=== PATIENT | female | born 1945 | race Caucasian/White ===

== ENCOUNTER 2021-01-20 14:52 | Inpatient (IN) ==
[2021-01-20] MEDS ORDERED: STAT IV Infusion **Titration per Protocol STA ×2 (15:16→20:02)
[2021-01-20] MEDS ORDERED: Heparin IV Adult Wt-Based Low-Dose *NO* Bolus Protocol ONE (15:16)
[2021-01-20] MEDS ORDERED: dilTIAZem HCl 5 MG/ML 5 ML VIAL IV STA (15:16)
--- NOTE | 2021-01-20 15:22 | Emergency Department Note ---
History of Present Illness General Chief complaint: Cardiac Assessment Stated complaint: A. FIB, SOB Time Seen by Provider: 01/20/21 14:56 Source: patient Mode of arrival: EMS Limitations: no limitations History of Present Illness Provider complaint: Dyspnea, dizziness, new onset A. fib Onset (ago): unknown This is a 75-year-old female brought in by EMS from the pulmonology office after being found to have atrial fibrillation on EKG which is apparently new. Patient states she has a history of asthma, and this was a routinely scheduled visit with pulmonology. Patient recently moved up here in October after the of her to be closer to family and is reestablishing with local physicians. Patient does have a history of coronary artery disease and has 4 stents. She takes a baby aspirin daily, no other anticoagulation or antiplatelet therapy. Patient states she has a history of fluttering which has been going on for several years. Patient states was previously evaluated by her embedded nurse in [place], however no other interventions were performed. It would typically only last 20 to 30 minutes and then resolve. Patient states she notices a discomfort and fluttering after eating but attributes this to her history of esophagitis and prior Niesen fundoplication. Patient denies any recent change in her chronic asthma/dyspnea. No recent lower extremity edema. No fevers/chills or other URI symptoms. Patient was recently seen in the emergency department, moni gnosed with diverticulitis, and was started on Cipro/Flagyl for this. Pt seen during a time of high acuity and national emergency pandemic while wearing PPE. Home Medications Medication Instructions Recorded Confirmed Type acetaminophen 325 mg capsule 650 mg PO BID PRN 12/22/20 01/20/21 History albuterol sulfate 90 mcg/actuation 2 puff INHALATION Q6H PRN 12/22/20 01/20/21 History aerosol inhaler aspirin 81 mg tablet,delayed 81 mg PO QAM 12/22/20 01/20/21 History release carvedilol 3.125 mg tablet 3.125 mg PO BID 12/22/20 01/20/21 History cetirizine 10 mg capsule 10 mg PO DAILY PRN 12/22/20 01/20/21 History cholecalciferol (vitamin D3) 50 50 mcg PO QAM 12/22/20 01/20/21 History mcg (2,000 unit) capsule cyanocobalamin (vitamin B-12) 1,000 mcg PO QAM 12/22/20 01/20/21 History 1,000 mcg tablet diltiazem HCl 180 mg 180 mg PO QAM 12/22/20 01/20/21 History capsule,extended release 24 hr esomeprazole magnesium 40 mg 40 mg PO QAM 12/22/20 01/20/21 History capsule,delayed release ferrous sulfate 325 mg (65 mg 325 mg PO QAM 12/22/20 01/20/21 History iron) tablet fluoxetine 10 mg capsule 10 mg PO QAM 12/22/20 01/20/21 History fluticasone propionate 50 1 spray INTRANASAL QAM 12/22/20 01/20/21 History mcg/actuation nasal spray,suspension glucosamine HCl 1,500 mg tablet 1,500 mg PO QAM 12/22/20 01/20/21 History levothyroxine 88 mcg tablet 88 mcg PO QAM 12/22/20 01/20/21 History multivitamin 1 tab PO 3XWK 12/22/20 01/20/21 History omega-3 fatty acids-fish oil 360 1 cap PO 3XWK 12/22/20 01/20/21 History mg-1,200 mg capsule rosuvastatin 40 mg tablet 40 mg PO PM 12/22/20 01/20/21 History sennosides 8.6 mg capsule 8.6 mg PO DAILY PRN 12/22/20 01/20/21 History Domeperidone 10 mg PO TID 01/18/21 01/20/21 History ciprofloxacin HCl 500 mg PO BID #14 tab 01/18/21 01/20/21 Rx evolocumab [Repatha SureClick] 140 mg SUBCUT .Q2WEEK 01/18/21 01/20/21 History metronidazole [Flagyl] 500 mg PO Q8H 7 Days #21 tab 01/18/21 01/20/21 Rx fluticasone fur. 100 mcg-umeclid 1 inh INHALATION QAM #60 ea 01/20/21 01/20/21 Rx 62.5 mcg-vilant 25 mcg inhalat.powder montelukast 10 mg tablet 10 mg PO PM #30 tab 01/20/21 01/20/21 Rx Allergies Allergy/AdvReac Type Severity Reaction Status Date / Time Penicillins AdvReac Intermediate JOINTS Verified 01/20/21 16:03 BECAME STIFF sulfa Allergy Severe HIVES, Uncoded 01/20/21 16:03 MOUTH ULCERS, MOUTH SWELLED Past Med/Surg History Medical History Abnormal CT scan, chest Acute hemorrhoid Arthritis Asthma Bladder cancer Coronary artery disease Dizziness Dyspnea Heart trouble Hiatal hernia Hypertension Obesity (BMI 30.0-34.9) Surgical History H/O hernia repair H/O tubal ligation H/O vaginal hysterectomy History of cholecystectomy History of fundoplication History of heart artery stent History of left knee replacement History of repair of rotator cuff History of right hip replacement History of surgical removal of squamous cell carcinoma of skin of religious region Family History Mother Atrial fibrillation Coronary heart disease Father Crohn's disease Other Heart disease Hypertension Social History (Updated 01/20/21 @ 18:38 by Michelle Butterfield PA-C) Smoking Status: Never smoker Second Hand Exposure: Yes; Do You Dip or Chew Tobacco: No; Hx Alcohol Use: Yes Hx Substance Use: No Preferred Language: Hebrew 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 Ability: Effective Cabinet Professional Required: Yes Beliefs That Will Affect Care: None marital status: / Current Living Situation: Family Current Living Situation Comment: Lives with daughter Feels Safe at Home: Yes Safety Concerns: Feels Safe At This Time Assistive Devices: Glasses Review of Systems See HPI for pertinent positives & negatives. and A total of 10 systems reviewed and were otherwise negative Physical Exam Vital Signs Vital Signs - 24 hr 01/20/21 15:00 01/20/21 15:05 01/20/21 15:09 Temperature 36.9 C Temperature Source Oral Pulse Rate 150 H 125 H Pulse Rate from SpO2 Sensor 108 H Respiratory Rate 20 20 Blood Pressure 157/99 H 157/99 H Blood Pressure Mean 118 118 Pulse Oximetry 94 95 95 Oxygen Delivery Method Room Air Room Air Sepsis Recent Fever Within 48 Hours No Sepsis New/Unexplained Change in Mental Status N/A Sepsis Action Taken by Nursing No Action Required 01/20/21 15:14 01/20/21 15:20 01/20/21 15:30 Temperature Temperature Source Pulse Rate 149 H 147 H 126 H Pulse Rate from SpO2 Sensor 112 H 118 H 115 H Respiratory Rate 20 23 20 Blood Pressure 135/91 Blood Pressure Mean 105 Pulse Oximetry 94 94 94 Oxygen Delivery Method Sepsis Recent Fever Within 48 Hours Sepsis New/Unexplained Change in Mental Status Sepsis Action Taken by Nursing 01/20/21 15:40 01/20/21 15:50 01/20/21 16:00 Temperature Temperature Source Pulse Rate 144 H 151 H 105 H Pulse Rate from SpO2 Sensor 129 H 111 H 129 H Respiratory Rate 17 27 H Blood Pressure Blood Pressure Mean Pulse Oximetry 93 92 93 Oxygen Delivery Method Sepsis Recent Fever Within 48 Hours Sepsis New/Unexplained Change in Mental Status Sepsis Action Taken by Nursing 01/20/21 16:01 01/20/21 16:10 01/20/21 16:20 Temperature Temperature Source Pulse Rate 127 H 132 H 144 H Pulse Rate from SpO2 Sensor 91 H 112 H 126 H Respiratory Rate 17 17 24 Blood Pressure 140/102 H Blood Pressure Mean 114 Pulse Oximetry 94 93 94 Oxygen Delivery Method Sepsis Recent Fever Within 48 Hours Sepsis New/Unexplained Change in Mental Status Sepsis Action Taken by Nursing 01/20/21 16:30 01/20/21 16:32 01/20/21 16:40 Temperature Temperature Source Pulse Rate 136 H 136 H 119 H Pulse Rate from SpO2 Sensor 105 H 119 H 120 H Respiratory Rate 20 21 22 Blood Pressure 101/87 Blood Pressure Mean 91 Pulse Oximetry 91 93 95 Oxygen Delivery Method Sepsis Recent Fever Within 48 Hours Sepsis New/Unexplained Change in Mental Status Sepsis Action Taken by Nursing 01/20/21 16:42 01/20/21 16:50 01/20/21 17:00 Temperature Temperature Source Pulse Rate 113 H 148 H 121 H Pulse Rate from SpO2 Sensor 120 H 113 H 84 Respiratory Rate 24 28 H 21 Blood Pressure 132/73 Blood Pressure Mean 92 Pulse Oximetry 94 95 93 Oxygen Delivery Method Sepsis Recent Fever Within 48 Hours Sepsis New/Unexplained Change in Mental Status Sepsis Action Taken by Nursing 01/20/21 17:01 01/20/21 17:10 01/20/21 17:20 Temperature Temperature Source Pulse Rate 121 H 119 H 131 H Pulse Rate from SpO2 Sensor 98 H 80 90 Respiratory Rate 20 22 20 Blood Pressure 104/80 Blood Pressure Mean 88 Pulse Oximetry 92 94 94 Oxygen Delivery Method Sepsis Recent Fever Within 48 Hours Sepsis New/Unexplained Change in Mental Status Sepsis Action Taken by Nursing 01/20/21 17:30 01/20/21 17:40 01/20/21 17:50 Temperature Temperature Source Pulse Rate 115 H 120 H 115 H Pulse Rate from SpO2 Sensor 93 H 97 H 96 H Respiratory Rate 21 37 H 19 Blood Pressure 135/83 Blood Pressure Mean 100 Pulse Oximetry 94 94 95 Oxygen Delivery Method Sepsis Recent Fever Within 48 Hours Sepsis New/Unexplained Change in Mental Status Sepsis Action Taken by Nursing 01/20/21 17:59 Temperature Temperature Source Pulse Rate Pulse Rate from SpO2 Sensor Respiratory Rate Blood Pressure 124/68 Blood Pressure Mean 86 Pulse Oximetry Oxygen Delivery Method Sepsis Recent Fever Within 48 Hours Sepsis New/Unexplained Change in Mental Status Sepsis Action Taken by Nursing GENERAL: alert, well appearing, well nourished, no distress, non-toxic EYE EXAM: normal conjunctiva, PERRL and EOM's grossly intact OROPHARYNX: no exudate, no erythema, lips, buccal mucosa, and tongue normal and mucous membranes are moist NECK: supple, no nuchal rigidity, no adenopathy, non-tender LUNGS: Clear to auscultation. Normal chest wall mechanics, no w/r/r HEART: no murmurs, S1 normal and S2 normal ABDOMEN: abdomen soft, non-tender, normo-active bowel sounds, no masses, no rebound or guarding. BACK: Back is symmetrical on inspection and there is no deformity, no midline tenderness, no CVA tenderness. SKIN: no rashes and no bruising UPPER EXTREMITIES: upper extremities are grossly normal. FROM, nml pulses b/l. LOWER EXTREMITIES: No pitting edema. FROM, nml pulses b/l. NEURO EXAM: Normal sensorium, cranial nerves II-XII grossly intact, normal speech, no gross weakness of arms, no gross weakness of legs. Gross sensation intact. Course Course 1700: Updated patient and daughter at bedside. Heart rate is improved on Cardizem drip at 10. 1748: Discussed with Naima Melgar [facility] hospitalist service. Administered Medications Carvedilol (Carvedilol 3.125 Mg Tab) 3.125 mg PO BID [facility] Stop: 02/19/21 20:59 Last Admin: 01/20/21 21:44 Dose: 3.125 mg Documented by: [id number] Cefdinir (Cefdinir 300 Mg Cap) 300 mg PO BID [facility] Stop: 01/30/21 20:59 Last Admin: 01/20/21 21:42 Dose: 300 mg Documented by: [id number] Diltiazem HCl 125 mg/ Dextrose 125 mls @ 10 mls/hr IV .[id number] JANE; Protocol Stop: 02/19/21 15:29 Last Titration: 01/20/21 17:47 Dose: 15 mg/hr, 15 mls/hr Documented by: [id number] Cosigned by: [id number] Titration: 01/20/21 15:58 Dose: 10 mg/hr, 10 mls/hr Documented by: [id number] Cosigned by: [id number] Admin: 01/20/21 15:37 Dose: 5 mg/hr, 5 mls/hr Documented by: [id number] Cosigned by: [id number] Heparin Sodium/Dextrose (Heparin Sodium/Dextrose) 25,000 units in 500 mls @ 19 mls/hr IV .Q24H JANE; Protocol Stop: 02/19/21 15:29 Last Admin: 01/20/21 16:35 Dose: 950 units/hr, 19 mls/hr Documented by: [id number] Cosigned by: [id number] Metronidazole (Metronidazole 500 Mg Tab) 500 mg PO Q8 JANE Stop: 01/24/21 23:59 Last Admin: 01/20/21 21:43 Dose: 500 mg Documented by: [id number] Miscellaneous (Domperidone - Order Awaiting Action) 1 ea N/A QS [facility] Stop: 02/20/21 00:00 Last Admin: 01/20/21 22:42 Dose: Not Given Documented by: [id number] Montelukast Sodium (Montelukast Sodium 10 Mg Tablet) 10 mg PO PM JANE Stop: 02/19/21 20:59 Last Admin: 01/20/21 21:43 Dose: 10 mg Documented by: [id number] Rosuvastatin Calcium (Rosuvastatin Calcium 20 Mg Tab) 40 mg PO PM JANE Stop: 02/19/21 20:59 Last Admin: 01/20/21 21:43 Dose: 40 mg Documented by: [id number] Discontinued Medications Diltiazem HCl (Diltiazem Hcl 5 Mg/Ml 5 Ml Vial) 10 mg IV NOW STA Stop: 01/20/21 15:17 Last Admin: 01/20/21 15:25 Dose: 10 mg Documented by: [id number] Cosigned by: [id number] Heparin Sodium/Dextrose (Heparin Iv Adult Wt-Based Low-Dose *No* Bolus Protocol) 1 ea N/A ONE ONE; Protocol Stop: 01/20/21 15:17 Last Admin: 01/20/21 22:41 Dose: Not Given Documented by: [id number] Miscellaneous (Stat Iv Infusion Titration Per Protocol) 1 ea N/A NOW STA Stop: 01/20/21 15:17 Last Admin: 01/20/21 22:41 Dose: Not Given Documented by: [id number] Potassium Chloride (Potassium Chloride Crtab 20 Meq Tabcr) 20 meq PO NOW STA Stop: 01/20/21 18:42 Last Admin: 01/20/21 18:55 Dose: 20 meq Documented by: [id number] Critical Care Time Critical Care Time: Yes Total Critical Care Time: 42 Critical care of 42 min performed to assess and manage high likelihood of life- threatening dysrhythmia, involving labs and imaging performed with assessment to evaluate dysrhythmia diagnosis with frequent reassessment. This time includes bedside time, treatment discussions with patient/family/consultants, documentation time and excludes procedure time. Medical Decision Making Differential Diagnosis Differential diagnosis includes etiologies such as premature contractions, electrolyte abnormality, cardiac dysrhythmia, thyroid dysfunction, pulmonary embolism, infection, gastrointestinal, as well as others were entertained. Medical Records Attestation: I reviewed the patient's medical records. Home Medications Current Medication List: was personally reviewed by me Laboratory Data Attestation: I reviewed the patient's lab results. Result diagrams: 01/20/21 14:45 01/20/21 14:45 Lab Results 01/20/21 01/20/21 01/20/21 Range/Units 14:45 14:45 14:45 WBC 6.96 (4.8-10.8) K/uL RBC 4.23 (4.2-5.4) M/uL Hgb 13.0 (12.0-16.0) g/dL Hct 39.9 (37-47) % MCV 94.3 (80-100) fL MCH 30.7 (25-34) pg MCHC 32.6 (32-36) g/dL RDW Std Deviation 46.8 H (36.4-46.3) fL RDW Coeff of Alexy 13.6 (11.5-14.5) % Plt Count 230 (130-400) K/uL MPV 10.4 (7.4-10.4) fL Immature Gran % (Auto) 0.1 % Neut % (Auto) 62.2 % Lymph % (Auto) 23.1 % [place] % (Auto) 8.5 % Eos % (Auto) 5.2 % Baso % (Auto) 0.9 % Neut # (Auto) 4.33 (1.4-6.5) K/uL Lymph # (Auto) 1.61 (1.2-3.4) K/uL [place] # (Auto) 0.59 (0.11-0.59) K/uL Eos # (Auto) 0.36 (0-0.5) K/uL Baso # (Auto) 0.06 (0-0.2) K/uL Immature Gran # (Auto) 0.01 (0.00-0.02) K/uL PT 10.5 (9.0-12.0) Seconds INR 1.0 (0.9-1.1) Sodium 139 (136-145) mmol/L Potassium 3.8 (3.5-5.1) mmol/L Chloride 110 H (98-107) mmol/L Carbon Dioxide 21 (21-32) mmol/L Anion Gap 8.0 (3-11) BUN 17 (7-18) mg/dl Creatinine 0.94 (0.6-1.2) mg/dl Est Cr Clr Drug Dosing 64.3 ml/min Est GFR ( Amer) 68.3 ml/min Est GFR (Non-Af Amer) 58.9 ml/min BUN/Creatinine Ratio 17.8 (10-20) Glucose 95 (70-99) mg/dl Calcium 8.5 (8.5-10.1) mg/dl Magnesium 2.0 (1.8-2.4) mg/dl Total Bilirubin 0.4 (0.2-1) mg/dl AST 14 L (15-37) U/L ALT 18 (12-78) U/L Alkaline Phosphatase 134 H (45-117) U/L Troponin I 0.016 (0-0.045) ng/ml NT-Pro-B Natriuret Pep 1029 (0-1800) pg/ml Total Protein 7.4 (6.4-8.2) gm/dl Albumin 3.5 (3.4-5.0) gm/dl Globulin 3.9 (2.5-4.0) gm/dl Albumin/Globulin Ratio 0.9 (0.9-2) Lipase 95 (73-393) U/L TSH 1.130 (0.300-4.500) uIu/ml COVID-19 Eval Order SARS-CoV-2 (PCR) (Negative) 01/20/21 01/20/21 Range/Units 17:35 17:35 WBC (4.8-10.8) K/uL RBC (4.2-5.4) M/uL Hgb (12.0-16.0) g/dL Hct (37-47) % MCV (80-100) fL MCH (25-34) pg MCHC (32-36) g/dL RDW Std Deviation (36.4-46.3) fL RDW Coeff of Alexy (11.5-14.5) % Plt Count (130-400) K/uL MPV (7.4-10.4) fL Immature Gran % (Auto) % Neut % (Auto) % Lymph % (Auto) % [place] % (Auto) % Eos % (Auto) % Baso % (Auto) % Neut # (Auto) (1.4-6.5) K/uL Lymph # (Auto) (1.2-3.4) K/uL [place] # (Auto) (0.11-0.59) K/uL Eos # (Auto) (0-0.5) K/uL Baso # (Auto) (0-0.2) K/uL Immature Gran # (Auto) (0.00-0.02) K/uL PT (9.0-12.0) Seconds INR (0.9-1.1) Sodium (136-145) mmol/L Potassium (3.5-5.1) mmol/L Chloride (98-107) mmol/L Carbon Dioxide (21-32) mmol/L Anion Gap (3-11) BUN (7-18) mg/dl Creatinine (0.6-1.2) mg/dl Est Cr Clr Drug Dosing ml/min Est GFR ( Amer) ml/min Est GFR (Non-Af Amer) ml/min BUN/Creatinine Ratio (10-20) Glucose (70-99) mg/dl Calcium (8.5-10.1) mg/dl Magnesium (1.8-2.4) mg/dl Total Bilirubin (0.2-1) mg/dl AST (15-37) U/L ALT (12-78) U/L Alkaline Phosphatase (45-117) U/L Troponin I (0-0.045) ng/ml NT-Pro-B Natriuret Pep (0-1800) pg/ml Total Protein (6.4-8.2) gm/dl Albumin (3.4-5.0) gm/dl Globulin (2.5-4.0) gm/dl Albumin/Globulin Ratio (0.9-2) Lipase (73-393) U/L TSH (0.300-4.500) uIu/ml COVID-19 Eval Order Covid19 at [facility] SARS-CoV-2 (PCR) NEGATIVE (Negative) Imaging Data Radiologist's Impression: Chest X-Ray 01/20/21 15:16 XR chest 1V portable CLINICAL HISTORY: Shortness of breath. COMPARISON STUDY: No previous studies for comparison. FINDINGS: Lung volumes are normal. Lungs are clear. There is no pneumothorax or pleural effusion. Cardiac size is normal. Mediastinal contours are normal. There is no evidence for pulmonary edema. A hiatal hernia is noted. IMPRESSION: No acute cardiopulmonary findings. ACT 112: Negative or not required by law. Electronically signed by: Jake Renteria M.D. 01/20/2021 3:44 PM ECG Data Attestation: I personally reviewed and interpreted this ECG as follows: Rate (beats per minute): 138 Rhythm: + atrial fibrillation ECG Intervals/blocks: + Normal QRS and + Normal QT ECG [place]: + Left axis deviation ECG ST segments: + Nonspecific ST abnormalities MDM Narrative This is a 75-year-old female who presents after being referred from her search engine marketing strategist office for new onset A. fib. Patient found to have A. fib with RVR here, however was otherwise hemodynamically stable. Patient started on diltiazem drip. No contraindication for heparin was noted on my conversation so patient started on heparin drip given unclear onset of symptoms this patient admitted to intermittent fluttering for 2 years, and longstanding history of intermittent dyspnea which she felt was related to her asthma. Patient also admitted to recent dizziness which she felt was more likely to be dehydration. No recent illness or infection. I do not suspect occult infectious etiology such as pericarditis/myocarditis. Patient does have history of CAD status post stenting. Patient was improved with Cardizem drip. I do not suspect PE or ACS. Do not suspect pericardial effusion/tamponade, dissection, or increased thoracic aneurysm. Case discussed with hospitalist team for additional evaluation and management. An order was placed for continuous cardiac monitoring. The monitor shows a rate of _137_ with _Atrial fibrillation_ rhythm. Impression & Plan Atrial fibrillation with rapid ventricular response, Dyspnea, Coronary artery disease, Dizziness Discharge Plan Visit Data Chief Complaint: Cardiac Assessment Stated Complaint: A. FIB, SOB ED Provider: Omaira Barton Discharge Problem: Atrial fibrillation with rapid ventricular response, Dyspnea, Coronary artery disease, Dizziness Patient Disposition: Admitted As Inpatient Discharge Instructions Interventions: ED Discharge Assessment Last Done: 01/20/21 19:48 Discharge Problem: Dyspnea Qualifiers: Dyspnea type: shortness of breath Qualified Code(s): R06.02 - Shortness of breath Coronary artery disease Qualifiers: Coronary Disease-Associated Artery/Lesion type: [place] artery [place] vs. transplanted heart: [place] heart Associated angina: unspecified whether angina present Qualified Code(s): I25.10 - Atherosclerotic heart disease of [place] coronary artery without angina pectoris
[2021-01-20] MEDS ORDERED: HEPARIN SODIUM/DEXTROSE 25,000 UNITS/500 ML BAG IV SCH ×2 (15:30→20:02)
[2021-01-20 15:31] LABS: Basophils # (auto) 0.06 K/uL (0-0.2); Basophils % (auto) 0.9 %; Eosinophils # (auto) 0.36 K/uL (0-0.5); Eosinophils % (auto) 5.2 %; Hematocrit (blood only) 39.9 % (37-47); Immature Granulocytes # (auto) 0.01 K/uL (0.00-0.02); Immature Granulocytes % (auto) 0.1 %; Lymphocytes # (auto) 1.61 K/uL (1.2-3.4); Lymphocytes % (auto) 23.1 %; Mean Corpuscular Hemoglobin 30.7 pg (25-34); Mean Corpuscular Hgb Conc 32.6 g/dL (32-36); Mean Corpuscular Volume 94.3 fL (80-100); Mean Platelet Volume 10.4 fL (7.4-10.4); Monocytes # (auto) 0.59 K/uL (0.11-0.59); Monocytes % (auto) 8.5 %; Neutrophils # (auto) 4.33 K/uL (1.4-6.5); Neutrophils % (auto) 62.2 %; Platelet Count 230 K/uL (130-400); RDW Coefficient of Variation 13.6 % (11.5-14.5); RDW Standard Deviation 46.8 fL (36.4-46.3); Red Blood Count 4.23 M/uL (4.2-5.4); White Blood Count 6.96 K/uL (4.8-10.8)
[2021-01-20] MEDS: dilTIAZem HCL 125 MG in DEXTROSE 5% 100 ML IV SCH (15:37)
--- NOTE | 2021-01-20 15:45 | XRay Report ---
XR chest 1V portable CLINICAL HISTORY: Shortness of breath. COMPARISON STUDY: No previous studies for comparison. FINDINGS: Lung volumes are normal. Lungs are clear. There is no pneumothorax or pleural effusion. Car diac size is normal. Mediastinal contours are normal. There is no evidence for pulmonary edema. A hia paulie hernia is noted. IMPRESSION: No acute cardiopulmonary findings. ACT 112: Negative or not required by law. Electronically signed by: Jake Renteria M.D. 01/20/2021 3:44 PM
[2021-01-20 15:46] LABS: Prothrombin Time 10.5 Seconds (9.0-12.0)
[2021-01-20 15:56] LABS: Albumin Level 3.5 gm/dl (3.4-5.0); BUN Creatinine Ratio 17.8 (10-20); Calcium 8.5 mg/dl (8.5-10.1); Creatinine Clr Calc Pharmacy 64.3 ml/min; Est GFR (African American) 68.3 ml/min; Est GFR (Non-African American) 58.9 ml/min; Potassium 3.8 mmol/L (3.5-5.1)
[2021-01-20 16:07] LABS: Albumin Globulin Ratio 0.9 (0.9-2); Bilirubin,Total 0.4 mg/dl (0.2-1); Globulin 3.9 gm/dl (2.5-4.0); Thyroid Stimulating Hormone 1.13 uIu/ml (0.300-4.500); Total Protein 7.4 gm/dl (6.4-8.2); Troponin I 0.016 ng/ml (0-0.045)
--- NOTE | 2021-01-20 18:39 | History & Physical Report ---
Date of Service January 20, 2021 Assessment & Plan (1) Atrial fibrillation with RVR: This is a 75 year old F who has a significant PMH of CAD with of stent x 4 in 2019, Urothelial bladder ca undergoing current bcg tx, HTN, GERD with history of nasal fundoplication, hypothyroidism, depression who presents to ED at the referral of pulmonary clinic secondary to being found in atrial fibrillation with RVR. New onset afib, unknown duration she was in ED on 01/18, no ecg done, documented regular rhythm acute onset of dizziness today [id number] admit to PCU continue diltiazem gtt and heparin gtt on coreg and diltiazem as outpt for cad/htn replace K, keep K > 4 mag > 2 obtain echocardiogram cycle trops, ecg in a.[place]. (2) Diverticulitis: hx 01/18 after presenting to ED with abd pain mild sigmoid diverticulitis was on cipro/flagyl (day #2) will switch to omnicef and flagyl avoid quinolones in setting of afib and possible interaction with cardiac meds no leukocytosis, abd pain resolved (3) Coronary artery disease: hx of stent x 4 in 2019, followed cardiology in [place] will need to obtain records of prior medical facility [place] on asa, statin, repatha, coreg cardiology consulted (4) Bladder cancer: High-grade T1 urothelial cell carcinoma Established with [facility] Last BCG treatment was on 01/17 (5) Hypertension: continue coreg, diltiazem bp stable (6) Asthma: no acute exac continue trelegy, prn albuterol, singulair (7) DVT prophylaxis: IV heparin Dispo: PCU PCP: To establish with Dr. Millan on 01/26/21 FULL CODE Pt was seen and examined in collaboration with Dr. Keith, please see addendum History of Present Illness Chief Complaint: Referred by pulm due to afib Primary Care Provider: Shelia Millan, DO This is a 75 year old F who has a significant PMH of CAD with of stent x 4 in 2019, Urothelial bladder ca undergoing current bcg tx, HTN, GERD with history of nasal fundoplication, hypothyroidism, depression who presents to ED at the referral of pulmonary clinic secondary to being found in atrial fibrillation with RVR. Patient previously resided in [place] and unfortunately her in October during hospitalization from cardiac arrest. She moved up to [place] to live with her daughter and is currently in the process of establishing care with specialists and PCP. She is scheduled to see [facility] PCP on 01/26/2021. So far she is established with [facility] urology in order to continue on BCG treatments as well as [facility] pulmonology for asthma. She woke up this morning and felt very dizzy, described it like a passing out. She has never experienced this before. Shortly after breakfast she felt her heart flutter. She has felt this on and off for the past year. She has underlying history of CAD for which she saw cardiology in [place] but no prior history atrial fibrillation. She elicits her mother had a history of atrial fibrillation and CAD. Patient also has hx of asthma and chronic SOB, but feels it is unchanged. She was establishing with pulmonology today when she described her dizziness and fluttering. An EKG was obtained which found her to be in rapid A. fib and she was referred to ED. She was seen in ED on 01/18 secondary to abdominal pain. At that point in time it was documented that she was in regular rhythm. Patient states that she did not have an EKG done that day. It was felt her abdominal pain was likely secondary to a mild diverticulitis and she was started on Cipro and Flagyl. CT scan at that time also was concerning for moderate hiatal hernia with circumferential wall thickening of distal esophagus concerning for esophagitis. Patient is scheduled to see [facility] next week. So far she has completed 1.5 days of antibiotic regimen and her abdominal pain has since subsided. She otherwise denies fever, chills, sweats, chest pain, shortness of breath, cough, URI symptoms, nausea, vomiting, abdominal pain, increased urinary urgency, frequency, hematuria, melena or hematochezia. Last bcg treatment on Sunday with urology. She denies hx of blood thinner in past. She was on plavix for one year after stents. No hx of bleeding problems. She does history of hypothyroidism and TSH is normal today. Patient remained hemodynamically stable in ER but was in rapid ventricular rate on arrival with rates in the 130s. She received a diltiazem bolus and started on drip. She was also placed on heparin drip. Daughter is at bedside. Allergies Allergy/AdvReac Type Severity Reaction Status Date / Time Penicillins AdvReac Intermediate JOINTS Verified 01/20/21 16:03 BECAME STIFF sulfa Allergy Severe HIVES, Uncoded 01/20/21 16:03 MOUTH ULCERS, MOUTH SWELLED Home Medications Medication Instructions Recorded Confirmed Type acetaminophen 325 mg capsule 650 mg PO BID PRN 12/22/20 01/20/21 History albuterol sulfate 90 mcg/actuation 2 puff INHALATION Q6H PRN 12/22/20 01/20/21 H istory aerosol inhaler aspirin 81 mg tablet,delayed 81 mg PO QAM 12/22/20 01/20/21 History release carvedilol 3.125 mg tablet 3.125 mg PO BID 12/22/20 01/20/21 History cetirizine 10 mg capsule 10 mg PO DAILY PRN 12/22/20 01/20/21 History cholecalciferol (vitamin D3) 50 50 mcg PO QAM 12/22/20 01/20/21 History mcg (2,000 unit) capsule cyanocobalamin (vitamin B-12) 1,000 mcg PO QAM 12/22/20 01/20/21 History 1,000 mcg tablet diltiazem HCl 180 mg 180 mg PO QA 12/22/20 01/20/21 History capsule,extended release 24 hr esomeprazole magnesium 40 mg 40 mg PO QAM 12/22/20 01/20/21 History capsule,delayed release ferrous sulfate 325 mg (65 mg 325 mg PO QAM 12/22/20 01/20/21 History iron) tablet fluoxetine 10 mg capsule 10 mg PO QA 12/22/20 01/20/21 History fluticasone propionate 50 1 spray INTRANASAL QA 12/22/20 01/20/21 History mcg/actuation nasal spray,suspension glucosamine HCl 1,500 mg tablet 1,500 mg PO QAM 12/22/20 01/20/21 History levothyroxine 88 mcg tablet 88 mcg PO QAM 12/22/20 01/20/21 History multivitamin 1 tab PO 3XWK 12/22/20 01/20/21 History omega-3 fatty acids-fish oil 360 1 cap PO 3XWK 12/22/20 01/20/21 History mg-1,200 mg capsule rosuvastatin 40 mg tablet 40 mg PO PM 12/22/20 01/20/21 History sennosides 8.6 mg capsule 8.6 mg PO DAILY PRN 12/22/20 01/20/21 History Domeperidone 10 mg PO TID 01/18/21 01/20/21 History ciprofloxacin HCl 500 mg PO BID #14 tab 01/18/21 01/20/21 Rx evolocumab [Repatha SureClick] 140 mg SUBCUT .Q2WEEK 01/18/21 01/20/21 History metronidazole [Flagyl] 500 mg PO Q8H 7 Days #21 tab 01/18/21 01/20/21 Rx fluticasone fur. 100 mcg-umeclid 1 inh INHALATION QAM #60 ea 01/20/21 01/20/21 Rx 62.5 mcg-vilant 25 mcg inhalat.powder montelukast 10 mg tablet 10 mg PO PM #30 tab 01/20/21 01/20/21 Rx Past Med/Surg History Medical History Abnormal CT scan, chest Acute hemorrhoid Arthritis Asthma Bladder cancer Coronary artery disease Dizziness Dyspnea Heart trouble Hiatal hernia Hypertension Obesity (BMI 30.0-34.9) Surgical History H/O hernia repair H/O tubal ligation H/O vaginal hysterectomy History of cholecystectomy History of fundoplication History of heart artery stent History of left knee replacement History of repair of rotator cuff History of right hip replacement History of surgical removal of squamous cell carcinoma of skin of [place]aoist region Family History Mother Atrial fibrillation Coronary heart disease Father Crohn's disease Other Heart disease Hypertension Social History (Updated 01/20/21 @ 18:38 by Michelle Butterfield PA-C) Smoking Status: Never smoker Second Hand Exposure: Yes; Do You Dip or Chew Tobacco: No; Hx Alcohol Use: Yes Hx Substance Use: No Preferred Language: Danish 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 Ability: Effective Woods Boss Required: Yes Beliefs That Will Affect Care: None marital status: / Current Living Situation: Family Current Living Situation Comment: Lives with daughter Feels Safe at Home: Yes Safety Concerns: Feels Safe At This Time Assistive Devices: Glasses Review of Systems Review of Systems: All systems reviewed & are unremarkable except as noted in HPI & below Physical Exam Physical Exam: Constitutional: WD/WN, vitals as above, NAD, sitting up in bed, pleasant, conversing easily Head: Normocephalic, Atraumatic Eyes: PERRL, conjunctivae normal, anicteric sclerae ENMT: external ear and nose normal, oropharynx normal Neck: trachea midline, no thyromegaly normal visual inspection Respiratory: normal respiratory effort, lungs clear to auscultation, no wheeze, rales, rhonchi. Normal insp/exp effort, no accessory muscle use Cardiovascular: IRR/IRR, no murmur, no edema Vessels: no JVD or carotid bruit Chest: normal inspection of chest Abdomen: normal bowel sounds, soft, nontender, no hepatosplenomegaly Musculoskeletal: no cyanosis or clubbing, extremities motor strength 5/5 Skin: no rashes, warm and dry normal turgor Neurologic: PERRL, EOMI, accommodation nl, no face palsy, no dysarthria CN's II-XI intact bilaterally and moves all extremities Psychiatric: A+Ox3, euthymic affect : deferred Results & Data Results & Data ([facility]) Vital Signs (Past 12 Hours) Vital Signs Temp Pulse Resp BP Pulse Ox 01/20/21 18:10 127 H 20 124/68 96 01/20/21 18:04 129 H 24 93 01/20/21 17:59 124/68 01/20/21 17:50 115 H 19 95 01/20/21 17:40 120 H 37 H 94 01/20/21 17:30 115 H 21 135/83 94 01/20/21 17:20 131 H 20 94 01/20/21 17:10 119 H 22 94 01/20/21 17:01 121 H 20 104/80 92 01/20/21 17:00 121 H 21 93 01/20/21 16:50 148 H 28 H 95 01/20/21 16:42 113 H 24 132/73 94 01/20/21 16:40 119 H 22 95 01/20/21 16:32 136 H 21 101/87 93 01/20/21 16:30 136 H 20 91 01/20/21 16:20 144 H 24 94 01/20/21 16:10 132 H 17 93 01/20/21 16:01 127 H 17 140/102 H 94 01/20/21 16:00 105 H 93 01/20/21 15:50 151 H 27 H 92 01/20/21 15:40 144 H 17 93 01/20/21 15:30 126 H 20 135/91 94 01/20/21 15:20 147 H 23 94 01/20/21 15:14 149 H 20 94 01/20/21 15:09 95 01/20/21 15:05 125 H 20 157/99 H 95 01/20/21 15:00 36.9 C 150 H 20 157/99 H 94 Diagnostic Findings Chest X-Ray 01/20/21 15:16 XR chest 1V portable CLINICAL HISTORY: Shortness of breath. COMPARISON STUDY: No previous studies for comparison. FINDINGS: Lung volumes are normal. Lungs are clear. There is no pneumothorax or pleural effusion. Cardiac size is normal. Mediastinal contours are normal. There is no evidence for pulmonary edema. A hiatal hernia is noted. IMPRESSION: No acute cardiopulmonary findings. ACT 112: Negative or not required by law. Electronically signed by: Jake Renteria M.D. 01/20/2021 3:44 PM Medications Administered Diltiazem HCl 125 mg/ Dextrose 125 mls @ 10 mls/hr IV .[id number] [facility]; Protocol Stop: 02/19/21 15:29 Last Titration: 01/20/21 17:47 Dose: 15 mg/hr, 15 mls/hr Documented by: [id number] Cosigned by: [id number] Titration: 01/20/21 15:58 Dose: 10 mg/hr, 10 mls/hr Documented by: [id number] Cosigned by: [id number] Admin: 01/20/21 15:37 Dose: 5 mg/hr, 5 mls/hr Documented by: [id number] Cosigned by: [id number] Heparin Sodium/Dextrose (Heparin Sodium/Dextrose) 25,000 units in 500 mls @ 19 mls/hr IV .Q24H [facility]; Protocol Stop: 02/19/21 15:29 Last Admin: 01/20/21 16:35 Dose: 950 units/hr, 19 mls/hr Documented by: [id number] Cosigned by: [id number] Discontinued Medications Diltiazem HCl (Diltiazem Hcl 5 Mg/Ml 5 Ml Vial) 10 mg IV NOW STA Stop: 01/20/21 15:17 Last Admin: 01/20/21 15:25 Dose: 10 mg Documented by: [id number] Cosigned by: [id number] ECG Rate (beats per minute): 138 Rhythm: atrial fibrillation COVID-19 Results Results COVID-19 Adm Lab Results: RBC 4.23 M/uL (4.2-5.4) 01/20/21 WBC 6.96 K/uL (4.8-10.8) 01/20/21 Hgb 13.0 g/dL (12.0-16.0) 01/20/21 Hct 39.9 % (37-47) 01/20/21 Plt Count 230 K/uL (130-400) 01/20/21 Neutrophils (%) (Auto) 62.2 % 01/20/21 Lymphocytes (%) (Auto) 23.1 % 01/20/21 Monocytes # (Auto) 0.59 K/uL (0.11-0.59) 01/20/21 Eosinophils # (Auto) 0.36 K/uL (0-0.5) 01/20/21 Immature Granulocyte % (Auto) 0.1 % 01/20/21 Neutrophils # (Auto) 4.33 K/uL (1.4-6.5) 01/20/21 Lymphocytes # (Auto) 1.61 K/uL (1.2-3.4) 01/20/21 Monocytes # (Auto) 0.59 K/uL (0.11-0.59) 01/20/21 Eosinophils # (Auto) 0.36 K/uL (0-0.5) 01/20/21 Basophils # (Auto) 0.06 K/uL (0-0.2) 01/20/21 Immature Granulocyte # (Auto) 0.01 K/uL (0.00-0.02) 01/20/21 Na 139 mmol/L (136-145) 01/20/21 K 3.8 mmol/L (3.5-5.1) 01/20/21 Cl 110 mmol/L (98-107) H 01/20/21 CO2 21 mmol/L (21-32) 01/20/21 Anion Gap 8.0 (3-11) 01/20/21 BUN 17 mg/dl (7-18) 01/20/21 Creatinine 0.94 mg/dl (0.6-1.2) 01/20/21 BUN/Creatinine Ratio 17.8 (10-20) 01/20/21 Glucose Level 95 mg/dl (70-99) 01/20/21 Ca 8.5 mg/dl (8.5-10.1) 01/20/21 Total Bilirubin 0.4 mg/dl (0.2-1) 01/20/21 AST/SGOT 14 U/L (15-37) L 01/20/21 ALT/SGPT 18 U/L (12-78) 01/20/21 Alkaline Phosphatase 134 U/L (45-117) H 01/20/21 Total Protein 7.4 gm/dl (6.4-8.2) 01/20/21 Albumin 3.5 gm/dl (3.4-5.0) 01/20/21 Globulin 3.9 gm/dl (2.5-4.0) 01/20/21 Albumin/Globulin Ratio 0.9 (0.9-2) 01/20/21 Troponin I 0.016 ng/ml (0-0.045) 01/20/21 IC-Ill-H-Type Natriuretic Pep 1029 pg/ml (0-1800) 01/20/21 INR 1.0 (0.9-1.1) 01/20/21 COVID-19 PCR NEGATIVE (Negative) 01/20/21 Chest X-Ray 01/20/21 Code Status & VTE Plan Code Status Full Code VTE Prophylaxis Plan VTE Prophylaxis will be ordered: No Supervising Physician Co-Signing Physician Notes Patient is a 75-year-old female with history of coronary artery disease, hypertension, GERD, hypothyroidism, urothelial bladder cancer and other medical problems presents to ED on recommendations from her substation technician today for evaluation of atrial fibrillation with RVR. She reports having intermittent palpitations since about 1 year duration. Patient noticed to have dizziness this morning and felt that her heart was fluttering. EKG at pulmonary clinic done today showed A. fib RVR and so patient was diverted to ED for further evaluation. Patient had an ED visit 2 days ago with abdominal pain and was fo und to have diverticulitis and was discharged on Cipro, Flagyl. Patient currently denies any nausea, vomiting, abdominal pain. Please review HPI for complete details of presentation. On exam patient is obese, no apparent distress, normocephalic atraumatic, lungs are clear to auscultation, normal breath sounds, irregularly irregular, tachycardia, no murmur, trace bilateral lower extremity edema, abdomen soft, nontender, normal bowel sounds, alert, awake, oriented, grossly no focal neurological deficits. Patient is admitted for management of A. fib RVR. Continue diltiazem drip, heparin drip started in ED. Monitor and replace electrolytes as needed. Will obtain echocardiogram, trend cardiac enzymes repeat EKG in the morning keep her n.p.o. after midnight and consult cardiology. TSH is within normal limits. We will continue p.o. antibiotics for mild diverticulitis to finish the course. I personally reviewed the record. Patient is interviewed and examined at bedside. Patient's care is coordinated with Michelle Butterfield PA-C. Please refer to the documentation above for details of patient's presentation and for discussion of other issues.
[2021-01-20] MEDS ORDERED: POTASSIUM CHLORIDE CRTAB 20 MEQ TABCR PO STA (18:41)
[2021-01-20] MEDS ORDERED: MAGNESIUM HYDROXIDE SUSP 30 ML UDC PO PRN (20:02)
[2021-01-20] MEDS ORDERED: POLYETHYLENE (MIRALAX) 17 GM PACK PO PRN (20:02)
[2021-01-20] MEDS ORDERED: dilTIAZem HCL 125 MG in DEXTROSE 5% 100 ML IV SCH (20:02)
[2021-01-20] MEDS ORDERED: Heparin IV Adult Wt-Based Low-Dose WITH Bolus Protocol STA (20:02)
[2021-01-20] MEDS ORDERED: ALUMINUM/MAGNESIUM SUSP 30 ML UDC PO PRN (20:02)
[2021-01-20] MEDS ORDERED: ONDANSETRON INJ 2 MG/ML 2 ML VIAL IV PRN (20:02)
[2021-01-20] MEDS ORDERED: ALBUTEROL HFA 8 GM INHALER INH PRN (20:02)
[2021-01-20] MEDS ORDERED: ACETAMINOPHEN 325 MG TAB PO PRN (20:02)
[2021-01-20] MEDS ORDERED: HEPARIN SOD (PORCINE) 1000 UNIT/ML IV ONE (20:02)
[2021-01-20] MEDS ORDERED: SENNA 8.6 MG TAB PO PRN (20:16)
[2021-01-20] MEDS ORDERED: ROSUVASTATIN CALCIUM 20 MG TAB PO SCH (21:00)
[2021-01-20] MEDS ORDERED: MONTELUKAST SODIUM 10 MG TABLET PO SCH (21:00)
[2021-01-20] MEDS: CEFDINIR 300 MG CAP PO SCH (21:42)
[2021-01-20] MEDS: metroNIDAZOLE 500 MG TAB PO SCH (21:43)
[2021-01-20] MEDS: carvediloL 3.125 MG TAB PO SCH (21:44)
[2021-01-21 00:09] LABS: Partial Thromboplastin Ratio 1.5; Partial Thromboplastin Time 39.2 Seconds (21.0-31.0)
[2021-01-21 03:10] LABS: Hematocrit (blood only) 40.2 % (37-47); Hemoglobin 13.2 g/dL (12.0-16.0); Mean Corpuscular Hemoglobin 30.5 pg (25-34); Mean Corpuscular Hgb Conc 32.8 g/dL (32-36); Mean Corpuscular Volume 92.8 fL (80-100); Mean Platelet Volume 10.1 fL (7.4-10.4); Platelet Count 231 K/uL (130-400); RDW Coefficient of Variation 13.4 % (11.5-14.5); RDW Standard Deviation 45.7 fL (36.4-46.3); Red Blood Count 4.33 M/uL (4.2-5.4); White Blood Count 7.21 K/uL (4.8-10.8)
[2021-01-21 03:39] LABS: BUN Creatinine Ratio 14.4 (10-20); Calcium 8.9 mg/dl (8.5-10.1); Creatinine Clr Calc Pharmacy 57.3 ml/min; Est GFR (African American) 61.2 ml/min; Est GFR (Non-African American) 52.8 ml/min; Magnesium 2.2 mg/dl (1.8-2.4); Potassium 3.9 mmol/L (3.5-5.1)
[2021-01-21] MEDS: metroNIDAZOLE 500 MG TAB PO SCH (05:54)
[2021-01-21] MEDS ORDERED: LEVOTHYROXINE SODIUM 88 MCG TABLET PO SCH (06:30)
[2021-01-21 07:26] LABS: Partial Thromboplastin Ratio 1.7; Partial Thromboplastin Time 44.4 Seconds (21.0-31.0)
[2021-01-21] MEDS: carvediloL 3.125 MG TAB PO SCH (08:35)
[2021-01-21] MEDS: CEFDINIR 300 MG CAP PO SCH (08:36)
[2021-01-21] MEDS ORDERED: MULTIVITAMIN TAB PO SCH (09:00)
[2021-01-21] MEDS ORDERED: FERROUS SULFATE 325 MG TAB PO SCH (09:00)
[2021-01-21] MEDS ORDERED: PANTOprazole 40 MG TAB PO SCH (09:00)
[2021-01-21] MEDS ORDERED: ASPIRIN 81 MG ECTAB PO SCH (09:00)
[2021-01-21] MEDS ORDERED: FLUTICASONE FUROATE 100MCG 14 PUFFS/INHALER INH SCH (09:00)
[2021-01-21] MEDS ORDERED: CYANOCOBALAMIN 500 MCG TABLET (VITAMIN B-12) PO SCH (09:00)
[2021-01-21] MEDS ORDERED: FLUTICASONE PROPIONATE NA SPR 16 GM BTL NAE SCH (09:00)
[2021-01-21] MEDS ORDERED: OMEGA-3 (PURIFIED FISH OIL) 1 GM CAP PO SCH (09:00)
[2021-01-21] MEDS ORDERED: NON-FORMULARY MEDICATION (Glucosamine Hcl 1,500 mg tablet) PO SCH (09:00)
[2021-01-21] MEDS ORDERED: dilTIAZem HCL 180 MG CAPCR PO SCH ×2 (09:00→09:45)
[2021-01-21] MEDS ORDERED: CHOLECALCIFEROL 1,000 UNITS 25 MCG TAB PO SCH (09:00)
[2021-01-21] MEDS ORDERED: FLUoxetine HCL 10 MG CAP PO SCH (09:00)
[2021-01-21] MEDS ORDERED: UMECLIDINIUM/VILANTEROL 62.5/25MCG 7 PUFFS/INHALER INH SCH (09:00)
[2021-01-21 09:37] LABS: Chol HDL Ratio 2; Cholesterol 99 mg/dl (0-200); HDL Cholesterol 59 mg/dl; LDL Cholesterol Calculated 27 mg/dl; Triglycerides 65 mg/dl (0-150); VLDL Cholesterol 13 mg/dl
[2021-01-21] MEDS ORDERED: HEPARIN DRIP- STOP ORDER SCH (09:45)
[2021-01-21] MEDS ORDERED: METOPROLOL TARTRATE 25 MG TAB PO SCH (09:45)
[2021-01-21] MEDS: dilTIAZem HCL 125 MG in DEXTROSE 5% 100 ML IV SCH (09:53)
--- NOTE | 2021-01-21 09:57 | Cardiology Consultation ---
Date of Consultation January 21, 2021 Assessment & Plan (1) Atrial fibrillation with rapid ventricular response: (2) Coronary artery disease: (3) Dyslipidemia: Newly recognized paroxysmal atrial fibrillation: -EKG performed 01/20/2021 at 1504 revealed atrial fibrillation at 138 bpm, age- indeterminate anterior infarct cannot be excluded based on poor R wave progression. -Repeat EKG, 01/21/2021 at 1:35 AM normal sinus rhythm at 65 bpm, ongoing poor R wave progression, no acute ST depression, corrected QT interval normal. -Sinus rhythm once again noted on EKG this morning. -The patient is already on long-acting diltiazem 180 mg daily, as well as carvedilol 3.125 mg daily. We discussed rhythm and rate control. We discussed options including medical antiarrhythmic therapy. For now, we will discontinue carvedilol, add metoprolol tartrate 25 mg twice daily. And continue prior to hospital treatment with diltiazem 180 daily. IV diltiazem has been discontinued. -With regards to stroke prophylaxis, her [id number] score is calculated to be 5 for risk factors of female, age over 75 (2 points) hypertension, and confirmed vascular disease given her history of coronary heart disease. She is therefore estimated to be at a high risk for cardioembolic stroke and systemic anticoagulation is recommended. She describes having completed a course of dual antiplatelet therapy post PCI and is on aspirin monotherapy at present. We will transition her to aspirin plus Eliquis 5 mg by mouth 2 times per day. Chronic coronary heart disease: Troponin negative x3. Her recent dyspnea likely explained on the basis of atrial fibrillation without definite anginal symptoms. Patient with history of for coronary stents, with PCI to the right coronary artery and LAD per her recollection in [place] in 2019. She has copies of her records which she will hand carry to her upcoming appointments to establish care. As noted, she had completed a course of clopidogrel and remains on aspirin therapy which is to be continued. We will transition from carvedilol to metoprolol as I feel this is a better rate control agent. Her echocardiogram performed this morning reveals normal left ventricular systolic function with no regional wall motion abnormalities. Left ventricular ejection fraction equals 60 to 65%. Grade 2 diastolic dysfunction noted. Would appear that the age-indeterminate anterior infarct pattern is a false positive based on her echo findings. Dyslipidemia: LDL cholesterol 27 mg/dL. Continue prior to hospital treatment with rosuvastatin 40 mg daily and Repatha. Per kennedy'ts request , I called and reviewed plan with her daughter, Juliana who is a PA in [facility], phone: [phone]. DISPOSITION: -STABLE FOR DISCHARGE FROM CARDIOLOGY PERSPECTIVE. FOLLOW UP AT [facility] WITHIN 1-2 WEEKS. WILL CONSIDER 2 WEEK ZIO MONITOR AT THAT TIME TO ASSESS AF BURDEN. 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 She moved to [place] about 20 years ago. Her 3 months ago and she has recently moved back to [place] to be closer to her children. She is working on establishing with local physicians. She had a previously scheduled appointment with yesterday and described worsening shortness of breath and dizziness. Ultimately she was diagnosed with new onset atrial fibrillation with rapid ventricular response. Although the patient states that she had not previously been diagnosed with atrial fibrillation, she could feel her heart fluttering yesterday and she now recognizes that she has had such symptoms before. She presented via the emergency room with EKG confirming the presence of atrial fibrillation with rapid ventricular response, she was placed on IV diltiazem and at 1:17 AM she spontaneously converted to sinus rhythm without conversion pause. She feels well this morning. She is eager to eat her morning meal. She has a history of coronary heart disease and states that she had 2 coronary stents at the time of cardiac catheterization in [place] in 2019. She describes having had a total of 4 stents, including PCI to the right coronary artery and left anterior descending coronary artery. Judging by her medications, she likely has significant dyslipidemia as she is on both rosuvastatin 40 mg daily and is on the PCSK9 inhibitor agent Repatha. Her medication regimen includes diltiazem 180 mg daily as well as carvedilol 3.125 mg twice daily. Her history is otherwise notable for asthma and she had recently been placed on a course of antibiotics for diverticulitis. She describes no recent anginal symptoms. Per her recollection, her most significant concern yesterday was dizziness. Allergies Allergy/AdvReac Type Severity Reaction Status Date / Time Penicillins AdvReac Intermediate JOINTS Verified 01/20/21 16:03 BECAME STIFF sulfa Allergy Severe HIVES, Uncoded 01/20/21 16:03 MOUTH ULCERS, MOUTH SWELLED Home Medications Medication Instructions Recorded Confirmed Type acetaminophen 325 mg capsule 650 mg PO BID PRN 12/22/20 01/20/21 History albuterol sulfate 90 mcg/actuation 2 puff INHALATION Q6H PRN 12/22/20 01/20/21 History aerosol inhaler aspirin 81 mg tablet,delayed 81 mg PO QAM 12/22/20 01/20/21 History release carvedilol 3.125 mg tablet 3.125 mg PO BID 12/22/20 01/20/21 History cetirizine 10 mg capsule 10 mg PO DAILY PRN 12/22/20 01/20/21 History cholecalciferol (vitamin D3) 50 50 mcg PO QAM 12/22/20 01/20/21 History mcg (2,000 unit) capsule cyanocobalamin (vitamin B-12) 1,000 mcg PO QA 12/22/20 01/20/21 History 1,000 mcg tablet diltiazem HCl 180 mg 180 mg PO QAM 12/22/20 01/20/21 History capsule,extended release 24 hr esomeprazole magnesium 40 mg 40 mg PO QAM 12/22/20 01/20/21 History capsule,delayed release ferrous sulfate 325 mg (65 mg 325 mg PO QA 12/22/20 01/20/21 History iron) tablet fluoxetine 10 mg capsule 10 mg PO QAM 12/22/20 01/20/21 History fluticasone propionate 50 1 spray INTRANASAL QA 12/22/20 01/20/21 History mcg/actuation nasal spray,suspension glucosamine HCl 1,500 mg tablet 1,500 mg PO QA 12/22/20 01/20/21 History levothyroxine 88 mcg tablet 88 mcg PO QAM 12/22/20 01/20/21 History multivitamin 1 tab PO 3XWK 12/22/20 01/20/21 History omega-3 fatty acids-fish oil 360 1 cap PO 3XWK 12/22/20 01/20/21 History mg-1,200 mg capsule rosuvastatin 40 mg tablet 40 mg PO PM 12/22/20 01/20/21 History sennosides 8.6 mg capsule 8.6 mg PO DAILY PRN 12/22/20 01/20/21 History Domeperidone 10 mg PO TID 01/18/21 01/20/21 History ciprofloxacin HCl 500 mg PO BID #14 tab 01/18/21 01/20/21 Rx evolocumab [Repatha SureClick] 140 mg SUBCUT .Q2WEEK 01/18/21 01/20/21 History metronidazole [Flagyl] 500 mg PO Q8H 7 Days #21 tab 01/18/21 01/20/21 Rx fluticasone fur. 100 mcg-umeclid 1 inh INHALATION QAM #60 ea 01/20/21 01/20/21 Rx 62.5 mcg-vilant 25 mcg inhalat.powder montelukast 10 mg tablet 10 mg PO PM #30 tab 01/20/21 01/20/21 Rx Patient History Medical History Abnormal CT scan, chest Acute hemorrhoid Arthritis Asthma Bladder cancer Coronary artery disease Dizziness Dyspnea Heart trouble Hiatal hernia Hypertension Obesity (BMI 30.0-34.9) Surgical History H/O hernia repair H/O tubal ligation H/O vaginal hysterectomy History of cholecystectomy History of fundoplication History of heart artery stent History of left knee replacement History of repair of rotator cuff History of right hip replacement History of surgical removal of squamous cell carcinoma of skin of [place]ao[place] region Family History (Updated 01/21/21 @ 08:22 by Nita Gardner) Mother Atrial fibrillation Coronary heart disease Father Crohn's disease Other Allergies Asthma Heart disease Hypertension Tuberculosis Social History (Updated 01/20/21 @ 18:38 by Michelle Btuterfield PA-C) Smoking Status: Never smoker Second Hand Exposure: Yes; Do You Dip or Chew Tobacco: No; Hx Alcohol Use: Yes Hx Substance Use: No Preferred Language: Ukrainian 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 Ability: Effective City Controller Required: Yes Beliefs That Will Affect Care: None marital status: / Current Living Situation: Family Current Living Situation Comment: Lives with daughter Feels Safe at Home: Yes Safety Concerns: Feels Safe At This Time Assistive Devices: Glasses Review of Systems Review of Systems: All systems reviewed & are unremarkable except as noted in HPI & below Physical Exam Physical Exam: Temp Pulse Resp BP Pulse Ox 36.8 C 66 19 112/68 92 01/21/21 07:49 01/21/21 07:49 01/21/21 07:49 01/21/21 07:49 01/21/21 07:49 Constitutional: WD/WN, vitals as above Respiratory: normal respiratory effort, lungs clear to auscultation Cardiovascular: RRR, no murmur, no edema Gastrointestinal (Abdomen): normal bowel sounds, soft, nontender, no hepatosplenomegaly Neurologic: PERRL, EOMI, accommodation nl, no face palsy, no dysarthria Results & Data ([facility]) Vital Signs (Past 12 Hours) Vital Signs Temp Pulse Pulse Resp BP Pulse Ox 01/21/21 07:49 36.8 C 66 19 112/68 92 01/21/21 07:13 68 01/21/21 03:43 37.1 C 65 18 105/56 L 92 01/21/21 01:29 68 107/53 L 01/20/21 23:56 37 C 116 H 16 101/72 92 Laboratory Results Cardiac Enzymes 01/20/21 01/20/21 01/21/21 Range/Units 14:45 20:20 02:33 AST 14 L (15-37) U/L Troponin I 0.016 0.018 0.016 (0-0.045) ng/ml Coagulation 01/20/21 01/20/21 01/21/21 Range/Units 14:45 23:46 06:58 PT 10.5 (9.0-12.0) Seconds APTT 39.2 H 44.4 H (21.0-31.0) Seconds Lipids 01/21/21 Range/Units 02:33 Triglycerides 65 (0-150) mg/dl Cholesterol 99 (0-200) mg/dl HDL Cholesterol 59 mg/dl Cholesterol/HDL Ratio 2 CBC 01/20/21 01/21/21 Range/Units 14:45 02:33 WBC 6.96 7.21 (4.8-10.8) K/uL RBC 4.23 4.33 (4.2-5.4) M/uL Hgb 13.0 13.2 (12.0-16.0) g/dL Hct 39.9 40.2 (37-47) % Plt Count 230 231 (130-400) K/uL Neut # (Auto) 4.33 (1.4-6.5) K/uL Lymph # (Auto) 1.61 (1.2-3.4) K/uL [place] # (Auto) 0.59 (0.11-0.59) K/uL Eos # (Auto) 0.36 (0-0.5) K/uL Baso # (Auto) 0.06 (0-0.2) K/uL Comprehensive Metabolic Panel 01/20/21 01/21/21 Range/Units 14:45 02:33 Sodium 139 143 (136-145) mmol/L Potassium 3.8 3.9 (3.5-5.1) mmol/L Chloride 110 H 115 H (98-107) mmol/L Carbon Dioxide 21 22 (21-32) mmol/L BUN 17 15 (7-18) mg/dl Creatinine 0.94 1.03 (0.6-1.2) mg/dl Glucose 95 114 H (70-99) mg/dl Calcium 8.5 8.9 (8.5-10.1) mg/dl AST 14 L (15-37) U/L ALT 18 (12-78) U/L Alkaline Phosphatase 134 H (45-117) U/L Total Protein 7.4 (6.4-8.2) gm/dl Albumin 3.5 (3.4-5.0) gm/dl Intake and Output 01/20/21 01/21/21 01/21/21 22:59 06:59 14:59 Intake Total 19.917 / 407.350 387.433 / 407.350 30.383 / 30.383 Output Total 600 / 2250 1650 / 2250 Balance -580.083 / -1842.650 -1262.567 / -1842.650 30.383 / 30.383 Intake: IV 19.917 / 407.350 387.433 / 407.350 30.383 / 30.383 Heparin Sodium/Dextrose 25,000 282.35 / 282.35 30.383 / 30.383 units In 500 ml @ 950 UNITS/HR 19 mls/hr IV .Q24H [facility] Rx#: [id number] dilTIAZem HCL 125 mg In 19.917 / 125.000 105.083 / 125.000 Dextrose 5% 100 ml @ 10 MG/HR 10 mls/hr IV .[id number] [facility] Rx#: [id number] Oral 0 / 0 Output: Urine 600 / 2250 1650 / 2250 Other: Weight 99.6 kg 99.6 kg Weight Measurement Method Standing Scale (1) Coronary artery disease Associated angina: unspecified whether angina present Coronary Disease- Associated Artery/Lesion type: [place] artery [place] vs. transplanted heart: veronica [place]undra heart Qualified Code(s): I25.10 - Atherosclerotic heart disease of [place] coronary artery without angina pectoris
[2021-01-21] MEDS ORDERED: APIXABAN 5 MG TABLET PO SCH (10:30)
--- NOTE | 2021-01-21 11:55 | Hospitalist Progress Note ---
Date of Service January 21, 2021 Assessment & Plan (1) Atrial fibrillation with RVR: This is a 75 year old F who has a significant PMH of CAD with of stent x 4 in 2019, Urothelial bladder ca undergoing current bcg tx, HTN, GERD with history of nasal fundoplication, hypothyroidism, depression who presents to ED at the referral of pulmonary clinic secondary to being found in atrial fibrillation with RVR. New onset afib, unknown duration she was in ED on 01/18, no ecg done, documented regular rhythm Started with intravenous Cardizem and continued beta-blockade She reverted to sinus rhythm this morning Symptoms resolved Appreciate cardiology input and recommendation [id number] score is 5 She will be on aspirin and Eliquis Echo of the heart showed-mild concentric LVH, no wall motion abnormalities, systolic function is normal with EF of 60 to 65%, RV is normal in size and function, aortic valve sclerosis mild without significant stenosis and grade 2 diastolic dysfunction. Remains stable since this morning and will be discharged home this afternoon (2) Diverticulitis: hx 01/18 after presenting to ED with abd pain mild sigmoid diverticulitis was on cipro/flagyl (day #2) will switch to omnicef and flagyl avoid quinolones in setting of afib and possible interaction with cardiac meds no leukocytosis, abd pain resolved We will continue oral Cipro and Flagyl for 10 days in total (3) Coronary artery disease: hx of stent x 4 in 2019, followed cardiology in [place] will need to obtain records of prior medical facility [place]a, statin, repatha, coreg cardiology consulted-as above (4) Bladder cancer: High-grade T1 urothelial cell carcinoma Established with [facility] Last BCG treatment was on 01/17 (5) Hypertension: continue coreg, diltiazem bp stable (6) Asthma: no acute exac continue trelegy, prn albuterol, singulair (7) DVT prophylaxis: IV heparin Dispo: PCU PCP: To establish with Dr. Millan on 01/26/21 FULL CODE She will be discharged home this afternoon Admission and Anticipated Discharge Date Admission Date: January 20, 2021 Subjective 01/21/2021 The patient was seen and examined in telemetry unit She was admitted yesterday from the doctor's office with Sarika dominguez RVR Reverted to sinus rhythm this morning Denies any symptoms and will be discharged home this afternoon Review of Systems Review of Systems: All systems reviewed and are unremarkable except as noted below Cardiovascular: no chest pain and no palpitations Physical Exam Physical Exam: Lying in bed comfortably Constitutional: well developed and well nourished; not ill appearing Eyes: PERRL, conjunctivae normal, anicteric sclerae ENMT: external ear and nose normal, oropharynx normal Neck: trachea midline, no thyromegaly Respiratory: no respiratory distress Auscultation: lungs clear to auscultation bilaterally Cardiovascular: Rate/Rhythm: regular rate and regular rhythm Heart Sounds: no murmur Extremities: + edema (Trace edema bilaterally) Gastrointestinal (Abdomen): Inspection/Auscultation: abdomen not distended Percussion/Palpation: abdomen soft; abdomen nontender Musculoskeletal: No acute arthritis in any joint Neurologic: Alert, awake and oriented x3. No focal sensory and motor deficit appreciated Psychiatric: A+Ox3, euthymic affect Lymphatic: no cervical or axillary lymphadenopathy Results & Data Results & Data ([facility]) Vital Signs (Past 12 Hours) Vital Signs Temp Pulse Pulse Resp BP Pulse Ox 01/21/21 07:49 36.8 C 66 19 112/68 92 01/21/21 07:13 68 01/21/21 03:43 37.1 C 65 18 105/56 L 92 01/21/21 01:29 68 107/53 L 01/20/21 23:56 37 C 116 H 16 101/72 92 Laboratory Results Short CBC 01/20/21 01/21/21 Range/Units 14:45 02:33 WBC 6.96 7.21 (4.8-10.8) K/uL Hgb 13.0 13.2 (12.0-16.0) g/dL Hct 39.9 40.2 (37-47) % Plt Count 230 231 (130-400) K/uL BMP 01/20/21 01/21/21 14:45 02:33 Sodium 139 143 Potassium 3.8 3.9 Chloride 110 H 115 H Carbon Dioxide 21 22 BUN 17 15 Creatinine 0.94 1.03 Glucose 95 114 H Calcium 8.5 8.9 Cardiac Enzymes 01/20/21 01/20/21 01/21/21 Range/Units 14:45 20:20 02:33 Troponin I 0.016 0.018 0.016 (0-0.045) ng/ml Liver Function 01/20/21 Range/Units 14:45 Total Bilirubin 0.4 (0.2-1) mg/dl AST 14 L (15-37) U/L ALT 18 (12-78) U/L Alkaline Phosphatase 134 H (45-117) U/L Albumin 3.5 (3.4-5.0) gm/dl Medications Administered Current Inpatient Medications Acetaminophen (Acetaminophen 325 Mg Tab) 650 mg PO Q4H PRN PRN Reason: Pain or Fever Stop: 02/19/21 20:01 Last Admin: 01/21/21 05:55 Dose: 650 mg Documented by: Al Hydrox/Mg Hydrox/Simethicone (Aluminum/Magnesium Susp 30 Ml Udc) 15 ml PO Q4H PRN PRN Reason: Dyspepsia Stop: 02/19/21 20:01 Albuterol (Albuterol Hfa 8 Gm Inhaler) 2 puffs INH Q6H PRN PRN Reason: Shortness Of Breath Stop: 02/19/21 20:01 Apixaban (Apixaban 5 Mg Tablet) 5 mg PO BID [facility] Stop: 02/20/21 10:29 Last Admin: 01/21/21 10:31 Dose: 5 mg Documented by: Aspirin (Aspirin 81 Mg Ectab) [facility] Stop: 02/20/21 08:59 Last Admin: 01/21/21 08:35 Dose: 81 mg Documented by: Cefdinir (Cefdinir 300 Mg Cap) 300 mg PO BID [facility] Stop: 01/30/21 20:59 Last Admin: 01/21/21 08:36 Dose: 300 mg Documented by: Cyanocobalamin (Cyanocobalamin 500 Mcg Tablet (Vitamin B-12)) 1,000 mcg PO QAM [facility] Stop: 02/20/21 08:59 Last Admin: 01/21/21 08:37 Dose: 1,000 mcg Documented by: Diltiazem HCl (Diltiazem Hcl 180 Mg Capcr) 180 mg PO QAM [facility] Stop: 02/20/21 09:44 Last Admin: 01/21/21 10:32 Dose: 180 mg Documented by: Ferrous Sulfate (Ferrous Sulfate 325 Mg Tab) 325 mg PO QAM [facility] Stop: 02/20/21 08:59 Last Admin: 01/21/21 08:37 Dose: 325 mg Documented by: Fish Oil ([place]-3 (Purified Fish Oil) 1 Gm Cap) 1 gm PO MoWeFr@0900 [facility] Stop: 02/20/21 08:59 Last Admin: 01/21/21 08:37 Dose: 1 gm Documented by: Fluoxetine HCl (Fluoxetine Hcl 10 Mg Cap) 10 mg PO QAM [facility] Stop: 02/20/21 08:59 Last Admin: 01/21/21 08:38 Dose: 10 mg Documented by: Fluticasone Furoate (Fluticasone Furoate 100mcg 14 Puffs/Inhaler) 1 puffs [facility]H [facility] Stop: 02/20/21 08:59 Last Admin: 01/21/21 09:12 Dose: 1 puffs Documented by: Fluticasone Propionate (Fluticasone Propionate Na Spr 16 Gm Btl) 1 sprays [facility] Stop: 02/20/21 08:59 Last Admin: 01/21/21 09:11 Dose: 1 sprays Documented by: Levothyroxine Sodium (Levothyroxine Sodium 88 Mcg Tablet) 88 mcg PO DAILYBB [facility] Stop: 02/20/21 06:29 Last Admin: 01/21/21 05:53 Dose: 88 mcg Documented by: Magnesium Hydroxide (Magnesium Hydroxide Susp 30 Ml Udc) 30 ml PO Q12H PRN PRN Reason: Constipation Stop: 02/19/21 20:01 Metoprolol Tartrate (Metoprolol Tartrate 25 Mg Tab) 25 mg PO BID [facility] Stop: 02/20/21 09:44 Last Admin: 01/21/21 10:32 Dose: 25 mg Documented by: Metronidazole (Metronidazole 500 Mg Tab) 500 mg PO Q8 [facility] Stop: 01/24/21 23:59 Last Admin: 01/21/21 05:54 Dose: 500 mg Documented by: Miscellaneous (Domperidone - Order Awaiting Action) 1 ea N/A QS [facility] Stop: 02/20/21 00:00 Last Admin: 01/21/21 08:34 Dose: Not Given Documented by: Montelukast Sodium (Montelukast Sodium 10 Mg Tablet) 10 mg PO PM [facility] Stop: 02/19/21 20:59 Last Admin: 01/20/21 21:43 Dose: 10 mg Documented by: Multivitamins (Multivitamin Tab) 1 tab PO MoWeFr@0900 [facility] Stop: 02/20/21 08:59 Last Admin: 01/21/21 08:38 Dose: 1 tab Documented by: Ondansetron HCl (Ondansetron Inj 2 Mg/Ml 2 Ml Vial) 4 mg IV Q6H PRN PRN Reason: Nausea Stop: 02/19/21 20:01 Pantoprazole Sodium (Pantoprazole 40 Mg Tab) 40 mg PO QAM [facility] Stop: 02/20/21 08:59 Last Admin: 01/21/21 08:38 Dose: 40 mg Documented by: Polyethylene Glycol (Polyethylene (Miralax) 17 Gm Pack) 17 gm PO DAILY PRN PRN Reason: Constipation Stop: 02/19/21 20:01 Rosuvastatin Calcium (Rosuvastatin Calcium 20 Mg Tab) 40 mg PO PM [facility] Stop: 02/19/21 20:59 Last Admin: 01/20/21 21:43 Dose: 40 mg Documented by: Sennosides (Senna 8.6 Mg Tab) 8.6 mg PO DAILY PRN PRN Reason: Constipation Stop: 02/19/21 20:15 Umeclidinium/Vilanterol (Umeclidinium/Vilanterol 62.5/25mcg 7 Puffs/Inhaler) 1 puffs [facility]H [facility] Stop: 02/20/21 08:59 Last Admin: 01/21/21 09:12 Dose: 1 puffs Documented by: Vitamin D (Cholecalciferol 1,000 Units 25 Mcg Tab) 2,000 units PO QAM [facility] Stop: 02/20/21 08:59 Last Admin: 01/21/21 08:37 Dose: 2,000 units Documented by: (1) Coronary artery disease Associated angina: unspecified whether angina present Coronary Disease-Asso ciated Artery/Lesion type: [place] artery [place] vs. transplanted heart: [place] heart Qualified Code(s): I25.10 - Atherosclerotic heart disease of [place] coronary artery without angina pectoris
--- NOTE | 2021-01-21 12:15 | 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 Note ---
Date of Service: January 21, 2021 By CMS guidelines, a determination that the admission or continued stay is not medically necessary has been made by a member of the UR committee and a physic bryson for this hospital stay, therefore a Code 44 will be completed and the Inpatient admission will be changed to outpatient.
--- NOTE | 2021-01-21 23:18 | Electrocardiogram Report ---
Test Reason : Blood Pressure : / mmHG Vent. Rate : 138 BPM Atrial Rate : 144 BPM P-R Int : 000 ms QRS Dur : 096 ms QT Int : 292 ms P-R-T Axes : 000 -54 094 degrees QTc Int : 442 ms Atrial fibrillation with rapid ventricular response Left axis deviation Low voltage QRS Cannot rule out Anterior infarct , age undetermined Abnormal ECG When compared with ECG of 16-MAY-1995 07:50, Atrial fibrillation has replaced Sinus rhythm Vent. rate has increased BY 46 BPM QRS axis Shifted left Minimal criteria for Anterior infarct are now Present Confirmed by Dexter Herbert ([id number]) on 01/21/2021 11:17:47 PM Referred By: Cr Vidal Confirmed By:Dexter Herbert
--- NOTE | 2021-01-21 23:32 | Electrocardiogram Report ---
Test Reason : Blood Pressure : / mmHG Vent. Rate : 065 BPM Atrial Rate : 065 BPM P-R Int : 184 ms QRS Dur : 088 ms QT Int : 424 ms P-R-T Axes : 053 -44 008 degrees QTc Int : 440 ms Normal sinus rhythm Left axis deviation Possible Anterior infarct (cited on or before 20-JAN-2021) Abnormal ECG When compared with ECG of 20-JAN-2021 15:04, Sinus rhythm has replaced Atrial fibrillation Vent. rate has decreased BY 73 BPM Confirmed by Dexter Herbert ([id number]) on 01/21/2021 11:31:36 PM Referred By: Cr Vidal Confirmed By:Dexter Herbert
--- NOTE | 2021-01-22 05:55 | Electrocardiogram Report ---
Test Reason : Blood Pressure : / mmHG Vent. Rate : 071 BPM Atrial Rate : 071 BPM P-R Int : 176 ms QRS Dur : 098 ms QT Int : 414 ms P-R-T Axes : 055 -47 148 degrees QTc Int : 449 ms Normal sinus rhythm Left axis deviation Nonspecific T wave abnormality Abnormal ECG When compared with ECG of 21-JAN-2021 01:35, Nonspecific T wave abnormality, worse in Lateral leads Confirmed by Dexter Herbert ([id number]) on 01/22/2021 5:55:28 AM Referred By: Cr Vidal Confirmed By:Dexter Herbert
--- NOTE | 2021-01-22 15:10 | Discharge Summary ---
Date of Service January 22, 2021 Admission HPI Per Admitting Provider This is a 75 year old F who has a significant PMH of CAD with of stent x 4 in 2019, Urothelial bladder ca undergoing current bcg tx, HTN, GERD with history of nasal fundoplication, hypothyroidism, depression who presents to ED at the referral of pulmonary clinic secondary to being found in atrial fibrillation with RVR. Patient previously resided in [place] and unfortunately her in October during hospitalization from cardiac arrest. She moved up to [place] to live with her daughter and is currently in the process of establishing care with specialists and PCP. She is scheduled to see [facility] PCP on 01/26/2021. So far she is established with [facility] in order to continue on BCG treatments as well as [facility] pulmonology for asthma. She woke up this morning and felt very dizzy, described it like a passing out. She has never experienced this before. Shortly after breakfast she felt her heart flutter. She has felt this on and off for the past year. She has underlying history of CAD for which she saw cardiology in [place] but no prior history atrial fibrillation. She elicits her mother had a history of atrial fibrillation and CAD. Patient also has hx of asthma and chronic SOB, but feels it is unchanged. She was establishing with pulmonology today when she described her dizziness and fluttering. An EKG was obtained which found her to be in rapid A. fib and she was referred to ED. She was seen in ED on 01/18 secondary to abdominal pain. At that point in time it was documented that she was in regular rhythm. Patient states that she did not have an EKG done that day. It was felt her abdominal pain was likely secondary to a mild diverticulitis and she was started on Cipro and Flagyl. CT scan at that time also was concerning for moderate hiatal hernia with circumferential wall thickening of distal esophagus concerning for esophagitis. Patient is scheduled to see gastroenterology next week. So far she has completed 1.5 days of antibiotic regimen and her abdominal pain has since subsided. She otherwise denies fever, chills, sweats, chest pain, shortness of breath, cough, URI symptoms, nausea, vomiting, abdominal pain, increased urinary urgency, frequency, hematuria, melena or hematochezia. Last bcg treatment on Sunday with urology. She denies hx of blood thinner in past. She was on plavix for one year after stents. No hx of bleeding problems. She does history of hypothyroidism and TSH is normal today. Patient remained hemodynamically stable in ER but was in rapid ventricular rate on arrival with rates in the 130s. She received a diltiazem bolus and started on drip. She was also placed on heparin drip. Daughter is at bedside. Admission Exam Per Admitting Provider Physical Exam: Constitutional: WD/WN, vitals as above, NAD, sitting up in bed, pleasant, conversing easily Head: Normocephalic, Atraumatic Eyes: PERRL, conjunctivae normal, anicteric sclerae ENMT: external ear and nose normal, oropharynx normal Neck: trachea midline, no thyromegaly normal visual inspection Respiratory: normal respiratory effort, lungs clear to auscultation, no wheeze, rales, rhonchi. Normal insp/exp effort, no accessory muscle use Cardiovascular: IRR/IRR, no murmur, no edema Vessels: no JVD or carotid bruit Chest: normal inspection of chest Abdomen: normal bowel sounds, soft, nontender, no hepatosplenomegaly Musculoskeletal: no cyanosis or clubbing, extremities motor strength 5/5 Skin: no rashes, warm and dry normal turgor Neurologic: PERRL, EOMI, accommodation nl, no face palsy, no dysarthria CN's II-XI intact bilaterally and moves all extremities Psychiatric: A+Ox3, euthymic affect : deferred Principal Diagnosis Atrial fibrillation with RVR-reverted to sinus rhythm, diverticulitis, CAD, history of bladder cancer, hypertension Discharge Exam Constitutional well developed and well nourished; not ill appearing Eyes PERRL, conjunctivae normal, anicteric sclerae ENMT external ear and nose normal, oropharynx normal Neck trachea midline, no thyromegaly Respiratory no respiratory distress Auscultation: lungs clear to auscultation bilaterally Cardiovascular Rate/Rhythm: regular rate and regular rhythm Heart Sounds: no murmur Extremities: + edema (Trace edema bilaterally) Gastrointestinal (Abdomen) Inspection/Auscultation: abdomen not distended Percussion/Palpation: abdomen soft; abdomen nontender Psychiatric A+Ox3, euthymic affect Lymphatic no cervical or axillary lymphadenopathy Discharge Data Allergies Allergy/AdvReac Type Severity Reaction Status Date / Time Penicillins AdvReac Intermediate JOINTS Verified 01/20/21 16:03 BECAME STIFF sulfa Allergy Severe HIVES, Uncoded 01/20/21 16:03 MOUTH ULCERS, MOUTH SWELLED Consultations 01/20/21 18:29 ED Decision to Admit Stat 01/20/21 20:02 Consult Cardiology Routine Hospital Course (1) Atrial fibrillation with RVR: This is a 75 year old F who has a significant PMH of CAD with of stent x 4 in 2019, Urothelial bladder ca undergoing current bcg tx, HTN, GERD with history of nasal fundoplication, hypothyroidism, depression who presents to ED at the referral of pulmonary clinic secondary to being found in atrial fibrillation with RVR. New onset afib, unknown duration she was in ED on 01/18, no ecg done, documented regular rhythm Started with intravenous Cardizem and continued beta-blockade She reverted to sinus rhythm this morning Symptoms resolved Appreciate cardiology input and recommendation [id number] score is 5 She will be on aspirin and Eliquis Echo of the heart showed-mild concentric LVH, no wall motion abnormalities, systolic function is normal with EF of 60 to 65%, RV is normal in size and function, aortic valve sclerosis mild without significant stenosis and grade 2 diastolic dysfunction. Remains stable since this morning and will be discharged home this afternoon (2) Diverticulitis: hx 01/18 after presenting to ED with abd pain mild sigmoid diverticulitis was on cipro/flagyl (day #2) will switch to omnicef and flagyl avoid quinolones in setting of afib and possible interaction with cardiac meds no leukocytosis, abd pain resolved We will continue oral Cipro and Flagyl for 10 days in total (3) Coronary artery disease: hx of stent x 4 in 2019, followed cardiology in [place] will need to obtain records of prior medical facility [place] on asa, statin, repatha, coreg cardiology consulted-as above (4) Bladder cancer: High-grade T1 urothelial cell carcinoma Established with [facility] Last BCG treatment was on 01/17 (5) Hypertension: continue coreg, diltiazem bp stable (6) Asthma: no acute exac continue trelegy, prn albuterol, singulair (7) DVT prophylaxis: IV heparin Dispo: PCU PCP: To establish with Dr. Millan on 01/26/21 FULL CODE She will be discharged home this afternoon Total Time Total Time Spent Total Time Spent (In Minutes): 35 minutes Total Time Includes: Examination of the Patient, Discharge Planning, Medication Reconciliation and 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 With Other Providers Discharge Plan Discharge Items Patient Disposition: Home - Self-Care Reason For Visit: AFIB RVR Discharge Diagnosis: Atrial fibrillation with RVR-reverted to sinus rhythm, diverticulitis, CAD, history of bladder cancer, hypertension Condition on Discharge: Good Activity: Resume your previous activity Non-emergency contact: Primary Care Provider Call non-emergency contact if: you have any medication questions and your symptoms worsen Follow-up/Referrals: Shelia Millan, [Primary Care Provider] - (Please keep appointment with your primary care doctor) Diet: Heart Healthy and Low Sodium (2gm) Addtl Attending Provider Instructions: Please take precaution to avoid falls Take your medications regularly [facility] will make an appointment within 1 to 2 weeks Keep taking Eliquis as advised Pending Studies at Discharge: No Stand-Alone Forms: My [employer], Smoking Cessation Medications and DC Order Prescriptions: New cefdinir 300 mg Capsule 300 mg PO BID 7 Days Qty: 14 RF: 0 metoprolol tartrate 25 mg Tablet 25 mg PO BID 30 Days Qty: 60 RF: 0 Eliquis 5 mg Tablet 5 mg PO BID 30 Days Qty: 60 RF: 0 Lactinex 1 million cell tablet,chewable 1 tab PO BID Qty: 30 RF: 0 Continued montelukast [Singulair] 10 mg tablet 10 mg PO PM Qty: 30 RF: 3 Trelegy Ellipta 100-62.5-25 mcg blister with device 1 inh INHALATION QAM Qty: 60 RF: 3 aspirin 81 mg tablet,delayed release (DR/EC) 81 mg PO QAM RF: 0 diltiazem HCl [Cartia XT] 180 mg capsule,extended release 24hr 180 mg PO QAM RF: 0 Allergy Relief (cetirizine) 10 mg capsule 10 mg PO DAILY PRN (Reason: Allergy Symptoms) RF: 0 rosuvastatin [Crestor] 40 mg tablet 40 mg PO PM RF: 0 fluticasone propionate [Flonase Allergy Relief] 50 mcg/actuation spray,suspension 1 spray intranasal QAM RF: 0 levothyroxine 88 mcg tablet 88 mcg PO QAM RF: 0 esomeprazole magnesium [Nexium] 40 mg capsule,delayed release(DR/EC) 40 mg PO QAM RF: 0 fluoxetine [Prozac] 10 mg capsule 10 mg PO QAM RF: 0 acetaminophen [Tylenol] 325 mg capsule 650 mg PO BID PRN (Reason: pain) RF: 0 cholecalciferol (vitamin D3) 50 mcg (2,000 unit) capsule 50 mcg PO QAM RF: 0 albuterol sulfate [Proventil HFA] 90 mcg/actuation HFA aerosol inhaler 2 puff inhalation Q6H PRN (Reason: Shortness Of Breath) RF: 0 glucosamine HCl 1,500 mg tablet 1,500 mg PO QAM RF: 0 cyanocobalamin (vitamin B-12) [Vitamin B-12] 1,000 mcg tablet 1,000 mcg PO QAM RF: 0 ferrous sulfate [Iron (ferrous sulfate)] 325 mg (65 mg iron) tablet 325 mg PO QAM RF: 0 senna 8.6 mg capsule 8.6 mg PO DAILY PRN (Reason: Constipation) RF: 0 multivitamin Tablet 1 tab PO 3XWK RF: 0 omega-3 fatty acids-fish oil [Fish Oil] 360-1,200 mg capsule 1 cap PO 3XWK RF: 0 Repatha SureClick 140 mg/mL pen injector 140 mg SUBCUT .Q2WEEK RF: 0 Domeperidone 10 mg PO TID RF: 0 metronidazole [Flagyl] 500 mg tablet 500 mg PO Q8H 7 Days Qty: 21 RF: 0 Discontinued carvedilol [Coreg] 3.125 mg tablet 3.125 mg PO BID RF: 0 ciprofloxacin HCl 500 mg tablet 500 mg PO BID Qty: 14 RF: 0 Discharge Orders: Discharge Order (Routine); Ordered 01/21/21 Ordered By: Brandin Pike Admission Data Admit Date/Time: 01/20/21 18:00 Attending Provider: Brandin Pike Admit Provider: Al Keith Primary Care Provider: Shelia Millan Other Providers: Al Keith ; Ambrocio Ren Other Interventions: Discharge Summary Assessment (RN) Last Done: 01/21/21 12:37
== END 2021-01-21 13:10 | disposition home or self-care (01) | DRG 309 ==
LOC: ED 14:52 → 2S 18:00 → SUATTDRO 18:00 → INTOOBSV 18:00 → OBSVTOIN 18:00

== ENCOUNTER 2021-02-24 15:27 | Inpatient (IN) ==
[2021-02-24 16:24] LABS: Basophils # (auto) 0.04 K/uL (0-0.2); Basophils % (auto) 0.6 %; Eosinophils % (auto) 4.7 %; Hematocrit (blood only) 38.9 % (37-47); Hemoglobin 12.6 g/dL (12.0-16.0); Lymphocytes % (auto) 25.2 %; Mean Corpuscular Hgb Conc 32.4 g/dL (32-36); Mean Corpuscular Volume 95.8 fL (80-100); Mean Platelet Volume 10.4 fL (7.4-10.4); Monocytes # (auto) 0.41 K/uL (0.11-0.59); Monocytes % (auto) 6.4 %; Neutrophils # (auto) 4.01 K/uL (1.4-6.5); Neutrophils % (auto) 63.1 %; Platelet Count 220 K/uL (130-400); RDW Coefficient of Variation 13.7 % (11.5-14.5); RDW Standard Deviation 48.4 fL (36.4-46.3); Red Blood Count 4.06 M/uL (4.2-5.4); White Blood Count 6.36 K/uL (4.8-10.8)
[2021-02-24 16:36] LABS: INR 1.1 (0.9-1.1); Partial Thromboplastin Time 27.6 Seconds (21.0-31.0); Prothrombin Time 10.9 Seconds (9.0-12.0)
--- NOTE | 2021-02-24 16:39 | History & Physical Report ---
Date of Service February 24, 2021 Assessment & Plan (1) Tachy-roseann syndrome: (2) Sinus pause: This is a 75-year-old female who has significant past medical history of CAD with two stents to the LAD in 2019 in [place], HTN, HLD, history of paroxysmal supraventricular tachycardia, PAF on Eliquis who presents to ED secondary to abnormal Zio patch reflecting sinus pause. Abnormal zio patch PAF 5% burden with 2 pauses, 9.5 sec and 4.3sec during afib on 01/31/21. She did have associated lightheadedness but no syncope. 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 Ren, likely pacemaker placement tomorrow by Dr. Hernández hold eliquis will await Dr. Ren recommendations for diltiazem and metoprolol, pt did not take a.m. diltiazem but did take her metoprolol NPO after midnight EKG - currently NSR obtain cbc, cmp, mag, phos, coags, cxr (3) Coronary artery disease: hx of stents x 2 to LAD in 2019 continue asa, statin, repatha, metoprolol no current CP or SOB (4) Hypertension: BP stable on diltiazem and metoprolol hold both until further instructions from cardiology (5) DVT prophylaxis: SCD/TEDS for now eliquis on hold for likely pacemaker placement tomorrow Dispo:PCU PCP: Dr. Joaquín Millan Full Code Pt was seen and examined in collaboration with Dr. Keith, please see addendum History of Present Illness Chief Complaint: Referred secondary to abnormal Zio patch. Primary Care Provider: Shelia Millan, This is a 75-year-old female who has significant past medical history of CAD with two stents to the LAD in 2019 in [place], HTN, HLD, history of paroxysmal supraventricular tachycardia, PAF on Eliquis who presents to ED secondary to abnormal Zio patch reflecting sinus pause. Of significance patient was admitted earlier last month in January after being sent to ED from pulmonology clinic secondary to A. fib with RVR. Patient recently moved up from [place] and is currently living with her daughter. She is recently approximately 5 months ago. During her last admission she converted spontaneously to normal sinus rhythm, her Coreg was switched to metoprolol succinate 25 mg daily and she was placed on Eliquis 5 mg twice daily secondary to chadsVasc score of 5. Discharge patient followed up with cardiology and had a Zio patch placed. Cardiology clinic received results last night reflecting a prolonged sinus pause of 9 seconds. Patient was immediately notified and referred to ED. She admits since discharge continues to have intermittent dizziness as well as intermittent bouts of A. fib with RVR. Her most recent episode was 1 week ago where she remained in sinus rhythm for approximately 12 hours. Daughter did call in the clinic and she was instructed to take additional metoprolol. She also recently bought watch to help her determine when she is in A. fib. She denies any recent illness, fever, chills, sweats, lightheadedness, syncope, chest pain, shortness breath at rest, nausea, vomiting, abdominal pain, change in bowel or urinary habits. She does admit to chronic shortness of breath with exertion and cough but attributes this to asthma. She is also wondering if shortness of breath is not secondary to A. fib. She does live with her daughter and is active with her two dogs. Ever since A. fib diagnosis she notes decrease in ability to do certain activities. Currently in ED she remains in sinus rhythm is otherwise hemodynamically stable. She is being admitted for likely pacemaker placement tomorrow. Allergies Allergy/AdvReac Type Severity Reaction Status Date / Time melon Allergy Severe Difficulty Unverified 02/24/21 17:15 Swallowing Sulfa (Sulfonamide Allergy Severe Swelling Verified 02/24/21 17:15 Antibiotics) of Lip/Tongue/Throat Penicillins AdvReac Intermediate JOINTS Verified 01/27/21 09:23 BECAME STIFF Home Medications Medication Instructions Recorded Confirmed Type acetaminophen 325 mg capsule 650 mg PO BID PRN 12/22/20 02/24/21 History albuterol sulfate 90 mcg/actuation 2 puff INHALATION Q6H PRN 12/22/20 02/24/21 History aerosol inhaler aspirin 81 mg tablet,delayed 81 mg PO QAM 12/22/20 02/24/21 History release cetirizine 10 mg capsule 10 mg PO DAILY PRN 12/22/20 02/24/21 History cholecalciferol (vitamin D3) 50 50 mcg PO QAM 12/22/20 02/24/21 History mcg (2,000 unit) capsule cyanocobalamin (vitamin B-12) 1,000 mcg PO QAM 12/22/20 02/24/21 History 1,000 mcg tablet diltiazem HCl 180 mg 180 mg PO QAM 12/22/20 02/24/21 History capsule,extended release 24 hr esomeprazole magnesium 40 mg 40 mg PO QAM 12/22/20 02/24/21 History capsule,delayed release ferrous sulfate 325 mg (65 mg 325 mg PO MOWEFR 12/22/20 02/24/21 History iron) tablet fluoxetine 10 mg capsule 10 mg PO QAM 12/22/20 02/24/21 History fluticasone propionate 50 1 spray INTRANASAL QAM 12/22/20 02/24/21 History mcg/actuation nasal spray,suspension glucosamine HCl 1,500 mg tablet 1,500 mg PO QAM 12/22/20 02/24/21 History levothyroxine 88 mcg tablet 88 mcg PO QAM 12/22/20 02/24/21 History multivitamin 1 tab PO 3XWK 12/22/20 02/24/21 History omega-3 fatty acids-fish oil 360 1 cap PO 3XWK 12/22/20 02/24/21 History mg-1,200 mg capsule rosuvastatin 40 mg tablet 40 mg PO PM 12/22/20 02/24/21 History sennosides 8.6 mg capsule 8.6 mg PO DAILY PRN 12/22/20 02/24/21 History Domeperidone 10 mg PO QID 01/18/21 02/24/21 History Repatha SureClick 140 mg SUBCUT .Q2WEEK 01/18/21 02/24/21 History fluticasone fur. 100 mcg-umeclid 1 inh INHALATION QAM #60 ea 01/20/21 02/24/21 Rx 62.5 mcg-vilant 25 mcg inhalat.powder montelukast 10 mg tablet 10 mg PO PM #30 tab 01/20/21 02/24/21 Rx Lactobacillus acidoph-L.bulgar 1 tab PO BID #30 tab 01/21/21 02/24/21 Rx [Lactinex] apixaban 5 mg PO BID 02/24/21 02/24/21 History metoprolol succinate 25 mg PO DAILY 02/24/21 02/24/21 History Past Med/Surg History Medical History Abnormal CT scan, chest Acute hemorrhoid Arthritis Asthma Bladder cancer Coronary artery disease Dizziness Dyspnea Heart trouble Hiatal hernia Hypertension Obesity (BMI 30.0-34.9) Surgical History H/O hernia repair H/O tubal ligation H/O vaginal hysterectomy History of cholecystectomy History of fundoplication History of heart artery stent History of left knee replacement History of repair of rotator cuff History of right hip replacement History of surgical removal of squamous cell carcinoma of skin of [place] region Family History Mother Atrial fibrillation Coronary heart disease Father Crohn's disease Other Allergies Asthma Heart disease Hypertension Tuberculosis Social History Smoking Status: Never smoker Second Hand Exposure: Yes; Hx Alcohol Use: Yes Hx Substance Use: No Preferred Language: Icelandic 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 Ability: Effective Coach Cleaner Required: Yes Beliefs That Will Affect Care: None marital status: / Current Living Situation: Family Current Living Situation Comment: Lives with daughter Feels Safe at Home: Yes Assistive Devices: Glasses Review of Systems Review of Systems: All systems reviewed & are unremarkable except as noted in HPI & below Physical Exam Physical Exam: Constitutional: WD/WN, vitals as above, NAD, sitting up in bed, pleasant, conversing easily Head: Normocephalic, Atraumatic Eyes: PERRL, conjunctivae normal, anicteric sclerae ENMT: external ear and nose normal, oropharynx normal Neck: trachea midline, no thyromegaly normal visual inspection Respiratory: normal respiratory effort, lungs clear to auscultation, no wheeze, rales, rhonchi. Normal insp/exp effort, no accessory muscle use Cardiovascular: RRR, no murmur, no edema Vessels: no JVD or carotid bruit Chest: normal inspection of chest Abdomen: normal bowel sounds, soft, nontender, no hepatosplenomegaly Musculoskeletal: no cyanosis or clubbing, extremities motor strength 5/5 Skin: no rashes, warm and dry normal turgor Neurologic: PERRL, EOMI, accommodation nl, no face palsy, no dysarthria CN's II-XI intact bilaterally and moves all extremities Psychiatric: A+Ox3, euthymic affect Lymphatic: no cervical or axillary lymphadenopathy : deferred Results & Data Results & Data ([facility]) Vital Signs (Past 12 Hours) Vital Signs Temp Pulse Resp BP Pulse Ox 02/24/21 15:31 36.6 C 68 18 147/68 H 94 ECG Rate (beats per minute): 67 Rhythm: normal sinus COVID-19 Results Results COVID-19 Adm Lab Results: RBC 4.06 M/uL (4.2-5.4) L 02/24/21 WBC 6.36 K/uL (4.8-10.8) 02/24/21 Hgb 12.6 g/dL (12.0-16.0) 02/24/21 Hct 38.9 % (37-47) 02/24/21 Plt Count 220 K/uL (130-400) 02/24/21 Neutrophils (%) (Auto) 63.1 % 02/24/21 Lymphocytes (%) (Auto) 25.2 % 02/24/21 Monocytes # (Auto) 0.41 K/uL (0.11-0.59) 02/24/21 Eosinophils # (Auto) 0.30 K/uL (0-0.5) 02/24/21 Immature Granulocyte % (Auto) 0.0 % 02/24/21 Neutrophils # (Auto) 4.01 K/uL (1.4-6.5) 02/24/21 Lymphocytes # (Auto) 1.60 K/uL (1.2-3.4) 02/24/21 Monocytes # (Auto) 0.41 K/uL (0.11-0.59) 02/24/21 Eosinophils # (Auto) 0.30 K/uL (0-0.5) 02/24/21 Basophils # (Auto) 0.04 K/uL (0-0.2) 02/24/21 Immature Granulocyte # (Auto) 0.00 K/uL (0.00-0.02) 02/24/21 Na 142 mmol/L (136-145) 02/24/21 K 3.8 mmol/L (3.5-5.1) 02/24/21 Cl 110 mmol/L (98-107) H 02/24/21 CO2 21 mmol/L (21-32) 02/24/21 Anion Gap 10.0 (3-11) 02/24/21 BUN 20 mg/dl (7-18) H 02/24/21 Creatinine 0.94 mg/dl (0.6-1.2) 02/24/21 BUN/Creatinine Ratio 21.4 (10-20) H 02/24/21 Glucose Level 142 mg/dl (70-99) H 02/24/21 Ca 9.1 mg/dl (8.5-10.1) 02/24/21 Total Bilirubin 0.3 mg/dl (0.2-1) 02/24/21 AST/SGOT 19 U/L (15-37) 02/24/21 ALT/SGPT 23 U/L (12-78) 02/24/21 Alkaline Phosphatase 122 U/L (45-117) H 02/24/21 Total Protein 7.6 gm/dl (6.4-8.2) 02/24/21 Albumin 3.5 gm/dl (3.4-5.0) 02/24/21 Globulin 4.1 gm/dl (2.5-4.0) H 02/24/21 Albumin/Globulin Ratio 0.9 (0.9-2) 02/24/21 PTT 27.6 Seconds (21.0-31.0) 02/24/21 INR 1.1 (0.9-1.1) 02/24/21 COVID-19 PCR Pending 02/24/21 Chest X-Ray 02/24/21 Code Status & VTE Plan Code Status Full Code VTE Prophylaxis Plan VTE Prophylaxis will be ordered: Yes Reason for no VTE drug order: Treatment not indicated Supervising Physician Co-Signing Physician Notes Patient is a 75-year-old female with history of coronary artery disease, hypertension, hyperlipidemia, paroxysmal atrial fibrillation on chronic anticoagulation with Eliquis and other medical problems 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 She admits to having intermittent palpitations associated with dizziness. Please review HPI for complete details of presentation. She denies any chest pain, dizziness, dyspnea, nausea, vomiting, diarrhea, abdominal pain, fever, chills currently. Patient is planned for pacemaker placement tomorrow. On exam patient is obese, no apparent distress, normocephalic atraumatic, lungs are clear to auscultation, S1-S2, no murmur, no pedal edema, abdomen soft, nontender, normal bowel sounds, alert, awake, oriented, grossly no focal deficits. Patient is admitted for management of tachybradycardia syndrome. Will hold AV norma blockers given sinus pauses. Will monitor on telemetry bed. Will hold Eliquis per procedure tomorrow. Cardiology is consulted. Monitor and replace electrolytes as needed. Keep her n.p.o. after midnight. Repeat thyroid function tests tomorrow. I personally reviewed the record. Patient is interviewed and examined at bedside. Patient's care is coordinated with Michelle Butterfield PA-C. Please refer to the documentation above for details of patient's presentation and for discussion of other issues. (1) Coronary artery disease Associated angina: unspecified whether angina present Coronary Disease- Associated Artery/Lesion type: [place] artery [place] vs. transplanted heart: [place] heart Qualified Code(s): I25.10 - Atherosclerotic heart disease of [place] coronary artery without angina pectoris
[2021-02-24 16:47] LABS: Albumin Level 3.5 gm/dl (3.4-5.0); Aspartate Aminotransferase 19 U/L (15-37); BUN Creatinine Ratio 21.4 (10-20); Blood Urea Nitrogen 20 mg/dl (7-18); Calcium 9.1 mg/dl (8.5-10.1); Carbon Dioxide 21 mmol/L (21-32); Chloride 110 mmol/L (98-107); Est GFR (African American) 68.3 ml/min; Est GFR (Non-African American) 58.9 ml/min; Glucose 142 mg/dl (70-99); Potassium 3.8 mmol/L (3.5-5.1); Sodium 142 mmol/L (136-145)
[2021-02-24 16:58] LABS: Alanine Aminotransferase 23 U/L (12-78); Albumin Globulin Ratio 0.9 (0.9-2); Alkaline Phosphatase 122 U/L (45-117); Bilirubin,Total 0.3 mg/dl (0.2-1); Globulin 4.1 gm/dl (2.5-4.0); Total Protein 7.6 gm/dl (6.4-8.2)
[2021-02-24] MEDS ORDERED: POTASSIUM CHLORIDE CRTAB 20 MEQ TABCR PO STA (17:08)
--- NOTE | 2021-02-24 17:36 | XRay Report ---
XR chest 1V portable CLINICAL HISTORY: Chest COMPARISON STUDY: 01/20/2021 FINDINGS: The cardiac and mediastinal contours are normal. There is no evidence of focal pulmonary co nsolidation. There is no evidence of failure. No pleural effusions are visualized.[ IMPRESSION: No active disease in the chest. ACT 112: Negative or not required by law. Electronically signed by: Harris Cruz M.D. 02/24/2021 5:34 PM
[2021-02-24] MEDS ORDERED: ALBUTEROL HFA 8 GM INHALER INH PRN (18:26)
[2021-02-24] MEDS ORDERED: MAGNESIUM HYDROXIDE SUSP 30 ML UDC PO PRN (18:26)
[2021-02-24] MEDS ORDERED: ONDANSETRON INJ 2 MG/ML 2 ML VIAL IV PRN (18:26)
[2021-02-24] MEDS ORDERED: ALUMINUM/MAGNESIUM SUSP 30 ML UDC PO PRN (18:26)
[2021-02-24] MEDS ORDERED: POLYETHYLENE (MIRALAX) 17 GM PACK PO PRN (18:26)
--- NOTE | 2021-02-24 18:38 | Cardiology Consultation ---
Date of Consultation February 24, 2021 Assessment & Plan (1) Tachy-roseann syndrome: Patient with paroxysmal atrial fibrillation, paroxysmal supraventricular tachycardia, clinical presentation and sql engineer findings consistent with tachycardia-bradycardia syndrome, 2 documented pauses of 9.5 seconds and 4.3 seconds with associated symptoms, however no dorys syncope. Currently patient is in sinus rhythm in the 50-60s. EKG performed today 02/24/2021 at 1552 and reviewed independently reveals normal sinus rhythm at 67 bpm, borderline first-degree AV block, no significant repolarization changes, corrected QT interval stable 441 ms. Patient's most recent dose of Eliquis 5 mg was this morning, 02/24/2021. This is going to be held pending implantation of pacemaker. Prior to hospital treatment with diltiazem is on hold. We will continue metoprolol 25 mg daily with hold parameters for heart rate less than 60 or systolic blood pressure less than 100 mm Hg. Her remaining cardiac medications will be continued including aspirin. Tentative plan is for permanent pacemaker in the afternoon, tomorrow, 02/25/2021 after Eliquis has been hold for suitable degree of time. History of Present Illness History of Present Illness Jamila Fallon is a 74 year old female seen in cardiology consultation per the request of Domonique Valdes PA-C for the further cardiac management of symptomatic atrial fibrillation with tachycardia-bradycardia syndrome. She was seen in cardiology consultation by the undersigned in Jan, 2021 at which time she was admitted with new onset atrial fibrillation. She was placed on a diltiazem infusion at that time and spontaneously converted to sinus rhythm. Metoprolol succinate 25 mg daily was added to her prior to hospital treatment with diltiazem orally and Eliquis was added for stroke prophylaxis. She was seen in follow-up by the undersigned as an outpatient on 02/09/2021 and a 2-week Zio sql engineer was placed. Monitor revealed predominant rhythm of sinus rhythm with average heart of 67 bpm. 15 relatively brief episodes of supraventricular tachycardia were observed. Paroxysmal atrial fibrillation was observed, 5% atrial fibrillation burden, with ventricular rate ranging from 71 bpm to 190 bpm. The average ventricular rate while in atrial fibrillation was 124 bpm.Two pauses were noted of 9.5 seconds duration as well is 4.3 seconds duration on 01/31/2021 at 12:33 PM and at 12:39 PM respectively. 33 patient triggered markers were submitted, some of which correlated with normal sinus rhythm, but the patient triggered events also correlated with episodes of atrial fibrillation as well as the noted pauses. The results were discussed with patient by telephone, and permanent pacemaker implantation was recommended. She therefore presented to the emergency department for expedited hospitalization and pacemaker implantation. 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 She moved to [place] approximately 20 years ago. Her approximately 5 months ago and therefore she moved back to [place] to be closer to her children. Patient's daughter, Juliana who is a PA in [employer], phone: [phone]. Allergies Allergy/AdvReac Type Severity Reaction Status Date / Time melon Allergy Severe Difficulty Unverified 02/24/21 17:15 Swallowing Sulfa (Sulfonamide Allergy Severe Swelling Verified 02/24/21 17:15 Antibiotics) of Lip/Tongue/Throat Penicillins AdvReac Intermediate JOINTS Verified 01/27/21 09:23 BECAME STIFF Home Medications Medication Instructions Recorded Confirmed Type acetaminophen 325 mg capsule 650 mg PO BID PRN 12/22/20 02/24/21 History albuterol sulfate 90 mcg/actuation 2 puff INHALATION Q6H PRN 12/22/20 02/24/21 History aerosol inhaler aspirin 81 mg tablet,delayed 81 mg PO QAM 12/22/20 02/24/21 History release cetirizine 10 mg capsule 10 mg PO DAILY PRN 12/22/20 02/24/21 History cholecalciferol (vitamin D3) 50 50 mcg PO QAM 12/22/20 02/24/21 History mcg (2,000 unit) capsule cyanocobalamin (vitamin B-12) 1,000 mcg PO QAM 12/22/20 02/24/21 History 1,000 mcg tablet diltiazem HCl 180 mg 180 mg PO QAM 12/22/20 02/24/21 History capsule,extended release 24 hr esomeprazole magnesium 40 mg 40 mg PO QAM 12/22/20 02/24/21 History capsule,delayed release ferrous sulfate 325 mg (65 mg 325 mg PO MOWEFR 12/22/20 02/24/21 History iron) tablet fluoxetine 10 mg capsule 10 mg PO QAM 12/22/20 02/24/21 History fluticasone propionate 50 1 spray INTRANASAL QAM 12/22/20 02/24/21 History mcg/actuation nasal spray,suspension glucosamine HCl 1,500 mg tablet 1,500 mg PO QAM 12/22/20 02/24/21 History levothyroxine 88 mcg tablet 88 mcg PO QAM 12/22/20 02/24/21 History multivitamin 1 tab PO 3XWK 12/22/20 02/24/21 History omega-3 fatty acids-fish oil 360 1 cap PO 3XWK 12/22/20 02/24/21 History mg-1,200 mg capsule rosuvastatin 40 mg tablet 40 mg PO PM 12/22/20 02/24/21 History sennosides 8.6 mg capsule 8.6 mg PO DAILY PRN 12/22/20 02/24/21 History Domeperidone 10 mg PO QID 01/18/21 02/24/21 History Repatha SureClick 140 mg SUBCUT .Q2WEEK 01/18/21 02/24/21 History fluticasone fur. 100 mcg-umeclid 1 inh INHALATION QAM #60 ea 01/20/21 02/24/21 Rx 62.5 mcg-vilant 25 mcg inhalat.powder montelukast 10 mg tablet 10 mg PO PM #30 tab 01/20/21 02/24/21 Rx Lactobacillus acidoph-L.bulgar 1 tab PO BID #30 tab 01/21/21 02/24/21 Rx [Lactinex] apixaban 5 mg PO BID 02/24/21 02/24/21 History metoprolol succinate 25 mg PO DAILY 02/24/21 02/24/21 History Patient History Medical History Abnormal CT scan, chest Acute hemorrhoid Arthritis Asthma Bladder cancer Coronary artery disease Dizziness Dyspnea Heart trouble Hiatal hernia Hypertension Obesity (BMI 30.0-34.9) Surgical History H/O hernia repair H/O tubal ligation H/O vaginal hysterectomy History of cholecystectomy History of fundoplication History of heart artery stent History of left knee replacement History of repair of rotator cuff History of right hip replacement History of surgical removal of squamous cell carcinoma of skin of yarsanism region Family History Mother Atrial fibrillation Coronary heart disease Father Crohn's disease Other Allergies Asthma Heart disease Hypertension Tuberculosis Social History Smoking Status: Never smoker Second Hand Exposure: Yes; Hx Alcohol Use: Yes Hx Substance Use: No Preferred Language: Danish 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 Ability: Effective [facility] Nurse Practitioner Required: Yes Beliefs That Will Affect Care: None marital status: / Current Living Situation: Family Current Living Situation Comment: Lives with daughter Feels Safe at Home: Yes Assistive Devices: Glasses Physical Exam Physical Exam: Temp Pulse Resp BP Pulse Ox 36.6 C 56 L 20 163/83 H 97 02/24/21 15:31 02/24/21 18:05 02/24/21 18:05 02/24/21 18:05 02/24/21 18:05 Constitutional: WD/WN, vitals as above Respiratory: normal respiratory effort, lungs clear to auscultation Cardiovascular: RRR, no murmur, no edema Gastrointestinal (Abdomen): normal bowel sounds, soft, nontender, no hepatosplenomegaly Neurologic: PERRL, EOMI, accommodation nl, no face palsy, no dysarthria Results & Data ([facility]) Vital Signs (Past 12 Hours) Vital Signs Temp Pulse Resp BP Pulse Ox 02/24/21 18:05 56 L 20 163/83 H 97 02/24/21 17:09 60 16 147/68 H 97 02/24/21 15:58 67 20 152/70 H 96 02/24/21 15:31 36.6 C 68 18 147/68 H 94 Laboratory Results Cardiac Enzymes 02/24/21 Range/Units 15:57 AST 19 (15-37) U/L Coagulation 02/24/21 Range/Units 15:57 PT 10.9 (9.0-12.0) Seconds APTT 27.6 (21.0-31.0) Seconds CBC 02/24/21 Range/Units 15:57 WBC 6.36 (4.8-10.8) K/uL RBC 4.06 L (4.2-5.4) M/uL Hgb 12.6 (12.0-16.0) g/dL Hct 38.9 (37-47) % Plt Count 220 (130-400) K/uL Neut # (Auto) 4.01 (1.4-6.5) K/uL Lymph # (Auto) 1.60 (1.2-3.4) K/uL [place] # (Auto) 0.41 (0.11-0.59) K/uL Eos # (Auto) 0.30 (0-0.5) K/uL Baso # (Auto) 0.04 (0-0.2) K/uL Comprehensive Metabolic Panel 02/24/21 Range/Units 15:57 Sodium 142 (136-145) mmol/L Potassium 3.8 (3.5-5.1) mmol/L Chloride 110 H (98-107) mmol/L Carbon Dioxide 21 (21-32) mmol/L BUN 20 H (7-18) mg/dl Creatinine 0.94 (0.6-1.2) mg/dl Glucose 142 H (70-99) mg/dl Calcium 9.1 (8.5-10.1) mg/dl AST 19 (15-37) U/L ALT 23 (12-78) U/L Alkaline Phosphatase 122 H (45-117) U/L Total Protein 7.6 (6.4-8.2) gm/dl Albumin 3.5 (3.4-5.0) gm/dl Intake and Output 02/24/21 02/24/21 02/24/21 06:59 14:59 22:59 Other: Weight 99.7 kg Weight Measurement Method Chair Scale Patient Weight 02/25/21 06:59 Weight 99.7 kg Diagnostic Findings EKG performed 01/21/2021 revealed normal sinus rhythm at 71 bpm with mild nonspecific T wave abnormality. Echocardiogram performed 01/21/2021 revealed mild concentric left ventricular hypertrophy, normal biventricular systolic function LVEF 60-65%, aortic valve sclerosis without stenosis. Grade 2 diastolic dysfunction noted.
[2021-02-24] MEDS ORDERED: SENNA 8.6 MG TAB PO PRN (19:19)
[2021-02-24] MEDS: ADVANCED PROBIOTIC 1250 MG CAPSULE PO SCH (20:11)
[2021-02-24] MEDS: MONTELUKAST SODIUM 10 MG TABLET PO SCH (20:11)
[2021-02-24] MEDS: ROSUVASTATIN CALCIUM 20 MG TAB PO SCH (20:12)
[2021-02-25] MEDS: LEVOTHYROXINE SODIUM 88 MCG TABLET PO SCH (06:04)
[2021-02-25 06:58] LABS: Hematocrit (blood only) 39.5 % (37-47); Hemoglobin 12.8 g/dL (12.0-16.0); Mean Corpuscular Hemoglobin 30.9 pg (25-34); Mean Corpuscular Hgb Conc 32.4 g/dL (32-36); Mean Corpuscular Volume 95.4 fL (80-100); Mean Platelet Volume 9.8 fL (7.4-10.4); Platelet Count 211 K/uL (130-400); RDW Coefficient of Variation 13.8 % (11.5-14.5); RDW Standard Deviation 47.7 fL (36.4-46.3); Red Blood Count 4.14 M/uL (4.2-5.4); White Blood Count 5.62 K/uL (4.8-10.8)
[2021-02-25 07:16] LABS: Creatinine Clr Calc Pharmacy 73.3 ml/min; Est GFR (Non-African American) 71.6 ml/min; Magnesium 2.3 mg/dl (1.8-2.4); Potassium 3.9 mmol/L (3.5-5.1)
[2021-02-25 07:25] LABS: T4 Free Thyroxine 1.07 ng/dl (0.8-1.6); Thyroid Stimulating Hormone 1.21 uIu/ml (0.300-4.500)
[2021-02-25] MEDS: FLUoxetine HCL 10 MG CAP PO SCH (08:32)
[2021-02-25] MEDS: PANTOprazole 40 MG TAB PO SCH (08:33)
[2021-02-25] MEDS: CYANOCOBALAMIN 500 MCG TABLET (VITAMIN B-12) PO SCH (08:33)
[2021-02-25] MEDS: CHOLECALCIFEROL 1,000 UNITS 25 MCG TAB PO SCH (08:33)
[2021-02-25] MEDS: ADVANCED PROBIOTIC 1250 MG CAPSULE PO SCH ×2 (08:34→20:06)
[2021-02-25] MEDS: FLUTICASONE PROPIONATE NA SPR 16 GM BTL NAE SCH (08:34)
[2021-02-25] MEDS: UMECLIDINIUM/VILANTEROL 62.5/25MCG 7 PUFFS/INHALER INH SCH (08:35)
[2021-02-25] MEDS: FLUTICASONE FUROATE 100MCG 14 PUFFS/INHALER INH SCH (08:35)
[2021-02-25] MEDS: ASPIRIN 81 MG ECTAB PO SCH (08:35)
[2021-02-25] MEDS: ACETAMINOPHEN 325 MG TAB PO PRN (08:37)
[2021-02-25] MEDS ORDERED: FERROUS SULFATE 325 MG TAB PO SCH (09:00)
[2021-02-25] MEDS ORDERED: METOPROLOL SUCC 25MG EXT REL TAB PO SCH ×2 (09:00)
--- NOTE | 2021-02-25 11:50 | Cardiology Progress Note ---
Date of Service February 25, 2021 Assessment & Plan (1) Tachy-roseann syndrome: (2) Paroxysmal atrial fibrillation: (3) Coronary arteriosclerosis in [place] artery: (4) Dyslipidemia: (1) Tachy-roseann syndrome / (2) Paroxysmal atrial fibrillation / long conversion pauses on outpatient monitor 9 seconds, 4 seconds, history of paroxysmal SVT / normal LVEF, currently in sinus rhythm narrow QRS complex: -Eliquis on hold -for dual chamber pacemaker today -Resume REGISTERED NURSE OBSTETRICS dose of diltiazem post procedure and titrate beta jocelyn (3) Coronary arteriosclerosis in [place] artery: -Stable CAD, TONIO LAD in 2019 -Continue ASA, metoprolol (4) Dyslipidemia: -Continue rosuvastatin 40 mg an Repatha Admission and Anticipated Discharge Date Admission Date: February 24, 2021 Subjective Patient describes sensation of heart "racing" perhaps related to a few ectopic beat, no sustained arrhythmias. No AF or pauses overnight or today on telemetry thus far. Physical Exam Physical Exam: Temp Pulse Resp BP Pulse Ox 36.9 C 58 L 19 144/79 H 94 02/25/21 11:09 02/25/21 11:09 02/25/21 11:09 02/25/21 11:09 02/25/21 11:09 Constitutional: WD/WN, vitals as above Respiratory: normal respiratory effort, lungs clear to auscultation Cardiovascular: RRR, no murmur, no edema Gastrointestinal (Abdomen): normal bowel sounds, soft, nontender, no hepatosplenomegaly Neurologic: PERRL, EOMI, accommodation nl, no face palsy, no dysarthria Results & Data ([facility]) Vital Signs (Past 12 Hours) Vital Signs Temp Pulse Pulse Resp BP Pulse Ox 02/25/21 11:09 36.9 C 58 L 19 144/79 H 94 02/25/21 08:00 65 02/25/21 07:24 36.7 C 61 18 149/79 H 95 02/25/21 03:46 36.8 C 63 94 H 131/72 96 Laboratory Results Cardiac Enzymes 02/24/21 Range/Units 15:57 AST 19 (15-37) U/L Coagulation 02/24/21 Range/Units 15:57 PT 10.9 (9.0-12.0) Seconds APTT 27.6 (21.0-31.0) Seconds CBC 02/24/21 02/25/21 Range/Units 15:57 06:45 WBC 6.36 5.62 (4.8-10.8) K/uL RBC 4.06 L 4.14 L (4.2-5.4) M/uL Hgb 12.6 12.8 (12.0-16.0) g/dL Hct 38.9 39.5 (37-47) % Plt Count 220 211 (130-400) K/uL Neut # (Auto) 4.01 (1.4-6.5) K/uL Lymph # (Auto) 1.60 (1.2-3.4) K/uL [place] # (Auto) 0.41 (0.11-0.59) K/uL Eos # (Auto) 0.30 (0-0.5) K/uL Baso # (Auto) 0.04 (0-0.2) K/uL Comprehensive Metabolic Panel 02/24/21 02/25/21 Range/Units 15:57 06:45 Sodium 142 140 (136-145) mmol/L Potassium 3.8 3.9 (3.5-5.1) mmol/L Chloride 110 H 109 H (98-107) mmol/L Carbon Dioxide 21 26 (21-32) mmol/L BUN 20 H 17 (7-18) mg/dl Creatinine 0.94 0.80 (0.6-1.2) mg/dl Glucose 142 H 95 (70-99) mg/dl Calcium 9.1 9.0 (8.5-10.1) mg/dl AST 19 (15-37) U/L ALT 23 (12-78) U/L Alkaline Phosphatase 122 H (45-117) U/L Total Protein 7.6 (6.4-8.2) gm/dl Albumin 3.5 (3.4-5.0) gm/dl Intake and Output 02/24/21 02/25/21 02/25/21 22:59 06:59 14:59 Intake Total 550 / 550 Output Total 800 / 2500 1700 / 2500 Balance -250 / -1950 -1699 / Intake: Oral 550 / 550 Output: Urine 800 / 2500 1700 / 2500 Other: Other Intake Source NPO Weight 99.2 kg 98.2 kg Weight Measurement Method Standing Scale Standing Scale Medications Administered Current Inpatient Medications Acetaminophen (Acetaminophen 325 Mg Tab) 650 mg PO Q4H PRN PRN Reason: Pain or Fever Stop: 03/26/21 18:25 Last Admin: 02/25/21 08:37 Dose: 650 mg Documented by: Al Hydrox/Mg Hydrox/Simethicone (Aluminum/Magnesium Susp 30 Ml Udc) 15 ml PO Q4H PRN PRN Reason: Dyspepsia Stop: 03/26/21 18:25 Albuterol (Albuterol Hfa 8 Gm Inhaler) 2 puffs INH Q6H PRN PRN Reason: Shortness Of Breath Stop: 03/26/21 18:25 Aspirin (Aspirin 81 Mg Ectab) 81 mg PO [facility] Stop: 03/27/21 08:59 Last Admin: 02/25/21 08:35 Dose: Not Given Documented by: Cyanocobalamin (Cyanocobalamin 500 Mcg Tablet (Vitamin B-12)) 1,000 mcg PO [facility] Stop: 03/27/21 08:59 Last Admin: 02/25/21 08:33 Dose: 1,000 mcg Documented by: Ferrous Sulfate (Ferrous Sulfate 325 Mg Tab) 325 mg PO MoWeFr@0900 [facility] Stop: 03/27/21 08:59 Last Admin: 02/25/21 08:32 Dose: 325 mg Documented by: Fluoxetine HCl (Fluoxetine Hcl 10 Mg Cap) 10 mg PO [facility] Stop: 03/27/21 08:59 Last Admin: 02/25/21 08:32 Dose: 10 mg Documented by: Fluticasone Furoate (Fluticasone Furoate 100mcg 14 Puffs/Inhaler) 1 puffs INH [facility] Stop: 03/27/21 08:59 Last Admin: 02/25/21 08:35 Dose: 1 puffs Documented by: Fluticasone Propionate (Fluticasone Propionate Na Spr 16 Gm Btl) 1 sprays ZACH [facility] Stop: 03/27/21 08:59 Last Admin: 02/25/21 08:34 Dose: Not Given Documented by: Lactobacillus Acidoph/Casei/Rhamnos (Advanced Probiotic 1250 Mg Capsule) 1 cap PO BID [facility] Stop: 03/26/21 20:59 Last Admin: 02/25/21 08:34 Dose: 1 cap Documented by: Levothyroxine Sodium (Levothyroxine Sodium 88 Mcg Tablet) 88 mcg PO DAILYBB [facility] Stop: 03/27/21 06:29 Last Admin: 02/25/21 06:04 Dose: 88 mcg Documented by: Magnesium Hydroxide (Magnesium Hydroxide Susp 30 Ml Udc) 30 ml PO Q12H PRN PRN Reason: Constipation Stop: 03/26/21 18:25 Metoprolol Succinate (Metoprolol Succ 25mg Ext Rel Tab) [facility] Stop: 03/27/21 08:59 Last Admin: 02/25/21 08:33 Dose: 25 mg Documented by: Montelukast Sodium (Montelukast Sodium 10 Mg Tablet) 10 mg PO PM [facility] Stop: 03/26/21 20:59 Last Admin: 02/24/21 20:11 Dose: 10 mg Documented by: Ondansetron HCl (Ondansetron Inj 2 Mg/Ml 2 Ml Vial) 4 mg IV Q6H PRN PRN Reason: Nausea Stop: 03/26/21 18:25 Pantoprazole Sodium (Pantoprazole 40 Mg Tab) 40 mg PO [facility] Stop: 03/27/21 08:59 Last Admin: 02/25/21 08:33 Dose: 40 mg Documented by: Polyethylene Glycol (Polyethylene (Miralax) 17 Gm Pack) 17 gm PO DAILY PRN PRN Reason: Constipation Stop: 03/26/21 18:25 Rosuvastatin Calcium (Rosuvastatin Calcium 20 Mg Tab) 40 mg PO PM [facility] Stop: 03/26/21 20:59 Last Admin: 02/24/21 20:12 Dose: 40 mg Documented by: Sennosides (Senna 8.6 Mg Tab) 8.6 mg PO DAILY PRN PRN Reason: Constipation Stop: 03/26/21 19:18 Umeclidinium/Vilanterol (Umeclidinium/Vilanterol 62.5/25mcg 7 Puffs/Inhaler) 1 puffs INH [facility] Stop: 03/27/21 08:59 Last Admin: 02/25/21 08:35 Dose: 1 puffs Documented by: Vitamin D (Cholecalciferol 1,000 Units 25 Mcg Tab) 2,000 units PO [facility] Stop: 03/27/21 08:59 Last Admin: 02/25/21 08:33 Dose: 2,000 units Documented by:
--- NOTE | 2021-02-25 12:40 | Hospitalist Progress Note ---
Date of Service February 25, 2021 Assessment & Plan (1) Tachy-roseann syndrome: (2) Sinus pause: Patient is a 75 yr female with H/O CAD with two stents to the LAD in 2019 in [place], HTN, HLD, history of paroxysmal supraventricular tachycardia, PAF on Eliquis who presents to ED secondary to abnormal Zio patch reflecting sinus pause. Tachybradycardia syndrome Paroxysmal atrial fibrillation Presented with long pauses on monitor Cardizem, metoprolol on hold Plan for dual-chamber pacemaker placement today Plan to resume Eliquis as able Appreciate cardiology input Monitor electrolytes and replace as needed (3) Coronary artery disease: H/O CAD S/P stents x 2 to LAD in 2019 continue Aspirin, statin, statin, metoprolol (4) Hypertension: Resume diltiazem, metoprolol as able Monitor BP (5) DVT prophylaxis: SCDs for now Resume Eliquis as able Code Status Full Code Admission and Anticipated Discharge Date Admission Date: February 24, 2021 Subjective Patient is seen and examined at bedside States having transient palpitations overnight Denies chest pain, dyspnea, dizziness, nausea, vomiting, abdominal pain this morning Planned for pacemaker placement today Offers no other complaints Review of Systems Review of Systems: All systems reviewed & are unremarkable except as noted in HPI & below Physical Exam Physical Exam: Physical Exam: Vitals signs as noted above General Appearance:Obese, no apparent distress Head: normocephalic, Atraumatic Eyes: normal inspection, EOMI Neck: supple, Trachea midline Respiratory/Chest: Normal breath sounds, CTA Cardiovascular: S1, S2, No murmur Abdomen/GI:Soft, Non tender, Bowel sounds present Extremities/Musculoskeletal:normal inspection, no edema Neurologic/Psych:AAOX3, grossly no focal neurological deficits Skin: normal color, warm Results & Data Results & Data ([facility]) Vital Signs (Past 12 Hours) Vital Signs Temp Pulse Pulse Resp BP Pulse Ox 02/25/21 11:09 36.9 C 58 L 19 144/79 H 94 02/25/21 08:00 65 02/25/21 07:24 36.7 C 61 18 149/79 H 95 02/25/21 03:46 36.8 C 63 94 H 131/72 96 Laboratory Results Short CBC 02/24/21 02/25/21 Range/Units 15:57 06:45 WBC 6.36 5.62 (4.8-10.8) K/uL Hgb 12.6 12.8 (12.0-16.0) g/dL Hct 38.9 39.5 (37-47) % Plt Count 220 211 (130-400) K/uL BMP 02/24/21 02/25/21 15:57 06:45 Sodium 142 140 Potassium 3.8 3.9 Chloride 110 H 109 H Carbon Dioxide 21 26 BUN 20 H 17 Creatinine 0.94 0.80 Glucose 142 H 95 Calcium 9.1 9.0 Liver Function 02/24/21 Range/Units 15:57 Total Bilirubin 0.3 (0.2-1) mg/dl AST 19 (15-37) U/L ALT 23 (12-78) U/L Alkaline Phosphatase 122 H (45-117) U/L Albumin 3.5 (3.4-5.0) gm/dl (1) Coronary artery disease Associated angina: unspecified whether angina present Coronary Disease- Associated Artery/Lesion type: [place] artery [place] vs. transplanted heart: [place] heart Qualified Code(s): I25.10 - Atherosclerotic heart disease of [place] coronary artery without angina pectoris
[2021-02-25] MEDS ORDERED: CLINDAMYCIN PHOS 300 MG/2 ML VIAL ONE (12:45)
--- NOTE | 2021-02-25 13:02 | Pre Anesthesia Assessment ---
Date of Service February 25, 2021 Pre Sedation Assessment Vital Signs Temp Pulse Pulse Resp BP BP Pulse Ox 02/25/21 12:45 69 173/83 H 02/25/21 11:09 36.9 C 58 L 19 144/79 H 94 02/25/21 08:00 65 02/25/21 07:24 36.7 C 61 18 149/79 H 95 02/25/21 03:46 36.8 C 63 94 H 131/72 96 02/24/21 23:22 36.7 C 58 L 18 146/79 H 92 02/24/21 19:31 36.9 C 63 18 145/77 H 63 L 02/24/21 18:27 36.5 C 60 17 186/92 H 97 02/24/21 18:26 02/24/21 18:05 56 L 20 163/83 H 97 02/24/21 17:09 60 16 147/68 H 97 02/24/21 15:58 67 20 152/70 H 96 02/24/21 15:31 36.6 C 68 18 147/68 H 94 Pulse Ox 02/25/21 12:45 02/25/21 11:09 02/25/21 08:00 02/25/21 07:24 02/25/21 03:46 02/24/21 23:22 02/24/21 19:31 02/24/21 18:27 02/24/21 18:26 96 02/24/21 18:05 02/24/21 17:09 02/24/21 15:58 02/24/21 15:31 Cardiovascular + regular rhythm Respiratory + respiratory effort normal Pre-Sedation Airway Assessment Smoking Status: Never smoker Hx Sleep Apnea: No Hx Difficult Intubation: No Short, Thick Neck: No Thyromental Distance: > or= 3.5 Finger Breadths Oral Cavity: + WNL Mallampati Class: III ASA: ASA3 NPO Status Date of Last Intake of Fluids: 02/25/21 Time of Last Intake of Fluids: 07:30 Date of Last Intake of Solid Food: 02/24/21 Procedure Planning Contraindications for Sedation: none Current Medications Reviewed: Yes Notes The planned sedation has been discussed with the patient. Informed Consent was obtained. I have identified the patient, determined the appropriateness of sedation and have assessed the patient immediately prior to the procedure. All medicine(s) and interventions are by my order.
[2021-02-25] MEDS ORDERED: MIDAZOLAM HCL 5 MG/ML 1 ML VIAL ONE (13:10)
[2021-02-25] MEDS ORDERED: fentaNYL citrate 100 MCG/2 ML VIAL ONE (13:10)
[2021-02-25] MEDS ORDERED: WATER, STERILE FOR INJ 10 ML VIAL ONE (13:11)
[2021-02-25] MEDS ORDERED: LIDOCAINE 1% LOCAL 20 ML VIAL ONE (13:11)
[2021-02-25] MEDS ORDERED: VANCOMYCIN HCL 1000MG/20ML VIAL ONE (13:11)
[2021-02-25] MEDS ORDERED: BUPIVACAINE 0.25% 30 ML VIAL ONE (13:12)
--- NOTE | 2021-02-25 14:09 | Post Anesthesia Assessment ---
Date of Service February 25, 2021 Post Sedation Assessment Vital Signs Temp Pulse Pulse Resp BP BP Pulse Ox 02/25/21 12:45 69 173/83 H 02/25/21 11:09 36.9 C 58 L 19 144/79 H 94 02/25/21 08:00 65 02/25/21 07:24 36.7 C 61 18 149/79 H 95 02/25/21 03:46 36.8 C 63 94 H 131/72 96 02/24/21 23:22 36.7 C 58 L 18 146/79 H 92 02/24/21 19:31 36.9 C 63 18 145/77 H 63 L 02/24/21 18:27 36.5 C 60 17 186/92 H 97 02/24/21 18:26 02/24/21 18:05 56 L 20 163/83 H 97 02/24/21 17:09 60 16 147/68 H 97 02/24/21 15:58 67 20 152/70 H 96 02/24/21 15:31 36.6 C 68 18 147/68 H 94 Pulse Ox 02/25/21 12:45 02/25/21 11:09 02/25/21 08:00 02/25/21 07:24 02/25/21 03:46 02/24/21 23:22 02/24/21 19:31 02/24/21 18:27 02/24/21 18:26 96 02/24/21 18:05 02/24/21 17:09 02/24/21 15:58 02/24/21 15:31 Recovery Score Activity: Moves 4 extremities Respiration: Deep Breath/Cough Circulation: +/-20% PreAnes Value Consciousness: Fully Awake Oxygen Saturation: > 92% On Room Air Discharge Sedation Level of Care: Fast Track Phase II Post Sedation Plan On clinical assessment, the patient appears to have tolerated the sedation without complications. Patient is recovering as anticipated. Patient will continue to be monitored by nursing and may be discharged when sedation discharge criteria are met per below protocol. Upon Completions of procedure up to 15 minutes continue every 5 minute vital signs and the P.A.R. score; then discharge to a Phase I or Fast Track to Phase II per the following guidelines: * Discharge Patient to appropriate Phase II area if PAR is 8 or greater or return to pre- procedure baseline. The post - procedure orders will be as directed. * If PAR score is less than 8 or not return to pre-procedure baseline then patient will follow Phase I monitoring till PAR is reached for Phase II. The Phase I may be done in procedure room or may call to secure a Phase I area. * If naloxone or flumazenil are used for reversal, hold in Phase I for continued monitoring from when last reversal dose was given for a minimum of 60 minutes or longer pending the nurse and/or physician discretion of patient condition before discharge to Phase II. Please call the Sedation Physician to re-evaluate and complete post-note for discharge to Phase II area. Do NOT discharge from procedure sedation or Phase 1 until post- sedation evaluation note is complete by procedure /sedation MD Sedation Discharge Instructions to be given to the patient at discharge to home.
--- NOTE | 2021-02-25 14:14 | Electrophysiology Report ---
Date of Service February 25, 2021 Electrophysiology Procedure Electrophysiology Procedure Report Procedure performed: Implantation of dual-chamber permanent pacemaker Staff non destructive evaluation technician: Victor Manuel Hernández MD Indication: The patient is a 75-year-old woman with a history of paroxysmal atri al fibrillation. She was noted on outpatient monitoring to have significant conversion pauses associated with dizziness. She was therefore felt to be a good candidate for a permanent pacemaker due to symptomatic nonreversible AV node dysfunction. A dual-chamber device was selected as she is currently in sinus rhythm and wished to maintain AV synchrony. Procedure in detail: The patient was informed of the risks benefits and alternatives to the intended procedure and she wished to proceed. She was taken to the electrophysiology suite in a fasting state. A preoperative antibiotic had been administered. The patient was monitored electrocardiographically throughout today's procedure and conscious sedation was administered per protocol. The left upper pectoral area is prepped and draped in usual sterile fashion. This area was anesthetized using subcutaneous administration of a xylocaine solution. An incision was made at this site and carried down to the prepectoralis fascia using sharp dissection. Electrocautery was also employed for dissection as well as for hemostasis. A device pocket was fashioned tissues above the pectoralis muscle. Subsequent to this maneuver the left axillary vein was accessed using modified Seldinger technique. Sheaths were placed over guidewires at this site and used to facilitate passage of the pacing leads to the respective chambers under fluo roscopic guidance. This included right atrial and right ventricular leads. Adequate sensing and threshold parameters were obtained prior to Active fixation of the leads to the endocardial surface. The proximal portion leads were then sutured the prepectoral fascia using nonabsorbable suture. The device pocket was irrigated with antibiotic solution. The leads were then attached to the device. The device and leads were then placed in the pocket and pocket was closed in 3 layers of absorbable suture. Steri-Strips and sterile dressing were applied. The device was tested noninvasively prior to conclusion the procedure. The patient tolerated procedure well there no immediate complications. Equipment used: New pulse generator: Case Folder MedIP Ghoster. Model number: [id number] serial numbjian hough [id number] Right atrial lead: Case Folder MedIP Ghoster. Model number: 5076 serial number [id number] [id number] Right ventricular lead: Case Folder MedIP Ghoster. Model number: 5076 serial number [id number] [id number] Measured data: Right atrial lead: P waves measured 5.9 mV. Pacing threshold 1.8 V at 0.5 ms with a pacing impedance of 778 ohms Right ventricular lead: R waves measured 5.5 mV. Pacing threshold was 0.7 V at 0.5 ms with a paced impedance of 980 ohms Impression: Successful implantation of dual-chamber permanent pacemaker MN[facility] Electrophysiology codes Pacing Procedure 1: Pacin Insert/Replace Pacer A & V PG Moderate Sedation Codes Moderate Sedation Codes Procedure 1: Sedation/Anesthesia: 41536 Mod Sedation by the same physician;Init15 Min Child Age 5 & Up Procedure 2: Sedation/Anesthesia: 33158 Mod Sedation by the same physician; Ea [id number] Minutes
--- NOTE | 2021-02-25 15:39 | 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 Note ---
Date of Service: February 25, 2021 Follow up visit: [facility] Cardiology, 03/08/21at 1:45 pm for wound check and interrogation.
--- NOTE | 2021-02-25 16:52 | Electrocardiogram Report ---
Test Reason : Blood Pressure : / mmHG Vent. Rate : 067 BPM Atrial Rate : 067 BPM P-R Int : 190 ms QRS Dur : 096 ms QT Int : 418 ms P-R-T Axes : 060 -38 059 degrees QTc Int : 441 ms Normal sinus rhythm Left axis deviation Abnormal ECG When compared with ECG of 21-JAN-2021 05:49, Nonspecific T wave abnormality, improved in Inferior leads Nonspecific T wave abnormality, improved in Anterolateral leads Confirmed by Victor Manuel Hernández ([id number]) on 02/25/2021 4:52:15 PM Referred By: Ambrocio Ren Confirmed By:Jaime Hernández
--- NOTE | 2021-02-25 16:59 | Electrocardiogram Report ---
Test Reason : Blood Pressure : / mmHG Vent. Rate : 060 BPM Atrial Rate : 060 BPM P-R Int : 188 ms QRS Dur : 096 ms QT Int : 440 ms P-R-T Axes : 057 -38 009 degrees QTc Int : 440 ms Normal sinus rhythm Left axis deviation Abnormal ECG When compared with ECG of 24-FEB-2021 15:52, (unconfirmed) No significant change was found Confirmed by Victor Manuel Hernández ([id number]) on 02/25/2021 4:59:46 PM Referred By: Ambrocio Ren Confirmed By:Jaime Hernández
[2021-02-25] MEDS: oxyCODONE HCL IR 5 MG TAB (IMMEDIATE RELEASE) PO PRN (20:04)
[2021-02-25] MEDS: MONTELUKAST SODIUM 10 MG TABLET PO SCH (20:08)
[2021-02-25] MEDS: ROSUVASTATIN CALCIUM 20 MG TAB PO SCH (20:08)
[2021-02-25] MEDS: ceFAZolin 2000MG 2,000 MG/15 ML SYR IV SCH (20:11)
[2021-02-26] MEDS: oxyCODONE HCL IR 5 MG TAB (IMMEDIATE RELEASE) PO PRN (03:09)
[2021-02-26] MEDS: ceFAZolin 2000MG 2,000 MG/15 ML SYR IV SCH ×2 (06:11→13:34)
[2021-02-26] MEDS: LEVOTHYROXINE SODIUM 88 MCG TABLET PO SCH (06:11)
[2021-02-26 06:40] LABS: Hemoglobin 13.1 g/dL (12.0-16.0); Mean Corpuscular Hemoglobin 31.1 pg (25-34); Mean Corpuscular Hgb Conc 32.8 g/dL (32-36); Platelet Count 204 K/uL (130-400); RDW Coefficient of Variation 13.8 % (11.5-14.5); RDW Standard Deviation 47.5 fL (36.4-46.3); Red Blood Count 4.21 M/uL (4.2-5.4); White Blood Count 5.72 K/uL (4.8-10.8)
[2021-02-26 07:15] LABS: BUN Creatinine Ratio 16.2 (10-20); Calcium 8.6 mg/dl (8.5-10.1); Creatinine Clr Calc Pharmacy 62.4 ml/min; Est GFR (African American) 68.3 ml/min; Est GFR (Non-African American) 58.9 ml/min; Magnesium 2.5 mg/dl (1.8-2.4); Potassium 3.9 mmol/L (3.5-5.1)
[2021-02-26] MEDS: ADVANCED PROBIOTIC 1250 MG CAPSULE PO SCH (08:29)
[2021-02-26] MEDS: CHOLECALCIFEROL 1,000 UNITS 25 MCG TAB PO SCH (08:29)
[2021-02-26] MEDS: CYANOCOBALAMIN 500 MCG TABLET (VITAMIN B-12) PO SCH (08:30)
[2021-02-26] MEDS: FLUoxetine HCL 10 MG CAP PO SCH (08:30)
[2021-02-26] MEDS: PANTOprazole 40 MG TAB PO SCH (08:30)
[2021-02-26] MEDS: ASPIRIN 81 MG ECTAB PO SCH (08:30)
[2021-02-26] MEDS: UMECLIDINIUM/VILANTEROL 62.5/25MCG 7 PUFFS/INHALER INH SCH (08:31)
[2021-02-26] MEDS: FLUTICASONE FUROATE 100MCG 14 PUFFS/INHALER INH SCH (08:31)
[2021-02-26] MEDS: FLUTICASONE PROPIONATE NA SPR 16 GM BTL NAE SCH (08:32)
[2021-02-26] MEDS: ACETAMINOPHEN 325 MG TAB PO PRN (08:33)
[2021-02-26] MEDS ORDERED: dilTIAZem HCL 180 MG CAPCR PO SCH (09:00)
[2021-02-26] MEDS ORDERED: METOPROLOL SUCC 50MG EXT REL TAB PO SCH (09:00)
--- NOTE | 2021-02-26 09:10 | Cardiology Progress Note ---
Date of Service February 26, 2021 Assessment & Plan (1) Tachy-roseann syndrome: The patient appears to have undergone a successful device implant without evident complication. She should refrain from getting the wound wet until follow-up in the clinic next week. She should refrain from lifting left arm above the shoulder behind the neck for 6 weeks. She should hold her Eliquis until 02/28/2021. She can resume her Eliquis that morning. Admission and Anticipated Discharge Date Admission Date: February 25, 2021 Subjective This morning the patient reports some mild discomfort at the device implant site left upper pectoral area. Physical Exam Physical Exam: Evaluation of device implant site reveals some mild ecchymosis. No significant swelling, drainage, erythema or evidence of hematoma Results & Data ([facility]) Vital Signs (Past 12 Hours) Vital Signs Temp Pulse Resp BP Pulse Ox 02/26/21 07:07 36.4 C L 63 18 119/74 95 02/26/21 03:15 36.4 C L 60 20 148/83 H 93 02/25/21 23:15 36.8 C 66 17 147/83 H 92 Diagnostic Findings Chest x-ray demonstrated adequate lead position and no evidence of pneumothorax. Device interrogation reveals good function of both the atrial and ventricular leads.
--- NOTE | 2021-02-26 09:26 | Cardiology Progress Note ---
Date of Service February 26, 2021 Assessment & Plan (1) Tachy-roseann syndrome: (2) Paroxysmal atrial fibrillation: (3) Pacemaker: Successful dual-chamber pacemaker implantation 02/25/2021. Hold Eliquis until 02/28/2021 as per electrophysiology recommendations. Cardizem restarted, 180 mg daily. Toprol-XL titrated to 50 mg daily. Outpatient pacemaker interrogation and wound check in 1 week. Postoperative activity restrictions discussed. Admission and Anticipated Discharge Date Admission Date: February 25, 2021 Subjective Patient seen and examined at the bedside. Feeling well this morning. Denies chest pain or shortness of breath. Reports mild soreness near her pacemaker surgical site. No erythema or drainage. No fevers or chills. Denies palpitations, lightheadedness, or dizziness. Daughter on speaker phone during the visit. Review of Systems Review of Systems: All systems reviewed & are unremarkable except as noted in Subjective Physical Exam Constitutional: well developed and well nourished; no acute distress and not ill appearing Respiratory: normal respiratory effort; no respiratory distress, no labored breathing and no retractions Auscultation: no crackles, no rales, no rhonchi and no wheezes Cardiovascular: Rate/Rhythm: regular rate and regular rhythm Heart Sounds: normal S1 and normal S2; no murmur Vessels: no JVD Extremities: no edema Gastrointestinal (Abdomen): Inspection/Auscultation: normal bowel sounds; abdomen not distended Percussion/Palpation: abdomen soft; abdomen nontender, no guarding and abdomen not rigid Neurologic: CN's II-XI intact bilaterally and moves all extremities; no focal motor deficits Motor/Sensory: no tremor Psychiatric: A+Ox3, euthymic affect Results & Data ([facility]) Vital Signs (Past 12 Hours) Vital Signs Temp Pulse Resp BP Pulse Ox 02/26/21 07:07 36.4 C L 63 18 119/74 95 02/26/21 03:15 36.4 C L 60 20 148/83 H 93 02/25/21 23:15 36.8 C 66 17 147/83 H 92
--- NOTE | 2021-02-26 11:05 | Electrocardiogram Report ---
Test Reason : Blood Pressure : / mmHG Vent. Rate : 060 BPM Atrial Rate : 060 BPM P-R Int : 214 ms QRS Dur : 100 ms QT Int : 434 ms P-R-T Axes : 080 -37 003 degrees QTc Int : 434 ms Poor data quality, interpretation may be adversely affected Atrial-paced rhythm with prolonged AV conduction Left axis deviation Poor R wave progression, consider anterior GA vs. lead placement vs. LVH Abnormal ECG When compared with ECG of 25-FEB-2021 06:28, Electronic atrial pacemaker has replaced Sinus rhythm Confirmed by Victor Manuel Hernández ([id number]) on 02/26/2021 11:05:21 AM Referred By: Ambrocio Ren Confirmed By:Jaime Hernández
--- NOTE | 2021-02-26 11:53 | XRay Report ---
XR chest 2V PA/lateral CLINICAL HISTORY: Pacemaker insertion. COMPARISON STUDY: Chest radiograph February 24, 2021. FINDINGS: There is no pneumothorax following placement of a dual lead left subclavian pacemaker. Lead tips project over the right atrial appendage and the right ventricle. Right basilar opacity reflects atelectasis. There is no evidence for pulmonary edema. Cardiac size is normal. Incidental note is ma de of contrast from prior upper GI series within bowel loops of the upper abdomen. IMPRESSION: No pneumothorax following placement of a dual-lead left subclavian pacemaker. ACT 112: Negative or not required by law. Electronically signed by: Jake Renteria M.D. 02/26/2021 11:51 AM
--- NOTE | 2021-02-26 12:50 | Hospitalist Progress Note ---
Date of Service February 26, 2021 Assessment & Plan (1) Tachy-roseann syndrome: (2) Sinus pause: Patient is a 75 yr female with H/O CAD with two stents to the LAD in 2019 in [place], HTN, HLD, history of paroxysmal supraventricular tachycardia, PAF on Eliquis who presents to ED secondary to abnormal Zio patch reflecting sinus pause. Tachybradycardia syndrome Paroxysmal atrial fibrillation Presented with long pauses on monitor Resume Cardizem, metoprolol Metoprolol increased to 50mg daily S/P dual-chamber pacemaker placement Resume Eliquis on 02/28/21 Appreciate cardiology input Monitor electrolytes and replace as needed Needs follow up with Cardiology upon discharge (3) Coronary artery disease: H/O CAD S/P stents x 2 to LAD in 2019 continue Aspirin, statin, statin, metoprolol (4) Hypertension: Continue diltiazem, metoprolol Monitor BP (5) DVT prophylaxis: SCDs for now Resume Eliquis as able Code Status Full Code Admission and Anticipated Discharge Date Admission Date: February 25, 2021 Subjective Patient is seen and examined at bedside Reports mild soreness at pacemaker site Palpitations resolved Discussed with Cardiology today Denies chest pain, dyspnea, nausea, vomiting, abdominal pain Review of Systems Review of Systems: All systems reviewed & are unremarkable except as noted in HPI & below Physical Exam Physical Exam: Physical Exam: Vitals signs as noted above General Appearance:Obese, no apparent distress Head: normocephalic, Atraumatic Eyes: normal inspection, EOMI Neck: supple, Trachea midline Respiratory/Chest: Normal breath sounds, CTA Cardiovascular: S1, S2, No murmur Abdomen/GI:Soft, Non tender, Bowel sounds present Extremities/Musculoskeletal:normal inspection, no edema Neurologic/Psych:AAOX3, grossly no focal neurological deficits Skin: normal color, warm Results & Data Results & Data ([facility]) Vital Signs (Past 12 Hours) Vital Signs Temp Pulse Pulse Resp BP Pulse Ox 02/26/21 10:42 36.3 C L 63 19 136/78 93 02/26/21 10:07 67 02/26/21 07:07 36.4 C L 63 18 119/74 95 02/26/21 03:15 36.4 C L 60 20 148/83 H 93 Laboratory Results Short CBC 02/26/21 Range/Units 06:19 WBC 5.72 (4.8-10.8) K/uL Hgb 13.1 (12.0-16.0) g/dL Hct 40.0 (37-47) % Plt Count 204 (130-400) K/uL [facility] 02/26/21 06:19 Sodium 137 Potassium 3.9 Chloride 103 Carbon Dioxide 27 BUN 15 Creatinine 0.94 Glucose 93 Calcium 8.6 (1) Coronary artery disease Associated angina: unspecified whether angina present Coronary Disease- Associated Artery/Lesion type: ambler artery [place] vs. transplanted heart: ambler heart Qualified Code(s): I25.10 - Atherosclerotic heart disease of ambler coronary artery without angina pectoris
--- NOTE | 2021-02-26 13:05 | Discharge Summary ---
Date of Service February 26, 2021 Admission HPI Per Admitting Provider This is a 75-year-old female who has significant past medical history of CAD with two stents to the LAD in 2019 in [place], HTN, HLD, history of paroxysmal supraventricular tachycardia, PAF on Eliquis who presents to ED secondary to abnormal Zio patch reflecting sinus pause. Of significance patient was admitted earlier last month in January after being sent to ED from pulmonology clinic secondary to A. fib with RVR. Patient recently moved up from [place] and is currently living with her daughter. She is recently approximately 5 months ago. During her last admission she converted spontaneously to normal si nus rhythm, her Coreg was switched to metoprolol succinate 25 mg daily and she was placed on Eliquis 5 mg twice daily secondary to chadsVasc score of 5. Discharge patient followed up with cardiology and had a Zio patch placed. Cardiology clinic received results last night reflecting a prolonged sinus pause of 9 seconds. Patient was immediately notified and referred to ED. She admits since discharge continues to have intermittent dizziness as well as intermittent bouts of A. fib with RVR. Her most recent episode was 1 week ago where she remained in sinus rhythm for approximately 12 hours. Daughter did call in the clinic and she was instructed to take additional metoprolol. She also recently bought watch to help her determine when she is in A. fib. She denies any recent illness, fever, chills, sweats, lightheadedness, syncope, chest pain, shortness breath at rest, nausea, vomiting, abdominal pain, change in bowel or urinary habits. She does admit to chronic shortness of breath with exertion and cough but attributes this to asthma. She is also wondering if shortness of breath is not secondary to A. fib. She does live with her daughter and is active with her two dogs. Ever since A. fib diagnosis she notes decrease in ability to do certain activities. Currently in ED she remains in sinus rhythm is otherwise hemodynamically stable. She is being admitted for likely pacemaker placement tomorrow. Admission Exam Per Admitting Provider Physical Exam Physical Exam: Constitutional: WD/WN, vitals as above, NAD, sitting up in bed, pleasant, conversing easily Head: Normocephalic, Atraumatic Eyes: PERRL, conjunctivae normal, anicteric sclerae ENMT: external ear and nose normal, oropharynx normal Neck: trachea midline, no thyromegaly normal visual inspection Respiratory: normal respiratory effort, lungs clear to auscultation, no wheeze, rales, rhonchi. Normal insp/exp effort, no accessory muscle use Cardiovascular: RRR, no murmur, no edema Vessels: no JVD or carotid bruit Chest: normal inspection of chest Abdomen: normal bowel sounds, soft, nontender, no hepatosplenomegaly Musculoskeletal: no cyanosis or clubbing, extremities motor strength 5/5 Skin: no rashes, warm and dry normal turgor Neurologic: PERRL, EOMI, accommodation nl, no face palsy, no dysarthria CN's II-XI intact bilaterally and moves all extremities Psychiatric: A+Ox3, euthymic affect Lymphatic: no cervical or axillary lymphadenopathy : deferred Principal Diagnosis Tachybradycardia syndrome Discharge Data Allergies Allergy/AdvReac Type Severity Reaction Status Date / Time melon Allergy Severe Difficulty Unverified 02/24/21 17:15 Swallowing Sulfa (Sulfonamide Allergy Severe Swelling Verified 02/24/21 17:15 Antibiotics) of Lip/Tongue/Throat Penicillins AdvReac Intermediate JOINTS Verified 01/27/21 09:23 BECAME STIFF Consultations 02/24/21 15:43 Consult Cardiology Routine Procedures Performed Operation Date: 02/25/21 12:00 Actual Procedures p Pacer with A/V Leads (Dual) - Heriberto Hernández MD Ordered Studies 02/25/21 07:48 CL Cath Imgs for PACS use only Routine CXR: No pneumothorax following placement of a dual-lead left subclavian pacemaker. Hospital Course (1) Tachy-roseann syndrome: (2) Sinus pause: Patient is a 75 yr female with H/O CAD with two stents to the LAD in 2019 in [place], HTN, HLD, history of paroxysmal supraventricular tachycardia, PAF on Eliquis who presents to ED secondary to abnormal Zio patch reflecting sinus pause. Tachybradycardia syndrome Paroxysmal atrial fibrillation Presented with long pauses on monitor Resume Cardizem, metoprolol Metoprolol increased to 50mg daily S/P dual-chamber pacemaker placement Resume Eliquis on 02/28/21 Appreciate cardiology input Monitor electrolytes and replace as needed Needs follow up with Cardiology upon discharge (3) Coronary artery disease: H/O CAD S/P stents x 2 to LAD in 2019 continue Aspirin, statin, statin, metoprolol (4) Hypertension: Continue diltiazem, metoprolol Monitor BP (5) DVT prophylaxis: SCDs for now Resume Eliquis as able Code Status Full Code Total Time Total Time Spent Total Time Spent (In Minutes): 38 minutes Total Time Includes: Examination of the Patient, Discharge Planning, Medication Reconciliation, 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 With Other Providers and Other Discharge Plan Discharge Items Patient Disposition: Home - Self-Care Reason For Visit: SINUS PAUSE Discharge Diagnosis: Tachybradycardia syndrome Activity: Per Instructions section Exercise/Sports: Wait until after follow-up appointment Non-emergency contact: Primary Care Provider and Lumber Tailer Call non-emergency contact if: you have any medication questions, your symptoms worsen, your pain is not controlled, your pain is concerning for you and you have a fever Follow-up/Referrals: Shelia Millan DO [Primary Care Provider] - (Date & Time 03/02/2021 1:40 PM Provider Chevy Millan DO [facility] ) Diet: Heart Healthy Addtl Attending Provider Instructions: Follow-up with your primary care physician on 03/02/2021 at 1:40 PM Follow up visit: [facility] Cardiology, 03/08/21at 1:45 pm for wound check and interrogation. Do not take Apixaban (Eliquis) until 02/28/21 as recommended by your sheet turner. Your Metoprolol dose is increased to 50mg daily Seek immediate medical attention if your symptoms reoccur or worsen Please take all medications as instructed on discharge list below. Please call if you have any questions or problems. You can reach a [facility] hospitalist on duty at [facility] 24 hours a day by calling [phone] Pending Studies at Discharge: No Stand-Alone Forms: [facility], Smoking Cessation Medications and DC Order Prescriptions: New metoprolol succinate 50 mg Tablet Extended Release 24 Hr 50 mg PO QAM Qty: 30 RF: 1 Continued montelukast [Singulair] 10 mg tablet 10 mg PO PM Qty: 30 RF: 3 Trelegy Ellipta 100-62.5-25 mcg blister with device 1 inh INHALATION QAM Qty: 60 RF: 3 aspirin 81 mg tablet,delayed release (DR/EC) 81 mg PO QAM RF: 0 diltiazem HCl [Cartia XT] 180 mg capsule,extended release 24hr 180 mg PO QAM RF: 0 Allergy Relief (cetirizine) 10 mg capsule 10 mg PO DAILY PRN (Reason: Allergy Symptoms) RF: 0 rosuvastatin [Crestor] 40 mg tablet 40 mg PO PM RF: 0 fluticasone propionate [Flonase Allergy Relief] 50 mcg/actuation spray,suspension 1 spray intranasal QAM RF: 0 levothyroxine 88 mcg tablet 88 mcg PO QAM RF: 0 esomeprazole magnesium [Nexium] 40 mg capsule,delayed release(DR/EC) 40 mg PO QAM RF: 0 fluoxetine [Prozac] 10 mg capsule 10 mg PO QAM RF: 0 acetaminophen [Tylenol] 325 mg capsule 650 mg PO BID PRN (Reason: pain) RF: 0 cholecalciferol (vitamin D3) 50 mcg (2,000 unit) capsule 50 mcg PO QAM RF: 0 albuterol sulfate [Proventil HFA] 90 mcg/actuation HFA aerosol inhaler 2 puff inhalation Q6H PRN (Reason: Shortness Of Breath) RF: 0 glucosamine HCl 1,500 mg tablet 1,500 mg PO QAM RF: 0 cyanocobalamin (vitamin B-12) [Vitamin B-12] 1,000 mcg tablet 1,000 mcg PO QAM RF: 0 ferrous sulfate [Iron (ferrous sulfate)] 325 mg (65 mg iron) tablet 325 mg PO MOWEFR RF: 0 senna 8.6 mg capsule 8.6 mg PO DAILY PRN (Reason: Constipation) RF: 0 multivitamin Tablet 1 tab PO 3XWK RF: 0 omega-3 fatty acids-fish oil [Fish Oil] 360-1,200 mg capsule 1 cap PO 3XWK RF: 0 Repatha SureClick 140 mg/mL pen injector 140 mg SUBCUT .Q2WEEK RF: 0 Domeperidone 10 mg PO QID RF: 0 Lactinex 1 million cell tablet,chewable 1 tab PO BID Qty: 30 RF: 0 apixaban 5 mg Tablet 5 mg PO BID RF: 0 Discontinued metoprolol succinate 25 mg Tablet Extended Release 24 Hr 25 mg PO DAILY RF: 0 Discharge Orders: Discharge Order (Routine); Ordered 02/26/21 Ordered By: Al Phipps/Other Patient Handouts: Discharge Instructions for ... Admission Data Admit Date/Time: 02/25/21 13:14 Attending Provider: Al Keith Admit Provider: Al Keith Primary Care Provider: Shelia Millan Other Providers: Ambrocio Ren Other Interventions: Discharge Summary Assessment (RN) Last Done: 02/26/21 13:23
--- NOTE | 2021-03-09 09:37 | Coding Query ---
CODING QUERY To promote full compliance with coding requirements relating to patient care, provider participation is requested in all cases of him coder uncertainty. Please assist us with the question(s) below: Coding Question(s): There is documentation as on H&P and Progress Notes and Cardiology Consultation of history of Paroxysmal Supraventricular Tachycardia. It is not clear if this is managed with medication during the admission or not. Please specify below, in your clinical opinion. ( ) Paroxysmal Supraventricular Tachycardia was managed with medication, such as Diltiazem, during this admission ( ) Paroxysmal Supraventricular Tachycardia was managed with Other medication during this admission. Please Specify medication: (x ) Paroxysmal Supraventricular Tachycardia was Not managed during this admission ( ) Other: Please Specify Physician's Response(s): Thank you Alessandra Chun Principal Diagnosis: "that condition established after study, to be chiefly responsible for occasioning the admission of the patient to the hospital for care." Co-Existing Principal Diagnosis: "when two or more diagnoses equally meet the criteria for principal diagnosis as determined by the circumstances of admission, diagnostic work up, and/or therapy provided, and the Alphabetic Index, Tabular List, or another coding guideline does not provide sequencing direction, any one of the diagnoses may be sequenced first." "When the physician has documented what appears to be a current diagnosis in the body of the record, but has not included the diagnosis in the final diagnostic statement, the physician should be asked whether the diagnosis should be added." (Source Coding Clinic 2 QTR90. p3-4) EVELYNE
== END 2021-02-26 14:00 | disposition home or self-care (01) | DRG 244 ==
LOC: 2S 15:27 → ED 15:27 → 2S 18:05

== ENCOUNTER 2021-07-12 05:24 | Inpatient (IN) ==
--- NOTE | 2021-07-12 06:04 | Emergency Department Note ---
Impression & Plan Hypoxia, Atrial fibrillation with rapid ventricular response, Pneumonia Admit to the [facility] service ED Provider Note NAME: SUKHWINDER DIEGO AGE: 76 SEX: F ARRIVES VIA: Walk-In INFORMANT: Patient patient's daughter ED PROVIDER(S): Erica West DO CHIEF COMPLAINT: Shortness of breath PLAN: Disposition: Admit to the [facility] service Condition: Guarded MEDICAL DECISION MAKING: This is a 76-year-old female patient with a history of paroxysmal A. fib who presents to the emergency department with hypoxia, dizziness and increasing shortness of breath. Patient has paroxysmal A. fib and is scheduled to see an EP tomorrow. However, the patient developed a cold after being exposed to her grandchildren who had RSV. She has been having intermittent episodes of A. fib with RVR and increased shortness of breath. Pulse oximeter at home had readings in the mid 80s. Covid testing from yesterday was negative. CT negative for PE but shows evidence of multifocal opacities of the lungs. The patient was treated with IV Zithromax and Rocephin. The patient will be admitted to the [facility] service. Originally, there was concern the patient may have CHF as a result of being in A. fib with RVR and she remained hypotensive. There was also concern for the possibility of PE as she was hypoxic. CTA was negative for PE and positive for pneumonia. She was then fluid rehydrated and started on antibiotics. Triage Nursing notes reviewed and agree with them. Additional history obtained from the daughter who is at the bedside Prior medical records reviewed Vital Signs: reviewed and remarkable for hypoxia, hypotension and tachycardia Differential diagnosis: CHF, A. fib with RVR, pneumonia, bronchitis, asthma exacerbation ER treatment provided: IV Rocephin IV Zithromax Diagnostics interpreted by me: ECG: A. fib with rapid ventricular response at a rate of 157. There is significant ischemic changes which appear to be rate dependent Cardiac Monitoring: A. fib at a rate of 140. Laboratory studies: See below Imaging studies: As per my interpretation Portable chest x-ray: Cardiomegaly with trace pleural effusions CTA chest: As per radiology report Consultations: Dr. [facility] cardiology HPI: 76/F arrives for evaluation of shortness of breath. The patient has presented with increasing shortness of breath and hypoxia on pulse ox at home. The patient traveled to [place] to watch her grandchildren who had RSV. He arellano s been having increasing episodes of A. fib with RVR at home. She is scheduled to see EP at [facility] tomorrow. She was seen at the walk-in clinic yesterday with a cough and dizziness. O2 saturations were stable at that time and Covid testing was negative. ROS: See above HPI for pertinent positives & negatives. A total of 10 systems reviewed and were otherwise negative. PAST MEDICAL HISTORY:See Below PAST SURGICAL HISTORY:See Below FAMILY HISTORY:See Below SOCIAL HISTORY:See Below HOME MEDICATIONS:See list ALLERGIES:See list VITALS:See Below PHYSICAL EXAMINATION: HEENT: Head - normocephalic and atraumatic. Pupils are equal, round, and reactive to light. Extraocular eye muscles are intact, and sclera are anicteric. Nose - moist nasal mucosa without discharge. Mouth - moist buccal mucosa. Oropharynx is nonerythematous and there is no tonsillar exudate or edema noted. Neck: Supple; no cervical lymphadenopathy or JVD Heart: Regular rate and rhythm. There is a normal S1 and S2 with no murmurs, clicks, or gallops appreciated. Lungs: Diminished breath sounds at both bases but no wheezing. Abdomen: Soft, completely nontender, nondistended, with good bowel sounds. There are no palpable pulsatile masses or hepatosplenomegaly. There is no guarding, rigidity, or rebound noted. Extremities: No evidence of cyanosis, clubbing, or edema. There are easily palpable peripheral pulses. Skin: warm and dry with good turgor and no rashes. ED COURSE: Times/Reassessments: 0530: The patient was evaluated in room C5. An order was placed for continuous cardiac monitoring. The patient was in atrial fibrillation with rapid ventricular response at a rate of 140. A twelve-lead EKG was obtained. A portable chest x-ray was performed as describ ed above. Laboratory studies were drawn. The patient was placed on oxygen as her O2 saturations were in the 80s without supplemental O2. The patient remained hypotensive and tachycardic. I discussed the case with cardiology. I was concerned for the possibility of PE. She went for a CTA of the chest which showed no obvious PE but there was a bilateral multifocal pneumonia. At that point, blood cultures were obtained, her septic protocol was completed and the patient was bolused with IV normal saline solution and she was started on IV antibiotics. Erica West DO Past Med/Surg History Medical History Arthritis Asthma Bladder cancer BCG treatments Chronic constipation Coronary artery disease 2019 - LAD stent x 2, RCA stent x 2 Diffusion capacity of lung (dl), decreased Dyslipidemia Gastroparesis Hiatal hernia Hypertension Obesity (BMI 30.0-34.9) Pacemaker Paroxysmal atrial fibrillation Snoring Tachy-roseann syndrome Surgical History H/O hernia repair H/O tubal ligation H/O vaginal hysterectomy History of cholecystectomy History of fundoplication History of heart artery stent History of left knee replacement History of repair of rotator cuff History of right hip replacement History of surgical removal of squamous cell carcinoma of skin of religious region Family History Mother Atrial fibrillation Coronary heart disease Father Crohn's disease Other Allergies Asthma Heart disease Hypertension Tuberculosis Social History Smoking Status: Never smoker Second Hand Exposure: Yes (1st - [id number]); Hx Alcohol Use: No Hx Substance Use: No Preferred Language: British 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 Ability: Effective Rubber Down Required: No Beliefs That Will Affect Care: None marital status: / Current Living Situation: Family Current Living Situation Comment: home with daughter, daughter has house and works in [place] as well How many Children do You have: 5 Feels Safe at Home: Yes Assistive Devices: Cane Allergies Allergies Allergy/AdvReac Type Severity Reaction Status Date / Time melon Allergy Severe Difficulty Unverified 07/12/21 07:58 Swallowing Sulfa (Sulfonamide Allergy Severe Swelling Verified 07/12/21 07:58 Antibiotics) of Lip/Tongue/Throat Penicillins AdvReac Intermediate JOINTS Verified 07/12/21 07:58 BECAME STIFF Home Meds Home Medications Medication Instructions Recorded Confirmed acetaminophen 325 mg capsule 650 mg PO BID PRN 12/22/20 07/12/21 (Tylenol) albuterol sulfate 90 mcg/actuation 2 puff INHALATION Q6H PRN 12/22/20 07/12/21 aerosol inhaler (Proventil HFA) aspirin 81 mg tablet,delayed 81 mg PO QAM 12/22/20 07/12/21 release cetirizine 10 mg capsule (Allergy 10 mg PO DAILY PRN 12/22/20 07/12/21 Relief (cetirizine)) cholecalciferol (vitamin D3) 50 50 mcg PO QAM 12/22/20 07/12/21 mcg (2,000 unit) capsule cyanocobalamin (vitamin B-12) 1,000 mcg PO QAM 12/22/20 07/12/21 1,000 mcg tablet (Vitamin B-12) esomeprazole magnesium 40 mg 40 mg PO QAM 12/22/20 07/12/21 capsule,delayed release (Nexium) ferrous sulfate 325 mg (65 mg 325 mg PO MOWEFR 12/22/20 07/12/21 iron) tablet (Iron (ferrous sulfate)) fluticasone propionate 50 1 spray INTRANASAL QAM 12/22/20 07/12/21 mcg/actuation nasal spray,suspension (Flonase Allergy Relief) levothyroxine 88 mcg tablet 88 mcg PO QAM 12/22/20 07/12/21 multivitamin 1 tab PO 3XWK 12/22/20 07/12/21 omega-3 fatty acids-fish oil 360 1 cap PO 3XWK 12/22/20 07/12/21 mg-1,200 mg capsule (Fish Oil) rosuvastatin 40 mg tablet (Crestor) 40 mg PO PM 12/22/20 07/12/21 evolocumab 140 mg/mL subcutaneous 140 mg SUBCUT .Q2WEEK 01/18/21 07/12/21 pen injector (Repmosesa Chivo) apixaban 5 mg tablet 5 mg PO BID 02/24/21 07/12/21 bupropion HCl 150 mg 24 hr tablet, 150 mg PO DAILY 07/12/21 07/12/21 extended release diltiazem HCl 240 mg 240 mg PO DAILY 07/12/21 07/12/21 capsule,extended release 24 hr linaclotide 145 mcg capsule 145 mcg PO DAILY 07/12/21 07/12/21 (Linzess) metoprolol succinate 25 mg 25 mg PO BID 07/12/21 07/12/21 tablet,extended release 24 hr prucalopride 2 mg tablet 1 mg PO DAILY 07/12/21 07/12/21 (Motegrity) Previous Rx's Medication Instructions Recorded fluticasone fur. 100 mcg-umeclid 1 inh INHALATION QAM #60 ea 01/20/21 62.5 mcg-vilant 25 mcg inhalat.powder (Trelegy Ellipta) montelukast 10 mg tablet 10 mg PO PM #30 tab 03/31/21 (Singulair) Results & Data (ED) Vital Signs Vital Signs - 24 hr 07/12/21 05:27 Temperature 36.6 C Temperature Source Temporal Artery Scan Pulse Rate 140 H Respiratory Rate 22 Blood Pressure 96/65 L Blood Pressure Mean 75 Pulse Oximetry 90 Oxygen Delivery Method Room Air Sepsis Recent Fever Within 48 Hours No Sepsis New/Unexplained Change in Mental Status N/A Sepsis Action Taken by Nursing No Action Required Laboratory Data Result diagrams: 07/13/21 05:45 07/13/21 05:45 Lab Results 07/12/21 07/12/21 07/12/21 Range/Units 05:50 05:50 05:50 WBC 13.92 H (4.8-10.8) K/uL RBC 4.50 (4.2-5.4) M/uL Hgb 13.7 (12.0-16.0) g/dL Hct 41.5 (37-47) % MCV 92.2 (80-100) fL MCH 30.4 (25-34) pg MCHC 33.0 (32-36) g/dL RDW Std Deviation 47.0 H (36.4-46.3) fL RDW Coeff of Alexy 13.9 (11.5-14.5) % Plt Count 215 (130-400) K/uL MPV 10.5 H (7.4-10.4) fL Immature Gran % (Auto) 0.3 % Neut % (Auto) 88.2 % Lymph % (Auto) 8.0 % Gilchrist % (Auto) 3.0 % Eos % (Auto) 0.4 % Baso % (Auto) 0.1 % Neut # (Auto) 12.26 H (1.4-6.5) K/uL Lymph # (Auto) 1.12 L (1.2-3.4) K/uL Gilchrist # (Auto) 0.42 (0.11-0.59) K/uL Eos # (Auto) 0.06 (0-0.5) K/uL Baso # (Auto) 0.02 (0-0.2) K/uL Immature Gran # (Auto) 0.04 H (0.00-0.02) K/uL PT 11.9 (9.0-12.0) Seconds INR 1.2 H (0.9-1.1) APTT 37.4 H (21.0-31.0) Seconds PTT Ratio 1.4 D-Dimer 1600 H* (0-500) ug/L FEU Sodium 135 L (136-145) mmol/L Potassium 3.7 (3.5-5.1) mmol/L Chloride 105 (98-107) mmol/L Carbon Dioxide 21 (21-32) mmol/L Anion Gap 8.0 (3-11) BUN 21 H (7-18) mg/dl Creatinine 1.38 H (0.6-1.2) mg/dl Est Cr Clr Drug Dosing 41.7 ml/min Est GFR ( Amer) 42.6 ml/min Est GFR (Non-Af Amer) 36.8 ml/min BUN/Creatinine Ratio 14.9 (10-20) Glucose 117 H (70-99) mg/dl Calcium 9.8 (8.5-10.1) mg/dl Magnesium 1.9 (1.8-2.4) mg/dl Total Bilirubin 0.7 (0.2-1) mg/dl AST 15 (15-37) U/L ALT 18 (12-78) U/L Alkaline Phosphatase 124 H (45-117) U/L Troponin I 0.017 (0-0.045) ng/ml NT-Pro-B Natriuret Pep 3608 H (0-1800) pg/ml Total Protein 7.8 (6.4-8.2) gm/dl Albumin 3.1 L (3.4-5.0) gm/dl Globulin 4.7 H (2.5-4.0) gm/dl Albumin/Globulin Ratio 0.7 L (0.9-2) Procalcitonin (0-0.5) ng/ml COVID-19 Eval Order SARS-CoV-2 (PCR) (Negative) 07/12/21 07/12/21 07/12/21 Range/Units 06:05 06:05 06:05 WBC (4.8-10.8) K/uL RBC (4.2-5.4) M/uL Hgb (12.0-16.0) g/dL Hct (37-47) % MCV (80-100) fL MCH (25-34) pg MCHC (32-36) g/dL RDW Std Deviation (36.4-46.3) fL RDW Coeff of Alexy (11.5-14.5) % Plt Count (130-400) K/uL MPV (7.4-10.4) fL Immature Gran % (Auto) % Neut % (Auto) % Lymph % (Auto) % Gilchrist % (Auto) % Eos % (Auto) % Baso % (Auto) % Neut # (Auto) (1.4-6.5) K/uL Lymph # (Auto) (1.2-3.4) K/uL Gilchrist # (Auto) (0.11-0.59) K/uL Eos # (Auto) (0-0.5) K/uL Baso # (Auto) (0-0.2) K/uL Immature Gran # (Auto) (0.00-0.02) K/uL PT (9.0-12.0) Seconds INR (0.9-1.1) APTT (21.0-31.0) Seconds PTT Ratio D-Dimer (0-500) ug/L FEU Sodium (136-145) mmol/L Potassium (3.5-5.1) mmol/L Chloride (98-107) mmol/L Carbon Dioxide (21-32) mmol/L Anion Gap (3-11) BUN (7-18) mg/dl Creatinine (0.6-1.2) mg/dl Est Cr Clr Drug Dosing ml/min Est GFR ( Amer) ml/min Est GFR (Non-Af Amer) ml/min BUN/Creatinine Ratio (10-20) Glucose (70-99) mg/dl Calcium (8.5-10.1) mg/dl Magnesium (1.8-2.4) mg/dl Total Bilirubin (0.2-1) mg/dl AST (15-37) U/L ALT (12-78) U/L Alkaline Phosphatase (45-117) U/L Troponin I (0-0.045) ng/ml NT-Pro-B Natriuret Pep (0-1800) pg/ml Total Protein (6.4-8.2) gm/dl Albumin (3.4-5.0) gm/dl Globulin (2.5-4.0) gm/dl Albumin/Globulin Ratio (0.9-2) Procalcitonin 2.51 H (0-0.5) ng/ml COVID-19 Eval Order Covid19 at [facility] SARS-CoV-2 (PCR) NEGATIVE (Negative) Administered Medications Acetaminophen (Acetaminophen 325 Mg Tab) 650 mg PO Q4H PRN PRN Reason: Pain or Fever Stop: 08/11/21 11:10 Last Admin: 07/13/21 13:09 Dose: 650 mg Documented by: [id number] Admin: 07/12/21 19:36 Dose: 650 mg Documented by: [id number] Admin: 07/12/21 19:35 Dose: 650 mg Documented by: [id number] Albuterol (Albut/Ipratrop 3mg/0.5mg Neb 3 Ml Vial) 3 ml NEB QIDR [facility] Stop: 08/11/21 10:59 Last Admin: 07/13/21 11:30 Dose: 3 ml Documented by: [id number] Admin: 07/13/21 06:20 Dose: 3 ml Documented by: [id number] Admin: 07/12/21 19:21 Dose: 3 ml Documented by: [id number] Admin: 07/12/21 14:11 Dose: 3 ml Documented by: [id number] Admin: 07/12/21 09:21 Dose: 3 ml Documented by: [id number] Apixaban (Apixaban 5 Mg Tablet) 5 mg PO BID [facility] Stop: 08/11/21 20:59 Last Admin: 07/13/21 08:22 Dose: 5 mg Documented by: [id number] Admin: 07/12/21 20:32 Dose: 5 mg Documented by: [id number] Aspirin (Aspirin 81 Mg Ectab) 81 mg PO QAM [facility] Stop: 08/12/21 08:59 Last Admin: 07/13/21 09:13 Dose: 81 mg Documented by: [id number] Benzonatate (Benzonatate 100 Mg Capsule) 100 mg PO TID [facility] Stop: 08/11/21 20:59 Last Admin: 07/13/21 08:23 Dose: 100 mg Documented by: [id number] Admin: 07/12/21 20:32 Dose: 100 mg Documented by: [id number] Bupropion HCl (Bupropion Xl 150 Mg Tabcr) 150 mg PO DAILY JANE Stop: 08/12/21 08:59 Last Admin: 07/13/21 08:22 Dose: 150 mg Documented by: [id number] Diltiazem HCl (Diltiazem Hcl 240 Mg Capcr) 240 mg PO DAILY [facility] Stop: 08/12/21 08:59 Last Admin: 07/13/21 08:23 Dose: 240 mg Documented by: [id number] Fluticasone Furoate (Fluticasone Furoate 100mcg 14 Puffs/Inhaler) 1 puffs INH QAM [facility]; Protocol Stop: 08/12/21 08:59 Last Admin: 07/13/21 08:24 Dose: 1 puffs Documented by: [id number] Guaifenesin/Codeine Phosphate (Guaifenesin/Codeine 100mg/10mg 5ml Udc) 5 ml PO Q6H PRN PRN Reason: Cough Stop: 08/11/21 19:49 Last Admin: 07/13/21 09:11 Dose: 5 ml Documented by: [id number] Admin: 07/13/21 03:49 Dose: 5 ml Documented by: [id number] Admin: 07/12/21 22:17 Dose: 5 ml Documented by: [id number] Ceftriaxone Sodium 2,000 mg/ (Dextrose) 70 mls @ 140 mls/hr IV QAM [facility] Stop: 07/20/21 08:59 Last Infusion: 07/13/21 08:49 Dose: 0 mls/hr Documented by: [id number] Admin: 07/13/21 08:17 Dose: 140 mls/hr Documented by: [id number] Doxycycline Hyclate 100 mg/ (Dextrose) 110 mls @ 50 mls/hr IV Q12H [facility] Stop: 07/20/21 08:59 Last Infusion: 07/13/21 10:42 Dose: 0 mls/hr Documented by: [id number] Admin: 07/13/21 08:25 Dose: 50 mls/hr Documented by: [id number] Levothyroxine Sodium (Levothyroxine Sodium 88 Mcg Tablet) 88 mcg PO DAILYBB [facility] Stop: 08/12/21 06:29 Last Admin: 07/13/21 05:50 Dose: 88 mcg Documented by: [id number] Linaclotide (Linaclotide 145 Mcg Capsule) 145 mcg PO DAILY [facility] Stop: 08/12/21 08:59 Last Admin: 07/13/21 08:22 Dose: 145 mcg Documented by: [id number] Metoprolol Succinate (Metoprolol Succ 25mg Ext Rel Tab) 25 mg PO BID [facility] Stop: 08/11/21 20:59 Last Admin: 07/13/21 08:23 Dose: 25 mg Documented by: [id number] Admin: 07/12/21 20:32 Dose: 25 mg Documented by: [id number] Miscellaneous (Order Awaiting Action-Motegrity) 1 ea N/A QS [facility] Stop: 08/11/21 15:59 Last Admin: 07/13/21 00:13 Dose: Not Given Documented by: [id number] Admin: 07/12/21 17:10 Dose: Not Given Documented by: [id number] Montelukast Sodium (Montelukast Sodium 10 Mg Tablet) 10 mg PO PM [facility] Stop: 08/11/21 20:59 Last Admin: 07/12/21 21:48 Dose: 10 mg Documented by: [id number] Pantoprazole S[facility] ([facility]antoprazole 40 Mg Tab) [facility] [place] [place] Stop: 08/12/21 08:59 Last Admin: 07/13/21 08:22 Dose: 40 mg Documented by: [id number] Prednisone (Prednisone 20 Mg Tab) 20 mg PO DAILY [facility] Stop: 08/12/21 10:14 Last Admin: 07/13/21 10:42 Dose: 20 mg Documented by: [id number] Admin: 07/13/21 10:39 Dose: 20 mg Documented by: [id number] Rosuvastatin Calcium (Rosuvastatin Calcium 20 Mg Tab) 40 mg PO PM [facility] Stop: 08/11/21 20:59 Last Admin: 07/12/21 20:32 Dose: 40 mg Documented by: [id number] Umeclidinium/Vilanterol (Umeclidinium/Vilanterol 62.5/25mcg 7 Puffs/Inhaler) 1 puffs [facility]H [facility] [place] Stop: 08/12/21 08:59 Last Admin: 07/13/21 08:23 Dose: 1 puffs Documented by: [id number] Discontinued Medications Albuterol (Albut/Ipratrop 3mg/0.5mg Neb 3 Ml Vial) Confirm Administered Dose 3 ml .ROUTE .STK-MED ONE Stop: 07/12/21 09:18 Last Admin: 07/12/21 09:34 Dose: Not Given Documented by: [id number] Sodium Chloride (Nss) 500 mls @ 999 mls/hr IV .Q31M ONE Stop: 07/12/21 08:33 Last Infusion: 07/12/21 09:34 Dose: 0 mls/hr Documented by: [id number] Admin: 07/12/21 08:54 Dose: 999 mls/hr Documented by: [id number] Sodium Chloride (Nss 1000ml) 500 mls @ 999 mls/hr IV .Q31M ONE Stop: 07/12/21 08:33 Last Infusion: 07/12/21 09:34 Dose: 0 mls/hr Documented by: [id number] Admin: 07/12/21 08:54 Dose: 999 mls/hr Documented by: [id number] Ceftriaxone Sodium (Rocephin) 2,000 mg in 70 mls @ 140 mls/hr IV NOW STA Stop: 07/12/21 08:38 Last Infusion: 07/12/21 09:34 Dose: 0 mls/hr Documented by: [id number] Admin: 07/12/21 08:53 Dose: 140 mls/hr Documented by: [id number] Azithromycin 500 mg/ Dextrose 255 mls @ 125 mls/hr IV ONE ONE Stop: 07/12/21 10:12 Last Infusion: 07/12/21 11:03 Dose: 0 mls/hr Documented by: [id number] Admin: 07/12/21 08:54 Dose: 125 mls/hr Documented by: [id number] Sodium Chloride (Nss 1000ml) 1,000 mls @ 100 mls/hr IV .Q10H JANE Stop: 08/11/21 11:10 Last Infusion: 07/13/21 08:17 Dose: 0 mls/hr Documented by: [id number] Admin: 07/12/21 21:48 Dose: 100 mls/hr Documented by: [id number] Infusion: 07/12/21 21:48 Dose: 100 mls/hr Documented by: [id number] Admin: 07/12/21 12:53 Dose: 100 mls/hr Documented by: [id number] Ioversol (Optiray 320 125ml) 112 ml IV ONCE ONE Stop: 07/12/21 07:39 Last Admin: 07/12/21 07:39 Dose: 112 ml Documented by: [id number] Methylprednisolone (Methylprednisolone 40 Mg/Ml Vial) 40 mg IV NOW STA Stop: 07/12/21 09:16 Last Admin: 07/12/21 10:03 Dose: 40 mg Documented by: [id number] Discharge Plan Visit Data Chief Complaint: Body Fluid Exposure Stated Complaint: TROUBLE BREATHING,AFIB,O2 LOW ED Provider: Erica West Discharge Problem: Hypoxia, Atrial fibrillation with rapid ventricular response, Pneumonia Patient Disposition: Admitted As Inpatient Discharge Instructions Interventions: ED Discharge Assessment Last Done: 07/12/21 15:40 Discharge Problem: Pneumonia Qualifiers: Pneumonia type: due to unspecified organism Laterality: bilateral Lung loca tion: unspecified part of lung Qualified Code(s): J18.9 - Pneumonia, unspecified organism
[2021-07-12 06:10] LABS: Basophils # (auto) 0.02 K/uL (0-0.2); Basophils % (auto) 0.1 %; Eosinophils # (auto) 0.06 K/uL (0-0.5); Eosinophils % (auto) 0.4 %; Hematocrit (blood only) 41.5 % (37-47); Hemoglobin 13.7 g/dL (12.0-16.0); Immature Granulocytes # (auto) 0.04 K/uL (0.00-0.02); Immature Granulocytes % (auto) 0.3 %; Lymphocytes # (auto) 1.12 K/uL (1.2-3.4); Mean Corpuscular Hemoglobin 30.4 pg (25-34); Mean Corpuscular Volume 92.2 fL (80-100); Mean Platelet Volume 10.5 fL (7.4-10.4); Monocytes # (auto) 0.42 K/uL (0.11-0.59); Neutrophils # (auto) 12.26 K/uL (1.4-6.5); Neutrophils % (auto) 88.2 %; Platelet Count 215 K/uL (130-400); RDW Coefficient of Variation 13.9 % (11.5-14.5); White Blood Count 13.92 K/uL (4.8-10.8)
[2021-07-12 06:24] LABS: INR 1.2 (0.9-1.1); Partial Thromboplastin Ratio 1.4; Partial Thromboplastin Time 37.4 Seconds (21.0-31.0); Prothrombin Time 11.9 Seconds (9.0-12.0)
[2021-07-12 06:33] LABS: Albumin Level 3.1 gm/dl (3.4-5.0); BUN Creatinine Ratio 14.9 (10-20); Calcium 9.8 mg/dl (8.5-10.1); Creatinine Clr Calc Pharmacy 41.7 ml/min; Est GFR (African American) 42.6 ml/min; Est GFR (Non-African American) 36.8 ml/min; Magnesium 1.9 mg/dl (1.8-2.4); Potassium 3.7 mmol/L (3.5-5.1)
--- NOTE | 2021-07-12 06:37 | XRay Report ---
XR chest 1V portable HISTORY: 76 years-old Female Dyspnea acute shortness of breath COMPARISON: Chest radiograph 02/26/2021 TECHNIQUE: Portable AP view of the chest FINDINGS: Cardiac silhouette is upper limits of normal in size. Left subclavian pacer. Atherosclerotic plaque o f the thoracic aorta. Mild bibasilar consolidation. No pneumothorax. Trace pleural effusions. No over t pulmonary edema. Degenerative changes of the shoulders and spine. IMPRESSION: 1. Cardiomegaly without pulmonary edema. 2. Trace pleural effusions with bibasilar consolidation suggestive of atelectasis versus pneumonia. ACT 112: Negative or not required by law. The above report was generated using voice recognition software. It may contain grammatical, syntax o r spelling errors. Electronically signed by: Russell Douglass M.D. 07/12/2021 6:36 AM
[2021-07-12 06:38] LABS: Albumin Globulin Ratio 0.7 (0.9-2); Globulin 4.7 gm/dl (2.5-4.0); Total Protein 7.8 gm/dl (6.4-8.2); Troponin I 0.017 ng/ml (0-0.045)
[2021-07-12 06:42] LABS: D Dimer 1600 ug/L FEU (0-500)
[2021-07-12 06:44] LABS: Bilirubin,Total 0.7 mg/dl (0.2-1)
[2021-07-12] MEDS ORDERED: OPTIRAY 320 125ml IV ONE (07:38)
--- NOTE | 2021-07-12 07:57 | CT Scan Report ---
CT angio chest PE protocol CT DOSE: 591.88 mGy.cm HISTORY: 76 years-old Female with PE. Acute shortness of breath with cough and tachycardia TECHNIQUE: Multiple CTA images of the chest were obtained after the intravenous administration of 112 ml Optiray. Coronal and sagittal MIPS were obtained from the axial data set and were submitted for review. All measurements were obtained according to NASCET criteria. A dose lowering technique was u tilized adhering to the principles of ALARA. COMPARISON: Chest radiograph of same day, chest CT 10/19/2020 from outside facility. FINDINGS: CTA: Mild cardiomegaly. Extensive coronary artery calcifications. Left subclavian pacer. Atherosclerosis o f the thoracic aorta without aneurysm or dissection. There is patency of the imaged great vessels. Sa tisfactory opacification of the pulmonary artery. No pulmonary emboli. CT CHEST: Atrophic thyroid. No adenopathy. No pneumothorax or pleural effusion. Patchy groundglass opacities ar e noted within the left upper lobe, lingula and lower lobes with intermixed consolidative opacities, as pronounced within the left greater than right basal segments of the lower lobes. Air bronchograms are also present. The central airways are generally patent. Partially imaged 6.4 cm left upper quadrant cyst, likely a renal cyst. Calcifications of the spleen. Moderate sized hiatal hernia with distal esophageal wall thickening. Layering hyperdense material is noted within the mid to distal esophagus. Unremarkable soft tissues. There is no acute fracture or sheridan spicious bone lesion. IMPRESSION: 1. Mild cardiomegaly with extensive coronary artery calcifications. No pulmonary emboli. 2. Left greater than right bibasilar predominant consolidative and groundglass opacities are compatib le with multifocal pneumonia. 3. Moderate sized hiatal hernia with mid to distal esophageal wall thickening. ACT 112: Negative or not required by law. The above report was generated using voice recognition software. It may contain grammatical, syntax o r spelling errors. Electronically signed by: Russell Douglass M.D. 07/12/2021 7:55 AM
[2021-07-12] MEDS ORDERED: SODIUM CHLORIDE 0.9% 1000ML 500 ML IV ONE (08:03)
[2021-07-12] MEDS ORDERED: SODIUM CHLORIDE 0.9% 500 ML IV ONE (08:03)
[2021-07-12] MEDS ORDERED: cefTRIAXone SODIUM 2,000 MG/70 ML BAG IV STA (08:09)
[2021-07-12] MEDS ORDERED: AZITHROMYCIN 500 MG in DEXTROSE 5% 250 ML IV ONE (08:10)
--- NOTE | 2021-07-12 09:08 | Electrocardiogram Report ---
Test Reason : Blood Pressure : / mmHG Vent. Rate : 157 BPM Atrial Rate : 170 BPM P-R Int : 000 ms QRS Dur : 094 ms QT Int : 284 ms P-R-T Axes : 000 -47 124 degrees QTc Int : 459 ms Poor data quality, interpretation may be adversely affected Supraventricular tachycardia Left axis deviation Inferior infarct , age undetermined Poor R wave progression, consider anterior MA vs. lead placement vs. LVH Abnormal ECG Confirmed by Victor Manuel Hernández ([id number]) on 07/12/2021 9:07:54 AM Referred By: REFERRED SELF Confirmed By:Jamie Hernández
[2021-07-12] MEDS ORDERED: ALBUT/IPRATROP 3MG/0.5MG NEB 3 ML VIAL ONE (09:17)
[2021-07-12] MEDS: ALBUT/IPRATROP 3MG/0.5MG NEB 3 ML VIAL NEB SCH ×3 (09:21→19:21)
--- NOTE | 2021-07-12 09:35 | History & Physical Report ---
Date of Service July 12, 2021 Assessment & Plan (1) Acute respiratory failure with hypoxia: (2) Pneumonia: (3) Asthma exacerbation: Plan: -Admit to telemetry -Patient presenting from home with reports of worsening shortness of breath and cough x 5 days. Recently traveled to [place] to visit her grandchildren who had RSV. -In the ED, patient saturating 86% on room air, currently requiring 2 L of oxygen via nasal cannula -CTA chest negative for pulmonary embolism however shows signs of multifocal pneumonia -COVID-19 testing negative, bio fire pending -Procalcitonin 2.5 -S/p IV ceftriaxone and azithromycin in the ED, continue with both -Solu-Medrol 40 mg IV x1 dose -Nebs, continue home inhalers (4) Atrial fibrillation with RVR: (5) Tachy-roseann syndrome: (6) Pacemaker: Plan: -History of paroxysmal atrial fibrillation and tachybradycardia syndrome s/p pacemaker -Presented with A. fib RVR with rates in the 140s -likely exacerbated by acute illness -Notified by nursing that patient has converted to NSR, obtain EKG -Continue home metoprolol and diltiazem -Anticoagulated on Eliquis -Cardiology consult, input appreciated (7) KIRTI (acute kidney injury): Plan: -Creatinine 1.3 (baseline 1.0) -Likely prerenal due to acute illness and poor p.o. intake -IVF, follow renal functions (8) Coronary artery disease: Plan: -History of LAD stent x2 and RCA stent x2 in 2019 -Appears stable, no reports of chest pain -Initial troponin negative, continue to trend -Continue ASA, statin, beta-jocelyn; also on Repatha for HLD management (9) Gastroparesis: (10) Chronic constipation: Plan: -Continue home meds (11) Bladder cancer: Plan: -Follows with Dr. Munoz with [facility] urology -Currently receiving BCG treatments (12) DVT prophylaxis: Plan: -On Eliquis Admission and Anticipated Discharge Date Admission Date: July 12, 2021 History of Present Illness Chief Complaint: Cough, shortness of breath Primary Care Provider: Shelia Millan DO 76-year-old female with PMH hypothyroidism, paroxysmal atrial fibrillation anticoagulated on Eliquis, tachybradycardia syndrome s/p pacemaker 02/2021, gastroparesis, CAD s/p LAD stent x2 and RCA stent x2, asthma, chronic constipation, and other problems listed below who presents to the ED for evaluation of cough and shortness of breath. Patient reports she has been feeling sick for the past 5 days. Recently traveled to [place] to visit her grandchildren who had RSV. Patient reports worsening shortness of breath and cough. Cough has been nonproductive. Patient noted that she was in atrial fibrillation yesterday morning and took an extra dose of metoprolol. She denies chest pain. She reports feeling lightheaded and dizzy however no syncopal events. Appetite has been very poor but denies abdominal pain, nausea, vomiting, diarrhea. No urinary symptoms. In the ED, patient was found to be hypoxic on room air at 87%, currently requiring 2 L of oxygen via nasal cannula. She was also in atrial fibrillation with RVR with rates in the 140s. CTA chest negative for pulmonary embolism but shows signs of multifocal pneumonia. COVID- 19 testing negative. WBC 13 K, creatinine 1.3, procalcitonin 2.5. Patient was given IV azithromycin, IV ceftriaxone, IVF. Allergies Allergy/AdvReac Type Severity Reaction Status Date / Time melon Allergy Severe Difficulty Unverified 07/12/21 07:58 Swallowing Sulfa (Sulfonamide Allergy Severe Swelling Verified 07/12/21 07:58 Antibiotics) of Lip/Tongue/Throat Penicillins AdvReac Intermediate JOINTS Verified 07/12/21 07:58 BECAME STIFF Home Medications Medication Instructions Recorded Confirmed Type acetaminophen 325 mg capsule 650 mg PO BID PRN 12/22/20 07/12/21 History (Tylenol) albuterol sulfate 90 mcg/actuation 2 puff INHALATION Q6H PRN 12/22/20 07/12/21 History aerosol inhaler (Proventil HFA) aspirin 81 mg tablet,delayed 81 mg PO QAM 12/22/20 07/12/21 History release cetirizine 10 mg capsule (Allergy 10 mg PO DAILY PRN 12/22/20 07/12/21 History Relief (cetirizine)) cholecalciferol (vitamin D3) 50 50 mcg PO QAM 12/22/20 07/12/21 History mcg (2,000 unit) capsule cyanocobalamin (vitamin B-12) 1,000 mcg PO QAM 12/22/20 07/12/21 History 1,000 mcg tablet (Vitamin B-12) esomeprazole magnesium 40 mg 40 mg PO QAM 12/22/20 07/12/21 History capsule,delayed release (Nexium) ferrous sulfate 325 mg (65 mg 325 mg PO MOWEFR 12/22/20 07/12/21 History iron) tablet (Iron (ferrous sulfate)) fluticasone propionate 50 1 spray INTRANASAL QAM 12/22/20 07/12/21 History mcg/actuation nasal spray,suspension (Flonase Allergy Relief) levothyroxine 88 mcg tablet 88 mcg PO QAM 12/22/20 07/12/21 History multivitamin 1 tab PO 3XWK 12/22/20 07/12/21 History omega-3 fatty acids-fish oil 360 1 cap PO 3XWK 12/22/20 07/12/21 History mg-1,200 mg capsule (Fish Oil) rosuvastatin 40 mg tablet (Crestor) 40 mg PO PM 12/22/20 07/12/21 History evolocumab 140 mg/mL subcutaneous 140 mg SUBCUT .Q2WEEK 01/18/21 07/12/21 History pen injector (Repatha SureClick) fluticasone fur. 100 mcg-umeclid 1 inh INHALATION QAM #60 ea 01/20/21 07/12/21 Rx 62.5 mcg-vilant 25 mcg inhalat.powder (Trelegy Ellipta) apixaban 5 mg tablet 5 mg PO BID 02/24/21 07/12/21 History montelukast 10 mg tablet 10 mg PO PM #30 tab 03/31/21 07/12/21 Rx (Singulair) bupropion HCl 150 mg 24 hr tablet, 150 mg PO DAILY 07/12/21 07/12/21 History extended release diltiazem HCl 240 mg 240 mg PO DAILY 07/12/21 07/12/21 History capsule,extended release 24 hr linaclotide 145 mcg capsule 145 mcg PO DAILY 07/12/21 07/12/21 History (Linzess) metoprolol succinate 25 mg 25 mg PO BID 07/12/21 07/12/21 History tablet,extended release 24 hr prucalopride 2 mg tablet 1 mg PO DAILY 07/12/21 07/12/21 History (Motegrity) Past Med/Surg History Medical History (Updated 07/12/21 @ 09:33 by GRACE Nichols) Arthritis Asthma Bladder cancer BCG treatments Chronic constipation Coronary artery disease 2019 - LAD stent x 2, RCA stent x 2 Diffusion capacity of lung (dl), decreased Dyslipidemia Gastroparesis Hiatal hernia Hypertension Obesity (BMI 30.0-34.9) Pacemaker Paroxysmal atrial fibrillation Snoring Tachy-roseann syndrome Surgical History H/O hernia repair H/O tubal ligation H/O vaginal hysterectomy History of cholecystectomy History of fundoplication History of heart artery stent History of left knee replacement History of repair of rotator cuff History of right hip replacement History of surgical removal of 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 Family History Mother Atrial fibrillation Coronary heart disease Father Crohn's disease Other Allergies Asthma Heart disease Hypertension Tuberculosis Social History Smoking Status: Never smoker Second Hand Exposure: Yes (1st - [id number]); Hx Alcohol Use: No Hx Substance Use: No Preferred Language: Polish 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 Ability: Effective 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 Calzada's addendum for physical axam Results & Data Results & Data ([facility]) Vital Signs (Past 12 Hours) Vital Signs Temp Pulse Pulse Resp BP Pulse Ox 07/12/21 09:21 83 23 92 07/12/21 08:50 144 H 20 103/67 92 07/12/21 08:30 150 H 24 94/48 L 93 07/12/21 08:10 143 H 22 121/69 92 07/12/21 08:00 149 H 22 105/82 92 07/12/21 07:42 19 95/68 L 92 07/12/21 07:10 133 H 22 107/80 93 07/12/21 06:50 146 H 25 H 111/73 93 07/12/21 06:40 144 H 32 H 112/63 94 07/12/21 06:30 155 H 35 H 95/65 L 94 07/12/21 06:20 148 H 24 114/74 89 L 07/12/21 06:11 158 H 23 92 07/12/21 06:10 146 H 27 H 94/58 L 92 07/12/21 06:05 87 L 07/12/21 06:00 158 H 20 86/48 L 07/12/21 05:50 143 H 30 H 109/56 L 91 07/12/21 05:44 162 H 31 H 92 07/12/21 05:27 36.6 C 140 H 22 96/65 L 90 Laboratory Results Short CBC 07/12/21 Range/Units 05:50 WBC 13.92 H (4.8-10.8) K/uL Hgb 13.7 (12.0-16.0) g/dL Hct 41.5 (37-47) % Plt Count 215 (130-400) K/uL BMP 07/12/21 05:50 Sodium 135 L Potassium 3.7 Chloride 105 Carbon Dioxide 21 BUN 21 H Creatinine 1.38 H Glucose 117 H Calcium 9.8 Cardiac Enzymes 07/12/21 Range/Units 05:50 Troponin I 0.017 (0-0.045) ng/ml Liver Function 07/12/21 Range/Units 05:50 Total Bilirubin 0.7 (0.2-1) mg/dl AST 15 (15-37) U/L ALT 18 (12-78) U/L Alkaline Phosphatase 124 H (45-117) U/L Albumin 3.1 L (3.4-5.0) gm/dl Diagnostic Findings Chest X-Ray 07/12/21 05:53 XR chest 1V portable HISTORY: 76 years-old Female Dyspnea acute shortness of breath COMPARISON: Chest radiograph 02/26/2021 TECHNIQUE: Portable AP view of the chest FINDINGS: Cardiac silhouette is upper limits of normal in size. Left subclavian pacer. Atherosclerotic plaque of the thoracic aorta. Mild bibasilar consolidation. No pneumothorax. Trace pleural effusions. No overt pulmonary edema. Degenerative changes of the shoulders and spine. IMPRESSION: 1. Cardiomegaly without pulmonary edema. 2. Trace pleural effusions with bibasilar consolidation suggestive of atelectasis versus pneumonia. ACT 112: Negative or not required by law. The above report was generated using voice recognition software. It may contain grammatical, syntax or spelling errors. Electronically signed by: Russell Douglass M.D. 07/12/2021 6:36 AM Chest CTA 07/12/21 06:46 CT angio chest PE protocol CT DOSE: 591.88 mGy.cm HISTORY: 76 years-old Female with PE. Acute shortness of breath with cough and tachycardia TECHNIQUE: Multiple CTA images of the chest were obtained after the intravenous administration of 112 ml Optiray. Coronal and sagittal MIPS were obtained from the axial data set and were submitted for review. All measurements were obtained according to NASCET criteria. A dose lowering technique was utilized adhering to the principles of ALARA. COMPARISON: Chest radiograph of same day, chest CT 10/19/2020 from outside facility. FINDINGS: CTA: Mild cardiomegaly. Extensive coronary artery calcifications. Left subclavian pacer. Atherosclerosis of the thoracic aorta without aneurysm or dissection. There is patency of the imaged great vessels. Satisfactory opacification of the pulmonary artery. No pulmonary emboli. CT CHEST: Atrophic thyroid. No adenopathy. No pneumothorax or pleural effusion. Patchy groundglass opacities are noted within the left upper lobe, lingula and lower lobes with intermixed consolidative opacities, as pronounced within the left greater than right basal segments of the lower lobes. Air bronchograms are also present. The central airways are generally patent. Partially imaged 6.4 cm left upper quadrant cyst, likely a renal cyst. Calcifications of the spleen. Moderate sized hiatal hernia with distal esophageal wall thickening. Layering hyperdense material is noted within the mid to distal esophagus. Unremarkable soft tissues. There is no acute fracture or suspicious bone lesion. IMPRESSION: 1. Mild cardiomegaly with extensive coronary artery calcifications. No pulmonary emboli. 2. Left greater than right bibasilar predominant consolidative and groundglass opacities are compatible with multifocal pneumonia. 3. Moderate sized hiatal hernia with mid to distal esophageal wall thickening. ACT 112: Negative or not required by law. The above report was generated using voice recognition software. It may contain grammatical, syntax or spelling errors. Electronically signed by: Russell Douglass M.D. 07/12/2021 7:55 AM Code Status & VTE Plan Code Status Patient is a full code as per Dr. Calzada's discussion with her. VTE Prophylaxis Plan VTE Prophylaxis will be ordered: No Supervising Physician Co-Signing Physician Notes History and physical exam performed by me as detailed by Delmis EDWARDS. History notable for 76-year-old woman with history of hypothyroidism, proximal A. fib on Eliquis, tachybradycardia syndrome status post pacemaker in February 2021, gastroparesis, CAD status post LAD stent x2 in RCA stent x2, asthma, constipation who presents with worsening cough and shortness of breath over the past 5 days. Recent exposure to grandchildren who had RSV at [place]. Physical exam General: Dry oral mucosa, no acute distress Eyes: PERRL, conjunctivae normal, not pale, anicteric sclerae, EOM intact bilaterally ENMT: External ear and nose normal Respiratory: Normal respiratory effort, no respiratory distress, +cough, Reduced breath sounds, +wheezing, no crackles Cardiovascular: Tachycardic, irregularly irregular pulse S1 S2, pedal pulses+, no pedal edema Gastrointestinal (Abdomen): Abdomen is not distended, soft, non-tender to palpation, no guarding, no palpable hepatosplenomegaly, normal bowel sounds Musculoskeletal: No cyanosis or clubbing, all extremities motor strength 5/5 Genitourinary: No CVA tenderness Skin: No rash noted on gross inspection, No ulcers noted Neurologic: Alert and oriented x 3, No focal weakness, sensation grossly intact Psychiatric: Alert and oriented x 3, euthymic affect, no depressed affect Labs notable for WBC of 13.9, D-dimer of 1600, creatinine of 1.38, BNP 3608, Procal 2.51 Resp panel + for Entero/Rhinovirus CT PE showed mild cardiomegaly with extensive coronary artery calcifications, no PE, left greater than right bibasilar predominant consolidative and groundglass opacities compatible with multifocal pneumonia Acute hypoxic respiratory Failure Rhinovirus infection Multifocal pneumonia Afib w/ RVR KIRTI Patient did meet criteria for SIRS with tachycardia, tachypnea, leukocytosis. Hence Sepsis due to Pneumonia Rhinovirus infection. Possible secondary bacterial infection Continue ceft and azithromycin Continue inhaler. Got one dose of solumedrol Got 1.5L bolus in ER. Currently on IVF Converted to Sinus rhythm Continue oxygen supplementation and wean as tolerated Monitor renal function and fluid status Continue eliquis Agree with other plans as detailed by Delmis EDWARDS (1) Coronary artery disease Associated angina: unspecified whether angina present Coronary Disease- Associated Artery/Lesion type: [place] artery [place] vs. transplanted heart: [place] heart Qualified Code(s): I25.10 - Atherosclerotic heart disease of [place] coronary artery without angina pectoris
[2021-07-12 10:20] LABS: Bordetella parapertussis PCR Not Detected (NotDetected); Bordetella pertussis PCR Not Detected (NotDetected); Chlamydia pneumoniae PCR Not Detected (NotDetected); Coronavirus 229E PCR Not Detected (NotDetected); Coronavirus CoV-2 (COVID19)PCR Not Detected (NotDetected); Coronavirus HKU1 PCR Not Detected (NotDetected); Coronavirus NL63 PCR Not Detected (NotDetected); Coronavirus OC43PCR Not Detected (NotDetected); Human Metapneumovirus PCR Not Detected (NotDetected); Influenza A PCR Not Detected (NotDetected); Influenza B PCR Not Detected (NotDetected); Mycoplasma pneumoniae PCR Not Detected (NotDetected); Parainfluenza Virus 1 PCR Not Detected (NotDetected); Parainfluenza Virus 2 PCR Not Detected (NotDetected); Parainfluenza Virus 3 PCR Not Detected (NotDetected); Parainfluenza Virus 4 PCR Not Detected (NotDetected); Respiratory Syncytial VirusPCR Not Detected (NotDetected); Rhinovirus/Enterovirus PCR DETECTED (NotDetected)
[2021-07-12 10:33] LABS: Adenovirus PCR Not Detected (NotDetected)
[2021-07-12] MEDS ORDERED: cefTRIAXone SODIUM 1,000 MG in DEXTROSE 5% 50 ML IV SCH (11:11)
[2021-07-12] MEDS: SODIUM CHLORIDE 0.9% 1000ML 1,000 ML IV SCH ×2 (12:53→21:48)
--- NOTE | 2021-07-12 19:11 | Cardiology Consultation ---
Date of Consultation July 12, 2021 Assessment & Plan (1) Pneumonia: (2) Pacemaker: (3) Paroxysmal atrial fibrillation: CT of the chest performed due to history of respiratory illness, recent travel, hypoxia, with findings of no pulmonary emboli, radiology report describes left greater than right consolidative and groundglass opacities compatible with multifocal pneumonia. Patient has been started on empiric antibiotics for community acquired pneumonia including Rocephin and azithromycin. She has a history of recurrent frequent episodes of SVT and atrial fibrillation, and as an outpatient I have received multiple device events of recurrent A. fib episodes. She is actually scheduled to see electrophysiology as an outpatient tomorrow to discuss alternative medication therapy or consideration of pulmonary vein isolation ablation. Unfortunately, any thoughts of ablation therapy left to be delayed as anticipate she will need time to recover from this pneumonia. 1 consideration would be transitioning her from metoprolol to sotalol, or considering dofetilide. I have therefore stopped azithromycin due to potential for QT prolongation with the after mentioned antiarrhythmic medications, and I transitioned her to doxycycline for atypical coverage. For now, continue prior to hospital treatment with oral diltiazem and metoprolol. Continue Eliquis for stroke prophylaxis. History of Present Illness Attending Physician: Maya Calzada MD History of Present Illness Jamila Fallon is a 76 year old female seen in cardiology consultation per the request of GRACE Nichols for the evaluation of paroxysmal atrial fibrillation. Patient well-known to the undersigned, she has a history of paroxysmal atrial fibrillation, tachycardia-bradycardia syndrome, and underwent implantation of a dual-chamber permanent pacemaker in February,. She had recently been in [place], and had been exposed to her 3-year-old grandchildren who were ill with RSV. Shortly after returning, she started having respiratory symptoms, this progressed to a dorys cough, and she presented overnight with hypoxia, pneumonia, and atrial fibrillation with rapid vent ricular response. In the emergency room last evening atrial fibrillation in the range of 130-150 bpm was present. She spontaneously converted back to sinus rhythm this morning 07/12/2021 and 9:09 AM and remains in sinus rhythm at present. She has a coarse cough. She appears ill. Past Cardiac Vascular History: 1.Coronary heart disease, status post cardiac catheterization in [place], 2019, 2 stents to the LAD 2.Hypertension 3.Dyslipidemia for which she is on the PCSK9 inhibitor Repatha 4.Hypertension 5.Paroxysmal supraventricular tachycardia 6.paroxysmal atrial fibrillation 7. Tachycardia-bradycardia syndrome, status post dual-chamber [employer] permanent pacemaker February, Allergies Allergy/AdvReac Type Severity Reaction Status Date / Time melanaly Allergy Severe Difficulty Unverified 07/12/21 07:58 Swallowing Sulfa (Sulfonamide Allergy Severe Swelling Verified 07/12/21 07:58 Antibiotics) of Lip/Tongue/Throat Penicillins AdvReac Intermediate JOINTS Verified 07/12/21 07:58 BECAME STIFF Home Medications Medication Instructions Recorded Confirmed Type acetaminophen 325 mg capsule 650 mg PO BID PRN 12/22/20 07/12/21 History (Tylenol) albuterol sulfate 90 mcg/actuation 2 puff INHALATION Q6H PRN 12/22/20 07/12/21 History aerosol inhaler (Proventil HFA) aspirin 81 mg tablet,delayed 81 mg PO QAM 12/22/20 07/12/21 History release cetirizine 10 mg capsule (Allergy 10 mg PO DAILY PRN 12/22/20 07/12/21 History Relief (cetirizine)) cholecalciferol (vitamin D3) 50 50 mcg PO QAM 12/22/20 07/12/21 History mcg (2,000 unit) capsule cyanocobalamin (vitamin B-12) 1,000 mcg PO QAM 12/22/20 07/12/21 History 1,000 mcg tablet (Vitamin B-12) esomeprazole magnesium 40 mg 40 mg PO QAM 12/22/20 07/12/21 History capsule,delayed release (Nexium) ferrous sulfate 325 mg (65 mg 325 mg PO MOWEFR 12/22/20 07/12/21 History iron) tablet (Iron (ferrous sulfate)) fluticasone propionate 50 1 spray INTRANASAL QAM 12/22/20 07/12/21 History mcg/actuation nasal spray,suspension (Flonase Allergy Relief) levothyroxine 88 mcg tablet 88 mcg PO QAM 12/22/20 07/12/21 History multivitamin 1 tab PO 3XWK 12/22/20 07/12/21 History omega-3 fatty acids-fish oil 360 1 cap PO 3XWK 12/22/20 07/12/21 History mg-1,200 mg capsule (Fish Oil) rosuvastatin 40 mg tablet (Crestor) 40 mg PO PM 12/22/20 07/12/21 History evolocumab 140 mg/mL subcutaneous 140 mg SUBCUT .Q2WEEK 01/18/21 07/12/21 History pen injector (Jenifer Waldron) fluticasone fur. 100 mcg-umeclid 1 inh INHALATION QAM #60 ea 01/20/21 07/12/21 Rx 62.5 mcg-vilant 25 mcg inhalat.powder (Trelegy Ellipta) apixaban 5 mg tablet 5 mg PO BID 02/24/21 07/12/21 History montelukast 10 mg tablet 10 mg PO PM #30 tab 03/31/21 07/12/21 Rx (Singulair) bupropion HCl 150 mg 24 hr tablet, 150 mg PO DAILY 07/12/21 07/12/21 History extended release diltiazem HCl 240 mg 240 mg PO DAILY 07/12/21 07/12/21 History capsule,extended release 24 hr linaclotide 145 mcg capsule 145 mcg PO DAILY 07/12/21 07/12/21 History (Linzess) metoprolol succinate 25 mg 25 mg PO BID 07/12/21 07/12/21 History tablet,extended release 24 hr prucalopride 2 mg tablet 1 mg PO DAILY 07/12/21 07/12/21 History (Motegrity) Patient History Medical History Arthritis Asthma Bladder cancer BCG treatments Chronic constipation Coronary artery disease 2019 - LAD stent x 2, RCA stent x 2 Diffusion capacity of lung (dl), decreased Dyslipidemia Gastroparesis Hiatal hernia Hypertension Obesity (BMI 30.0-34.9) Pacemaker Paroxysmal atrial fibrillation Snoring Tachy-roseann syndrome Surgical History H/O hernia repair H/O tubal ligation H/O vaginal hysterectomy History of cholecystectomy History of fundoplication History of heart artery stent History of left knee replacement History of repair of rotator cuff History of right hip replacement History of surgical removal of squamous cell carcinoma of skin of [place] region Family History Mother Atrial fibrillation Coronary heart disease Father Crohn's disease Other Allergies Asthma Heart disease Hypertension Tuberculosis Social History Smoking Status: Never smoker Second Hand Exposure: Yes (1st - [id number]); Hx Alcohol Use: No Hx Substance Use: No Preferred Language: Iraqi 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 Ability: Effective Fuel Cell Battery Technician Required: No Beliefs That Will Affect Care: None marital status: / Current Living Situation: Family Current Living Situation Comment: home with daughter, daughter has house and works in [place] as well Feels Safe at Home: Yes Assistive Devices: None Review of Systems Review of Systems: All systems reviewed & are unremarkable except as noted in HPI & below Physical Exam Physical Exam: Temp Pulse Resp BP Pulse Ox 36.9 C 85 26 H 120/58 L 92 07/12/21 16:10 07/12/21 18:34 07/12/21 18:34 07/12/21 16:10 07/12/21 18:34 Constitutional: + ill appearing Respiratory: + labored breathing and + cough Auscultation: + rhonchi; no crackles and no rales Cardiovascular: RRR, no murmur, no edema Heart Sounds: + murmur Vessels: no JVD Gastrointestinal (Abdomen): normal bowel sounds, soft, nontender, no hepatosplenomegaly Neurologic: PERRL, EOMI, accommodation nl, no face palsy, no dysarthria Results & Data ([facility]) Vital Signs (Past 12 Hours) Vital Signs Temp Pulse Pulse Resp BP BP Pulse Ox 07/12/21 18:34 85 26 H 92 07/12/21 18:07 86 27 H 92 07/12/21 17:50 85 27 H 89 L 07/12/21 17:05 82 20 91 07/12/21 16:58 84 26 H 91 07/12/21 16:10 36.9 C 86 21 120/58 L 90 07/12/21 16:06 36.9 C 86 21 90 07/12/21 14:21 85 105/56 L 90 07/12/21 14:11 82 21 89 L 07/12/21 09:21 83 23 92 07/12/21 08:50 144 H 20 103/67 92 07/12/21 08:30 150 H 24 94/48 L 93 07/12/21 08:10 143 H 22 121/69 92 07/12/21 08:00 149 H 22 105/82 92 07/12/21 07:42 19 95/68 L 92 07/12/21 07:10 133 H 22 107/80 93 Laboratory Results Cardiac Enzymes 07/12/21 07/12/21 07/12/21 Range/Units 05:50 11:51 17:34 AST 15 (15-37) U/L Troponin I 0.017 0.024 0.026 (0-0.045) ng/ml Coagulation 07/12/21 Range/Units 05:50 PT 11.9 (9.0-12.0) Seconds APTT 37.4 H (21.0-31.0) Seconds CBC 07/12/21 Range/Units 05:50 WBC 13.92 H (4.8-10.8) K/uL RBC 4.50 (4.2-5.4) M/uL Hgb 13.7 (12.0-16.0) g/dL Hct 41.5 (37-47) % Plt Count 215 (130-400) K/uL Neut # (Auto) 12.26 H (1.4-6.5) K/uL Lymph # (Auto) 1.12 L (1.2-3.4) K/uL [place] # (Auto) 0.42 (0.11-0.59) K/uL Eos # (Auto) 0.06 (0-0.5) K/uL Baso # (Auto) 0.02 (0-0.2) K/uL Comprehensive Metabolic Panel 07/12/21 Range/Units 05:50 Sodium 135 L (136-145) mmol/L Potassium 3.7 (3.5-5.1) mmol/L Chloride 105 (98-107) mmol/L Carbon Dioxide 21 (21-32) mmol/L BUN 21 H (7-18) mg/dl Creatinine 1.38 H (0.6-1.2) mg/dl Glucose 117 H (70-99) mg/dl Calcium 9.8 (8.5-10.1) mg/dl AST 15 (15-37) U/L ALT 18 (12-78) U/L Alkaline Phosphatase 124 H (45-117) U/L Total Protein 7.8 (6.4-8.2) gm/dl Albumin 3.1 L (3.4-5.0) gm/dl Intake and Output 07/12/21 07/12/21 07/12/21 06:59 14:59 22:59 Intake Total 1325 / 1445 120 / 1445 Balance 1325 / 1445 120 / 1445 Intake: IV 1325 / 1325 Azithromycin 500 mg In Dextrose 255 / 255 5% 250 ml @ 125 mls/hr IV ONE ONE Rx#:[id number] Sodium Chloride 0.9% 1000ML 500 500 / 500 ml @ 999 mls/hr IV .Q31M ONE Rx#:[id number] Sodium Chloride 0.9% 500 ml @ 500 / 500 999 mls/hr IV .Q31M ONE Rx#: [id number] cefTRIAXone SODIUM 2,000 mg In 70 / 70 70 ml @ 140 mls/hr IV NOW STA Rx#:[id number] Oral 120 / 120 Other: Weight 97.4 kg 97.4 kg Weight Measurement Method Chair Scale Patient Weight 07/13/21 06:59 Weight 97.4 kg Diagnostic Findings EKG performed 07/12/2021 revealed atrial fibrillation with rapid ventricular response 157 bpm. Age-indeterminate inferior infarction pattern. Repeat tracing performed 07/12/2021 at 1743 revealed sinus rhythm at 94 bpm, the age-indeterminate inferior infarct pattern has resolved, the corrected QT is calculated to be 462 by the computer, but is difficult to see the T wave morphology very well due to baseline artifact.
[2021-07-12] MEDS: ACETAMINOPHEN 325 MG TAB PO PRN ×2 (19:35→19:36)
[2021-07-12] MEDS: METOPROLOL SUCC 25MG EXT REL TAB PO SCH (20:32)
[2021-07-12] MEDS: BENZONATATE 100 MG CAPSULE PO SCH (20:32)
[2021-07-12] MEDS: APIXABAN 5 MG TABLET PO SCH (20:32)
[2021-07-12] MEDS: ROSUVASTATIN CALCIUM 20 MG TAB PO SCH (20:32)
[2021-07-12 21:15] LABS: Appearance Urine Clear (Clear); Bacteria Urine Automated Negative (Negative); Bilirubin Urine Negative (Negative); Blood Urine Negative (Negative); Color Urine Dark Yellow; Epithelial Cell Urine Auto >30 /lpf (0-5); Glucose Urine UA Negative (Negative); Ketones Urine Negative (Negative); Leukocyte Esterase Urine Negative (Negative); Nitrite Urine Negative (Negative); Protein Urine 2+ (Negative); Specific Gravity Urine 1.041 (1.000-1.030); Urobilinogen Urine Negative (Negative); pH Urine 6.5 (4.5-7.5)
[2021-07-12] MEDS: MONTELUKAST SODIUM 10 MG TABLET PO SCH (21:48)
[2021-07-12] MEDS: guaiFENesin/CODEINE 100MG/10MG 5ML UDC PO PRN (22:17)
[2021-07-13] MEDS: guaiFENesin/CODEINE 100MG/10MG 5ML UDC PO PRN ×3 (03:49→15:28)
[2021-07-13] MEDS: LEVOTHYROXINE SODIUM 88 MCG TABLET PO SCH (05:50)
[2021-07-13] MEDS: ALBUT/IPRATROP 3MG/0.5MG NEB 3 ML VIAL NEB SCH ×4 (06:20→19:12)
[2021-07-13 06:25] LABS: Hematocrit (blood only) 33.3 % (37-47); Hemoglobin 11.2 g/dL (12.0-16.0); Mean Corpuscular Hemoglobin 30.3 pg (25-34); Mean Corpuscular Hgb Conc 33.6 g/dL (32-36); Mean Platelet Volume 10.4 fL (7.4-10.4); Platelet Count 177 K/uL (130-400); RDW Standard Deviation 46.3 fL (36.4-46.3); White Blood Count 9.37 K/uL (4.8-10.8)
[2021-07-13 06:51] LABS: BUN Creatinine Ratio 17.8 (10-20); Calcium 8.9 mg/dl (8.5-10.1); Creatinine Clr Calc Pharmacy 52.6 ml/min; Est GFR (African American) 56.1 ml/min; Est GFR (Non-African American) 48.4 ml/min; Potassium 3.8 mmol/L (3.5-5.1)
[2021-07-13] MEDS: cefTRIAXone SODIUM 2,000 MG in DEXTROSE 5% 50 ML IV SCH (08:17)
[2021-07-13] MEDS: buPROPion XL 150 MG TABCR PO SCH (08:22)
[2021-07-13] MEDS: APIXABAN 5 MG TABLET PO SCH ×2 (08:22→21:12)
[2021-07-13] MEDS: LINACLOTIDE 145 MCG CAPSULE PO SCH (08:22)
[2021-07-13] MEDS: PANTOprazole 40 MG TAB PO SCH (08:22)
[2021-07-13] MEDS: UMECLIDINIUM/VILANTEROL 62.5/25MCG 7 PUFFS/INHALER INH SCH (08:23)
[2021-07-13] MEDS: dilTIAZem HCL 240 MG CAPCR PO SCH (08:23)
[2021-07-13] MEDS: METOPROLOL SUCC 25MG EXT REL TAB PO SCH ×2 (08:23→21:12)
[2021-07-13] MEDS: BENZONATATE 100 MG CAPSULE PO SCH ×3 (08:23→21:12)
[2021-07-13] MEDS: FLUTICASONE FUROATE 100MCG 14 PUFFS/INHALER INH SCH (08:24)
[2021-07-13] MEDS: DOXYCYCLINE HYCLATE 100 MG in DEXTROSE 5% 100 ML IV SCH ×2 (08:25→21:14)
[2021-07-13] MEDS ORDERED: FLUTICASONE/VILANTEROL 100/25MCG 14 PUFFS/INHALER INH SCH (09:00)
[2021-07-13] MEDS ORDERED: AZITHROMYCIN 500 MG in DEXTROSE 5% 250 ML IV SCH (09:00)
[2021-07-13] MEDS: ASPIRIN 81 MG ECTAB PO SCH (09:13)
[2021-07-13] MEDS: predniSONE 20 MG TAB PO SCH ×2 (10:39→10:42)
--- NOTE | 2021-07-13 10:54 | Electrocardiogram Report ---
Test Reason : Blood Pressure : / mmHG Vent. Rate : 094 BPM Atrial Rate : 094 BPM P-R Int : 182 ms QRS Dur : 096 ms QT Int : 370 ms P-R-T Axes : 048 -41 069 degrees QTc Int : 462 ms Poor data quality, interpretation may be adversely affected Sinus rhythm with Premature atrial complexes with Aberrant conduction Left axis deviation Abnormal ECG When compared with ECG of 12-JUL-2021 09:32, (unconfirmed) Aberrant conduction is now Present QT has lengthened Confirmed by Victor Manuel Hernández ([id number]) on 07/13/2021 10:53:41 AM Referred By: REFERRED SELF Confirmed By:Jaime Hernández
--- NOTE | 2021-07-13 11:20 | Electrocardiogram Report ---
Test Reason : Blood Pressure : / mmHG Vent. Rate : 084 BPM Atrial Rate : 084 BPM P-R Int : 174 ms QRS Dur : 088 ms QT Int : 346 ms P-R-T Axes : 107 -39 092 degrees QTc Int : 408 ms Poor data quality, interpretation may be adversely affected Normal sinus rhythm Left axis deviation Nonspecific ST and T wave abnormality Abnormal ECG When compared with ECG of 12-JUL-2021 05:45, Vent. rate has decreased BY 73 BPM Criteria for Inferior infarct are no longer Present Confirmed by Victor Manuel Hernández ([id number]) on 07/13/2021 11:19:44 AM Referred By: REFERRED SELF Confirmed By:Jaime Hernández
--- NOTE | 2021-07-13 11:20 | Electrocardiogram Report ---
Test Reason : Blood Pressure : / mmHG Vent. Rate : 071 BPM Atrial Rate : 071 BPM P-R Int : 178 ms QRS Dur : 096 ms QT Int : 388 ms P-R-T Axes : 049 -27 025 degrees QTc Int : 421 ms Normal sinus rhythm Low voltage QRS Nonspecific T wave abnormality Abnormal ECG When compared with ECG of 12-JUL-2021 17:43, (unconfirmed) Aberrant conduction is no longer Present Confirmed by Victor Manuel Hernández ([id number]) on 07/13/2021 11:20:11 AM Referred By: REFERRED SELF Confirmed By:Jaime Hernández
[2021-07-13] MEDS: ACETAMINOPHEN 325 MG TAB PO PRN (13:09)
[2021-07-13] MEDS ORDERED: BENZOCAINE 20% (ORAJEL) 11.9 GM TUBE MT PRN (15:15)
--- NOTE | 2021-07-13 18:27 | Cardiology Progress Note ---
Date of Service July 13, 2021 Assessment & Plan (1) Pneumonia: (2) Pacemaker: (3) Paroxysmal atrial fibrillation: Plan: CT of the chest performed due to history of respiratory illness, recent travel, hypoxia, with findings of no pulmonary emboli, radiology report describes left greater than right consolidative and groundglass opacities compatible with multifocal pneumonia. Continue Rocephin and doxycycline. She has a history of recurrent frequent episodes of SVT and atrial fibrillation, and as an outpatient I have received multiple device events of recurrent A. fib episodes. She is actually scheduled to see electrophysiology as an outpatient tomorrow to discuss alternative medication therapy or consideration of pulmonary vein isolation ablation. Unfortunately, any thoughts of ablation therapy left to be delayed as anticipate she will need time to recover from this pneumonia. A consideration would be transitioning her from metoprolol to sotalol, or considering dofetilide. For now, continue prior to hospital treatment with oral diltiazem and metoprolol. Continue Eliquis for stroke prophylaxis. Admission and Anticipated Discharge Date Admission Date: July 12, 2021 Subjective Patient seen in cardiology follow-up. Denies palpitations. She remains in sinus rhythm in the 80s on telemetry. Significant hypoxia noted, requiring 9 mL/min oxygen via oxygen mask to maintain pulse ox of 94%. Physical Exam Physical Exam: Temp Pulse Resp BP Pulse Ox 36.8 C 80 20 114/63 94 07/13/21 15:33 07/13/21 15:41 07/13/21 15:41 07/13/21 15:33 07/13/21 15:41 Constitutional: + ill appearing Respiratory: Coarse breath sounds bilaterally Cardiovascular: RRR, no murmur, no edema Gastrointestinal (Abdomen): normal bowel sounds, soft, nontender, no hepatosplenomegaly Neurologic: PERRL, EOMI, accommodation nl, no face palsy, no dysarthria Results & Data ([facility]) Vital Signs (Past 12 Hours) Vital Signs Temp Pulse Pulse Resp BP Pulse Ox 07/13/21 15:41 80 20 94 07/13/21 15:33 36.8 C 81 20 114/63 90 07/13/21 11:32 83 24 93 07/13/21 08:00 36.2 C L 61 88 20 133/77 89 L Diagnostic Findings EKG performed 07/13/2021 6:16 AM normal sinus rhythm 71 bpm, stable corrected QT interval 421 ms. CBC 07/13/21 Range/Units 05:45 WBC 9.37 (4.8-10.8) K/uL RBC 3.70 L (4.2-5.4) M/uL Hgb 11.2 L (12.0-16.0) g/dL Hct 33.3 L (37-47) % Plt Count 177 (130-400) K/uL Comprehensive Metabolic Panel 07/13/21 Range/Units 05:45 Sodium 137 (136-145) mmol/L Potassium 3.8 (3.5-5.1) mmol/L Chloride 109 H (98-107) mmol/L Carbon Dioxide 20 L (21-32) mmol/L BUN 20 H (7-18) mg/dl Creatinine 1.10 (0.6-1.2) mg/dl Glucose 124 H (70-99) mg/dl Calcium 8.9 (8.5-10.1) mg/dl Intake and Output 07/13/21 07/13/21 07/13/21 06:59 14:59 22:59 Intake Total 600 / 2936.667 1820 / 1820 Output Total 350 / 350 Balance 600 / 2636.667 1470 / 1470 Intake: IV 1180 / 1180 Doxycycline Hyclate 100 mg In 110 / 110 Dextrose 5% 100 ml @ 50 mls/hr IV Q12H [facility] Rx#:[id number] Sodium Chloride 0.9% 1000ML 1, 1000 / 1000 000 ml @ 100 mls/hr IV .Q10H [facility] Rx#:[id number] cefTRIAXone SODIUM 2,000 mg In 70 / 70 Dextrose 5% 50 ml @ 140 mls/hr IV QAM [facility] Rx#:[id number] Oral 600 / 720 640 / 640 Output: Urine 350 / 350 Other: Weight 98.6 kg 98.6 kg Weight Measurement Method Built in [facility] Patient Weight 07/14/21 06:59 Weight 98.6 kg
--- NOTE | 2021-07-13 20:02 | Hospitalist Progress Note ---
Date of Service July 13, 2021 Assessment & Plan (1) Acute respiratory failure with hypoxia: (2) Pneumonia: (3) Asthma exacerbation: Plan: Acute respiratory failure with hypoxia Rhino/Enterovirus infection Possible secondary bacterial infection Asthma exacerbation --CTA:Mild cardiomegaly with extensive coronary artery calcifications. No pulmonary emboli. Left greater than right bibasilar predominant consolidative and groundglass opacities are compatible with multifocal pneumonia. Moderate sized hiatal hernia with mid to distal esophageal wall thickening. -Elevated procalcitonin -Negative COVID Screen Continue empiric antibiotic Continue nebs Start on low-dose steroid Continue supplemental oxygen as needed We will consider pulmonary evaluation if no improvement (4) Atrial fibrillation with RVR: Plan: Continue diltiazem, metoprolol On Eliquis for anticoagulation Currently in sinus Appreciate cardiology input (5) Tachy-roseann syndrome: (6) Pacemaker: Plan: H/O paroxysmal atrial fibrillation and tachybradycardia syndrome s/p pacemaker Management as above (7) KIRTI (acute kidney injury): Plan: Creatinine 1.3>>1.1 Baseline 1.0 Received IV fluids Monitor Renal function (8) Coronary artery disease: Plan: H/O LAD stent x2 and RCA stent x2 in 2019 Continue ASA, statin, beta-jocelyn; also on Repatha for HLD management (9) Gastroparesis: (10) Chronic constipation: Plan: -Continue meds (11) Bladder cancer: Plan: Follows with Dr. Munoz with [facility] urology Currently receiving BCG treatments (12) DVT prophylaxis: Plan: -On Eliquis Admission and Anticipated Discharge Date Admission Date: July 12, 2021 Subjective Patient is seen and examined at bedside States having cough with dyspnea on exertion Currently saturating well on 8 L supplemental oxygen Denies any chest pain, dizziness, nausea, abdominal pain Review of Systems Review of Systems: All systems reviewed & are unremarkable except as noted in Subjective Physical Exam Physical Exam: Physical Exam: Vitals signs as noted above General Appearance:Moderately built and nourished, no apparent distress Head: normocephalic, Atraumatic Eyes: normal inspection, EOMI, PERRL Neck: supple, Trachea midline Respiratory/Chest: Coarse breath sounds, No accessory muscle use Cardiovascular: S1, S2, No murmur Abdomen/GI:Soft, Non tender, Bowel sounds present Extremities/Musculoskeletal:normal inspection, no edema Neurologic/Psych:AAOX3, grossly no focal neurological deficits Skin: normal color, warm Results & Data Results & Data ([facility]) Vital Signs (Past 12 Hours) Vital Signs Temp Pulse Pulse Resp BP Pulse Ox 07/13/21 19:15 83 20 93 07/13/21 15:41 80 20 94 07/13/21 15:33 36.8 C 81 20 114/63 90 07/13/21 11:32 83 24 93 07/13/21 08:00 36.2 C L 61 88 20 133/77 89 L Laboratory Results Short CBC 07/13/21 Range/Units 05:45 WBC 9.37 (4.8-10.8) K/uL Hgb 11.2 L (12.0-16.0) g/dL Hct 33.3 L (37-47) % Plt Count 177 (130-400) K/uL BMP 07/13/21 05:45 Sodium 137 Potassium 3.8 Chloride 109 H Carbon Dioxide 20 L BUN 20 H Creatinine 1.10 Glucose 124 H Calcium 8.9 Urine 07/12/21 Range/Units 20:35 Urine Color Dark Yellow Urine Appearance Clear (Clear) Urine pH 6.5 (4.5-7.5) Ur Specific [place] 1.041 H (1.000-1.030) Urine Protein 2+ H (Negative) Urine Glucose (UA) Negative (Negative) (1) Coronary artery disease Associated angina: unspecified whether angina present Coronary Disease- Associated Artery/Lesion type: [place] artery [place] vs. transplanted heart: [place] heart Qualified Code(s): I25.10 - Atherosclerotic heart disease of [place] coronary artery without angina pectoris
[2021-07-13] MEDS: ROSUVASTATIN CALCIUM 20 MG TAB PO SCH (21:12)
[2021-07-13] MEDS: MONTELUKAST SODIUM 10 MG TABLET PO SCH (21:12)
[2021-07-14] MEDS: ACETAMINOPHEN 325 MG TAB PO PRN ×3 (01:39→20:33)
[2021-07-14] MEDS: guaiFENesin/CODEINE 100MG/10MG 5ML UDC PO PRN ×2 (03:59→10:16)
[2021-07-14] MEDS: ALBUT/IPRATROP 3MG/0.5MG NEB 3 ML VIAL NEB SCH ×5 (05:45→22:31)
[2021-07-14] MEDS: LEVOTHYROXINE SODIUM 88 MCG TABLET PO SCH (05:57)
[2021-07-14 06:29] LABS: Hematocrit (blood only) 37.7 % (37-47); Hemoglobin 12.2 g/dL (12.0-16.0); Mean Corpuscular Hgb Conc 32.4 g/dL (32-36); Mean Corpuscular Volume 92.6 fL (80-100); Mean Platelet Volume 10.1 fL (7.4-10.4); Platelet Count 218 K/uL (130-400); RDW Coefficient of Variation 14.2 % (11.5-14.5); RDW Standard Deviation 48.3 fL (36.4-46.3); Red Blood Count 4.07 M/uL (4.2-5.4)
[2021-07-14 06:55] LABS: BUN Creatinine Ratio 17.1 (10-20); Calcium 9.6 mg/dl (8.5-10.1); Creatinine Clr Calc Pharmacy 56.3 ml/min; Est GFR (African American) 60.7 ml/min; Est GFR (Non-African American) 52.4 ml/min; Magnesium 2.1 mg/dl (1.8-2.4); Potassium 3.6 mmol/L (3.5-5.1)
[2021-07-14] MEDS: SODIUM CHLORIDE 0.9% 1000ML 1,000 ML IV SCH (07:28)
[2021-07-14] MEDS: buPROPion XL 150 MG TABCR PO SCH (08:39)
[2021-07-14] MEDS: predniSONE 20 MG TAB PO SCH (08:39)
[2021-07-14] MEDS: dilTIAZem HCL 240 MG CAPCR PO SCH (08:39)
[2021-07-14] MEDS: ASPIRIN 81 MG ECTAB PO SCH (08:39)
[2021-07-14] MEDS: PANTOprazole 40 MG TAB PO SCH (08:39)
[2021-07-14] MEDS: LINACLOTIDE 145 MCG CAPSULE PO SCH (08:40)
[2021-07-14] MEDS: APIXABAN 5 MG TABLET PO SCH ×2 (08:40→20:29)
[2021-07-14] MEDS: METOPROLOL SUCC 25MG EXT REL TAB PO SCH (08:40)
[2021-07-14] MEDS: BENZONATATE 100 MG CAPSULE PO SCH ×3 (08:40→20:28)
[2021-07-14] MEDS: FLUTICASONE FUROATE 100MCG 14 PUFFS/INHALER INH SCH (08:41)
[2021-07-14] MEDS: UMECLIDINIUM/VILANTEROL 62.5/25MCG 7 PUFFS/INHALER INH SCH (08:41)
[2021-07-14] MEDS: cefTRIAXone SODIUM 2,000 MG in DEXTROSE 5% 50 ML IV SCH (08:46)
[2021-07-14] MEDS: DOXYCYCLINE HYCLATE 100 MG in DEXTROSE 5% 100 ML IV SCH ×2 (08:48→20:34)
--- NOTE | 2021-07-14 10:51 | Electrocardiogram Report ---
Test Reason : Blood Pressure : / mmHG Vent. Rate : 077 BPM Atrial Rate : 077 BPM P-R Int : 182 ms QRS Dur : 102 ms QT Int : 394 ms P-R-T Axes : 061 -34 038 degrees QTc Int : 445 ms Normal sinus rhythm Left axis deviation Abnormal ECG When compared with ECG of 13-JUL-2021 06:16, Nonspecific T wave abnormality, improved in Anterior leads Confirmed by Victor Manuel Hernández ([id number]) on 07/14/2021 10:51:22 AM Referred By: REFERRED SELF Confirmed By:Jaime Hernández
--- NOTE | 2021-07-14 12:23 | Pulmonary Consultation ---
Date of Consultation July 14, 2021 Assessment & Plan (1) Acute respiratory failure with hypoxia: (2) Pneumonia: CT chest 2021-07-12 personally reviewed: Consolidative changes appreciated in bilateral lower lobes, Especially in the left lower lobe Hiatal hernia No significant mediastinal lymphadenopathy --Acute hypoxic respiratory failure Secondary to multilobar pneumonia COVID-19 PCR negative Rhinovirus positive Procalcitonin 2.51 --> 1.07 --Asthma with acute exacerbation Likely secondary to rhinovirus Has been using trilogy on a daily basis On montelukast and Zyrtec --Morbid obesity Sleep study 2021-05-05 does not show any signs of sleep apnea Plan: Continue with antibiotics given the elevated blood culture report please 5 days Follow sputum culture Arnuity has been added to Anoro I am going to give the patient guaifenesin-DM [id number]. Flutter valve will also be added Patient is on apixaban and and the patient has bouts of coughing where she is not able to stop with the flutter valve I would recommend to give guaifenesin- codeine instead and go down on the frequency of flutter valve Okay to give prednisone 20 mg for 5 days Case discussed with Dr. Keith Please note the above document was generated using voice recognition software. It may contain grammatical, syntax or spelling errors.Any formal questions or concerns about the content, text or information contained within the body of this dictation should be directly addressed to the provider for clarification. History of Present Illness Attending Physician: Al Keith MD History of Present Illness 76-year-old female past medical history of hypothyroidism, paroxysmal A. fib on Eliquis, tachybradycardia syndrome status post pacemaker February 2021, morbid obesity, coronary artery disease presented to hospital with complaints of cough and shortness of breath. As per the patient she was feeling unwell since last 5 days She recently traveled to [place] where her grandchildren had RSV. Pulmonary consulted for the same Patient was following up with Dr. Vidal. Last clinic note reviewed At the time of examination patient was not in acute respiratory distress She states she is feeling better compared to when she came to the hospital Denies any chest pain Her symptoms started approximately a week ago last when she came back from [place]. She denies any dysuria, no diarrhea. No headache, no blurry vision She does complain of cough but she is not able to bring it up. Complains of chest congestion Denies any hemoptysis Patient does have history of asthma and has been using Trelegy inhaler on a daily basis. Other than this episode she hardly has to use the rescue inhaler that often. Social history: Lifetime non-smoker Allergies Allergy/AdvReac Type Severity Reaction Status Date / Time melon Allergy Severe Difficulty Unverified 07/12/21 07:58 Swallowing Sulfa (Sulfonamide Allergy Severe Swelling Verified 07/12/21 07:58 Antibiotics) of Lip/Tongue/Throat Penicillins AdvReac Intermediate JOINTS Verified 07/12/21 07:58 BECAME STIFF Home Medications Medication Instructions Recorded Confirmed Type acetaminophen 325 mg capsule 650 mg PO BID PRN 12/22/20 07/12/21 History (Tylenol) albuterol sulfate 90 mcg/actuation 2 puff INHALATION Q6H PRN 12/22/20 07/12/21 History aerosol inhaler (Proventil HFA) aspirin 81 mg tablet,delayed 81 mg PO QAM 12/22/20 07/12/21 History release cetirizine 10 mg capsule (Allergy 10 mg PO DAILY PRN 12/22/20 07/12/21 History Relief (cetirizine)) cholecalciferol (vitamin D3) 50 50 mcg PO QAM 12/22/20 07/12/21 History mcg (2,000 unit) capsule cyanocobalamin (vitamin B-12) 1,000 mcg PO QAM 12/22/20 07/12/21 History 1,000 mcg tablet (Vitamin B-12) esomeprazole magnesium 40 mg 40 mg PO QAM 12/22/20 07/12/21 History capsule,delayed release (Nexium) ferrous sulfate 325 mg (65 mg 325 mg PO MOWEFR 12/22/20 07/12/21 History iron) tablet (Iron (ferrous sulfate)) fluticasone propionate 50 1 spray INTRANASAL QAM 12/22/20 07/12/21 History mcg/actuation nasal spray,suspension (Flonase Allergy Relief) levothyroxine 88 mcg tablet 88 mcg PO QAM 12/22/20 07/12/21 History multivitamin 1 tab PO 3XWK 12/22/20 07/12/21 History omega-3 fatty acids-fish oil 360 1 cap PO 3XWK 12/22/20 07/12/21 History mg-1,200 mg capsule (Fish Oil) rosuvastatin 40 mg tablet (Crestor) 40 mg PO PM 12/22/20 07/12/21 History evolocumab 140 mg/mL subcutaneous 140 mg SUBCUT .Q2WEEK 01/18/21 07/12/21 History pen injector (Jenifer Jamesick) fluticasone fur. 100 mcg-umeclid 1 inh INHALATION QAM #60 ea 01/20/21 07/12/21 Rx 62.5 mcg-vilant 25 mcg inhalat.powder (Trelegy Ellipta) apixaban 5 mg tablet 5 mg PO BID 02/24/21 07/12/21 History montelukast 10 mg tablet 10 mg PO PM #30 tab 03/31/21 07/12/21 Rx (Singulair) bupropion HCl 150 mg 24 hr tablet, 150 mg PO DAILY 07/12/21 07/12/21 History extended release diltiazem HCl 240 mg 240 mg PO DAILY 07/12/21 07/12/21 History capsule,extended release 24 hr linaclotide 145 mcg capsule 145 mcg PO DAILY 07/12/21 07/12/21 History (Linzess) metoprolol succinate 25 mg 25 mg PO BID 07/12/21 07/12/21 History tablet,extended release 24 hr prucalopride 2 mg tablet 1 mg PO DAILY 07/12/21 07/12/21 History (Motegrity) Patient History Medical History Arthritis Asthma Bladder cancer BCG treatments Chronic constipation Coronary artery disease 2019 - LAD stent x 2, RCA stent x 2 Diffusion capacity of lung (dl), decreased Dyslipidemia Gastroparesis Hiatal hernia Hypertension Obesity (BMI 30.0-34.9) Pacemaker Paroxysmal atrial fibrillation Snoring Tachy-roseann syndrome Surgical History H/O hernia repair H/O tubal ligation H/O vaginal hysterectomy History of cholecystectomy History of fundoplication History of heart artery stent History of left knee replacement History of repair of rotator cuff History of right hip replacement History of surgical removal of 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 Family History Mother Atrial fibrillation Coronary heart disease Father Crohn's disease Other Allergies Asthma Heart disease Hypertension Tuberculosis Social History Smoking Status: Never smoker Second Hand Exposure: Yes (1st - [id number]); Hx Alcohol Use: No Hx Substance Use: No Preferred Language: Lithuanian 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 Ability: Effective 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 Quality Improvement Required: No Beliefs That Will Affect Care: None marital status: / Current Living Situation: Family Current Living Situation Comment: home with daughter, daughter has house and works in [place] as well How many Children do You have: 5 Feels Safe at Home: Yes Assistive Devices: Oxygen - Continuous Review of Systems Review of Systems: All systems reviewed & are unremarkable except as noted in HPI & below Physical Exam Physical Exam: Constitutional: No acute distress HEENT: EOMI, PERRLA Respiratory system: Decreased air entry bilaterally, no wheeze, no rhonchi, positive crackles bilateral lower lobes more on the left side CVS: S1-S2 positive, no murmurs or gallops Abdomen: Soft, nontender, nondistended, positive bowel sounds x4 Extremities: +2 pulses bilaterally radialis/ dorsalis pedis, no cyanosis, no edema Neuro: Awake alert oriented x3 Psych: Normal mood and affect G/U: No [place] Skin: no rashes, warm and dry Lymphatic: no cervical or axillary lymphadenopathy Results & Data Results & Data ([facility]) Vital Signs (Past 12 Hours) Vital Signs Temp Pulse Pulse Resp BP Pulse Ox 07/14/21 11:51 36.5 C 83 20 131/76 92 07/14/21 11:32 90 07/14/21 11:28 84 L 07/14/21 11:15 92 07/14/21 10:20 67 18 93 07/14/21 07:27 79 07/14/21 06:43 36.7 C 77 18 136/78 95 07/14/21 05:45 79 20 93 07/14/21 03:43 36.8 C 79 19 125/72 93 07/14/21 05:59 07/14/21 05:59 PG Care Time/CCT Total # of Minutes Spent Total Time Spent with Patient: Total time spent is greater than 50% in coordination of care (as documented) at patient's floor/unit and/or counseling patient: Coding Level of Care Code 15995 Initial Inpt Care Lvl 3 Diagnoses Acute respiratory failure with hypoxia J96.01 Pneumonia J18.9
[2021-07-14] MEDS ORDERED: SOTALOL HCL 80 MG TAB PO ONE (15:03)
--- NOTE | 2021-07-14 15:03 | Cardiology Progress Note ---
Date of Service July 14, 2021 Assessment & Plan (1) Pneumonia: (2) Pacemaker: (3) Paroxysmal atrial fibrillation: Plan: Continue Rocephin and doxycycline. EKG 07/14/2021 reviewed independently reveals normal sinus rhythm at 77 bpm, corrected QT interval normal 445 ms. BMP, normal renal function, normal magnesium level, potassium 3.6 today. She has a history of recurrent frequent episodes of SVT and atrial fibrillation, and as an outpatient I have received multiple device events of recurrent A. fib episodes. She is actually scheduled to see electrophysiology as an outpatient tomorrow to discuss alternative medication therapy or consideration of pulmonary vein isolation ablation. Unfortunately, any thoughts of ablation therapy left to be delayed as anticipate she will need time to recover from this pneumonia. Given her frequent symptomatic episodes of SVT and atrial fibrillation noted as an outpatient on recent device checks, will proceed with transition from metoprolol to sotalol . We will update basic metabolic panel and EKG tomorrow. First dose 80 mg now, next dose 80 mg in a.m. She is on no QT prolonging medications with azithromycin having been stopped on 07/12/2021. Continue Eliquis for stroke prophylaxis. Admission and Anticipated Discharge Date Admission Date: July 12, 2021 Subjective Patient seen in cardiology follow-up. Remains in sinus rhythm. She feels like perhaps her chest congestion has slightly improved and she is bringing some phlegm up with coughing. Physical Exam Constitutional: + ill appearing Respiratory: + labored breathing and + cough Auscultation: + rhonchi; no crackles and no rales Cardiovascular: RRR, no murmur, no edema Heart Sounds: + murmur Vessels: no JVD Gastrointestinal (Abdomen): normal bowel sounds, soft, nontender, no hepatosplenomegaly Neurologic: PERRL, EOMI, accommodation nl, no face palsy, no dysarthria Results & Data ([facility]) Vital Signs (Past 12 Hours) Vital Signs Temp Pulse Pulse Resp BP Pulse Ox 07/14/21 14:56 78 18 92 07/14/21 11:51 36.5 C 83 20 131/76 92 07/14/21 11:32 90 07/14/21 11:28 84 L 07/14/21 11:15 92 07/14/21 10:20 67 18 93 07/14/21 07:27 79 07/14/21 06:43 36.7 C 77 18 136/78 95 07/14/21 05:45 79 20 93 07/14/21 03:43 36.8 C 79 19 125/72 93
[2021-07-14] MEDS ORDERED: POTASSIUM CHLORIDE CRTAB 20 MEQ TABCR PO STA (15:05)
[2021-07-14] MEDS ORDERED: FLUTICASONE FUROATE 100MCG 14 PUFFS/INHALER INH SCH (15:45)
--- NOTE | 2021-07-14 17:08 | Hospitalist Progress Note ---
Date of Service July 14, 2021 Assessment & Plan (1) Acute respiratory failure with hypoxia: (2) Pneumonia: (3) Asthma exacerbation: Plan: Acute respiratory failure with hypoxia Rhino/Enterovirus infection Possible secondary bacterial infection Asthma exacerbation --CTA:Mild cardiomegaly with extensive coronary artery calcifications. No pulmonary emboli. Left greater than right bibasilar predominant consolidative and groundglass opacities are compatible with multifocal pneumonia. Moderate sized hiatal hernia with mid to distal esophageal wall thickening. -Elevated procalcitonin -Negative COVID Screen Continue Rocephin, doxycycline for 5 days Continue nebs Continue low-dose prednisone for 5 days Appreciate pulmonary Input Continue antitussives Continue flutter valve Wean off of supplemental oxygen as able Procalcitonin trending down Has been on Trilogy (4) Atrial fibrillation with RVR: Plan: Continue diltiazem On Eliquis for anticoagulation Currently in sinus Appreciate cardiology input Toprol changed to sotalol Monitor QTC Needs follow-up with EP as outpatient (5) Tachy-roseann syndrome: (6) Pacemaker: Plan: H/O paroxysmal atrial fibrillation and tachybradycardia syndrome s/p pacemaker Management as above (7) KIRTI (acute kidney injury): Plan: Creatinine 1.3>>1.1>1.03 Baseline 1.0 Received IV fluids Monitor Renal function (8) Coronary artery disease: Plan: H/O LAD stent x2 and RCA stent x2 in 2019 Continue ASA, statin, beta-jocelyn; also on Repatha for HLD management (9) Gastroparesis: (10) Chronic constipation: Plan: -Continue meds (11) Bladder cancer: Plan: Follows with Dr. Munoz with [facility] urology Currently receiving BCG treatments (12) DVT prophylaxis: Plan: -On Eliquis Admission and Anticipated Discharge Date Admission Date: July 12, 2021 Subjective Patient is seen and examined at bedside Feeling slightly better today Persistent cough Saturating well on 6 L supplemental oxygen Discussed with pulmonology today No dyspnea at rest Denies any chest pain, dizziness, nausea, abdominal pain Review of Systems Review of Systems: All systems reviewed & are unremarkable except as noted in Subjective Physical Exam Physical Exam: Physical Exam: Vitals signs as noted above General Appearance:Moderately built and nourished, no apparent distress Head: normocephalic, Atraumatic Eyes: normal inspection, EOMI Neck: supple, Trachea midline Respiratory/Chest: Decreased breath sounds, Minimal crackles Cardiovascular: S1, S2, No murmur Abdomen/GI:Soft, Non tender, Bowel sounds present Extremities/Musculoskeletal:normal inspection, no edema Neurologic/Psych:AAOX3, grossly no focal neurological deficits Skin: normal color, warm Results & Data Results & Data ([facility]) Vital Signs (Past 12 Hours) Vital Signs Temp Pulse Pulse Resp BP Pulse Ox 07/14/21 15:10 72 07/14/21 15:05 36.3 C L 77 20 126/74 94 07/14/21 14:56 78 18 92 07/14/21 11:51 36.5 C 83 20 131/76 92 07/14/21 11:32 90 07/14/21 11:28 84 L 07/14/21 11:15 92 07/14/21 10:20 67 18 93 07/14/21 07:27 79 07/14/21 06:43 36.7 C 77 18 136/78 95 07/14/21 05:45 79 20 93 Laboratory Results Short CBC 07/14/21 Range/Units 05:59 WBC 10.50 (4.8-10.8) K/uL Hgb 12.2 (12.0-16.0) g/dL Hct 37.7 (37-47) % Plt Count 218 (130-400) K/uL BMP 07/14/21 05:59 Sodium 141 Potassium 3.6 Chloride 111 H Carbon Dioxide 22 BUN 18 Creatinine 1.03 Glucose 91 Calcium 9.6 (1) Coronary artery disease Associated angina: unspecified whether angina present Coronary Disease- Associated Artery/Lesion type: [place] artery [place] vs. transplanted heart: [place] heart Qualified Code(s): I25.10 - Atherosclerotic heart disease of [place] coronary artery without angina pectoris
[2021-07-14] MEDS: guaiFENesin/DEXTROM SYRUP 200MG/20MG 10ML UDC PO SCH ×2 (17:29→23:37)
[2021-07-14] MEDS: ROSUVASTATIN CALCIUM 20 MG TAB PO SCH (20:28)
[2021-07-14] MEDS: MONTELUKAST SODIUM 10 MG TABLET PO SCH (20:29)
[2021-07-14] MEDS: PRUCALOPRIDE SUCCINATE PO SCH ×2 (22:22→23:38)
[2021-07-15] MEDS: ALBUT/IPRATROP 3MG/0.5MG NEB 3 ML VIAL NEB SCH ×6 (02:01→23:16)
[2021-07-15] MEDS: guaiFENesin/DEXTROM SYRUP 200MG/20MG 10ML UDC PO SCH ×4 (05:58→23:18)
[2021-07-15] MEDS: LEVOTHYROXINE SODIUM 88 MCG TABLET PO SCH (05:59)
[2021-07-15] MEDS: APIXABAN 5 MG TABLET PO SCH ×2 (09:01→20:25)
[2021-07-15] MEDS: BENZONATATE 100 MG CAPSULE PO SCH ×3 (09:02→20:35)
[2021-07-15] MEDS: ASPIRIN 81 MG ECTAB PO SCH (09:02)
[2021-07-15] MEDS: buPROPion XL 150 MG TABCR PO SCH (09:03)
[2021-07-15] MEDS: dilTIAZem HCL 240 MG CAPCR PO SCH (09:04)
[2021-07-15] MEDS: FLUTICASONE FUROATE 100MCG 14 PUFFS/INHALER INH SCH (09:06)
[2021-07-15] MEDS: UMECLIDINIUM/VILANTEROL 62.5/25MCG 7 PUFFS/INHALER INH SCH (09:07)
[2021-07-15] MEDS: LINACLOTIDE 145 MCG CAPSULE PO SCH (09:07)
[2021-07-15] MEDS: predniSONE 20 MG TAB PO SCH (09:07)
[2021-07-15] MEDS: PANTOprazole 40 MG TAB PO SCH (09:07)
[2021-07-15] MEDS: SOTALOL HCL 80 MG TAB PO SCH ×2 (09:08→20:26)
[2021-07-15] MEDS: PRUCALOPRIDE SUCCINATE PO SCH ×2 (09:09→09:33)
[2021-07-15 09:19] LABS: BUN Creatinine Ratio 20.1 (10-20); Calcium 9.9 mg/dl (8.5-10.1); Creatinine Clr Calc Pharmacy 59.7 ml/min; Est GFR (African American) 65.3 ml/min; Est GFR (Non-African American) 56.3 ml/min; Potassium 3.8 mmol/L (3.5-5.1)
[2021-07-15] MEDS: DOXYCYCLINE HYCLATE 100 MG in DEXTROSE 5% 100 ML IV SCH ×2 (09:31→20:35)
[2021-07-15] MEDS: guaiFENesin/CODEINE 100MG/10MG 5ML UDC PO PRN (09:32)
[2021-07-15] MEDS: cefTRIAXone SODIUM 2,000 MG in DEXTROSE 5% 50 ML IV SCH (09:32)
--- NOTE | 2021-07-15 12:04 | Pulmonology Progress Note ---
Date of Service July 15, 2021 Assessment & Plan (1) Acute respiratory failure with hypoxia: (2) Pneumonia: Plan: CT chest 2021-07-12 personally reviewed: Consolidative changes appreciated in bilateral lower lobes, Especially in the left lower lobe Hiatal hernia No significant mediastinal lymphadenopathy --Acute hypoxic respiratory failure Secondary to multilobar pneumonia COVID-19 PCR negative Rhinovirus positive Procalcitonin 2.51 --> 1.07 --Asthma with acute exacerbation Likely secondary to rhinovirus Has been using trilogy on a daily basis On montelukast and Zyrtec --Morbid obesity Sleep study 2021-05-05 does not show any signs of sleep apnea Plan: Continue with antibiotics given the elevated procalcitonin for at least 7 days Follow sputum culture Arnuity has been added to Anoro Continue with guaifenesin DM as well as flutter valve Continue to wean oxygen off saturation around 89-90% Case discussed with Dr. Keith Please note the above document was generated using voice recognition software. It may contain grammatical, syntax or spelling errors.Any formal questions or concerns about the content, text or information contained within the body of this dictation should be directly addressed to the provider for clarification. Admission and Anticipated Discharge Date Admission Date: July 12, 2021 Subjective Patient seen and examined at bedside. No acute distress, no adverse events overnight Patient says that she is feeling better compared to yesterday She has been using flutter valve. No phlegm is coming up but she has started to feel it loosening up Denies any chest pain, no headache, no nausea, no vomiting She was saturating 92% on 5 nasal cannula at time of examination, I went down to 4 L Review of Systems Review of Systems: All systems reviewed & are unremarkable except as noted in Subjective Physical Exam Physical Exam: Constitutional: No acute distress HEENT: EOMI, PERRLA Respiratory system: Decreased air entry bilaterally, no wheeze, no rhonchi, positive crackles bilateral lower lobes more on the left side CVS: S1-S2 positive, no murmurs or gallops Abdomen: Soft, nontender, nondistended, positive bowel sounds x4 Extremities: +2 pulses bilaterally radialis/ dorsalis pedis, no cyanosis, no edema Neuro: Awake alert oriented x3 Psych: Normal mood and affect G/U: No [place] Skin: no rashes, warm and dry Lymphatic: no cervical or axillary lymphadenopathy Results & Data Results & Data ([facility]) Vital Signs (Past 12 Hours) Vital Signs Temp Pulse Resp BP Pulse Ox 07/15/21 10:33 85 16 91 07/15/21 08:16 36.5 C 70 18 149/81 H 90 07/15/21 06:06 75 20 95 07/15/21 03:35 36.7 C 73 18 135/73 95 07/15/21 02:01 70 18 93 07/14/21 05:59 07/15/21 07:56 PG Care Time/CCT Total # of Minutes Spent Total Time Spent with Patient: Total time spent is greater than 50% in coordination of care (as documented) at patient's floor/unit and/or counseling patient: Coding Level of Care Code 16879 Subseq Hosp Care Lvl 2 Diagnoses Acute respiratory failure with hypoxia J96.01 Pneumonia J18.9
--- NOTE | 2021-07-15 17:10 | Hospitalist Progress Note ---
Date of Service July 15, 2021 Assessment & Plan (1) Acute respiratory failure with hypoxia: (2) Pneumonia: (3) Asthma exacerbation: Plan: Acute respiratory failure with hypoxia Rhino/Enterovirus infection Possible secondary bacterial infection Asthma exacerbation --CTA:Mild cardiomegaly with extensive coronary artery calcifications. No pulmonary emboli. Left greater than right bibasilar predominant consolidative and groundglass opacities are compatible with multifocal pneumonia. Moderate sized hiatal hernia with mid to distal esophageal wall thickening. -Elevated procalcitonin -Negative COVID Screen Continue Rocephin, doxycycline for 7 days Continue nebs Continue low-dose prednisone for 7 days Appreciate pulmonary Input Continue antitussives Continue flutter valve Wean off of supplemental oxygen as able Procalcitonin trending down Has been on Trilogy Saturating low 90s on 4 L supplemental oxygen Continue current management (4) Atrial fibrillation with RVR: Plan: Continue diltiazem On Eliquis for anticoagulation Currently in sinus Appreciate cardiology input Toprol changed to sotalol Monitor QTC Needs follow-up with EP as outpatient (5) Tachy-roseann syndrome: (6) Pacemaker: Plan: H/O paroxysmal atrial fibrillation and tachybradycardia syndrome s/p pacemaker Management as above (7) KIRTI (acute kidney injury): Plan: Creatinine 1.3>>1.1>0.97 Baseline 1.0 Received IV fluids Monitor Renal function (8) Coronary artery disease: Plan: H/O LAD stent x2 and RCA stent x2 in 2019 Continue ASA, statin, beta-jocelyn; also on Repatha for HLD management (9) Gastroparesis: (10) Chronic constipation: Plan: -Continue meds (11) Bladder cancer: Plan: Follows with Dr. Munoz with [facility] urology Currently receiving BCG treatments (12) DVT prophylaxis: Plan: -On Eliquis Admission and Anticipated Discharge Date Admission Date: July 12, 2021 Subjective Patient is seen and examined at bedside Continue to feel better Less non productive cough Dyspnea improving Saturating well on 4 L supplemental oxygen Denies any chest pain, dizziness, nausea, abdominal pain Review of Systems Review of Systems: All systems reviewed & are unremarkable except as noted in Subjective Physical Exam Physical Exam: Physical Exam: Vitals signs as noted above General Appearance:Moderately built and nourished, no apparent distress Head: normocephalic, Atraumatic Eyes: normal inspection, EOMI Neck: supple, Trachea midline Respiratory/Chest: Decreased breath sounds, Minimal crackles Cardiovascular: S1, S2, No murmur Abdomen/GI:Soft, Non tender, Bowel sounds present Extremities/Musculoskeletal:normal inspection, no edema Neurologic/Psych:AAOX3, grossly no focal neurological deficits Skin: normal color, warm Results & Data Results & Data ([facility]) Vital Signs (Past 12 Hours) Vital Signs Temp Pulse Pulse Resp BP Pulse Ox 07/15/21 16:07 36.9 C 68 18 132/77 92 07/15/21 16:00 67 07/15/21 14:42 85 18 92 07/15/21 12:26 36.9 C 72 26 H 131/68 91 07/15/21 12:00 36.9 C 72 26 H 131/68 91 07/15/21 10:33 85 16 91 07/15/21 08:16 36.5 C 70 18 149/81 H 90 07/15/21 08:00 71 07/15/21 06:06 75 20 95 Laboratory Results [facility] 07/15/21 07:56 Sodium 139 Potassium 3.8 Chloride 108 H Carbon Dioxide 23 BUN 20 H Creatinine 0.97 Glucose 79 Calcium 9.9 (1) Coronary artery disease Associated angina: unspecified whether angina present Coronary Disease- Associated Artery/Lesion type: [place] artery [place] vs. transplanted heart: [place] heart Qualified Code(s): I25.10 - Atherosclerotic heart disease of [place] coronary artery without angina pectoris
[2021-07-15] MEDS ORDERED: POTASSIUM CHLORIDE CRTAB 20 MEQ TABCR PO STA (17:40)
--- NOTE | 2021-07-15 17:44 | Cardiology Progress Note ---
Date of Service July 15, 2021 Assessment & Plan (1) Pneumonia: (2) Pacemaker: (3) Paroxysmal atrial fibrillation: Plan: Continue Rocephin and doxycycline. EKG 07/14/2021 reviewed independently reveals normal sinus rhythm at 77 bpm, corrected QT interval normal 445 ms. EKG 07/15/2021, 5:54 AM, reviewed independently: Normal sinus rhythm 72 bpm, stable corrected QT interval 462 ms. Compared to the previous, and incomplete left bundle branch block is noted, with mild prolongation of the QRS complex to 110 ms. Potassium 3.8 today. Supplement for goal potassium greater than or equal to 4 mmol/L, goal magnesium greater than 2 mg/dL. She has a history of recurrent frequent episodes of SVT and atrial fibrillation, and as an outpatient I have received multiple device events of recurrent A. fib episodes. She has been scheduled to see a electrophysiology few days ago as an outpatient to discuss alternative atrial fibrillation treatment such as ablation. Unfortunately, any thoughts of ablation therapy left to be delayed as anticipate she will need time to recover from this pneumonia. Given her frequent symptomatic episodes of SVT and atrial fibrillation noted as an outpatient on recent device checks,sotalol initiated. She therefore needs to remain on telemetry for the first 72 hours, 6 doses. Third dose will be due tonight the evening of 07/15/2021. Repeat chemistry panel, magnesium level, EKG tomorrow. Avoid QT prolonging agents. Continue Eliquis for stroke prophylaxis. Admission and Anticipated Discharge Date Admission Date: July 12, 2021 Subjective Patient seen in cardiology follow-up of symptomatic paroxysmal atrial fibrillation. She notes feeling mild subtle improvement. She is now on respiratory isolation as her cultures have yielded rhinovirus. Her oxygen saturation which had been as high as 8 L/min has been titrated on 4 L/min. She feels more comfortable today, but notes marked dyspnea with minimal exertion. Telemetry reveals ongoing sinus rhythm in the 60s to 70s. She has received 2 doses of sotalol thus far and has tolerated it well. Physical Exam Constitutional: + ill appearing Respiratory: + labored breathing and + cough Auscultation: + rhonchi; no crackles and no rales Cardiovascular: RRR, no murmur, no edema Heart Sounds: + murmur Vessels: no JVD Gastrointestinal (Abdomen): normal bowel sounds, soft, nontender, no hepatosplenomegaly Neurologic: PERRL, EOMI, accommodation nl, no face palsy, no dysarthria Results & Data ([facility]) Vital Signs (Past 12 Hours) Vital Signs Temp Pulse Pulse Resp BP Pulse Ox 07/15/21 16:07 36.9 C 68 18 132/77 92 07/15/21 16:00 67 07/15/21 14:42 85 18 92 07/15/21 12:26 36.9 C 72 26 H 131/68 91 07/15/21 12:00 36.9 C 72 26 H 131/68 91 07/15/21 10:33 85 16 91 07/15/21 08:16 36.5 C 70 18 149/81 H 90 07/15/21 08:00 71 07/15/21 06:06 75 20 95 Laboratory Results Comprehensive Metabolic Panel 07/15/21 Range/Units 07:56 Sodium 139 (136-145) mmol/L Potassium 3.8 (3.5-5.1) mmol/L Chloride 108 H (98-107) mmol/L Carbon Dioxide 23 (21-32) mmol/L BUN 20 H (7-18) mg/dl Creatinine 0.97 (0.6-1.2) mg/dl Glucose 79 (70-99) mg/dl Calcium 9.9 (8.5-10.1) mg/dl Intake and Output 07/15/21 07/15/21 07/15/21 06:59 14:59 22:59 Intake Total 600 / 1544.167 180 / 280 100 / 280 Balance 600 / 194.167 180 / 280 100 / 280 Intake: IV 180 / 180 Doxycycline Hyclate 100 mg In 110 / 110 Dextrose 5% 100 ml @ 50 mls/hr IV Q12H JANE Rx#:[id number] cefTRIAXone SODIUM 2,000 mg In 70 / 70 Dextrose 5% 50 ml @ 140 mls/hr IV QAM JANE Rx#:[id number] Oral 600 / 1260 100 / 100 Other: # Unmeasured Voids 2 Weight 98.8 kg Weight Measurement Method Built in [facility]
[2021-07-15] MEDS: ACETAMINOPHEN 325 MG TAB PO PRN (20:24)
[2021-07-15] MEDS: ROSUVASTATIN CALCIUM 20 MG TAB PO SCH (20:26)
[2021-07-15] MEDS: MONTELUKAST SODIUM 10 MG TABLET PO SCH (20:26)
[2021-07-15] MEDS ORDERED: COUGH DROP (SUGAR FREE) LOZ 24 LOZ/1 BOX BUCCAL PRN (23:23)
[2021-07-16] MEDS: guaiFENesin/DEXTROM SYRUP 200MG/20MG 10ML UDC PO SCH ×3 (06:00→17:58)
[2021-07-16] MEDS: LEVOTHYROXINE SODIUM 88 MCG TABLET PO SCH (06:00)
--- NOTE | 2021-07-16 06:11 | Electrocardiogram Report ---
Test Reason : Blood Pressure : / mmHG Vent. Rate : 072 BPM Atrial Rate : 072 BPM P-R Int : 172 ms QRS Dur : 110 ms QT Int : 422 ms P-R-T Axes : 062 -38 019 degrees QTc Int : 462 ms Normal sinus rhythm Left axis deviation Abnormal ECG When compared with ECG of 14-JUL-2021 05:37, No significant change Confirmed by Dexter Herbert ([id number] on 07/16/2021 6:10:27 AM Referred By: REFERRED SELF Confirmed By:Dexter Herbert
[2021-07-16] MEDS: ALBUT/IPRATROP 3MG/0.5MG NEB 3 ML VIAL NEB SCH (07:08)
[2021-07-16] MEDS: LINACLOTIDE 145 MCG CAPSULE PO SCH (08:48)
[2021-07-16] MEDS: predniSONE 20 MG TAB PO SCH (08:48)
[2021-07-16] MEDS: PANTOprazole 40 MG TAB PO SCH (08:48)
[2021-07-16] MEDS: buPROPion XL 150 MG TABCR PO SCH (08:48)
[2021-07-16] MEDS: dilTIAZem HCL 240 MG CAPCR PO SCH (08:48)
[2021-07-16] MEDS: ASPIRIN 81 MG ECTAB PO SCH (08:48)
[2021-07-16] MEDS: SOTALOL HCL 80 MG TAB PO SCH ×2 (08:48→20:00)
[2021-07-16] MEDS: APIXABAN 5 MG TABLET PO SCH ×2 (08:48→20:00)
[2021-07-16] MEDS: UMECLIDINIUM/VILANTEROL 62.5/25MCG 7 PUFFS/INHALER INH SCH (08:49)
[2021-07-16] MEDS: FLUTICASONE FUROATE 100MCG 14 PUFFS/INHALER INH SCH (08:50)
[2021-07-16] MEDS: cefTRIAXone SODIUM 2,000 MG in DEXTROSE 5% 50 ML IV SCH (08:51)
[2021-07-16] MEDS: DOXYCYCLINE HYCLATE 100 MG in DEXTROSE 5% 100 ML IV SCH (08:51)
[2021-07-16] MEDS: PRUCALOPRIDE SUCCINATE PO SCH (09:00)
[2021-07-16] MEDS: BENZONATATE 100 MG CAPSULE PO SCH ×3 (09:00→20:03)
--- NOTE | 2021-07-16 11:41 | Cardiology Progress Note ---
Date of Service July 16, 2021 Assessment & Plan (1) Pneumonia: (2) Pacemaker: (3) Paroxysmal atrial fibrillation: Plan: Continue sotalol loading, 80 mg twice daily. Repeat ECG in a.m. Continue telemetry monitoring. Apixaban for stroke prophylaxis. Antibiotics as per internal medicine. Avoid QT prolonging agents. Admission and Anticipated Discharge Date Admission Date: July 12, 2021 Subjective Patient seen and examined the bedside. Significant nonproductive cough persist. Requiring 5 L supplemental oxygen. Denies chest pain or palpitations. Telemetry reveals sinus rhythm in the 70s. She received her fourth dose of sotalol this morning. Repeat ECG demonstrates sinus rhythm with a normal QTc. Review of Systems Review of Systems: All systems reviewed & are unremarkable except as noted in Subjective Physical Exam Constitutional: + ill appearing and + obese Respiratory: normal respiratory effort and + cough Auscultation: + rales (Bases bilateral); no wheezes Cardiovascular: Rate/Rhythm: regular rate and regular rhythm Heart Sounds: normal S1 and normal S2; no murmur Vessels: radial pulses present; no JVD and no carotid bruit Extremities: no edema Gastrointestinal (Abdomen): Inspection/Auscultation: abdomen normal to inspection and normal bowel sounds; abdomen not distended Percussion/Palpation: abdomen soft; abdomen nontender, no guarding and abdomen not rigid Neurologic: CN's II-XI intact bilaterally and moves all extremities; no focal motor deficits Motor/Sensory: no tremor Psychiatric: A+Ox3, euthymic affect Results & Data ([facility]) Vital Signs (Past 12 Hours) Vital Signs Temp Pulse Resp BP BP Pulse Ox 07/16/21 11:35 36.3 C L 68 19 152/82 H 90 07/16/21 07:10 84 16 95 07/16/21 04:16 36.7 C 88 16 131/77 91
--- NOTE | 2021-07-16 15:40 | Pulmonology Progress Note ---
Date of Service July 16, 2021 Assessment & Plan (1) Acute respiratory failure with hypoxia: (2) Pneumonia: (3) Atrial fibrillation with rapid ventricular response: (4) Cough: Plan: 76-year-old female with a past medical history of obesity and asthma p resenting to the hospital due to shortness of breath and hypoxia. Pneumonia seen on chest x-ray and CT chest. Bio fire came back positive for Enterovirus/rhinovirus. She likely has a superimposed bacterial pneumonia given her elevated procalcitonin level. Procalcitonin is trending downwards. She is clinically improving, but has a persistent cough. Will initiate vest therapy 4 times daily to promote airway clearance. Continue her current inhaler regimen. She may have a degree of infectious bronchiolitis exacerbating her underlying asthma. Agree with steroids at this time. Continue antibiotics for total of 7 days to 10 days. Atrial fibrillation with rapid ventricular response was likely contributing to her shortness of breath on admission. She has been started on sotalol which has improved her atrial fibrillation. A. fib is likely provoked from pneumonia and hypoxemia. Pulmonary will continue to follow. Thank you for the consult. Admission and Anticipated Discharge Date Admission Date: July 12, 2021 Subjective Patient seen and examined. Continues to have a significant cough that is occasionally productive of sputum. No hemoptysis. She continues to feel short of breath. Currently requiring supplemental oxygen. Review of Systems Review of Systems: All systems reviewed & are unremarkable except as noted in HPI & below Physical Exam Physical Exam: Constitutional: No acute distress HEENT: EOMI, PERRLA Respiratory system: Decreased air entry bilaterally, no wheeze, no rhonchi, positive crackles bilateral lower lobes more on the left side CVS: S1-S2 positive, no murmurs or gallops Abdomen: Soft, nontender, nondistended, positive bowel sounds x4 Extremities: +2 pulses bilaterally radialis/ dorsalis pedis, no cyanosis, no edema Neuro: Awake alert oriented x3 Psych: Normal mood and affect G/U: No [place] Skin: no rashes, warm and dry Lymphatic: no cervical or axillary lymphadenopathy Results & Data Results & Data ([facility]) Vital Signs (Past 12 Hours) Vital Signs Temp Pulse Pulse Resp BP BP Pulse Ox 07/16/21 11:35 97.3 F L 68 19 152/82 H 90 07/16/21 08:00 66 07/16/21 07:10 84 16 95 07/16/21 04:16 98.1 F 88 16 131/77 91 Vital signs, labs and imaging personally reviewed PG Care Time/CCT Total # of Minutes Spent Total Time Spent with Patient: Total time spent is greater than 50% in coordination of care (as documented) at patient's floor/unit and/or counseling patient: Coding Level of Care Code 32439 Subseq Hosp Care Lvl 3 Diagnoses Acute respiratory failure with hypoxia J96.01 Pneumonia J18.9 Atrial fibrillation with rapid ventricular response I48.91 Cough R05.9
--- NOTE | 2021-07-16 17:45 | Hospitalist Progress Note ---
Date of Service July 16, 2021 Assessment & Plan (1) Acute respiratory failure with hypoxia: (2) Pneumonia: (3) Asthma exacerbation: Plan: Acute respiratory failure with hypoxia Rhino/Enterovirus infection Possible secondary bacterial infection Asthma exacerbation --CTA:Mild cardiomegaly with extensive coronary artery calcifications. No pulmonary emboli. Left greater than right bibasilar predominant consolidative and groundglass opacities are compatible with multifocal pneumonia. Moderate sized hiatal hernia with mid to distal esophageal wall thickening. -Elevated procalcitonin -Negative COVID Screen Continue Rocephin, doxycycline for 7 days Continue nebs Continue low-dose prednisone for 7 days Appreciate pulmonary Input Continue antitussives Continue flutter valve Chest PT added Procalcitonin trending down Has been on Trilogy Saturating low 90s on 5 L supplemental oxygen Pulmonology following (4) Atrial fibrillation with RVR: Plan: Continue diltiazem On Eliquis for anticoagulation Currently in sinus Appreciate cardiology input Toprol changed to sotalol Monitor QTC Needs follow-up with EP as outpatient Tolerating sotalol (5) Tachy-roseann syndrome: (6) Pacemaker: Plan: H/O paroxysmal atrial fibrillation and tachybradycardia syndrome s/p pacemaker Management as above (7) KIRTI (acute kidney injury): Plan: Creatinine 1.3>>1.1>0.97 Baseline 1.0 Received IV fluids Monitor Renal function (8) Coronary artery disease: Plan: H/O LAD stent x2 and RCA stent x2 in 2019 Continue ASA, statin, beta-jocelyn; also on Repatha for HLD management (9) Gastroparesis: (10) Chronic constipation: Plan: -Continue meds (11) Bladder cancer: Plan: Follows with Dr. Munoz with [facility] urology Currently receiving BCG treatments (12) DVT prophylaxis: Plan: -On Eliquis Admission and Anticipated Discharge Date Admission Date: July 12, 2021 Subjective Patient is seen and examined at bedside Subjectively states feeling well no significant change from yesterday Minimal cough Saturating low 90s on 5 L supplemental oxygen Dyspnea about the same as yesterday Denies any chest pain, dizziness, nausea, abdominal pain Review of Systems Review of Systems: All systems reviewed & are unremarkable except as noted in Subjective Physical Exam Physical Exam: Physical Exam: Vitals signs as noted above General Appearance:Moderately built and nourished, no apparent distress Head: normocephalic, Atraumatic Eyes: normal inspection, EOMI Neck: supple, Trachea midline Respiratory/Chest: Decreased breath sounds, Minimal crackles Cardiovascular: S1, S2, No murmur Abdomen/GI:Soft, Non tender, Bowel sounds present Extremities/Musculoskeletal:normal inspection, no edema Neurologic/Psych:AAOX3, grossly no focal neurological deficits Skin: normal color, warm Results & Data Results & Data ([facility]) Vital Signs (Past 12 Hours) Vital Signs Temp Pulse Pulse Pulse Resp BP BP 07/16/21 16:44 36.7 C 69 20 137/78 07/16/21 11:35 36.3 C L 68 19 152/82 H 07/16/21 08:00 66 07/16/21 07:10 84 16 Pulse Ox 07/16/21 16:44 92 07/16/21 11:35 90 07/16/21 08:00 07/16/21 07:10 95 (1) Coronary artery disease Associated angina: unspecified whether angina present Coronary Disease- Associated Artery/Lesion type: [place] artery [place] vs. transplanted heart: [place] heart Qualified Code(s): I25.10 - Atherosclerotic heart disease of [place] coronary artery without angina pectoris
[2021-07-16] MEDS: MONTELUKAST SODIUM 10 MG TABLET PO SCH (20:00)
[2021-07-16] MEDS: ROSUVASTATIN CALCIUM 20 MG TAB PO SCH (20:00)
[2021-07-16] MEDS: DOXYCYCLINE HYCLATE 100 MG CAP PO SCH (21:37)
[2021-07-16] MEDS: guaiFENesin/CODEINE 100MG/10MG 5ML UDC PO PRN (21:42)
--- NOTE | 2021-07-16 23:18 | Electrocardiogram Report ---
Test Reason : Blood Pressure : / mmHG Vent. Rate : 068 BPM Atrial Rate : 068 BPM P-R Int : 178 ms QRS Dur : 108 ms QT Int : 434 ms P-R-T Axes : 062 -47 027 degrees QTc Int : 461 ms Normal sinus rhythm Left anterior fascicular block Abnormal ECG When compared with ECG of 15-JUL-2021 05:54, No significant change was found Confirmed by Dexter Herbert ([id number] on 07/16/2021 11:18:19 PM Referred By: REFERRED SELF Confirmed By:Dexter Herbert
[2021-07-17] MEDS: guaiFENesin/DEXTROM SYRUP 200MG/20MG 10ML UDC PO SCH ×6 (00:38→23:28)
[2021-07-17] MEDS: LEVOTHYROXINE SODIUM 88 MCG TABLET PO SCH (06:03)
[2021-07-17] MEDS: buPROPion XL 150 MG TABCR PO SCH (07:09)
[2021-07-17] MEDS: predniSONE 20 MG TAB PO SCH (07:10)
[2021-07-17] MEDS: dilTIAZem HCL 240 MG CAPCR PO SCH (07:10)
[2021-07-17] MEDS: APIXABAN 5 MG TABLET PO SCH ×2 (07:10→20:03)
[2021-07-17] MEDS: ASPIRIN 81 MG ECTAB PO SCH (07:10)
[2021-07-17] MEDS: SOTALOL HCL 80 MG TAB PO SCH ×2 (07:11→20:06)
[2021-07-17] MEDS: LINACLOTIDE 145 MCG CAPSULE PO SCH (07:11)
[2021-07-17] MEDS: PANTOprazole 40 MG TAB PO SCH (07:11)
[2021-07-17] MEDS: PRUCALOPRIDE SUCCINATE PO SCH (07:12)
[2021-07-17] MEDS: FLUTICASONE FUROATE 100MCG 14 PUFFS/INHALER INH SCH (07:12)
[2021-07-17] MEDS: BENZONATATE 100 MG CAPSULE PO SCH ×3 (07:19→20:08)
[2021-07-17] MEDS: guaiFENesin/CODEINE 100MG/10MG 5ML UDC PO PRN (07:19)
[2021-07-17] MEDS: cefTRIAXone SODIUM 2,000 MG in DEXTROSE 5% 50 ML IV SCH (07:20)
[2021-07-17] MEDS: UMECLIDINIUM/VILANTEROL 62.5/25MCG 7 PUFFS/INHALER INH SCH (07:32)
[2021-07-17 07:42] LABS: Hematocrit (blood only) 38.8 % (37-47); Hemoglobin 12.8 g/dL (12.0-16.0); Mean Corpuscular Hemoglobin 30.3 pg (25-34); Mean Corpuscular Volume 91.9 fL (80-100); Mean Platelet Volume 10.1 fL (7.4-10.4); Platelet Count 331 K/uL (130-400); RDW Coefficient of Variation 13.7 % (11.5-14.5); RDW Standard Deviation 46.1 fL (36.4-46.3); Red Blood Count 4.22 M/uL (4.2-5.4); White Blood Count 10.17 K/uL (4.8-10.8)
[2021-07-17 08:14] LABS: Calcium 9.7 mg/dl (8.5-10.1); Creatinine Clr Calc Pharmacy 59.6 ml/min; Est GFR (African American) 66.1 ml/min; Magnesium 2.1 mg/dl (1.8-2.4); Potassium 3.7 mmol/L (3.5-5.1)
[2021-07-17] MEDS: DOXYCYCLINE HYCLATE 100 MG CAP PO SCH ×2 (10:16→21:10)
--- NOTE | 2021-07-17 11:24 | Electrocardiogram Report ---
Test Reason : Blood Pressure : / mmHG Vent. Rate : 064 BPM Atrial Rate : 064 BPM P-R Int : 198 ms QRS Dur : 100 ms QT Int : 340 ms P-R-T Axes : 082 -46 255 degrees QTc Int : 350 ms Normal sinus rhythm Left axis deviation T wave abnormality, consider inferior ischemia Abnormal ECG When compared with ECG of 16-JUL-2021 05:56, T wave inversion now evident in Lateral leads QT has shortened Confirmed by Masood Hand ([id number] on 07/17/2021 11:24:36 AM Referred By: REFERRED SELF Confirmed By:Masood Hand
--- NOTE | 2021-07-17 11:25 | XRay Report ---
XR chest 1V portable CLINICAL HISTORY: follow up pneumonia COMPARISON STUDY: Chest radiograph and chest CT July 12, 2021. FINDINGS: Dual lead left subclavian pacemaker is in place. There is no pneumothorax or pleural effusi on. No evidence for pulmonary edema. Bibasilar opacities, left greater than right, have improved. IMPRESSION: Interval improvement in bibasilar consolidation. ACT 112: Negative or not required by law. Electronically signed by: Jake Renteria M.D. 07/17/2021 11:24 AM
--- NOTE | 2021-07-17 12:34 | Pulmonology Progress Note ---
Date of Service July 17, 2021 Assessment & Plan (1) Acute respiratory failure with hypoxia: (2) Pneumonia: (3) Atrial fibrillation with rapid ventricular response: (4) Cough: Plan: 76-year-old female with a past medical history of obesity and asthma p resenting to the hospital due to shortness of breath and hypoxia. Pneumonia seen on chest x-ray and CT chest. Bio fire came back positive for Enterovirus/rhinovirus. She likely has a superimposed bacterial pneumonia given her elevated procalcitonin level which is now resolved. She is clinically improving. Continue vest therapy 4 times daily. Strongly encouraged the use of incentive spirometry 7-8 times per hour while awake and getting out of bed to a chair. She likely has a component of atelectasis causing intrapulmonary shunt and hypoxemia. Continue her current inhaler regimen. She may have a degree of infectious bronchiolitis exacerbating her underlying asthma. Agree with steroids at this time. Continue antibiotics for total of 7 days to 10 days. I ordered a chest x-ray for today which I personally reviewed and it demonstrates significant improvement compared to a chest x-ray on 07/12/2021 Atrial fibrillation with rapid ventricular response was likely contributing to her shortness of breath on admission. She has been started on sotalol which has improved her atrial fibrillation. A. fib is likely provoked from pneumonia and hypoxemia. Pulmonary will continue to follow. Thank you for the consult. Admission and Anticipated Discharge Date Admission Date: July 12, 2021 Subjective Patient seen examined. Cough is less pronounced today. Continues to have hypoxia requiring oxygen of 5 to 6 L/min via nasal cannula. Sitting up in bed eating lunch. No chest pain. No fevers chills. Review of Systems Review of Systems: All systems reviewed & are unremarkable except as noted in HPI & below Physical Exam Physical Exam: Constitutional: No acute distress HEENT: EOMI, PERRLA Respiratory system: Decreased air entry bilaterally, no wheeze, no rhonchi, positive crackles bilateral lower lobes more on the left side CVS: S1-S2 positive, no murmurs or gallops Abdomen: Soft, nontender, nondistended, positive bowel sounds x4 Extremities: +2 pulses bilaterally radialis/ dorsalis pedis, no cyanosis, no edema Neuro: Awake alert oriented x3 Psych: Normal mood and affect G/U: No [place] Skin: no rashes, warm and dry Lymphatic: no cervical or axillary lymphadenopathy Results & Data Results & Data ([facility]) Vital Signs (Past 12 Hours) Vital Signs Temp Pulse Pulse Resp BP Pulse Ox 07/17/21 07:40 98.4 F 72 18 127/81 91 07/17/21 07:29 66 07/17/21 03:44 98.1 F 63 16 144/81 H 93 chest x-ray reviewed from today with interval improvement in the bibasilar consolidation. PG Care Time/CCT Total # of Minutes Spent Total Time Spent with Patient: Total time spent is greater than 50% in coordination of care (as documented) at patient's floor/unit and/or counseling patient: Coding Level of Care Code 76084 Subseq Hosp Care Lvl 3 Diagnoses Acute respiratory failure with hypoxia J96.01 Pneumonia J18.9 Atrial fibrillation with rapid ventricular response I48.91 Cough R05.9
--- NOTE | 2021-07-17 13:41 | Cardiology Progress Note ---
Date of Service July 17, 2021 Assessment & Plan (1) Pneumonia: (2) Pacemaker: (3) Paroxysmal atrial fibrillation: Plan: Continue sotalol 80 mg twice daily. (Loading complete). Repeat ECG in a.m. Continue telemetry monitoring. Apixaban for stroke prophylaxis. Avoid QT prolonging agents. Antibiotics as per internal medicine. Admission and Anticipated Discharge Date Admission Date: July 12, 2021 Subjective Patient seen and examined at the bedside. Feeling better from a cardiovascular perspective. Cough subsiding. Denies palpitations or chest discomfort. Sinus rhythm on telemetry. Repeat ECG today demonstrates normal QT interval. Offers no new complaints at this time. Review of Systems Review of Systems: All systems reviewed & are unremarkable except as noted in Subjective Physical Exam Constitutional: + ill appearing and + obese Respiratory: normal respiratory effort and + cough Auscultation: + rales (Bases bilateral); no wheezes Cardiovascular: Rate/Rhythm: regular rate and regular rhythm Heart Sounds: normal S1 and normal S2; no murmur Vessels: radial pulses present; no JVD and no carotid bruit Extremities: no edema Gastrointestinal (Abdomen): Inspection/Auscultation: abdomen normal to inspection and normal bowel sounds; abdomen not distended Percussion/Palpation: abdomen soft; abdomen nontender, no guarding and abdomen not rigid Neurologic: CN's II-XI intact bilaterally and moves all extremities; no focal motor deficits Motor/Sensory: no tremor Psychiatric: A+Ox3, euthymic affect Results & Data ([facility]) Vital Signs (Past 12 Hours) Vital Signs Temp Pulse Pulse Resp BP Pulse Ox 07/17/21 07:40 36.9 C 72 18 127/81 91 07/17/21 07:29 66 07/17/21 03:44 36.7 C 63 16 144/81 H 93
--- NOTE | 2021-07-17 17:11 | Hospitalist Progress Note ---
Date of Service July 17, 2021 Assessment & Plan (1) Acute respiratory failure with hypoxia: (2) Pneumonia: (3) Asthma exacerbation: Plan: Acute respiratory failure with hypoxia Rhino/Enterovirus infection Possible secondary bacterial infection Asthma exacerbation --CTA:Mild cardiomegaly with extensive coronary artery calcifications. No pulmonary emboli. Left greater than right bibasilar predominant consolidative and groundglass opacities are compatible with multifocal pneumonia. Moderate sized hiatal hernia with mid to distal esophageal wall thickening. -Elevated procalcitonin -Negative COVID Screen Continue Rocephin, doxycycline for 7 days Continue nebs Continue low-dose prednisone for 7 days Appreciate pulmonary Input Continue antitussives Continue flutter valve Chest PT added Procalcitonin trending down Has been on Trilogy Saturating low 90s on 5 L supplemental oxygen Pulmonology following Until improving Chest x-ray showed improvement of bibasilar consolidation today (4) Atrial fibrillation with RVR: Plan: Continue diltiazem On Eliquis for anticoagulation Currently in sinus Appreciate cardiology input Toprol changed to sotalol Monitor QTC Needs follow-up with EP as outpatient Tolerating sotalol (5) Tachy-roseann syndrome: (6) Pacemaker: Plan: H/O paroxysmal atrial fibrillation and tachybradycardia syndrome s/p pacemaker Management as above (7) KIRTI (acute kidney injury): Plan: Creatinine 1.3>>1.1>0.9 Baseline 1.0 Received IV fluids Monitor Renal function (8) Coronary artery disease: Plan: H/O LAD stent x2 and RCA stent x2 in 2019 Continue ASA, statin, beta-jocelyn; also on Repatha for HLD management (9) Gastroparesis: (10) Chronic constipation: Plan: -Continue meds (11) Bladder cancer: Plan: Follows with Dr. Munoz with [facility] urology Currently receiving BCG treatments (12) DVT prophylaxis: Plan: -On Eliquis Admission and Anticipated Discharge Date Admission Date: July 12, 2021 Subjective Patient is seen and examined at bedside Subjectively feels better today Chest x-ray showed improvement of bibasilar consolidation Still requiring 5 -6 L of supplemental oxygen to maintain saturation Denies any significant cough, dyspnea Also denies any chest pain, dizziness, nausea, abdominal pain Review of Systems Review of Systems: All systems reviewed & are unremarkable except as noted in Subjective Physical Exam Physical Exam: Physical Exam: Vitals signs as noted above General Appearance:Moderately built and nourished, no apparent distress Head: normocephalic, Atraumatic Eyes: normal inspection, EOMI Neck: supple, Trachea midline Respiratory/Chest: Decreased breath sounds, Minimal crackles Cardiovascular: S1, S2, No murmur Abdomen/GI:Soft, Non tender, Bowel sounds present Extremities/Musculoskeletal:normal inspection, no edema Neurologic/Psych:AAOX3, grossly no focal neurological deficits Skin: normal color, warm Results & Data Results & Data ([facility]) Vital Signs (Past 12 Hours) Vital Signs Temp Pulse Pulse Resp BP Pulse Ox 07/17/21 15:01 36.5 C 65 18 121/75 93 07/17/21 14:55 60 07/17/21 07:40 36.9 C 72 18 127/81 91 07/17/21 07:29 66 Laboratory Results Short CBC 07/17/21 Range/Units 06:59 WBC 10.17 (4.8-10.8) K/uL Hgb 12.8 (12.0-16.0) g/dL Hct 38.8 (37-47) % Plt Count 331 (130-400) K/uL BMP 07/17/21 06:59 Sodium 137 Potassium 3.7 Chloride 104 Carbon Dioxide 24 BUN 23 H Creatinine 0.96 Glucose 83 Calcium 9.7 (1) Coronary artery disease Associated angina: unspecified whether angina present Coronary Disease- Associated Artery/Lesion type: [place] artery [place] vs. transplanted heart: [place] heart Qualified Code(s): I25.10 - Atherosclerotic heart disease of [place] coronary artery without angina pectoris
[2021-07-17] MEDS: ALBUT/IPRATROP 3MG/0.5MG NEB 3 ML VIAL NEB PRN ×2 (19:31→23:41)
[2021-07-17] MEDS: MONTELUKAST SODIUM 10 MG TABLET PO SCH (20:04)
[2021-07-17] MEDS: ROSUVASTATIN CALCIUM 20 MG TAB PO SCH (20:05)
[2021-07-17] MEDS: ACETAMINOPHEN 325 MG TAB PO PRN (21:09)
[2021-07-18] MEDS: guaiFENesin/DEXTROM SYRUP 200MG/20MG 10ML UDC PO SCH ×3 (06:00→17:28)
[2021-07-18] MEDS: LEVOTHYROXINE SODIUM 88 MCG TABLET PO SCH (06:00)
[2021-07-18] MEDS: ALBUT/IPRATROP 3MG/0.5MG NEB 3 ML VIAL NEB PRN ×3 (07:30→15:51)
[2021-07-18] MEDS: dilTIAZem HCL 240 MG CAPCR PO SCH (08:04)
[2021-07-18] MEDS: BENZONATATE 100 MG CAPSULE PO SCH ×3 (08:04→21:35)
[2021-07-18] MEDS: ASPIRIN 81 MG ECTAB PO SCH (08:05)
[2021-07-18] MEDS: PANTOprazole 40 MG TAB PO SCH (08:05)
[2021-07-18] MEDS: APIXABAN 5 MG TABLET PO SCH ×2 (08:05→20:30)
[2021-07-18] MEDS: predniSONE 20 MG TAB PO SCH (08:05)
[2021-07-18] MEDS: buPROPion XL 150 MG TABCR PO SCH (08:05)
[2021-07-18] MEDS: LINACLOTIDE 145 MCG CAPSULE PO SCH (08:05)
[2021-07-18] MEDS: SOTALOL HCL 80 MG TAB PO SCH ×2 (08:05→20:29)
[2021-07-18] MEDS: PRUCALOPRIDE SUCCINATE PO SCH (08:06)
[2021-07-18] MEDS: cefTRIAXone SODIUM 2,000 MG in DEXTROSE 5% 50 ML IV SCH (08:07)
[2021-07-18] MEDS: UMECLIDINIUM/VILANTEROL 62.5/25MCG 7 PUFFS/INHALER INH SCH (08:07)
[2021-07-18] MEDS: FLUTICASONE FUROATE 100MCG 14 PUFFS/INHALER INH SCH (08:07)
[2021-07-18] MEDS: DOXYCYCLINE HYCLATE 100 MG CAP PO SCH ×2 (08:08→21:36)
--- NOTE | 2021-07-18 10:04 | Pulmonology Progress Note ---
Date of Service July 18, 2021 Assessment & Plan (1) Hypoxia: (2) Pneumonia: (3) Cough: (4) Asthma: (5) Paroxysmal atrial fibrillation: Plan: Attending: Dr. Quarles Impression: 76-year-old female admitted for presumed pneumonia. She has a history of asthma and follows with Dr. Vidal in the outpatient clinic. She has not required supplemental oxygen at home. She has been hypoxic this hospital stay and has improved to the point where she only needs 3 L/min via nasal cannula at this time. Over the weekend she was requiring 5 to 6 L/min. Procalcitonin was originally elevated but is now resolved. Patient bio fire panel completed which was positive for enterovirus/rhinovirus. Patient is currently using incentive spirometry and vest therapy 4 times daily. Recommendations: 1. Pneumonia: Seen on chest CT and chest x-ray on admission. Bio fire positive for enterovirus/rhinovirus. Procalcitonin is now resolved. Concern for some level of infectious bronchiolitis exacerbating her asthma. PFTs as listed above in subjective portion of this note. No overt bronchospasm on exam. Patient is currently on ceftriaxone 2 g daily as well as doxycycline 100 mg p.o. twice daily. Recommendation for 7 to 10 days of antibiotics. Would give patient a full 10 days due to slow recovery. Most recent chest x-ray shows some improvement. Continue supportive care. Continue titrate supplemental oxygen as tolerated. 2. Hypoxia: Secondary to #1. Patient is showing slow improvement. Most recent chest x-ray improved. Continue to titrate supplemental oxygen as tolerated. 3. Asthma: PFTs as listed above in subjective portion of this note. Follows with Dr. Vidal in the outpatient pulmonary clinic. Follow-up PFTs ordered per his most recent note. No exacerbation of asthma at this time. Currently on prednisone 20 mg daily. We will continue to taper as tolerated. 4. Paroxysmal atrial fibrillation: Some ectopy on exam today. Continue sotalol twice daily. Patient with dual pacemaker. Review of telemetry shows no atrial fibrillation at this time. Doubt that this contributes to current hypoxia but may have contributed to shortness of breath on exam due to A. fib with RVR. We will continue to follow from a pulmonary perspective at this time due to continued requirement of oxygen. Please feel free to call with any questions. Admission and Anticipated Discharge Date Admission Date: July 12, 2021 Supervising Physician Co-Signing Physician Notes EMR reviewed. Discussed with JAGJIT. Agree with AP as noted. Continue to follow with you Subjective Attending: Dr. Quarles Patient seen at bedside. She reports that she is doing somewhat better. She is ambulating to the bathroom and around the room. She does not feel any particular distress with exertion.Oxygen requirements over the weekend were 5 to 6 L/min. She is now 95% on 3 L/min via nasal cannula. Patient is hemodynamically stable. She is followed with Dr. Vidal in the outpatient clinic and was most recently seen in March. She denies any current bronchospasm or exacerbation of asthma. She reports slow but steady improvement. No fever, chills, sweats, rigors. No nausea or vomiting. No diarrhea. Weakness is improving. Pulmonary function testing from 01/26/2021 reviewed: FEV1/FVC 73 FEV1 1.96 L, 80% FVC 2.68 L, 89% TLC 103% RV/TLC 113% DLCO 57% Normal spirometry and lung volumes. No significant postbronchodilator response was seen with albuterol. DLCO moderately reduced. Review of Systems Review of Systems: All systems reviewed & are unremarkable except as noted in Subjective Physical Exam Physical Exam: GENERAL : No acute distress. Sitting at bedside. Observed patient walking in room with no distress. EYES: No icterus, gaze conjugate NOSE: No evidence of epistaxis. Nasal cannula in place MOUTH: No lesions or candidiasis NECK: Supple LUNGS: Minimal decrease in breath sounds. No overt bronchospasm, rales, rhonchi. HEART: Regular, rate controlled with occasional ectopy. Discussed with systems testing laboratory technician. Some PACs/PVCs today. No atrial fibrillation ABDOMEN: Soft, NT, ND, BS Present EXTREMITIES: No LE edema, pedal pulses intact NEURO: A&OX3 Results & Data Results & Data ([facility]) Vital Signs (Past 12 Hours) Vital Signs Temp Pulse Pulse Resp BP BP Pulse Ox 07/18/21 08:22 36.5 C 66 18 126/79 91 07/18/21 07:34 87 19 93 07/18/21 07:16 65 07/18/21 03:13 36.6 C 64 18 159/78 H 90 07/17/21 23:50 36.6 C 20 147/77 H 95 07/17/21 23:41 84 16 94 07/17/21 22:19 60 Laboratory Results 07/17/21 06:59 07/17/21 06:59 Diagnostic Findings No further diagnostic studies since yesterday. PG Care Time/CCT Total # of Minutes Spent Total Time Spent with Patient: Total time spent is greater than 50% in coordination of care (as documented) at patient's floor/unit and/or counseling patient: 20 minutes Coding Level of Care Code 24015 Subseq Hosp Care Lvl 2 Diagnoses Hypoxia R09.02 Pneumonia J18.9 Cough R05.9 Asthma J45.909 Paroxysmal atrial fibrillation I48.0 Time Spent (min) 20
--- NOTE | 2021-07-18 12:20 | Cardiology Progress Note ---
Date of Service July 18, 2021 Assessment & Plan (1) Pneumonia: (2) Pacemaker: (3) Paroxysmal atrial fibrillation: Plan: Continue sotalol 80 mg twice daily. (Loading complete). Repeat ECG today demonstrates QTc less than 500ms. Continue telemetry monitoring. Apixaban for stroke prophylaxis. Avoid QT prolonging agents. Antibiotics as per internal medicine. Cardiology will sign off. Please call with questions. Admission and Anticipated Discharge Date Admission Date: July 12, 2021 Subjective Patient seen and examined at the bedside. Cough is nearly resolved. Denies chest pain or shortness of breath. No palpitations. Telemetry reveals sinus rhythm. No evidence of recurrent atrial fibrillation. Repeat ECG reviewed. Review of Systems Review of Systems: All systems reviewed & are unremarkable except as noted in Subjective Physical Exam Constitutional: + obese; not ill appearing Respiratory: normal respiratory effort and + cough Auscultation: no rales, no rhonchi and no wheezes Cardiovascular: Rate/Rhythm: regular rate and regular rhythm Heart Sounds: normal S1 and normal S2; no murmur Vessels: radial pulses present; no JVD and no carotid bruit Extremities: no edema Gastrointestinal (Abdomen): Inspection/Auscultation: abdomen normal to inspection and normal bowel sounds; abdomen not distended Pe rcussion/Palpation: abdomen soft; abdomen nontender, no guarding and abdomen not rigid Neurologic: CN's II-XI intact bilaterally and moves all extremities; no focal motor deficits Motor/Sensory: no tremor Psychiatric: A+Ox3, euthymic affect Results & Data ([facility]) Vital Signs (Past 12 Hours) Vital Signs Temp Pulse Pulse Resp BP Pulse Ox 07/18/21 11:38 60 18 90 07/18/21 11:32 36.5 C 60 19 122/69 91 07/18/21 10:37 91 07/18/21 08:22 36.5 C 66 18 126/79 91 07/18/21 07:34 87 19 93 07/18/21 07:16 65 07/18/21 03:13 36.6 C 64 18 159/78 H 90
--- NOTE | 2021-07-18 12:20 | Electrocardiogram Report ---
Test Reason : Blood Pressure : / mmHG Vent. Rate : 060 BPM Atrial Rate : 060 BPM P-R Int : 162 ms QRS Dur : 100 ms QT Int : 468 ms P-R-T Axes : 064 -44 -12 degrees QTc Int : 468 ms Atrial-paced rhythm Left axis deviation Nonspecific ST and T wave abnormality Abnormal ECG When compared with ECG of 17-JUL-2021 09:50, Electronic atrial pacemaker has replaced Sinus rhythm T wave inversion no longer evident in Lateral leads QT has lengthened Confirmed by Masood Hand ([id number]) on 07/18/2021 12:19:30 PM Referred By: REFERRED SELF Confirmed By:Masood Hand
--- NOTE | 2021-07-18 17:33 | Hospitalist Progress Note ---
Date of Service July 18, 2021 Assessment & Plan (1) Acute respiratory failure with hypoxia: (2) Pneumonia: (3) Asthma exacerbation: Plan: Acute respiratory failure with hypoxia Rhino/Enterovirus infection Possible secondary bacterial infection Asthma exacerbation --CTA:Mild cardiomegaly with extensive coronary artery calcifications. No pulmonary emboli. Left greater than right bibasilar predominant consolidative and groundglass opacities are compatible with multifocal pneumonia. Moderate sized hiatal hernia with mid to distal esophageal wall thickening. -Elevated procalcitonin -Negative COVID Screen Continue Rocephin, doxycycline for 7 days Continue nebs Continue low-dose prednisone for 7 days Appreciate pulmonary Input Continue antitussives Continue flutter valve Chest PT added Procalcitonin trending down Has been on Trilogy Requiring less oxygen today Saturating well on 3 L supplemental oxygen Plan for 2 step tomorrow (4) Atrial fibrillation with RVR: Plan: Continue diltiazem On Eliquis for anticoagulation Currently in sinus Appreciate cardiology input Toprol changed to sotalol Monitor QTC Needs follow-up with EP as outpatient Continue sotalol Needs follow-up with cardiology upon discharge (5) Tachy-roseann syndrome: (6) Pacemaker: Plan: H/O paroxysmal atrial fibrillation and tachybradycardia syndrome s/p pacemaker Management as above (7) KIRTI (acute kidney injury): Plan: Creatinine 1.3>>1.1>0.9 Baseline 1.0 Received IV fluids Monitor Renal function (8) Coronary artery disease: Plan: H/O LAD stent x2 and RCA stent x2 in 2019 Continue ASA, statin, beta-jocelyn; also on Repatha for HLD management (9) Gastroparesis: (10) Chronic constipation: Plan: -Continue meds (11) Bladder cancer: Plan: Follows with Dr. Munoz with [facility] urology Currently receiving BCG treatments (12) DVT prophylaxis: Plan: -On Eliquis Admission and Anticipated Discharge Date Admission Date: July 12, 2021 Subjective Patient is seen and examined at bedside Continues to improve clinically Saturating well on 3 L supplemental oxygen Less cough, dyspnea Denies any chest pain, dizziness, nausea, abdominal pain Review of Systems Review of Systems: All systems reviewed & are unremarkable except as noted in Subjective Physical Exam Physical Exam: Physical Exam: Vitals signs as noted above General Appearance:Moderately built and nourished, no apparent distress Head: normocephalic, Atraumatic Eyes: normal inspection, EOMI Neck: supple, Trachea midline Respiratory/Chest: Decreased breath sounds, CTA Cardiovascular: S1, S2, No murmur Abdomen/GI:Soft, Non tender, Bowel sounds present Extremities/Musculoskeletal:normal inspection, no edema Neurologic/Psych:AAOX3, grossly no focal neurological deficits Skin: normal color, warm Results & Data Results & Data ([facility]) Vital Signs (Past 12 Hours) Vital Signs Temp Pulse Pulse Resp BP Pulse Ox 07/18/21 15:55 36.9 C 66 16 123/75 95 07/18/21 15:51 72 18 90 07/18/21 15:39 93 07/18/21 15:24 60 07/18/21 11:38 60 18 90 07/18/21 11:32 36.5 C 60 19 122/69 91 07/18/21 10:37 91 07/18/21 08:22 36.5 C 66 18 126/79 91 07/18/21 07:34 87 19 93 07/18/21 07:16 65 (1) Coronary artery disease Associated angina: unspecified whether angina present Coronary Disease- Associated Artery/Lesion type: circle artery [place] vs. transplanted heart: circle heart Qualified Code(s): I25.10 - Atherosclerotic heart disease of [place] coronary artery without angina pectoris
[2021-07-18] MEDS: MONTELUKAST SODIUM 10 MG TABLET PO SCH (20:29)
[2021-07-18] MEDS: ROSUVASTATIN CALCIUM 20 MG TAB PO SCH (20:29)
[2021-07-19] MEDS: guaiFENesin/DEXTROM SYRUP 200MG/20MG 10ML UDC PO SCH ×3 (00:24→11:48)
[2021-07-19] MEDS: LEVOTHYROXINE SODIUM 88 MCG TABLET PO SCH (06:05)
[2021-07-19] MEDS: ALBUT/IPRATROP 3MG/0.5MG NEB 3 ML VIAL NEB PRN (06:18)
[2021-07-19] MEDS: cefTRIAXone SODIUM 2,000 MG in DEXTROSE 5% 50 ML IV SCH (07:35)
[2021-07-19] MEDS: FLUTICASONE FUROATE 100MCG 14 PUFFS/INHALER INH SCH (07:35)
[2021-07-19] MEDS: BENZONATATE 100 MG CAPSULE PO SCH ×2 (07:35→11:48)
[2021-07-19] MEDS: LINACLOTIDE 145 MCG CAPSULE PO SCH (07:36)
[2021-07-19] MEDS: SOTALOL HCL 80 MG TAB PO SCH (07:36)
[2021-07-19] MEDS: buPROPion XL 150 MG TABCR PO SCH (07:36)
[2021-07-19] MEDS: PANTOprazole 40 MG TAB PO SCH (07:36)
[2021-07-19] MEDS: dilTIAZem HCL 240 MG CAPCR PO SCH (07:36)
[2021-07-19] MEDS: ASPIRIN 81 MG ECTAB PO SCH (07:36)
[2021-07-19] MEDS: APIXABAN 5 MG TABLET PO SCH (07:36)
[2021-07-19] MEDS: predniSONE 20 MG TAB PO SCH (07:36)
[2021-07-19] MEDS: DOXYCYCLINE HYCLATE 100 MG CAP PO SCH (07:37)
[2021-07-19] MEDS: UMECLIDINIUM/VILANTEROL 62.5/25MCG 7 PUFFS/INHALER INH SCH (07:37)
[2021-07-19] MEDS: PRUCALOPRIDE SUCCINATE PO SCH (07:37)
[2021-07-19 08:54] LABS: BUN Creatinine Ratio 24.2 (10-20); Calcium 9.6 mg/dl (8.5-10.1); Est GFR (Non-African American) 57.8 ml/min; Potassium 3.9 mmol/L (3.5-5.1)
--- NOTE | 2021-07-19 10:29 | Pulmonology Progress Note ---
Date of Service July 19, 2021 Assessment & Plan (1) Hypoxia: (2) Pneumonia: (3) Cough: (4) Asthma: (5) Paroxysmal atrial fibrillation: Plan: Impression: 76-year-old female admitted for presumed pneumonia. She has a history of asthma and follows with Dr. Vidal in the outpatient clinic. She has not required supplemental oxygen at home. She has been hypoxic this hospital stay and has improved to the point where she only needs 3 L/min via nasal cannula at this time. Over the weekend she was requiring 5 to 6 L/min. Procalcitonin was originally elevated but is now resolved. Patient bio fire panel completed which was positive for enterovirus/rhinovirus. Patient is currently using incentive spirometry and vest therapy 4 times daily. Recommendations: 1. Viral pneumonia with bronchiolitis: Bio fire positive for enterovirus/rhinovirus. Procalcitonin is now resolved. Okay to transition to oral antibiotics. does not need VEST at home. continue flutter valve 10x TID. 2. Hypoxia: Secondary to #1. Patient is showing slow improvement. Most recent chest x-ray improved. Continue to titrate supplemental oxygen as tolerated. May need oxygen at discharge 3. Asthma: PFTs as listed above in subjective portion of this note. Follows with Dr. Vidal in the outpatient pulmonary clinic. Follow-up PFTs ordered per his most recent note. Currently on prednisone 20 mg daily. Recommend an additional 5 days and then stop. 4. Paroxysmal atrial fibrillation: Per primary service. Patient appears stable to consider discharge at this point time with outpatient pulmonary follow-up. She sees in the outpatient setting. Please call if additional questions. Admission and Anticipated Discharge Date Admission Date: July 12, 2021 Subjective Seen and examined. Patient reports that she is doing somewhat better. She is able to ambulate to the restroom. She continues to use oxygen. She is coughing but not expectorating any phlegm. She has noted some persistent wheezing Review of Systems Review of Systems: All systems reviewed & are unremarkable except as noted in Subjective Physical Exam Constitutional: WD/WN, vitals as above Neck: trachea midline, no thyromegaly Respiratory: normal respiratory effort; no respiratory distress and no labored breathing Auscultation: + wheezes Some faint inspiratory wheezing bilaterally Cardiovascular: RRR, no murmur, no edema Gastrointestinal (Abdomen): normal bowel sounds, soft, nontender, no hepatosplenomegaly Musculoskeletal: Extremities: extremities normal to inspection Skin: no rashes, warm and dry Neurologic: Nonfocal exam Lymphatic: no cervical lymphadenopathy Results & Data Results & Data ([facility]) Vital Signs (Past 12 Hours) Vital Signs Temp Pulse Pulse Pulse Pulse Pulse Pulse 07/19/21 09:30 61 74 77 78 75 07/19/21 08:00 60 07/19/21 07:56 36.8 C 07/19/21 06:18 07/19/21 04:00 36.7 C 07/19/21 00:48 61 07/18/21 23:00 36.6 C Pulse Pulse Pulse Pulse Pulse Resp Resp 07/19/21 09:30 72 69 62 18 07/19/21 08:00 07/19/21 07:56 63 20 07/19/21 06:18 65 18 07/19/21 04:00 63 18 07/19/21 00:48 07/18/21 23:00 66 19 Resp Resp Resp Resp Resp Resp Resp 07/19/21 09:30 24 24 22 22 24 20 20 07/19/21 08:00 07/19/21 07:56 07/19/21 06:18 07/19/21 04:00 07/19/21 00:48 07/18/21 23:00 BP Pulse Ox Pulse Ox Pulse Ox Pulse Ox Pulse Ox Pulse Ox 07/19/21 09:30 91 84 L 85 L 87 L 90 07/19/21 08:00 07/19/21 07:56 144/69 H 91 07/19/21 06:18 92 07/19/21 04:00 133/78 92 07/19/21 00:48 07/18/21 23:00 131/72 93 Pulse Ox Pulse Ox Pulse Ox 07/19/21 09:30 82 L 92 87 L 07/19/21 08:00 07/19/21 07:56 07/19/21 06:18 07/19/21 04:00 07/19/21 00:48 07/18/21 23:00 Laboratory Results 07/17/21 06:59 07/19/21 07:55 Diagnostic Findings No new imaging PG Care Time/CCT Total # of Minutes Spent Total Time Spent with Patient: Total time spent is greater than 50% in coordination of care (as documented) at patient's floor/unit and/or counseling patient: Coding Level of Care Code 38399 Subseq Hosp Care Lvl 2 Diagnoses Hypoxia R09.02 Pneumonia J18.9 Cough R05.9 Asthma J45.909 Paroxysmal atrial fibrillation I48.0
--- NOTE | 2021-07-19 12:13 | Hospitalist Progress Note ---
Date of Service July 19, 2021 Assessment & Plan (1) Acute respiratory failure with hypoxia: (2) Pneumonia: (3) Asthma exacerbation: Plan: Acute respiratory failure with hypoxia Rhino/Enterovirus infection Possible secondary bacterial infection Asthma exacerbation --CTA:Mild cardiomegaly with extensive coronary artery calcifications. No pulmonary emboli. Left greater than right bibasilar predominant consolidative and groundglass opacities are compatible with multifocal pneumonia. Moderate sized hiatal hernia with mid to distal esophageal wall thickening. -Elevated procalcitonin -Negative COVID Screen Continue Rocephin, doxycycline >>Transition to oral upon discharge Continue nebs Continue prednisone 20mg daily Appreciate pulmonary Input Continue antitussives Continue flutter valve Chest PT added Procalcitonin trended down Has been on Trilogy 2 step: 2 L at rest and 5 L with activity Advised to follow-up with pulmonology upon discharge (4) Atrial fibrillation with RVR: Plan: Continue diltiazem On Eliquis for anticoagulation Currently in sinus Appreciate cardiology input Toprol changed to sotalol Monitor QTC Needs follow-up with EP as outpatient Continue sotalol Needs follow-up with cardiology upon discharge (5) Tachy-roseann syndrome: (6) Pacemaker: Plan: H/O paroxysmal atrial fibrillation and tachybradycardia syndrome s/p pacemaker Management as above (7) KIRTI (acute kidney injury): Plan: Creatinine 1.3>>1.1>0.9 Baseline 1.0 Received IV fluids Monitor Renal function (8) Coronary artery disease: Plan: H/O LAD stent x2 and RCA stent x2 in 2019 Continue ASA, statin, beta-jocelyn; also on Repatha for HLD management (9) Gastroparesis: (10) Chronic constipation: Plan: -Continue meds (11) Bladder cancer: Plan: Follows with Dr. Munoz with [facility] urology Currently receiving BCG treatments (12) DVT prophylaxis: Plan: -On Eliquis Admission and Anticipated Discharge Date Admission Date: July 12, 2021 Subjective Patient is seen and examined at bedside Feels well today Had 2 step earlier today No new complaints cough continues to improve Denies any chest pain, dyspnea, dizziness, nausea, abdominal pain Review of Systems Review of Systems: All systems reviewed & are unremarkable except as noted in Subjective Physical Exam Physical Exam: Physical Exam: Vitals signs as noted above General Appearance:Moderately built and nourished, no apparent distress Head: normocephalic, Atraumatic Eyes: normal inspection, EOMI Neck: supple, Trachea midline Respiratory/Chest: Decreased breath sounds, scattered wheezing Cardiovascular: S1, S2, No murmur Abdomen/GI:Soft, Non tender, Bowel sounds present Extremities/Musculoskeletal:normal inspection, no edema Neurologic/Psych:AAOX3, grossly no focal neurological deficits Skin: normal color, warm Results & Data Results & Data ([facility]) Vital Signs (Past 12 Hours) Vital Signs Temp Pulse Pulse Pulse Pulse Pulse Pulse 07/19/21 11:58 36.6 C 07/19/21 09:30 61 74 77 78 75 07/19/21 08:00 60 07/19/21 07:56 36.8 C 07/19/21 06:18 07/19/21 04:00 36.7 C 07/19/21 00:48 61 Pulse Pulse Pulse Pulse Pulse Resp Resp 07/19/21 11:58 60 18 07/19/21 09:30 72 69 62 18 07/19/21 08:00 07/19/21 07:56 63 20 07/19/21 06:18 65 18 07/19/21 04:00 63 18 07/19/21 00:48 Resp Resp Resp Resp Resp Resp Resp 07/19/21 11:58 07/19/21 09:30 24 24 22 22 24 20 20 07/19/21 08:00 07/19/21 07:56 07/19/21 06:18 07/19/21 04:00 07/19/21 00:48 BP Pulse Ox Pulse Ox Pulse Ox Pulse Ox Pulse Ox Pulse Ox 07/19/21 11:58 119/70 90 07/19/21 09:30 91 84 L 85 L 87 L 90 07/19/21 08:00 07/19/21 07:56 144/69 H 91 07/19/21 06:18 92 07/19/21 04:00 133/78 92 07/19/21 00:48 Pulse Ox Pulse Ox Pulse Ox 07/19/21 11:58 07/19/21 09:30 82 L 92 87 L 07/19/21 08:00 07/19/21 07:56 07/19/21 06:18 07/19/21 04:00 07/19/21 00:48 Laboratory Results [facility] 07/19/21 07:55 Sodium 137 Potassium 3.9 Chloride 104 Carbon Dioxide 25 BUN 23 H Creatinine 0.95 Glucose 85 Calcium 9.6 (1) Coronary artery disease Associated angina: unspecified whether angina present Coronary Disease- Associated Artery/Lesion type: [place] artery [place] vs. transplanted heart: [place] heart Qualified Code(s): I25.10 - Atherosclerotic heart disease of [place] coronary artery without angina pectoris
--- NOTE | 2021-07-19 12:30 | 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 Note ---
Date of Service: July 19, 2021 I certify that this patient is under my care and that I, or a physicians doctor assistant working with me, had a face to-face encounter that meets the [facility] [id number] encounter requirements with this patient. The encounter with the patient was in whole, or in part, for the following medical condition, which is the primary reason for home health care (list medical condition): I certify that, based on my findings, the following services are medically necessary home health services: My clinical findings support the need for the above services because: Further, I certify that my clinical findings support that this patient is homebound (i.e. absences from home require considerable and taxing effort and are for medical reasons or gnosticism services or infrequently or of short duration when for other reasons) because: Certification for Home Health Services: Based on the above findings, I certify that this patient is confined to the home and needs intermittent jail care, physical therapy and/or speech therapy or continues to need occupational therapy. The patient is under my care, and I have initiated the establishment of the plan of care. This patient will be followed by a physician who will periodically review the plan of care.
--- NOTE | 2021-07-19 12:32 | Discharge Summary ---
Date of Service July 19, 2021 Admission HPI Per Admitting Provider 76-year-old female with PMH hypothyroidism, paroxysmal atrial fibrillation anticoagulated on Eliquis, tachybradycardia syndrome s/p pacemaker 02/2021, gastroparesis, CAD s/p LAD stent x2 and RCA stent x2, asthma, chronic constipation, and other problems listed below who presents to the ED for evaluation of cough and shortness of breath. Patient reports she has been feeling sick for the past 5 days. Recently traveled to [place] to visit her grandchildren who had RSV. Patient reports worsening shortness of breath and cough. Cough has been nonproductive. Patient noted that she was in atrial fibrillation yesterday morning and took an extra dose of metoprolol. She denies chest pain. She reports feeling lightheaded and dizzy however no syncopal events. Appetite has been very poor but denies abdominal pain, nausea, vomiting, diarrhea. No urinary symptoms. In the ED, patient was found to be hypoxic on room air at 87%, currently requiring 2 L of oxygen via nasal cannula. She was also in atrial fibrillation with RVR with rates in the 140s. CTA chest negative for pulmonary embolism but shows signs of multifocal pneumonia. COVID- 19 testing negative. WBC 13 K, creatinine 1.3, procalcitonin 2.5. Patient was given IV azithromycin, IV ceftriaxone, IVF. Admission Exam Per Admitting Provider Physical exam General: Dry oral mucosa, no acute distress Eyes: PERRL, conjunctivae normal, not pale, anicteric sclerae, EOM intact bilaterally ENMT: External ear and nose normal Respiratory: Normal respiratory effort, no respiratory distress, +cough, Reduced breath sounds, +wheezing, no crackles Cardiovascular: Tachycardic, irregularly irregular pulse S1 S2, pedal pulses+, no pedal edema Gastrointestinal (Abdomen): Abdomen is not distended, soft, non-tender to p alpation, no guarding, no palpable hepatosplenomegaly, normal bowel sounds Musculoskeletal: No cyanosis or clubbing, all extremities motor strength 5/5 Genitourinary: No CVA tenderness Skin: No rash noted on gross inspection, No ulcers noted Neurologic: Alert and oriented x 3, No focal weakness, sensation grossly intact Psychiatric: Alert and oriented x 3, euthymic affect, no depressed affect Principal Diagnosis Acute respiratory failure with hypoxia Rhino/Enterovirus infection Atrial fibrillation with rapid ventricular response Acute kidney injury Discharge Data Allergies Allergy/AdvReac Type Severity Reaction Status Date / Time melon Allergy Severe Difficulty Unverified 07/12/21 07:58 Swallowing Sulfa (Sulfonamide Allergy Severe Swelling Verified 07/12/21 07:58 Antibiotics) of Lip/Tongue/Throat Penicillins AdvReac Intermediate JOINTS Verified 07/12/21 07:58 BECAME STIFF Consultations 07/12/21 08:01 ED Decision to Admit Stat 07/12/21 11:11 Consult Cardiology Routine 07/14/21 10:47 Consult Pulmonology Routine Ordered Studies 07/12/21 06:46 CT angio chest PE protocol Stat Hospital Course (1) Acute respiratory failure with hypoxia: (2) Pneumonia: (3) Asthma exacerbation: Acute respiratory failure with hypoxia Rhino/Enterovirus infection Possible secondary bacterial infection Asthma exacerbation --CTA:Mild cardiomegaly with extensive coronary artery calcifications. No pulmonary emboli. Left greater than right bibasilar predominant consolidative and groundglass opacities are compatible with multifocal pneumonia. Moderate sized hiatal hernia with mid to distal esophageal wall thickening. -Elevated procalcitonin -Negative COVID Screen Continue Rocephin, doxycycline >>Transition to oral upon discharge Continue nebs Continue prednisone 20mg daily Appreciate pulmonary Input Continue antitussives Continue flutter valve Chest PT added Procalcitonin trended down Has been on Trilogy 2 step: 2 L at rest and 5 L with activity Advised to follow-up with pulmonology upon discharge (4) Atrial fibrillation with RVR: Continue diltiazem On Eliquis for anticoagulation Currently in sinus Appreciate cardiology input Toprol changed to sotalol Monitor QTC Needs follow-up with EP as outpatient Continue sotalol Needs follow-up with cardiology upon discharge (5) Tachy-roseann syndrome: (6) Pacemaker: H/O paroxysmal atrial fibrillation and tachybradycardia syndrome s/p pacemaker Management as above (7) KIRTI (acute kidney injury): Creatinine 1.3>>1.1>0.9 Baseline 1.0 Received IV fluids Monitor Renal function (8) Coronary artery disease: H/O LAD stent x2 and RCA stent x2 in 2019 Continue ASA, statin, beta-jocelyn; also on Repatha for HLD management (9) Gastroparesis: (10) Chronic constipation: -Continue meds (11) Bladder cancer: Follows with Dr. Munoz with [facility] urology Currently receiving BCG treatments (12) DVT prophylaxis: -On Eliquis Total Time Total Time Spent Total Time Spent (In Minutes): 44 minutes Discharge Plan Discharge Items Patient Disposition: Home - Home Health Services Reason For Visit: HYPOXIA,PNEUMONIA,AFIB RVR Discharge Diagnosis: Acute respiratory failure with hypoxia Rhino/Enterovirus infection Atrial fibrillation with rapid ventricular response Acute kidney injury Activity: Per Instructions section Exercise/Sports: Wait until after follow-up appointment Non-emergency contact: Primary Care Provider, Director Of Informatics and Community Outreach Advocate Call non-emergency contact if: you have any medication questions, your symptoms worsen, your pain is concerning for you and you have a fever Follow-up/Referrals: Shelia Millan DO [Primary Care Provider] - (Date & Time 07/26/2021 10:00 AM Provider Shelia Millan DO Department Family Practice [facility] ) Diet: Heart Healthy Addtl Attending Provider Instructions: Follow-up with your primary care physician Dr. Millan on 07/26/2021 10:00 AM Follow-up with your children's service worker Dr. Mckeon in 2 weeks Follow-up with your conventions assistant Dr. Daniels in 2 weeks ---Complete the antibiotic, prednisone course as prescribed ---Use oxygen via nasal cannula 2 L at rest and 5 L with activity Seek immediate medical attention if your symptoms reoccur or worsen Please take all medications as instructed on discharge list below. Please call if you have any questions or problems. You can reach a [facility] hospitalist on duty at [facility] 24 hours a day by calling [phone] Pending Studies at Discharge: No Stand-Alone Forms: My [facility], Smoking Cessation Medications and DC Order Prescriptions: New doxycycline hyclate 100 mg Capsule 100 mg PO BID@1000,2200 Qty: 7 RF: 0 sotalol 80 mg Tablet 80 mg PO BID Qty: 60 RF: 1 prednisone 20 mg Tablet 20 mg PO DAILY Qty: 3 RF: 0 cefdinir 300 mg capsule 300 mg PO BID Qty: 7 RF: 0 Continued montelukast [Singulair] 10 mg tablet 10 mg PO PM Qty: 30 RF: 3 Trelegy Ellipta 100-62.5-25 mcg blister with device 1 inh INHALATION QAM Qty: 60 RF: 3 aspirin 81 mg tablet,delayed release (DR/EC) 81 mg PO QAM RF: 0 Allergy Relief (cetirizine) 10 mg capsule 10 mg PO DAILY PRN (Reason: Allergy Symptoms) RF: 0 rosuvastatin [Crestor] 40 mg tablet 40 mg PO PM RF: 0 fluticasone propionate [Flonase Allergy Relief] 50 mcg/actuation spray,suspension 1 spray intranasal QAM RF: 0 levothyroxine 88 mcg tablet 88 mcg PO QAM RF: 0 esomeprazole magnesium [Nexium] 40 mg capsule,delayed release(DR/EC) 40 mg PO QAM RF: 0 acetaminophen [Tylenol] 325 mg capsule 650 mg PO BID PRN (Reason: pain) RF: 0 cholecalciferol (vitamin D3) 50 mcg (2,000 unit) capsule 50 mcg PO QAM RF: 0 albuterol sulfate [Proventil HFA] 90 mcg/actuation HFA aerosol inhaler 2 puff inhalation Q6H PRN (Reason: Shortness Of Breath) RF: 0 cyanocobalamin (vitamin B-12) [Vitamin B-12] 1,000 mcg tablet 1,000 mcg PO QAM RF: 0 ferrous sulfate [Iron (ferrous sulfate)] 325 mg (65 mg iron) tablet 325 mg PO MOWEFR RF: 0 multivitamin Tablet 1 tab PO 3XWK RF: 0 omega-3 fatty acids-fish oil [Fish Oil] 360-1,200 mg capsule 1 cap PO 3XWK RF: 0 Motegrity 2 mg tablet 1 mg PO DAILY RF: 0 bupropion HCl 150 mg tablet extended release 24 hr 150 mg PO DAILY RF: 0 diltiazem HCl 240 mg capsule,extended release 24hr 240 mg PO DAILY RF: 0 Linzess 145 mcg capsule 145 mcg PO DAILY RF: 0 Repatha SureClick 140 mg/mL pen injector 140 mg SUBCUT .Q2WEEK RF: 0 apixaban 5 mg Tablet 5 mg PO BID RF: 0 Discontinued metoprolol succinate 25 mg tablet extended release 24 hr 25 mg PO BID RF: 0 Discharge Orders: Discharge Order (Routine); Ordered 07/19/21 Ordered By: Al Keith Admission Data Admit Date/Time: 07/12/21 08:20 Attending Provider: Al Keith Admit Provider: Maya Calzada I. Primary Care Provider: Shelia Millan Other Providers: Maya Calzada I. ; Ambrocio Ren ; Syd Solorzano ; [facility]
[2021-07-19] MEDS ORDERED: cefUROXime axetil 500 MG TAB PO SCH (18:00)
== END 2021-07-19 15:52 | disposition home health service (06) | DRG 193 ==
LOC: ED 05:24 → SUATTDRO 08:20 → EDINP 08:20 → 2S 15:40 → 2W 07-16 17:45

== ENCOUNTER 2025-07-19 17:02 | Inpatient (IN) ==
[2025-07-19] MEDS: ACETAMINOPHEN 1,000 MG/100 ML VIAL IV STA (17:55)
[2025-07-19] MEDS: SODIUM CHLORIDE 0.9% 1,000 ML IV SCH (17:56)
[2025-07-19] MEDS: FAMOTIDINE 20MG IV PUSH 20 MG/5 ML SYR IV STA (17:56)
[2025-07-19 18:04] LABS: Hematocrit (blood only) 32.6 % (37.0-47.0); Hemoglobin 10.1 g/dl (12.0-16.0); Immature Granulocytes # (auto) 0.03 K/uL (0.01-0.20); Immature Granulocytes % (auto) 0.3 %; Mean Corpuscular Hemoglobin 26.9 pg (25.0-34.0); Mean Corpuscular Volume 86.7 fL (80.0-100.0); Platelet Count 373 K/uL (130-400); RDW Standard Deviation 55.5 fL (36.4-46.3); Red Blood Count 3.76 M/uL (4.20-5.40); White Blood Count 9.10 K/ul (4.8-10.8)
[2025-07-19 18:19] LABS: Alanine Aminotransferase 10.0 U/L (7-52); Albumin Globulin Ratio 0.8 (0.9-2); Albumin Level 3.1 gm/dl (3.4-5.0); Alkaline Phosphatase 113.0 U/L (34-104); Anion Gap 9.0 (3-11); Bilirubin,Total 0.6 mg/dl (0.2-1.0); Blood Urea Nitrogen 17.0 mg/dl (6-23); Calcium 8.9 mg/dl (8.6-10.3); Carbon Dioxide 22.0 mmol/L (21-32); Chloride 106.0 mmol/L (98-107); Creatinine Clr Calc Pharmacy 32.4 ml/min; Globulin 4.1 gm/dl (2.5-4.0); Glucose 109.0 mg/dl (70-99(Fasting)); Lipase 7.0 U/L (11-82); Magnesium 2.1 mg/dl (1.7-2.4); Potassium 4.3 mmol/L (3.5-5.1); Sodium 137.0 mmol/L (136-145); Total Protein 7.2 gm/dl (6.0-8.3)
[2025-07-19] MEDS: OPTIRAY 320 125ml IV ONE (18:29)
[2025-07-19 18:35] LABS: INR 1.3 (0.9-1.1); Prothrombin Time 13.1 Seconds (9.0-12.0)
--- NOTE | 2025-07-19 19:06 | CT Scan Report ---
CT pulmonary angiogram with IV contrast History: Chest pain COMPARISON: 06/26/2023 TECHNIQUE: CT angiography of the chest was performed without IV contrast followed by IV contrast, including 3D post processing CTA image reconstruction. Dose reduction techniques were achieved by using automatic exposure control and/or adjustment of mA and/or kV according to patient size and/or use of iterative reconstruction technique. FINDINGS: Diagnostic quality: Adequate There is no evidence for pulmonary embolism. The heart is not enlarged. There is no pericardial effusion. Mildly prominent left mediastinal lymph nodes, are favored reactive. Coronary calcifications and/or stents. Left chest wall AICD in place. Streaky bibasilar atelectasis. The central tracheobronchial tree is clear. A new prominent area of consolidation is seen in the left upper lobe measuring 8.5 x 6.2 cm in the axial plane. There is no pleural effusion. Limited visualized upper abdomen. Small hiatal hernia. No destructive osseous changes are seen. IMPRESSION: No evidence for pulmonary embolism. Large left upper lobe consolidation, new from prior favoring pneumonia, however follow-up to resolution is recommended. Electronically signed by Victor Manuel Quinonez 07-19-2025 7:05 PM
--- NOTE | 2025-07-19 19:08 | CT Scan Report ---
EXAMINATION: CT of the abdomen and pelvis performed after the administration of IV contrast TECHNIQUE: Helical CT images from the lung bases through the symphysis pubis were obtained with contrast. Coronal and sagittal reformatted images were generated at a workstation for further assessment. Dose reduction techniques were achieved by using automatic exposure control and/or adjustment of mA and/or kV according to patient size and/or use of iterative reconstruction technique. COMPARISON: None HISTORY: Abdominal pain FINDINGS: Liver: No suspicious liver lesions. Portal veins appear patent. Gallbladder: Cholecystectomy Spleen: Normal size. Pancreas: No suspicious pancreatic lesions. The pancreatic duct is not dilated. Adrenal glands: No adrenal nodules. Kidneys: No hydronephrosis or obstructing renal stones. Prominent simple appearing superior left renal cyst. Bladder / Pelvic organs: Unremarkable. Bowel: No bowel obstruction. No abnormal bowel wall thickening. The appendix is not definitely seen. Left colonic diverticulosis without diverticulitis. Lymph nodes: No retroperitoneal, mesenteric, or pelvic lymphadenopathy. Peritoneum / Retroperitoneum: No free fluid or air within the abdomen. Vessels: No infrarenal aortic aneurysm. Heavy aortoiliac calcification. Bones and soft tissues: No suspicious lesion in the bones. Right hip arthroplasty. IMPRESSION: No acute intra-abdominal process Electronically signed by Victor Manuel Quinonez 07-19-2025 7:07 PM
[2025-07-19] MEDS: ALUMINUM/MAGNESIUM SUSP 30 ML UDC PO STA (20:45)
[2025-07-19] MEDS: CEFEPIME 2000MG 2,000 MG/20 ML SYR IV STA (20:45)
--- NOTE | 2025-07-19 20:48 | Emergency Department Note ---
Impression & Plan Chest pain, Pneumonia ED Provider Note ED Provider Note NAME: SUKHWINDER DIEGO AGE:80 SEX: Female : 1945 ARRIVES VIA: Private vehicle INFORMANT: Patient ED PROVIDER(s): Omaira Barton DO CHIEF COMPLAINT: Chest pain HPI: This is an 80-year-old female presents emergency department due to abrupt onset of left-sided chest pain that began this afternoon. Patient states she drank 8 ounces of orange juice when pain first began. She states she has not she had irritated her stomach with the orange juice so she drank chocolate that without any improvement. She states the pain does not radiate into her flank or back. She denies any prior similar events. Patient was recently admitted to the hospital 2 weeks ago and found to have bilateral lower lobe pneumonia as well as a heart attack per her report. Patient does already take anticoagulation medications due to a prior history of atrial fibrillation. She states she was not discharged home on any antibiotics that she completed a course while she was admitted. She states she had been feeling well and thought she was slowly improving until she began having pain today. She denies any sense of difficulty breathing. She notes she does have an intermittent coarse cough that is productive of white and red sputum. She denies nausea or vomiting, change in urine or change in bowel movements. She denies any leg swelling. She states the pain does not seem to change with position or exertion. Patient notes she does have a history of GERD, but does take a stomach medication daily for this. PAST MEDICAL HISTORY:See Below PAST SURGICAL HISTORY:See Below FAMILY HISTORY:See Below SOCIAL HISTORY:See Below HOME MEDICATIONS:See Below ALLERGIES:See Below VITALS:See Below PHYSICAL EXAMINATION: GENERAL: alert, well appearing, well nourished, no distress, non-toxic EYE EXAM: normal conjunctiva, PERRL and EOM's grossly intact OROPHARYNX: no exudate, no erythema, lips, buccal mucosa, and tongue normal and mucous membranes are moist NECK: supple, no nuchal rigidity, no adenopathy, non-tender LUNGS: Clear to auscultation. Normal chest wall mechanics, no w/r/r HEART: no murmurs, S1 normal and S2 normal, no reproducible pain with palpation along the left anterior chest wall ABDOMEN: abdomen soft, mild pain with palpation along the left costal margin, normo-active bowel sounds, no masses, no rebound or guarding. Dull to percussion SKIN: no rashes, petechiae, orbruising UPPER EXTREMITIES: upper extremities are grossly normal. FROM, nml pulses b/l. LOWER EXTREMITIES: No pitting edema. FROM, nml pulses b/l. NEURO EXAM: Normal sensorium, cranial nerves II-XII grossly intact, normal speech, no facial droop,nogross weakness of arms, no gross weakness of legs. Gross sensation intact. No ataxia. Vital Signs: reviewed and remarkable Differential Diagnosis: acute coronary syndrome, pericarditis, pulmonary embolus, aortic dissection, pneumonia, pneumothorax, musculoskeletal pain, shingles, GERD, GI bleed, as well as others were considered MEDICAL DECISION MAKING: This is an 80-year-old female who presents to the emergency department due to concern for abrupt onset left-sided chest pain today. Patient with recent admission with pneumonia, myocardial infarction, anemia, and hypotension following a colonoscopy. Patient afebrile and hemodynamically stable here on arrival. Labs drawn and sent, IV established, EKG performed at bedside and interpreted by me and she was monitored on telemetry. After discussion and evaluation at bedside and consideration for recent admission and findings, patient sent for CT angiography of the chest, as well as CT abdomen pelvis. CT did reveal a left upper lobe pneumonia which appears new/worse compared to the prior chest x-ray. The lower lobe findings have since resolved. No evidence for PE. Patient is anticoagulated due to history of A-fib. No leukocytosis, no elevated procalcitonin. Blood cultures and lactic acid added additionally and patient started on IV cefepime. MRSA swab added given recent admission starting from case discussed with the hospitalist team for additional evaluation and management. Patient was not requiring any oxygen while monitored in the emergency department, had no increased respiratory distress, tachypnea, or work of breathing. Anemia still noted however improved compared to prior findings. Patient's creatinine also noted to be mildly elevated again which is similar to her prior admission. Patient was also given occasions in consideration for possible GERD as she noted her symptoms began after drinking orange juice. No evidence of elevated troponin or abnormal EKG changes. I do not suspect a cardiac etiology of her pain. Consultation(s): 2020: Discussed with Dr. Gutierrez, [facility] hospitalist team, for additional evaluation and management. ER Treatment Provided: See below Diagnostics Interpreted By Me: -ECG: Normal sinus at 87, leftward axis, normal intervals, no acute ST/T wave changes -Cardiac Monitoring: An order was placed for continuous cardiac monitoring. The monitor shows a rate of 86 with normal sinus rhythm. -Laboratory studies: As stated above and show below. -Imaging studies: ct chest: LITA pna noted, pulmonary edema Triage Nursing Note Reviewed Prior/Outside Records Reviewed-H&P from recent admission for weakness ago reviewed Past Med/Surg History Problem List (Updated 07/19/25 @ 20:50 by Omaira Barton, ) Pneumonia (Acute) Chest pain (Acute) Dysphagia Anemia, iron deficiency Iron refractory iron deficiency anemia History of recent fall Aortic stenosis Hypotension due to hypovolemia Volume depletion, gastrointestinal loss Type 2 acute myocardial infarction Elevated troponin (Acute) Mild persistent asthma Hiatal hernia Recurrent pneumonia 01/2023 hospitalized in [place] Productive cough Dyspnea and respiratory abnormalities Cough productive of purulent sputum UTI (urinary tract infection) Cough variant asthma Nocturnal hypoxia History of asthma Pneumonia (Acute) Atrial fibrillation with rapid ventricular response (Acute) Hypoxia (Acute) Chronic constipation DVT prophylaxis KIRTI (acute kidney injury) Acute respiratory failure with hypoxia Diffusion capacity of lung (dl), decreased Snoring Pacemaker medtronic -SSS- checked remotely from home daily, follows w/ Dr powell last visit 05/2023 Paroxysmal atrial fibrillation reason for Eliquis Tachy-roseann syndrome Status post Sanjeev fundoplication Gastroparesis Atrial fibrillation with RVR Hiatal hernia Obesity (BMI 30.0-34.9) Coronary artery disease (Acute) 2019 - LAD stent x 2, RCA stent x 2 Dyspnea (Acute) Hypertension Asthma well controlled w/ daily inhaler use, rarely needs rescue inhaler/ neb Arthritis Bladder cancer BCG treatments Medical History Hx of tachycardia-bradycardia syndrome Nocturnal hypoxia Diffusion capacity of lung (dl), decreased Arthritis Cough variant asthma UTI (urinary tract infection) Dyspnea and respiratory abnormalities Chronic constipation Gastroparesis Snoring Hiatal hernia CAD (coronary artery disease) Pacemaker (02/25/21) Bladder cancer Asthma Atrial fibrillation with rapid ventricular response History of pneumonia (01/2023) Anxiety Chronic cough On home oxygen therapy Hx MRSA infection History of COVID-19 (09/2021) Dyslipidemia Surgical History History of permanent cardiac pacemaker placement (02/25/21) Hx of colonoscopy (08/2023) History of cystoscopy History of transurethral resection of bladder tumor (TURBT) (2021) Hx of cardiac catheterization Hx of hand surgery History of fundoplication H/O tubal ligation H/O vaginal hysterectomy History of repair of rotator cuff History of left knee replacement History of right hip replacement History of cholecystectomy History of surgical removal of squamous cell carcinoma of skin of [place] region H/O hernia repair History of heart artery stent Family History Mother Atrial fibrillation Coronary heart disease Father Crohn's disease Other Allergies Asthma Heart disease Hypertension Tuberculosis Social History Smoking Status: Never smoker Tobacco Type: Cigarettes Second Hand Exposure: No; Do You Dip or Chew Tobacco: No; Hx Alcohol Use: No Hx Substance Use: No Preferred Language: Cuban 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 Ability: Effective Community Health Planning Director Required: No Beliefs That Will Affect Care: None marital status: / Current Living Situation: Family Current Living Situation Comment: granddaughter and live with pt current occupation: Retired How many Children do You have: 5 Feels Safe at Home: Yes Assistive Devices: Cane and Oxygen - at Night Allergies Allergies Allergy/AdvReac Type Severity Reaction Status Date / Time melon Allergy Severe Difficulty Verified 01/29/25 11:35 Swallowing Sulfa (Sulfonamide Allergy Severe Swelling Verified 01/29/25 11:35 Antibiotics) of Lip/Tongue/Throat ciprofloxacin AdvReac Verified 01/29/25 11:35 Home Meds Home Medications Medication Instructions Recorded Confirmed albuterol sulfate 90 mcg/actuation 1 inh inhalation QID PRN Shortness 07/04/25 07/19/25 aerosol inhaler Of Breath Or Wheezing amiodarone 200 mg tablet 100 mg PO DAILY 07/04/25 07/19/25 apixaban 5 mg tablet (Eliquis) 5 mg PO BID 07/04/25 07/19/25 aspirin 81 mg tablet,delayed 81 mg PO DAILY 07/04/25 07/19/25 release buspirone 15 mg tablet 15 mg PO TID 07/04/25 07/19/25 esomeprazole magnesium 40 mg 40 mg PO DAILY 07/04/25 07/19/25 capsule,delayed release evolocumab 140 mg/mL subcutaneous 140 mg subcut WK 07/04/25 07/19/25 pen injector (mosesbernadette Waldron) ferrous sulfate 325 mg (65 mg 325 mg PO DAILY 07/04/25 07/19/25 iron) tablet fluticasone fur. 200 mcg-umeclid 1 inh inhalation DAILY 07/04/25 07/19/25 62.5 mcg-vilant 25 mcg inhalat.powder (Trelegy Ellipta) gabapentin 100 mg capsule 100 mg PO HS 07/04/25 07/19/25 levothyroxine 75 mcg tablet 75 mcg PO DAILY 07/04/25 07/19/25 metoprolol succinate 25 mg 12.5 mg PO DAILY 07/04/25 07/19/25 tablet,extended release 24 hr montelukast 10 mg tablet 10 mg PO DAILY 07/04/25 07/19/25 oxybutynin chloride 5 mg tablet 5 mg PO DAILY 07/04/25 07/19/25 prucalopride 2 mg tablet 2 mg PO DAILY 07/04/25 07/19/25 rosuvastatin 40 mg tablet 40 mg PO DAILY 07/04/25 07/19/25 fluticasone propionate 50 1 spray intranasal DAILY PRN 07/19/25 07/19/25 mcg/actuation nasal Allergy Symptoms spray,suspension nystatin 100,000 unit/mL oral 5 ml PO QID 07/19/25 07/19/25 suspension Results & Data (ED) Vital Signs Vital Signs - 24 hr 07/19/25 17:10 07/19/25 17:12 07/19/25 18:00 Temperature 37.3 C Temperature Source Oral Pulse Rate 85 86 Pulse Rate [Apical] 83 Pulse Rate from SpO2 Sensor Pulse Rhythm Regular Respiratory Rate 20 20 Respiratory Effort / Characteristics Non-Labored Spontaneous Respiratory Depth Normal Respiratory Pattern Regular Blood Pressure 133/99 Blood Pressure [Right Arm] 121/72 Blood Pressure Mean 110 Blood Pressure Mean [Right Arm] 88 Blood Pressure Position Sitting Pulse Oximetry 94 97 Oxygen Delivery Method Room Air Room Air Sepsis Recent Fever Within 48 Hours No Sepsis New/Unexplained Change in Mental Status No Sepsis Action Taken by Nursing No Action Required 07/19/25 18:02 07/19/25 18:02 07/19/25 18:02 Temperature Temperature Source Pulse Rate Pulse Rate [Apical] Pulse Rate from SpO2 Sensor Pulse Rhythm Respiratory Rate Respiratory Effort / Characteristics Respiratory Depth Respiratory Pattern Blood Pressure 121/72 121/72 121/72 Blood Pressure [Right Arm] Blood Pressure Mean 89 89 89 Blood Pressure Mean [Right Arm] Blood Pressure Position Pulse Oximetry Oxygen Delivery Method Sepsis Recent Fever Within 48 Hours Sepsis New/Unexplained Change in Mental Status Sepsis Action Taken by Nursing 07/19/25 18:02 07/19/25 18:02 07/19/25 18:12 Temperature Temperature Source Pulse Rate 81 Pulse Rate [Apical] Pulse Rate from SpO2 Sensor 80 Pulse Rhythm Respiratory Rate 21 Respiratory Effort / Characteristics Respiratory Depth Respiratory Pattern Blood Pressure 121/72 121/72 Blood Pressure [Right Arm] Blood Pressure Mean 89 89 Blood Pressure Mean [Right Arm] Blood Pressure Position Pulse Oximetry 94 Oxygen Delivery Method Sepsis Recent Fever Within 48 Hours Sepsis New/Unexplained Change in Mental Status Sepsis Action Taken by Nursing 07/19/25 18:21 07/19/25 18:39 07/19/25 18:42 Temperature Temperature Source Pulse Rate 84 85 81 Pulse Rate [Apical] Pulse Rate from SpO2 Sensor 81 85 81 Pulse Rhythm Respiratory Rate 28 H 19 19 Respiratory Effort / Characteristics Respiratory Depth Respiratory Pattern Blood Pressure Blood Pressure [Right Arm] Blood Pressure Mean Blood Pressure Mean [Right Arm] Blood Pressure Position Pulse Oximetry 95 94 94 Oxygen Delivery Method Sepsis Recent Fever Within 48 Hours Sepsis New/Unexplained Change in Mental Status Sepsis Action Taken by Nursing 07/19/25 18:51 07/19/25 19:00 07/19/25 19:00 Temperature Temperature Source Pulse Rate 80 Pulse Rate [Apical] Pulse Rate from SpO2 Sensor 81 Pulse Rhythm Respiratory Rate 23 Respiratory Effort / Characteristics Respiratory Depth Respiratory Pattern Blood Pressure 118/56 L 118/56 L Blood Pressure [Right Arm] Blood Pressure Mean 71 71 Blood Pressure Mean [Right Arm] Blood Pressure Position Pulse Oximetry 94 Oxygen Delivery Method Sepsis Recent Fever Within 48 Hours Sepsis New/Unexplained Change in Mental Status Sepsis Action Taken by Nursing 07/19/25 19:00 07/19/25 19:00 07/19/25 19:00 Temperature Temperature Source Pulse Rate Pulse Rate [Apical] Pulse Rate from SpO2 Sensor Pulse Rhythm Respiratory Rate Respiratory Effort / Characteristics Respiratory Depth Respiratory Pattern Blood Pressure 118/56 L 118/56 L 118/56 L Blood Pressure [Right Arm] Blood Pressure Mean 71 71 71 Blood Pressure Mean [Right Arm] Blood Pressure Position Pulse Oximetry Oxygen Delivery Method Sepsis Recent Fever Within 48 Hours Sepsis New/Unexplained Change in Mental Status Sepsis Action Taken by Nursing 07/19/25 19:00 07/19/25 19:12 07/19/25 19:21 Temperature Temperature Source Pulse Rate 80 79 79 Pulse Rate [Apical] Pulse Rate from SpO2 Sensor 79 79 79 Pulse Rhythm Respiratory Rate 24 24 27 H Respiratory Effort / Characteristics Respiratory Depth Respiratory Pattern Blood Pressure Blood Pressure [Right Arm] Blood Pressure Mean Blood Pressure Mean [Right Arm] Blood Pressure Position Pulse Oximetry 93 93 93 Oxygen Delivery Method Sepsis Recent Fever Within 48 Hours Sepsis New/Unexplained Change in Mental Status Sepsis Action Taken by Nursing 07/19/25 19:30 07/19/25 19:30 07/19/25 19:30 Temperature Temperature Source Pulse Rate 80 Pulse Rate [Apical] Pulse Rate from SpO2 Sensor 81 Pulse Rhythm Respiratory Rate 27 H Respiratory Effort / Characteristics Respiratory Depth Respiratory Pattern Blood Pressure 117/56 L 117/56 L Blood Pressure [Right Arm] Blood Pressure Mean 83 83 Blood Pressure Mean [Right Arm] Blood Pressure Position Pulse Oximetry 93 Oxygen Delivery Method Sepsis Recent Fever Within 48 Hours Sepsis New/Unexplained Change in Mental Status Sepsis Action Taken by Nursing 07/19/25 19:30 07/19/25 19:30 07/19/25 19:30 Temperature Temperature Source Pulse Rate Pulse Rate [Apical] Pulse Rate from SpO2 Sensor Pulse Rhythm Respiratory Rate Respiratory Effort / Characteristics Respiratory Depth Respiratory Pattern Blood Pressure 117/56 L 117/56 L 117/56 L Blood Pressure [Right Arm] Blood Pressure Mean 83 83 83 Blood Pressure Mean [Right Arm] Blood Pressure Position Pulse Oximetry Oxygen Delivery Method Sepsis Recent Fever Within 48 Hours Sepsis New/Unexplained Change in Mental Status Sepsis Action Taken by Nursing 07/19/25 19:42 07/19/25 19:51 07/19/25 20:00 Temperature Temperature Source Pulse Rate 79 87 Pulse Rate [Apical] 88 Pulse Rate from SpO2 Sensor 79 86 Pulse Rhythm Respiratory Rate 28 H 25 H 18 Respiratory Effort / Characteristics Respiratory Depth Respiratory Pattern Blood Pressure Blood Pressure [Right Arm] 105/57 L Blood Pressure Mean Blood Pressure Mean [Right Arm] 73 Blood Pressure Position Pulse Oximetry 94 95 94 Oxygen Delivery Method Room Air Sepsis Recent Fever Within 48 Hours Sepsis New/Unexplained Change in Mental Status Sepsis Action Taken by Nursing 07/19/25 20:00 07/19/25 20:00 07/19/25 20:00 Temperature Temperature Source Pulse Rate 79 Pulse Rate [Apical] Pulse Rate from SpO2 Sensor 80 Pulse Rhythm Respiratory Rate 25 H Respiratory Effort / Characteristics Respiratory Depth Respiratory Pattern Blood Pressure 105/57 L 105/57 L Blood Pressure [Right Arm] Blood Pressure Mean 81 81 Blood Pressure Mean [Right Arm] Blood Pressure Position Pulse Oximetry 92 Oxygen Delivery Method Sepsis Recent Fever Within 48 Hours Sepsis New/Unexplained Change in Mental Status Sepsis Action Taken by Nursing 07/19/25 20:00 07/19/25 20:00 07/19/25 20:00 Temperature Temperature Source Pulse Rate Pulse Rate [Apical] Pulse Rate from SpO2 Sensor Pulse Rhythm Respiratory Rate Respiratory Effort / Characteristics Respiratory Depth Respiratory Pattern Blood Pressure 105/57 L 105/57 L 105/57 L Blood Pressure [Right Arm] Blood Pressure Mean 81 81 81 Blood Pressure Mean [Right Arm] Blood Pressure Position Pulse Oximetry Oxygen Delivery Method Sepsis Recent Fever Within 48 Hours Sepsis New/Unexplained Change in Mental Status Sepsis Action Taken by Nursing 07/19/25 20:12 07/19/25 20:21 07/19/25 20:30 Temperature Temperature Source Pulse Rate 80 81 80 Pulse Rate [Apical] Pulse Rate from SpO2 Sensor 80 82 77 Pulse Rhythm Respiratory Rate 25 H 21 22 Respiratory Effort / Characteristics Respiratory Depth Respiratory Pattern Blood Pressure Blood Pressure [Right Arm] Blood Pressure Mean Blood Pressure Mean [Right Arm] Blood Pressure Position Pulse Oximetry 93 94 94 Oxygen Delivery Method Sepsis Recent Fever Within 48 Hours Sepsis New/Unexplained Change in Mental Status Sepsis Action Taken by Nursing 07/19/25 20:30 07/19/25 20:30 07/19/25 20:30 Temperature Temperature Source Pulse Rate Pulse Rate [Apical] Pulse Rate from SpO2 Sensor Pulse Rhythm Respiratory Rate Respiratory Effort / Characteristics Respiratory Depth Respiratory Pattern Blood Pressure 126/60 126/60 126/60 Blood Pressure [Right Arm] Blood Pressure Mean 70 70 70 Blood Pressure Mean [Right Arm] Blood Pressure Position Pulse Oximetry Oxygen Delivery Method Sepsis Recent Fever Within 48 Hours Sepsis New/Unexplained Change in Mental Status Sepsis Action Taken by Nursing 07/19/25 20:30 07/19/25 20:30 07/19/25 20:42 Temperature Temperature Source Pulse Rate 80 Pulse Rate [Apical] Pulse Rate from SpO2 Sensor 80 Pulse Rhythm Respiratory Rate 21 Respiratory Effort / Characteristics Respiratory Depth Respiratory Pattern Blood Pressure 126/60 126/60 Blood Pressure [Right Arm] Blood Pressure Mean 70 70 Blood Pressure Mean [Right Arm] Blood Pressure Position Pulse Oximetry 94 Oxygen Delivery Method Sepsis Recent Fever Within 48 Hours Sepsis New/Unexplained Change in Mental Status Sepsis Action Taken by Nursing 07/19/25 20:51 07/19/25 21:18 07/19/25 21:18 Temperature Temperature Source Pulse Rate 78 81 82 Pulse Rate [Apical] Pulse Rate from SpO2 Sensor 79 82 Pulse Rhythm Respiratory Rate 21 29 H Respiratory Effort / Characteristics Respiratory Depth Respiratory Pattern Blood Pressure Blood Pressure [Right Arm] Blood Pressure Mean Blood Pressure Mean [Right Arm] Blood Pressure Position Pulse Oximetry 92 98 Oxygen Delivery Method Sepsis Recent Fever Within 48 Hours Sepsis New/Unexplained Change in Mental Status Sepsis Action Taken by Nursing 07/19/25 21:21 07/19/25 21:30 07/19/25 21:33 Temperature Temperature Source Pulse Rate 81 85 Pulse Rate [Apical] Pulse Rate from SpO2 Sensor 81 85 Pulse Rhythm Respiratory Rate 22 30 H Respiratory Effort / Characteristics Respiratory Depth Respiratory Pattern Blood Pressure 102/60 Blood Pressure [Right Arm] Blood Pressure Mean 87 Blood Pressure Mean [Right Arm] Blood Pressure Position Pulse Oximetry 97 92 Oxygen Delivery Method Sepsis Recent Fever Within 48 Hours Sepsis New/Unexplained Change in Mental Status Sepsis Action Taken by Nursing 07/19/25 21:33 07/19/25 21:33 07/19/25 21:33 Temperature Temperature Source Pulse Rate Pulse Rate [Apical] Pulse Rate from SpO2 Sensor Pulse Rhythm Respiratory Rate Respiratory Effort / Characteristics Respiratory Depth Respiratory Pattern Blood Pressure 102/60 102/60 102/60 Blood Pressure [Right Arm] Blood Pressure Mean 87 87 87 Blood Pressure Mean [Right Arm] Blood Pressure Position Pulse Oximetry Oxygen Delivery Method Sepsis Recent Fever Within 48 Hours Sepsis New/Unexplained Change in Mental Status Sepsis Action Taken by Nursing 07/19/25 21:33 Temperature Temperature Source Pulse Rate 85 Pulse Rate [Apical] Pulse Rate from SpO2 Sensor 86 Pulse Rhythm Respiratory Rate 27 H Respiratory Effort / Characteristics Respiratory Depth Respiratory Pattern Blood Pressure Blood Pressure [Right Arm] Blood Pressure Mean Blood Pressure Mean [Right Arm] Blood Pressure Position Pulse Oximetry 93 Oxygen Delivery Method Sepsis Recent Fever Within 48 Hours Sepsis New/Unexplained Change in Mental Status Sepsis Action Taken by Nursing Laboratory Data 07/19/25 15:33 07/19/25 15:33 Lab Results 07/19/25 07/19/25 Range/Units 15:33 19:20 WBC 9.10 (4.8-10.8) K/ul RBC 3.76 L (4.20-5.40) M/uL Hgb 10.1 L (12.0-16.0) g/dl Hct 32.6 L (37.0-47.0) % MCV 86.7 (80.0-100.0) fL MCH 26.9 (25.0-34.0) pg MCHC 31.0 L (32.0-36.0) g/dL RDW Std Deviation 55.5 H (36.4-46.3) fL RDW Coeff of Alexy 18.3 H (11.5-14.5) % Plt Count 373 (130-400) K/uL MPV 10.0 (9.4-12.4) fL Immature Gran % (Auto) 0.3 % Neut % (Auto) 77.6 % Lymph % (Auto) 10.7 % Davie % (Auto) 10.3 % Eos % (Auto) 0.3 % Baso % (Auto) 0.8 % Neut # (Auto) 7.06 H (1.40-6.50) K/uL Lymph # (Auto) 0.97 L (1.20-3.40) K/uL Davie # (Auto) 0.94 H (0.11-0.59) K/uL Eos # (Auto) 0.03 (0.00-0.50) K/uL Baso # (Auto) 0.07 (0.00-0.20) K/uL Immature Gran # (Auto) 0.03 (0.01-0.20) K/uL PT 13.1 H (9.0-12.0) Seconds INR 1.3 H (0.9-1.1) Sodium 137 (136-145) mmol/L Potassium 4.3 (3.5-5.1) mmol/L Chloride 106 (98-107) mmol/L Carbon Dioxide 22 (21-32) mmol/L Anion Gap 9 (3-11) BUN 17 (6-23) mg/dl Creatinine 1.55 H (0.6-1.2) mg/dl Est Cr Clr Drug Dosing 32.4 ml/min eGFR 33.45 BUN/Creatinine Ratio 11.0 (10-20) Glucose 109 H (70-99(Fasting)) mg/dl Lactate 0.8 (0.4-2.0) mmol/L Calcium 8.9 (8.6-10.3) mg/dl Magnesium 2.1 (1.7-2.4) mg/dl Total Bilirubin 0.6 (0.2-1.0) mg/dl AST 15 (13-39) U/L ALT 10 (7-52) U/L Alkaline Phosphatase 113 H (34-104) U/L Troponin I High Sens 3.3 (0-14) pg/ml Total Protein 7.2 (6.0-8.3) gm/dl Albumin 3.1 L (3.4-5.0) gm/dl Globulin 4.1 H (2.5-4.0) gm/dl Albumin/Globulin Ratio 0.8 L (0.9-2) Lipase 7 L (11-82) U/L Procalcitonin 0.34 (0-0.5) ng/ml Nasal Screen MRSA (PCR) Negative (Negative) Administered Medications Discontinued Medications Al Hydrox/Mg Hydrox/Simethicone (Aluminum/Magnesium Susp 30 Ml Udc) 15 ml PO NOW STA Stop: 07/19/25 19:49 Last Admin: 07/19/25 20:45 Dose: 15 ml Documented By: apoorva Albuterol (Albut/Ipratrop 3mg/0.5mg Neb 3 Ml Vial) 3 ml NEB NOW STA; Protocol Stop: 07/19/25 19:52 Last Admin: 07/19/25 21:11 Dose: 3 ml Documented By: apoorva Hydromorphone HCl (Hydromorphone Inj 0.5 Mg/0.5 Ml Syr) 0.25 mg IV NOW STA Stop: 07/19/25 23:04 Last Admin: 07/19/25 23:22 Dose: 0.25 mg Documented By: [email or web address] Acetaminophen (Ofirmev) 1,000 mg in 100 mls @ 400 mls/hr IV NOW STA Stop: 07/19/25 18:00 Last Infusion: 07/19/25 19:12 Dose: Infused Documented By: apoorva Admin: 07/19/25 17:55 Dose: 400 mls/hr Documented By: apoorva Sodium Chloride (Nss) 1,000 mls @ 125 mls/hr IV .Q8H [facility] Stop: 07/22/25 17:59 Last Admin: 07/19/25 17:56 Dose: 125 mls/hr Documented By: apoorva Famotidine (Pepcid 20mg Iv Push) 20 mg in 5 mls @ 2.5 mls/min IV NOW STA Stop: 07/19/25 17:52 Last Admin: 07/19/25 17:56 Dose: 2.5 mls/min Documented By: apoorva Cefepime HCl (Maxipime 2000mg) 2,000 mg in 20 mls @ 5 mls/min IV NOW STA; Protocol Stop: 07/19/25 19:51 Last Admin: 07/19/25 20:45 Dose: 5 mls/min Documented By: apoorva Ioversol (Optiray 320 125ml) 115 ml IV ONCE ONE Stop: 07/19/25 18:30 Last Admin: 07/19/25 18:29 Dose: 115 ml Documented By: RAMA Imaging Data Radiologist's Impression: Chest CTA 07/19/25 17:45 CT pulmonary angiogram with IV contrast History: Chest pain COMPARISON: 06/26/2023 TECHNIQUE: CT angiography of the chest was performed without IV contrast followed by IV contrast, including 3D post processing CTA image reconstruction. Dose reduction techniques were achieved by using automatic exposure control and/or adjustment of mA and/or kV according to patient size and/or use of iterative reconstruction technique. FINDINGS: Diagnostic quality: Adequate There is no evidence for pulmonary embolism. The heart is not enlarged. There is no pericardial effusion. Mildly prominent left mediastinal lymph nodes, are favored reactive. Coronary calcifications and/or stents. Left chest wall AICD in place. Streaky bibasilar atelectasis. The central tracheobronchial tree is clear. A new prominent area of consolidation is seen in the left upper lobe measuring 8.5 x 6.2 cm in the axial plane. There is no pleural effusion. Limited visualized upper abdomen. Small hiatal hernia. No destructive osseous changes are seen. IMPRESSION: No evidence for pulmonary embolism. Large left upper lobe consolidation, new from prior favoring pneumonia, however follow-up to resolution is recommended. Electronically signed by Victor Manuel Quinonez 07-19-2025 7:05 PM Abdomen/Pelvis CT 07/19/25 17:52 EXAMINATION: CT of the abdomen and pelvis performed after the administration of IV contrast TECHNIQUE: Helical CT images from the lung bases through the symphysis pubis were obtained with contrast. Coronal and sagittal reformatted images were generated at a workstation for further assessment. Dose reduction techniques were achieved by using automatic exposure control and/or adjustment of mA and/or kV according to patient size and/or use of iterative reconstruction technique. COMPARISON: None HISTORY: Abdominal pain FINDINGS: Liver: No suspicious liver lesions. Portal veins appear patent. Gallbladder: Cholecystectomy Spleen: Normal size. Pancreas: No suspicious pancreatic lesions. The pancreatic duct is not dilated. Adrenal glands: No adrenal nodules. Kidneys: No hydronephrosis or obstructing renal stones. Prominent simple appearing superior left renal cyst. Bladder / Pelvic organs: Unremarkable. Bowel: No bowel obstruction. No abnormal bowel wall thickening. The appendix is not definitely seen. Left colonic diverticulosis without diverticulitis. Lymph nodes: No retroperitoneal, mesenteric, or pelvic lymphadenopathy. Peritoneum / Retroperitoneum: No free fluid or air within the abdomen. Vessels: No infrarenal aortic aneurysm. Heavy aortoiliac calcification. Bones and soft tissues: No suspicious lesion in the bones. Right hip arthroplasty. IMPRESSION: No acute intra-abdominal process Electronically signed by Victor Manuel Quinonez 07-19-2025 7:07 PM Discharge Plan Visit Data Chief Complaint: Chest Pain Stated Complaint: CHEST PAIN ED Provider: Omaira Barton Discharge Problem: Chest pain, Pneumonia Patient Disposition: Admitted As Inpatient Condition: Fair Discharge Instructions Interventions: ED Discharge Assessment Last Done: 07/19/25 23:03
[2025-07-19] MEDS: ALBUT/IPRATROP 3MG/0.5MG NEB 3 ML VIAL NEB STA (21:11)
--- NOTE | 2025-07-19 22:12 | History & Physical Report ---
Date of Service July 19, 2025 Assessment & Plan (1) Chest pain: Plan: 80-year-old female with past medical history significant for hypothyroidism, nocturnal hypoxia, dyspnea on exertion, moderate persistent asthma, tachybradycardia syndrome, paroxysmal atrial fibrillation, sinoatrial dysfunction, paroxysmal atrial tachycardia, status post pacemaker, mild aortic valve stenosis, history of CAD, chronic constipation, history of bladder cancer, CKD stage IIIb, spinal stenosis lumbar region, recurrent depression, generalized anxiety disorder presents with left-sided chest pain. Patient recently had a complicated hospital stay. She was admitted on 07/04/2025 and was discharged on 07/10/2025. At that time she was admitted after colonoscopy with weakness and found to elevated troponins and KIRTI. She was placed on IV heparin for non-ST elevation OR. S/p cardiac cath on 07/06/2025 which showed patent proximal LAD stent and patent RCA from proximal to distal vessel. Medical management was recommended. During hospitalization was also treated for possible pneumonia with azithromycin. Also received iv Lasix for volume overload and resp failure. Received iv Venofer for iron deficiency anemia.She also had an EGD for dysphagia which showed partially disrupted Sanjeev fundoplication but still intact and found to have Schatzki's ring. Schatzki's ring was dilated and she tolerated well. She is currently on soft diet. Patient states since discharge she is not feeling well. She is having cough bringing up phlegm with some blood in it. Today she noticed severe pain in the left side of the chest. The pain was more when taking deep breath. The pain did not improve so she came to the ER. Also lately she still feeling short of breath. Son in the room. Son states patient walking few steps making her short of breath. She ambulates with a cane. Having chronic headaches. Vision is okay. Has some runny nose. No sore throat. Denies any fevers. No abdominal pain. Patient is constipated. Micturating okay. No rash. Currently hemodynamics are okay. Patient says she uses oxygen in the nighttime. Chest pain Left-sided chest pain Pain more when taking a deep breath Troponin negative. CTA chest no PE. But shows large left upper lobe consolidation new from prior favoring pneumonia and follow-up imaging recommended for resolution Received cefepime in the ER Will continue with Zosyn and Doxy Having some steffany sputum Patient on Eliquis If not improving will consult pulmonary KIRTI Creatinine 1.5 Baseline creatinine [address] Abd/ pelvis okay Will follow repeat labs Dysphagia Recent EGD showed partially disrupted Sanjeev fundoplication but still intact and also found to have Schatzki's ring which was dilated. Currently on soft diet History of paroxysmal atrial fibrillation Tachybradycardia syndrome status post dual-chamber pacemaker History of paroxysmal SVT On amiodarone, metoprolol succinate and Eliquis Will monitor History of CAD Status post drug-eluting stents to x 2 to LAD and TONIO x 2 to RCA Last admission cardiac cath patent stents To continue aspirin metoprolol succinate, statin. Patient is also on Repatha Anemia Hemoglobin 10.1 around baseline received Venofer last admit Will follow labs History of grade 2 diastolic function Will monitor for volume overload received iv lasix last admit Hypothyroidism On Synthyroid Hyperlipidemia On statin and Repatha GERD On esomeprazole Asthma On Trelegy, Singulair and albuterol as needed. Nocturnal hypoxia On oxygen nightly History of bladder cancer Status post BCG treatments Follow-up with urology DVT prophylaxis On Eliquis Disposition Med/telemetry Full code History of Present Illness Chief Complaint: Chest pain Primary Care Provider: Shelia Millan DO 80-year-old female with past medical history significant for hypothyroidism, nocturnal hypoxia, dyspnea on exertion, moderate persistent asthma, tachybradycardia syndrome, paroxysmal atrial fibrillation, sinoatrial dysfunction, paroxysmal atrial tachycardia, status post pacemaker, mild aortic valve stenosis, history of CAD, chronic constipation, history of bladder cancer, CKD stage IIIb, spinal stenosis lumbar region, recurrent depression, generalized anxiety disorder presents with left-sided chest pain. Patient recently had a complicated hospital stay. She was admitted on 07/04/2025 and was discharged on 07/10/2025. At that time she was admitted after colonoscopy with weakness and found to elevated troponins and KIRTI. She was placed on IV heparin for non-ST elevation OR. S/p cardiac cath on 07/06/2025 which showed patent proximal LAD stent and patent RCA from proximal to distal vessel. Medical management was recommended. During hospitalization was also treated for possible pneumonia with azithromycin. Also received iv Lasix for volume overload and resp failure. Received iv Venofer for iron deficiency anemia.She also had an EGD for dysphagia which showed partially disrupted Sanjeev fundoplication but still intact and found to have Schatzki's ring. Schatzki's ring was dilated and she tolerated well. She is currently on soft diet. Patient states since discharge she is not feeling well. She is having cough bringing up phlegm with some blood in it. Today she noticed severe pain in the left side of the chest. The pain was more when taking deep breath. The pain did not improve so she came to the ER. Also lately she still feeling short of breath. Son in the room. Son states patient walking few steps making her short of breath. She ambulates with a cane. Having chronic headaches. Vision is okay. Has some runny nose. No sore throat. Denies any fevers. No abdominal pain. Patient is constipated. Micturating okay. No rash. Currently hemodynamics are okay. Patient says she uses oxygen in the nighttime. Past medical history. As mentioned above Past surgical history. Colonoscopy. Cardiac pacemaker placement. Cystoscopy. Removal of gallbladder. Total abdominal hysterectomy with removal of tubes. Social history. . No smoking. Alcohol rarely. No drug use. Family history. Daughter had breast cancer. Sister had breast cancer. Sister had colon cancer. Daughter has Crohn's disease. Father had Crohn's disease. Brother had heart disease. Mother had heart disease. Daughter had TB. Allergies Allergy/AdvReac Type Severity Reaction Status Date / Time melon Allergy Severe Difficulty Verified 01/29/25 11:35 Swallowing Sulfa (Sulfonamide Allergy Severe Swelling Verified 01/29/25 11:35 Antibiotics) of Lip/Tongue/Throat ciprofloxacin AdvReac Verified 01/29/25 11:35 Home Medications Medication Instructions Recorded Confirmed Type albuterol sulfate 90 mcg/actuation 1 inh inhalation QID PRN Shortness 07/04/25 07/19/25 History aerosol inhaler Of Breath Or Wheezing amiodarone 200 mg tablet 100 mg PO DAILY 07/04/25 07/19/25 History apixaban 5 mg tablet (Eliquis) 5 mg PO BID 07/04/25 07/19/25 History aspirin 81 mg tablet,delayed 81 mg PO DAILY 07/04/25 07/19/25 History release buspirone 15 mg tablet 15 mg PO TID 07/04/25 07/19/25 History esomeprazole magnesium 40 mg 40 mg PO DAILY 07/04/25 07/19/25 History capsule,delayed release evolocumab 140 mg/mL subcutaneous 140 mg subcut WK 07/04/25 07/19/25 History pen injector (Jenifer Waldron) ferrous sulfate 325 mg (65 mg 325 mg PO DAILY 07/04/25 07/19/25 History iron) tablet fluticasone fur. 200 mcg-umeclid 1 inh inhalation DAILY 07/04/25 07/19/25 History 62.5 mcg-vilant 25 mcg inhalat.powder (Trelegy Ellipta) gabapentin 100 mg capsule 100 mg PO HS 07/04/25 07/19/25 History levothyroxine 75 mcg tablet 75 mcg PO DAILY 07/04/25 07/19/25 History metoprolol succinate 25 mg 12.5 mg PO DAILY 07/04/25 07/19/25 History tablet,extended release 24 hr montelukast 10 mg tablet 10 mg PO DAILY 07/04/25 07/19/25 History oxybutynin chloride 5 mg tablet 5 mg PO DAILY 07/04/25 07/19/25 History prucalopride 2 mg tablet 2 mg PO DAILY 07/04/25 07/19/25 History rosuvastatin 40 mg tablet 40 mg PO DAILY 07/04/25 07/19/25 History fluticasone propionate 50 1 spray intranasal DAILY PRN 07/19/25 07/19/25 History mcg/actuation nasal Allergy Symptoms spray,suspension nystatin 100,000 unit/mL oral 5 ml PO QID 07/19/25 07/19/25 History suspension Past Med/Surg History Problem List (Updated 07/19/25 @ 20:50 by Omaira Barton, ) Pneumonia (Acute) Chest pain (Acute) Dysphagia Anemia, iron deficiency Iron refractory iron deficiency anemia History of recent fall Aortic stenosis Hypotension due to hypovolemia Volume depletion, gastrointestinal loss Type 2 acute myocardial infarction Elevated troponin (Acute) Mild persistent asthma Hiatal hernia Recurrent pneumonia 01/2023 hospitalized in [place] Productive cough Dyspnea and respiratory abnormalities Cough productive of purulent sputum UTI (urinary tract infection) Cough variant asthma Nocturnal hypoxia History of asthma Pneumonia (Acute) Atrial fibrillation with rapid ventricular response (Acute) Hypoxia (Acute) Chronic constipation DVT prophylaxis KIRTI (acute kidney injury) Acute respiratory failure with hypoxia Diffusion capacity of lung (dl), decreased Snoring Pacemaker [employer] -SSS- checked remotely from home daily, follows w/ Dr powell last visit 05/2023 Paroxysmal atrial fibrillation reason for Eliquis Tachy-roseann syndrome Status post Sanjeev fundoplication Gastroparesis Atrial fibrillation with RVR Hiatal hernia Obesity (BMI 30.0-34.9) Coronary artery disease (Acute) 2019 - LAD stent x 2, RCA stent x 2 Dyspnea (Acute) Hypertension Asthma well controlled w/ daily inhaler use, rarely needs rescue inhaler/ neb Arthritis Bladder cancer BCG treatments Medical History Hx of tachycardia-bradycardia syndrome Nocturnal hypoxia Diffusion capacity of lung (dl), decreased Arthritis Cough variant asthma UTI (urinary tract infection) Dyspnea and respiratory abnormalities Chronic constipation Gastroparesis Snoring Hiatal hernia CAD (coronary artery disease) Pacemaker (02/25/21) Bladder cancer Asthma Atrial fibrillation with rapid ventricular response History of pneumonia (01/2023) Anxiety Chronic cough On home oxygen therapy Hx MRSA infection History of COVID-19 (09/2021) Dyslipidemia Surgical History History of permanent cardiac pacemaker placement (02/25/21) Hx of colonoscopy (08/2023) History of cystoscopy History of transurethral resection of bladder tumor (TURBT) (2021) Hx of cardiac catheterization Hx of hand surgery History of fundoplication H/O tubal ligation H/O vaginal hysterectomy History of repair of rotator cuff History of left knee replacement History of right hip replacement History of cholecystectomy History of surgical removal of 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 H/O hernia repair History of heart artery stent Family History Mother Atrial fibrillation Coronary heart disease Father Crohn's disease Other Allergies Asthma Heart disease Hypertension Tuberculosis Social History Smoking Status: Never smoker Tobacco Type: Cigarettes Second Hand Exposure: No; Do You Dip or Chew Tobacco: No; Hx Alcohol Use: No Hx Substance Use: No Preferred Language: [place] 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 Ability: Effective 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 ENT- oropharynx clear Neck- supple, no JVD. Lungs- clear to auscultation mild bibasilar crackles, no wheezing Heart- regular rhythm; no murmur, no gallop. Abdomen- normal bowel sounds, soft, nontender, no distension Extremities- no pretibial edema, no erythema seen Neuro- alert, oriented PERRL, no facial palsy; no dysarthria; moves extremities Results & Data Results & Data Vital Signs (Past 12 Hours) Vital Signs Temp Pulse Pulse Resp BP BP Pulse Ox 07/19/25 21:33 85 27 H 93 07/19/25 21:33 102/60 07/19/25 21:33 102/60 07/19/25 21:33 102/60 07/19/25 21:33 102/60 07/19/25 21:30 85 30 H 92 07/19/25 21:21 81 22 97 07/19/25 21:18 82 29 H 98 07/19/25 21:18 81 07/19/25 20:51 78 21 92 07/19/25 20:42 80 21 94 07/19/25 20:30 126/60 07/19/25 20:30 126/60 07/19/25 20:30 126/60 07/19/25 20:30 126/60 07/19/25 20:30 126/60 07/19/25 20:30 80 22 94 07/19/25 20:21 81 21 94 07/19/25 20:12 80 25 H 93 07/19/25 20:00 105/57 L 07/19/25 20:00 105/57 L 07/19/25 20:00 105/57 L 07/19/25 20:00 105/57 L 07/19/25 20:00 105/57 L 07/19/25 20:00 79 25 H 92 07/19/25 20:00 88 18 105/57 L 94 07/19/25 19:51 87 25 H 95 07/19/25 19:42 79 28 H 94 07/19/25 19:30 117/56 L 07/19/25 19:30 117/56 L 07/19/25 19:30 117/56 L 07/19/25 19:30 117/56 L 07/19/25 19:30 117/56 L 07/19/25 19:30 80 27 H 93 07/19/25 19:21 79 27 H 93 07/19/25 19:12 79 24 93 07/19/25 19:00 80 24 93 07/19/25 19:00 118/56 L 07/19/25 19:00 118/56 L 07/19/25 19:00 118/56 L 07/19/25 19:00 118/56 L 07/19/25 19:00 118/56 L 07/19/25 18:51 80 23 94 07/19/25 18:42 81 19 94 07/19/25 18:39 85 19 94 07/19/25 18:21 84 28 H 95 07/19/25 18:12 81 21 94 07/19/25 18:02 121/72 07/19/25 18:02 121/72 07/19/25 18:02 121/72 07/19/25 18:02 121/72 07/19/25 18:02 121/72 07/19/25 18:00 83 20 121/72 97 07/19/25 17:12 86 07/19/25 17:10 37.3 C 85 20 133/99 94 O2 Del Method 07/19/25 21:33 07/19/25 21:33 07/19/25 21:33 07/19/25 21:33 07/19/25 21:33 07/19/25 21:30 07/19/25 21:21 07/19/25 21:18 07/19/25 21:18 07/19/25 20:51 07/19/25 20:42 07/19/25 20:30 07/19/25 20:30 07/19/25 20:30 07/19/25 20:30 07/19/25 20:30 07/19/25 20:30 07/19/25 20:21 07/19/25 20:12 07/19/25 20:00 07/19/25 20:00 07/19/25 20:00 07/19/25 20:00 07/19/25 20:00 07/19/25 20:00 07/19/25 20:00 Room Air 07/19/25 19:51 07/19/25 19:42 07/19/25 19:30 07/19/25 19:30 07/19/25 19:30 07/19/25 19:30 07/19/25 19:30 07/19/25 19:30 07/19/25 19:21 07/19/25 19:12 07/19/25 19:00 07/19/25 19:00 07/19/25 19:00 07/19/25 19:00 07/19/25 19:00 07/19/25 19:00 07/19/25 18:51 07/19/25 18:42 07/19/25 18:39 07/19/25 18:21 07/19/25 18:12 07/19/25 18:02 07/19/25 18:02 07/19/25 18:02 07/19/25 18:02 07/19/25 18:02 07/19/25 18:00 Room Air 07/19/25 17:12 07/19/25 17:10 Room Air Diagnostic Findings Laboratory Results WBC 9.10 K/ul (4.8-10.8) 07/19/25 15:33 RBC 3.76 M/uL (4.20-5.40) L 07/19/25 15:33 Hgb 10.1 g/dl (12.0-16.0) L 07/19/25 15:33 Hct 32.6 % (37.0-47.0) L 07/19/25 15:33 MCV 86.7 fL (80.0-100.0) 07/19/25 15:33 MCH 26.9 pg (25.0-34.0) 07/19/25 15:33 MCHC 31.0 g/dL (32.0-36.0) L 07/19/25 15:33 RDW Std Deviation 55.5 fL (36.4-46.3) H 07/19/25 15:33 RDW Coeff of Alexy 18.3 % (11.5-14.5) H 07/19/25 15:33 Plt Count 373 K/uL (130-400) 07/19/25 15:33 MPV 10.0 fL (9.4-12.4) 07/19/25 15:33 Immature Gran % (Auto) 0.3 % 07/19/25 15:33 Neut % (Auto) 77.6 % 07/19/25 15:33 Lymph % (Auto) 10.7 % 07/19/25 15:33 [place] % (Auto) 10.3 % 07/19/25 15:33 Eos % (Auto) 0.3 % 07/19/25 15:33 Baso % (Auto) 0.8 % 07/19/25 15:33 Neut # (Auto) 7.06 K/uL (1.40-6.50) H 07/19/25 15:33 Lymph # (Auto) 0.97 K/uL (1.20-3.40) L 07/19/25 15:33 [place] # (Auto) 0.94 K/uL (0.11-0.59) H 07/19/25 15:33 Eos # (Auto) 0.03 K/uL (0.00-0.50) 07/19/25 15:33 Baso # (Auto) 0.07 K/uL (0.00-0.20) 07/19/25 15:33 Immature Gran # (Auto) 0.03 K/uL (0.01-0.20) 07/19/25 15:33 PT 13.1 Seconds (9.0-12.0) H 07/19/25 15:33 INR 1.3 (0.9-1.1) H 07/19/25 15:33 Sodium 137 mmol/L (136-145) 07/19/25 15:33 Potassium 4.3 mmol/L (3.5-5.1) 07/19/25 15:33 Chloride 106 mmol/L (98-107) 07/19/25 15:33 Carbon Dioxide 22 mmol/L (21-32) 07/19/25 15:33 Anion Gap 9 (3-11) 07/19/25 15:33 BUN 17 mg/dl (6-23) 07/19/25 15:33 Creatinine 1.55 mg/dl (0.6-1.2) H 07/19/25 15:33 Est Cr Clr Drug Dosing 32.4 ml/min 07/19/25 15:33 eGFR 33.45 07/19/25 15:33 BUN/Creatinine Ratio 11.0 (10-20) 07/19/25 15:33 Glucose 109 mg/dl (70-99(Fasting)) H 07/19/25 15:33 Lactate 0.8 mmol/L (0.4-2.0) 07/19/25 19:20 Calcium 8.9 mg/dl (8.6-10.3) 07/19/25 15:33 Magnesium 2.1 mg/dl (1.7-2.4) 07/19/25 15:33 Total Bilirubin 0.6 mg/dl (0.2-1.0) 07/19/25 15:33 AST 15 U/L (13-39) 07/19/25 15:33 ALT 10 U/L (7-52) 07/19/25 15:33 Alkaline Phosphatase 113 U/L (34-104) H 07/19/25 15:33 Troponin I High Sens 3.3 pg/ml (0-14) 07/19/25 15:33 Total Protein 7.2 gm/dl (6.0-8.3) 07/19/25 15:33 Albumin 3.1 gm/dl (3.4-5.0) L 07/19/25 15:33 Globulin 4.1 gm/dl (2.5-4.0) H 07/19/25 15:33 Albumin/Globulin Ratio 0.8 (0.9-2) L 07/19/25 15:33 Lipase 7 U/L (11-82) L 07/19/25 15:33 Procalcitonin 0.34 ng/ml (0-0.5) 07/19/25 15:33 Nasal Screen MRSA (PCR) Negative (Negative) 07/19/25 19:20 Impressions Chest CTA 07/19/25 17:45 CT pulmonary angiogram with IV contrast History: Chest pain COMPARISON: 06/26/2023 TECHNIQUE: CT angiography of the chest was performed without IV contrast followed by IV contrast, including 3D post processing CTA image reconstruction. Dose reduction techniques were achieved by using automatic exposure control and/or adjustment of mA and/or kV according to patient size and/or use of iterative reconstruction technique. FINDINGS: Diagnostic quality: Adequate There is no evidence for pulmonary embolism. The heart is not enlarged. There is no pericardial effusion. Mildly prominent left mediastinal lymph nodes, are favored reactive. Coronary calcifications and/or stents. Left chest wall AICD in place. Streaky bibasilar atelectasis. The central tracheobronchial tree is clear. A new prominent area of consolidation is seen in the left upper lobe measuring 8.5 x 6.2 cm in the axial plane. There is no pleural effusion. Limited visualized upper abdomen. Small hiatal hernia. No destructive osseous changes are seen. IMPRESSION: No evidence for pulmonary embolism. Large left upper lobe consolidation, new from prior favoring pneumonia, however follow-up to resolution is recommended. Electronically signed by Victor Manuel Quinonez 07-19-2025 7:05 PM Abdomen/Pelvis CT 07/19/25 17:52 EXAMINATION: CT of the abdomen and pelvis performed after the administration of IV contrast TECHNIQUE: Helical CT images from the lung bases through the symphysis pubis were obtained with contrast. Coronal and sagittal reformatted images were generated at a workstation for further assessment. Dose reduction techniques were achieved by using automatic exposure control and/or adjustment of mA and/or kV according to patient size and/or use of iterative reconstruction technique. COMPARISON: None HISTORY: Abdominal pain FINDINGS: Liver: No suspicious liver lesions. Portal veins appear patent. Gallbladder: Cholecystectomy Spleen: Normal size. Pancreas: No suspicious pancreatic lesions. The pancreatic duct is not dilated. Adrenal glands: No adrenal nodules. Kidneys: No hydronephrosis or obstructing renal stones. Prominent simple appearing superior left renal cyst. Bladder / Pelvic organs: Unremarkable. Bowel: No bowel obstruction. No abnormal bowel wall thickening. The appendix is not definitely seen. Left colonic diverticulosis without diverticulitis. Lymph nodes: No retroperitoneal, mesenteric, or pelvic lymphadenopathy. Peritoneum / Retroperitoneum: No free fluid or air within the abdomen. Vessels: No infrarenal aortic aneurysm. Heavy aortoiliac calcification. Bones and soft tissues: No suspicious lesion in the bones. Right hip arthroplasty. IMPRESSION: No acute intra-abdominal process Electronically signed by Victor Manuel Quinonez 07-19-2025 7:07 PM ECG Additional Comments: ECG. Normal sinus rhythm rate of 84. Left axis deviation. Incomplete right bundle branch block. Minimal voltage criteria for LVH. QTc 451 Code Status & VTE Plan VTE Prophylaxis Plan VTE Prophylaxis will be ordered: Yes
[2025-07-19] MEDS: HYDROmorphone INJ 0.5 MG/0.5 ML SYR IV STA (23:22)
[2025-07-20] MEDS ORDERED: ACETAMINOPHEN 325 MG TAB PO PRN (00:47)
[2025-07-20] MEDS ORDERED: POLYETHYLENE (MIRALAX) 17 GM PACK PO PRN (00:47)
[2025-07-20] MEDS ORDERED: FLUTICASONE PROPIONATE NA SPR 16 GM BTL PRN (00:47)
[2025-07-20] MEDS ORDERED: ALBUTEROL HFA 8 GM INHALER INH PRN (00:47)
[2025-07-20] MEDS ORDERED: NITROGLYCERIN SL 0.4 MG/TAB TAB SL PRN (00:47)
[2025-07-20] MEDS: HYDROmorphone INJ 0.5 MG/0.5 ML SYR IV STA (01:45)
[2025-07-20] MEDS: 4.5GM X1 IV STA (02:11)
[2025-07-20] MEDS: DOXYCYCLINE HYCLATE 100 MG in DEXTROSE 5% MINI-B 100 ML IV SCH (02:12)
[2025-07-20] MEDS: SODIUM CHLORIDE 0.9% 1,000 ML IV SCH (02:12)
[2025-07-20] MEDS: LEVOTHYROXINE SODIUM 75 MCG TABLET PO SCH (05:38)
[2025-07-20] MEDS: ALBUT/IPRATROP 3MG/0.5MG NEB 3 ML VIAL NEB PRN (07:50)
[2025-07-20] MEDS: MONTELUKAST SODIUM 10 MG TABLET PO SCH (08:11)
[2025-07-20] MEDS: ROSUVASTATIN CALCIUM 20 MG TAB PO SCH (08:11)
[2025-07-20] MEDS: busPIRone 15 MG TAB PO SCH (08:11)
[2025-07-20] MEDS: FERROUS SULFATE 325 MG TAB PO SCH (08:11)
[2025-07-20] MEDS: UMECLIDINIUM/VILANTEROL 62.5/25MCG 7 PUFFS/INHALER INH SCH (08:12)
[2025-07-20] MEDS: APIXABAN 2.5 MG TAB PO SCH (08:12)
[2025-07-20] MEDS: NYSTATIN SUSP 500,000 U/5 ML UDC PO SCH (08:12)
[2025-07-20] MEDS: FLUTICASONE FUROATE 200MCG 14 PUFFS/INHALER INH SCH (08:13)
[2025-07-20] MEDS: ASPIRIN 81 MG ECTAB PO SCH (08:31)
[2025-07-20] MEDS: PIPERACILLIN/TAZOBACTAM 4.5 GM/100 ML BAG IV SCH (08:44)
[2025-07-20 10:00] LABS: Hematocrit (blood only) 31.0 % (37.0-47.0); Hemoglobin 9.6 g/dl (12.0-16.0); Immature Granulocytes # (auto) 0.03 K/uL (0.01-0.20); Immature Granulocytes % (auto) 0.4 %; Mean Corpuscular Hemoglobin 26.8 pg (25.0-34.0); Mean Corpuscular Volume 86.6 fL (80.0-100.0); Platelet Count 364 K/uL (130-400); RDW Standard Deviation 55.8 fL (36.4-46.3); Red Blood Count 3.58 M/uL (4.20-5.40); White Blood Count 8.33 K/ul (4.8-10.8)
[2025-07-20 10:23] LABS: Anion Gap 8.0 (3-11); Calcium 8.7 mg/dl (8.6-10.3); Carbon Dioxide 20.0 mmol/L (21-32); Chloride 107.0 mmol/L (98-107); Magnesium 2.0 mg/dl (1.7-2.4); Potassium 3.5 mmol/L (3.5-5.1); Sodium 135.0 mmol/L (136-145)
[2025-07-20 10:29] LABS: Blood Urea Nitrogen 15.0 mg/dl (6-23); Creatinine Clr Calc Pharmacy 36.9 ml/min; Glucose 159.0 mg/dl (70-99(Fasting))
[2025-07-20] MEDS: METOPROLOL SUCC 25MG EXT REL TAB PO SCH (10:34)
[2025-07-20] MEDS: AMIODARONE 200 MG TAB PO SCH (10:34)
--- NOTE | 2025-07-20 13:42 | Hospitalist Progress Note ---
Date of Service July 20, 2025 Assessment & Plan (1) Chest pain: Plan: 80-year-old female with past medical history significant for hypothyroidism, nocturnal hypoxia, dyspnea on exertion, moderate persistent asthma, tachybradycardia syndrome, paroxysmal atrial fibrillation, sinoatrial dysfunction, paroxysmal atrial tachycardia, status post pacemaker, mild aortic valve stenosis, history of CAD, chronic constipation, history of bladder cancer, CKD stage IIIb, spinal stenosis lumbar region, recurrent depression, generalized anxiety disorder presents with left-sided chest pain, exertional shortness of breath, and cough. Patient recently had a complicated hospital stay. She was admitted on 07/04/2025 and was discharged on 07/10/2025. At that time she was admitted after colonoscopy with weakness and found to elevated troponins and KIRTI. She was placed on IV heparin for non-ST elevation [place]. S/p cardiac cath on 07/06/2025 which showed patent proximal LAD stent and patent RCA from proximal to distal vessel. Medical management was recommended. During hospitalization was also treated for possible pneumonia with azithromycin. Also received IV Lasix for volume overload and resp failure. Received IV Venofer for iron deficiency anemia. She also had an EGD for dysphagia which showed partially disrupted Sanjeev fundoplication but still intact and found to have Schatzki's ring. Schatzki's ring was dilated and she tolerated well. Pneumonia Left-sided chest pain CXR: Increased patchy opacity at the left mid and lower lung and increased bandlike and patchy opacity at the right lung base. CTA chest: negative for PE, large left upper lobe consolidation, new from prior favoring pneumonia HS troponin negative x 2, EKG without acute ST changes, had recent cardiac cath as noted above Chest pain likely due to pleurisy from pneumonia - will start scheduled Tylenol s/p cefepime in the ED - continued on Zosyn and Doxy MRSA nasal negative Blood cultures pending Currently on 2L, no documented hypoxia, typically only wears at night. Wean O2 as able. KIRTI Presenting creatinine 1.5, baseline ~ 1.0 s/p IVF -> creat 1.3 today Avoid nephrotoxic agents Continue to monitor renal functions Dysphagia Recent EGD showed partially disrupted Sanjeev fundoplication but still intact and also found to have Schatzki's ring which was dilated. Currently on soft diet History of paroxysmal atrial fibrillation Tachybradycardia syndrome status post dual-chamber pacemaker History of paroxysmal SVT Continue ADMINISTRATIVE SUPPORT SPECIALIST amiodarone, metoprolol succinate, and Eliquis History of CAD Status post drug-eluting stents to x 2 to LAD and TONIO x 2 to RCA 07/06/25 cardiac cath patent stents Continue ADMINISTRATIVE SUPPORT SPECIALIST aspirin, metoprolol succinate, statin. Patient is also on Repatha. Anemia Hemoglobin 10.1 -> 9.6, around baseline Received Venofer last admission Continue to monitor CBC Chronic HFpEF Monitor for volume overload Received IV Lasix last admit Hypothyroidism Continue ADMINISTRATIVE SUPPORT SPECIALIST Synthyroid GERD Continue ADMINISTRATIVE SUPPORT SPECIALIST PPI Asthma No signs of acute exacerbation, no wheezing on exam On Trelegy, Singulair and albuterol as needed Nocturnal hypoxia On 2L oxygen nightly History of bladder cancer Status post BCG treatments Follow-up with urology DVT prophylaxis On Eliquis Dispo: Anticipate d/c home once medically ready, PT/OT Patient seen in collaboration with Dr. Salazar. I spent a total of 35 minutes coordinating, documenting, and providing care for this patient excluding time spent in the performance of separately billed services. This included personally reviewing all current laboratories and imaging studies, medication reconciliation, outpatient chart review, and discussion with specialists. Admission and Anticipated Discharge Date Admission Date: July 19, 2025 Supervising Physician Co-Signing Physician Notes I have discussed the case with the collaborating advanced practitioner. I agree with the above PN. I have reviewed and confirmed the patients medical history, the findings on physical examination, and the patients diagnosis and treatment plan with Rachel EDWARDS and agree with the information documented. I have reviewed the advanced practitioner's documentation, and I agree with, and take responsibility for the plan of care Subjective Follow-up for pneumonia. Patient seen and examined. Resting in bed. States she is feeling ok, not much improvement from yesterday. Reports cough productive for white/yellow sputum. Denies chest pain and shortness of breath. Physical Exam Constitutional: + ill appearing; no acute distress Respiratory: normal respiratory effort; no respiratory distress Auscultation: + diminished lung sounds Cardiovascular: Rate/Rhythm: regular rate and regular rhythm Vessels: normal peripheral pulses Extremities: no edema Skin: no rashes, warm and dry Neurologic: no focal motor deficits Psychiatric: A+Ox3, euthymic affect Results & Data Results & Data Vital Signs (Past 12 Hours) Vital Signs Temp Pulse Pulse Pulse Resp BP Pulse Ox 07/20/25 11:13 36.4 C L 86 16 104/57 L 96 07/20/25 11:02 07/20/25 07:44 36.9 C 75 16 94/51 L 97 07/20/25 07:43 77 18 97 07/20/25 07:18 70 07/20/25 04:12 90 07/20/25 03:46 37 C 74 16 104/62 96 07/20/25 02:25 07/20/25 02:25 36.6 C 84 16 108/58 L 93 O2 Del Method O2 Flow Rate 07/20/25 11:13 Nasal Cannula 2 07/20/25 11:02 2.5 07/20/25 07:44 Nasal Cannula 2 07/20/25 07:43 Nasal Cannula 2 07/20/25 07:18 07/20/25 04:12 07/20/25 03:46 Room Air 07/20/25 02:25 Room Air, Nasal Cannula 2 07/20/25 02:25 Nasal Cannula 2 Laboratory Results Short CBC 07/19/25 07/20/25 Range/Units 15:33 09:14 WBC 9.10 8.33 (4.8-10.8) K/ul Hgb 10.1 L 9.6 L (12.0-16.0) g/dl Hct 32.6 L 31.0 L (37.0-47.0) % Plt Count 373 364 (130-400) K/uL BMP 07/19/25 07/20/25 15:33 09:14 Sodium 137 135 L Potassium 4.3 3.5 Chloride 106 107 Carbon Dioxide 22 20 L BUN 17 15 Creatinine 1.55 H 1.36 H Glucose 109 H 159 H Calcium 8.9 8.7 Liver Function 07/19/25 Range/Units 15:33 Total Bilirubin 0.6 (0.2-1.0) mg/dl AST 15 (13-39) U/L ALT 10 (7-52) U/L Alkaline Phosphatase 113 H (34-104) U/L Albumin 3.1 L (3.4-5.0) gm/dl
[2025-07-20] MEDS: ACETAMINOPHEN 500 MG TAB PO SCH (14:02)
[2025-07-20] MEDS: GABAPENTIN 100 MG CAP PO SCH (20:52)
--- NOTE | 2025-07-21 06:45 | 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 Note ---
Date of Service: July 21, 2025 Eliquis dose has been reduced to 2.5mg bid based on renal function per pharmacy recommendation
[2025-07-21 06:50] LABS: Hematocrit (blood only) 31.8 % (37.0-47.0); Hemoglobin 9.8 g/dl (12.0-16.0); Mean Corpuscular Hemoglobin 26.5 pg (25.0-34.0); Mean Corpuscular Volume 85.9 fL (80.0-100.0); Platelet Count 395 K/uL (130-400); RDW Standard Deviation 56.3 fL (36.4-46.3); Red Blood Count 3.70 M/uL (4.20-5.40); White Blood Count 6.17 K/ul (4.8-10.8)
[2025-07-21 07:04] LABS: Anion Gap 10.0 (3-11); Blood Urea Nitrogen 13.0 mg/dl (6-23); Calcium 9.3 mg/dl (8.6-10.3); Carbon Dioxide 22.0 mmol/L (21-32); Chloride 107.0 mmol/L (98-107); Creatinine Clr Calc Pharmacy 36.3 ml/min; Glucose 94.0 mg/dl (70-99(Fasting)); Potassium 3.9 mmol/L (3.5-5.1); Sodium 139.0 mmol/L (136-145)
[2025-07-21] MEDS: predniSONE 20 MG TAB PO SCH (10:02)
[2025-07-21] MEDS: BENZONATATE 100 MG CAPSULE PO SCH (14:30)
--- NOTE | 2025-07-21 15:03 | Hospitalist Progress Note ---
Date of Service July 21, 2025 Assessment & Plan (1) Pneumonia: (2) Pleuritic chest pain: (3) Coronary artery disease: (4) KIRTI (acute kidney injury): (5) Dysphagia: (6) Paroxysmal atrial fibrillation: Plan 80-year-old female with past medical history significant for hypothyroidism, nocturnal hypoxia, dyspnea on exertion, moderate persistent asthma, tachybradycardia syndrome, paroxysmal atrial fibrillation, sinoatrial dysfunction, paroxysmal atrial tachycardia, status post pacemaker, mild aortic valve stenosis, history of CAD, chronic constipation, history of bladder cancer, CKD stage IIIb, spinal stenosis lumbar region, recurrent depression, generalized anxiety disorder presented to the ED on 07/19/2025 with left-sided chest pain, exertional shortness of breath, and cough. Patient recently had a complicated hospital stay. She was admitted on and was discharged on 07/10/2025. At that time she was admitted after colonoscopy with weakness and found to have elevated troponins and KIRTI. She was placed on IV heparin for non-ST elevation [place]. S/p cardiac cath on 07/06/2025 which showed patent proximal LAD stent and patent RCA from proximal to distal vessel. Medical management was recommended. During hospitalization was also treated for possible pneumonia with azithromycin. Also received IV Lasix for volume overload and resp failure. Received IV Venofer for iron deficiency anemia. She also had an EGD for dysphagia which showed partially disrupted Sanjeev fundoplication but still intact and found to have Schatzki's ring. Schatzki's ring was dilated and she tolerated well. Pneumonia Pleuritic chest pain CXR: Increased patchy opacity at the left mid and lower lung and increased bandlike and patchy opacity at the right lung base. CTA chest: negative for PE, large left upper lobe consolidation, new from prior favoring pneumonia No leukocytosis and negative procalcitonin on admission Pulmonology evaluated and recommending outpatient follow up for further evaluation of consolidation/possible aspiration Plan: -Continue Zosyn and doxy - plan to transition to Augmentin and doxy at discharge -Continue nebs q6hr PRN and home inhalers -Continue scheduled tylenol for pleuritic chest pain -Teshernanon perles added today -Prednisone added today - plan to taper over one week at discharge -Obtain sputum culture and fungal studies -Wean O2 as able - baseline is 2L nocturnal History of CAD Status post drug-eluting stents to x 2 to LAD and x 2 to RCA 07/06/25 cardiac cath patent stents HS troponin negative x2 EKG without acute ST changes Continue aspirin, metoprolol succinate, statin On Repatha at home KIRTI Baseline creat 1.0 Initial creat 1.5-> 1.36-> 1.38 Avoid nephrotoxic agents Continue to monitor renal functions Dysphagia Recent EGD showed partially disrupted Sanjeev fundoplication but still intact and also found to have Schatzki's ring which was dilated Tolerating soft diet History of paroxysmal atrial fibrillation Tachybradycardia syndrome status post dual-chamber pacemaker History of paroxysmal SVT Continue amiodarone and metoprolol Eliquis adjusted for renal function per pharmacy Anemia Hemoglobin around baseline Continue ferrous sulfate Continue to monitor CBC Chronic HFpEF Appears euvolemic Hypothyroidism Continue levothyroxine GERD Continue PPI Anxiety Continue buspirone DVT Prophylaxis: on Eliquis Code Status: FULL CODE PCP: Shelia Millan Disposition: anticipate dc home tomorrow Patient seen in collaboration with Dr. Salazar. Please see addendum. I spent a total of 50 minutes coordinating, documenting and providing care for this patient excluding time spent in the performance of separately billed services or time spent by another provider/QHP. Admission and Anticipated Discharge Date Admission Date: July 19, 2025 Supervising Physician Co-Signing Physician Notes I have seen and discussed the case with the collaborating advanced practitioner. I agree with the above PN. I have reviewed and confirmed the patients medical history, the findings on physical examination, and the patients diagnosis and treatment plan with Shirley EDWARDS and agree with the information documented. Evaluated patient at bedside. Reports mild improvement, but still with left subclavian pleuritic pain. Discussed with Dr. Andres, suspects that there is something more than pneumonia based up on CT read. Dr. Andres communicated with primary Pulm Dr. Vidal, who recommends fungal studies given [place], transition to oral abx, then steroid taper over 1 week. Sputum culture ordered. Plan is likely to discharge tomorrow am with close Pulm follow up. I spent a total of 20 minutes coordinating, documenting, and providing care for this patient excluding time spent in the performance of separately billed services. All of the aforementioned completed outside of collaborating with the assigned advanced practitioner for a full treatment plan. I have reviewed the advanced practitioner's documentation, and I agree with, and take responsibility for the plan of care Subjective Patient seen sitting on edge of bed Reports continued chest pain in her left chest with deep breathing Notes breathing is better today Denies abdominal pain Review of Systems Review of Systems: All systems reviewed & are unremarkable except as noted in HPI & below Physical Exam Physical Exam: General/Psych: WD/WN, sitting up in bed, NAD, conversing easily Head: normocephalic, atraumatic Eyes: normal inspection, PERRL, conjunctivae pink ENT: external ear and nose normal, oropharynx normal Neck: normal visual inspection, trachea midline Respiratory: normal respiratory effort, lungs clear to auscultation, slightly diminished L>R, no accessory muscle use Cardiovascular: regular rate and rhythm, no murmur/rub/gallop Extremities: no cyanosis or clubbing, normal peripheral pulses, no BLE edema Abdomen/GI: normal bowel sounds, soft, nontender Neurologic/MSK: A+Ox3, motor strength 5/5, moves all extremities Skin: no rashes, normal color, warm and dry Results & Data Results & Data Vital Signs (Past 12 Hours) Vital Signs Temp Pulse Pulse Resp BP Pulse Ox Pulse Ox 07/21/25 14:45 98 H 07/21/25 12:41 94 07/21/25 11:22 94 07/21/25 11:11 07/21/25 10:30 91 H 18 97 07/21/25 07:52 36.5 C 76 16 119/73 97 07/21/25 07:21 71 07/21/25 05:21 36.6 C 71 18 110/66 94 Pulse Ox O2 Del Method O2 Flow Rate O2 Flow Rate O2 Flow Rate 07/21/25 14:45 07/21/25 12:41 94 0 0 07/21/25 11:22 07/21/25 11:11 2.5 07/21/25 10:30 Nasal Cannula 2 07/21/25 07:52 Nasal Cannula 07/21/25 07:21 07/21/25 05:21 Room Air Laboratory Results Short CBC 07/21/25 Range/Units 06:08 WBC 6.17 (4.8-10.8) K/ul Hgb 9.8 L (12.0-16.0) g/dl Hct 31.8 L (37.0-47.0) % Plt Count 395 (130-400) K/uL BMP 07/21/25 06:08 Sodium 139 Potassium 3.9 Chloride 107 Carbon Dioxide 22 BUN 13 Creatinine 1.38 H Glucose 94 Calcium 9.3 I have independently reviewed and interpreted patient's labs including CBC and BMP. Medications Administered Current Inpatient Medications Acetaminophen (Acetaminophen 325 Mg Tab) 650 mg PO Q4H PRN PRN Reason: Pain or Fever Stop: 08/19/25 00:46 Acetaminophen (Acetaminophen 500 Mg Tab) 1,000 mg PO Q8H JANE Stop: 08/19/25 13:59 Last Admin: 07/21/25 14:30 Dose: 1,000 mg Albuterol (Albuterol Hfa 8 Gm Inhaler) 1 puffs INH QID PRN PRN Reason: Shortness Of Breath Or Wheezin Stop: 08/19/25 00:46 Albuterol (Albut/Ipratrop 3mg/0.5mg Neb 3 Ml Vial) 3 ml NEB Q6R PRN; Protocol PRN Reason: Shortness Of Breath Or Wheezing Stop: 08/19/25 12:59 Last Admin: 07/21/25 10:30 Dose: 3 ml Amiodarone HCl (Amiodarone 200 Mg Tab) 100 mg PO DAILY JANE Stop: 08/19/25 08:59 Last Admin: 07/21/25 09:52 Dose: 100 mg Apixaban (Apixaban 2.5 Mg Tab) 2.5 mg PO BID JANE Stop: 08/19/25 08:59 Last Admin: 07/21/25 08:45 Dose: 2.5 mg Aspirin (Aspirin 81 Mg Ectab) 81 mg PO DAILY JANE Stop: 08/19/25 08:59 Last Admin: 07/21/25 08:45 Dose: 81 mg Benzonatate (Benzonatate 100 Mg Capsule) 100 mg PO TID JANE Stop: 08/20/25 13:59 Last Admin: 07/21/25 14:30 Dose: 100 mg Buspirone HCl (Buspirone 15 Mg Tab) 15 mg PO TID JANE Stop: 08/19/25 08:59 Last Admin: 07/21/25 14:30 Dose: 15 mg Ferrous Sulfate (Ferrous Sulfate 325 Mg Tab) 325 mg PO DAILY JANE Stop: 08/19/25 08:59 Last Admin: 07/21/25 09:52 Dose: 325 mg Fluticasone Furoate (Fluticasone Furoate 200mcg 14 Puffs/Inhaler) 1 puffs INH DAILY JANE Stop: 08/19/25 08:59 Last Admin: 07/21/25 09:49 Dose: 1 puffs Fluticasone Propionate (Fluticasone Propionate Na Spr 16 Gm Btl) 1 sprays NA DAILY PRN PRN Reason: Allergy Symptoms Stop: 08/19/25 00:46 Gabapentin (Gabapentin 100 Mg Cap) 100 mg PO HS JANE Stop: 08/19/25 20:59 Last Admin: 07/20/25 20:52 Dose: 100 mg Guaifenesin (Guaifenesin 600 Mg Tabcr) 600 mg PO Q12 JANE Stop: 08/20/25 20:59 Piperacillin Sod/Tazobactam Sod (Zosyn) 4.5 gm in 100 mls @ 25 mls/hr IV Q8H JANE; Protocol Stop: 07/25/25 00:46 Last Infusion: 07/21/25 12:56 Dose: Infused Doxycycline Hyclate 100 mg/ (Dextrose) 100 mls @ 50 mls/hr IV Q12H JANE Stop: 07/25/25 00:46 Last Admin: 07/21/25 14:30 Dose: 50 mls/hr Levothyroxine Sodium (Levothyroxine Sodium 75 Mcg Tablet) 75 mcg PO DAILYBB [facility] Stop: 08/19/25 06:29 Last Admin: 07/21/25 05:49 Dose: 75 mcg Metoprolol Succinate (Metoprolol Succ 25mg Ext Rel Tab) 12.5 mg PO DAILY JANE Stop: 08/19/25 08:59 Last Admin: 07/21/25 09:50 Dose: 12.5 mg Miscellaneous (Prucalopride 2 Mg - Order Awaiting Action) 1 each N/A QS JANE Stop: 08/19/25 07:59 Last Admin: 07/21/25 09:49 Dose: Not Given Montelukast Sodium (Montelukast Sodium 10 Mg Tablet) 10 mg PO DAILY JANE Stop: 08/19/25 08:59 Last Admin: 07/21/25 09:52 Dose: 10 mg Nitroglycerin (Nitroglycerin Sl 0.4 Mg/Tab Tab) 0.4 mg SL Q5M PRN PRN Reason: Chest Pain Stop: 08/19/25 00:46 Nystatin (Nystatin Susp 500,000 U/5 Ml Udc) 5 ml PO QID JANE Stop: 07/30/25 08:59 Last Admin: 07/21/25 14:30 Dose: 5 ml Oxybutynin Chloride (Oxybutynin Chloride 5 Mg Tab) 5 mg PO DAILY JANE Stop: 08/19/25 08:59 Last Admin: 07/21/25 09:53 Dose: 5 mg Pantoprazole Sodium (Pantoprazole 40 Mg Tab) 40 mg PO DAILY JANE Stop: 08/19/25 08:59 Last Admin: 07/21/25 09:51 Dose: 40 mg Polyethylene Glycol (Polyethylene (Miralax) 17 Gm Pack) 17 gm PO DAILY PRN PRN Reason: Constipation Stop: 08/19/25 00:46 Prednisone (Prednisone 20 Mg Tab) 40 mg PO DAILY@0900 JANE Stop: 08/20/25 09:29 Last Admin: 07/21/25 10:02 Dose: 40 mg Rosuvastatin Calcium (Rosuvastatin Calcium 20 Mg Tab) 40 mg PO DAILY JANE Stop: 08/19/25 08:59 Last Admin: 07/21/25 09:51 Dose: 40 mg Umeclidinium/Vilanterol (Umeclidinium/Vilanterol 62.5/25mcg 7 Puffs/Inhaler) 1 puffs INH DAILY JANE Stop: 08/19/25 08:59 Last Admin: 07/21/25 09:49 Dose: 1 puffs (3) Coronary artery disease Associated angina: unspecified whether angina present Coronary Disease- Associated Artery/Lesion type: [place] artery [place] vs. transplanted heart: [place] heart Qualified Code(s): I25.10 - Atherosclerotic heart disease of [place] coronary artery without angina pectoris
--- NOTE | 2025-07-21 16:52 | Pulmonary Consultation ---
Date of Consultation July 21, 2025 Assessment & Plan (1) Cough: * It seems that this is chronic (noted during visit with Dr. Vidal in January 2025). * Probably related to abnormality noted on chest CT * Mostly clear mucus with occasional blood-tinged mucus (probably related to anticoagulation) * Will try Aman yan. (2) Abnormal chest CT: * Large LITA "consolidation" which seems solid and with a rounded shape unlikely to be pneumonia. * Malignancy is a concern. * When discussed with Dr. Vidal, he raised the issue that the patient had travelled to the [facility] recently. Will obtain fungal studies (Histo, Blasto, Coccidio) * Patient will be followed by Dr. Vidal in the office for test results as well as possible need for Bronchoscopy. * Bronchoscopy postponed at this time due to recent MS. Also [id number] may be accessible by CT-guided needle. * OK to finish course of antibiotics on outpatient basis. (3) Pleuritic chest pain: * Left side pleuritic chest pain probably related to closeness of lung consolidation to pleural space. * Also associated with rib-cage tenderness. (4) Nocturnal hypoxia: (5) History of asthma: * Continue home prescribed medications. * Can taper Steroids over one week. History of Present Illness Reason for Consultation: Persistent cough Attending Physician: Char Salazar MD History of Present Illness The patient is a very pleasant 80-year-old female who presented to the ED due to the abrupt onset of left-sided chest pain that began that afternoon. She reported that the pain started suddenly and did not radiate to her flank or back. She denied any prior similar episodes. The patient had been recently h ospitalized two weeks prior for bilateral lower lobe pneumonia and a myocardial infarction, and she had completed a course of antibiotics during that admission. She had been feeling gradually better until the onset of chest pain on the day of presentation. She denied any difficulty breathing, nausea, vomiting, changes in urine or bowel habits, or leg swelling. She described an intermittent, productive cough with white and red sputum, but no fevers or chills. The pain did not change with position or exertion. Her past medical history was significant for hypothyroidism, nocturnal hypoxia, dyspnea on exertion, moderate persistent asthma, tachybradycardia syndrome, paroxysmal atrial fibrillation, sinoatrial dysfunction, paroxysmal atrial tachycardia, status post pacemaker, mild aortic valve stenosis, CAD (status post drug-eluting stents to LAD and RCA), chronic constipation, history of bladder cancer (status post BCG treatments), CKD stage IIIb, lumbar spinal stenosis, recurrent depression, and generalized anxiety disorder. She also had a history of anemia, HFpEF, GERD, and dysphagia (status post partially disrupted Sanjeev fundoplication and dilated Schatzkis ring). Social history revealed a non-smoker, rarely consumed alcohol, and denied drug use. Family history was notable for breast and colon cancer, Crohns disease, heart disease, and TB in first-degree relatives. Imaging was interpreted as showing new or worsening left upper lobe consolidation consistent with pneumonia, while previous lower lobe findings had resolved. There was no evidence of pulmonary embolism. She remained on anticoagulation for a history of paroxysmal atrial fibrillation. Her creatinine was mildly elevated, similar to her prior admission, and her anemia had improved compared to previous labs. She was started on IV cefepime and later transitioned to Zosyn and doxycycline. She did not require supplemental oxygen during the daytime. On my review of the CT, I had concern that the "consolidation" reported on the chest CT seems more solid than can be explained by pneumonia. There are no recent CT scans (most recent in the system from 2022), and there was no repeat CXR following the recent admission. Note from 07/21/2025: The patient at this time continues to report frequent cough, occasionally with [id number] white mucus. She denies significant problems with dyspnea on ambulation. Allergies Allergy/AdvReac Type Severity Reaction Status Date / Time melon Allergy Severe Difficulty Verified 01/29/25 11:35 Swallowing Sulfa (Sulfonamide Allergy Severe Swelling Verified 01/29/25 11:35 Antibiotics) of Lip/Tongue/Throat ciprofloxacin AdvReac Verified 01/29/25 11:35 Home Medications Medication Instructions Recorded Confirmed Type albuterol sulfate 90 mcg/actuation 1 inh inhalation QID PRN Shortness 07/04/25 07/19/25 History aerosol inhaler Of Breath Or Wheezing amiodarone 200 mg tablet 100 mg PO DAILY 07/04/25 07/19/25 History apixaban 5 mg tablet (Eliquis) 5 mg PO BID 07/04/25 07/19/25 History aspirin 81 mg tablet,delayed 81 mg PO DAILY 07/04/25 07/19/25 History release buspirone 15 mg tablet 15 mg PO TID 07/04/25 07/19/25 History esomeprazole magnesium 40 mg 40 mg PO DAILY 07/04/25 07/19/25 History capsule,delayed release evolocumab 140 mg/mL subcutaneous 140 mg subcut WK 07/04/25 07/19/25 History pen injector (Jenifer Waldron) ferrous sulfate 325 mg (65 mg 325 mg PO DAILY 07/04/25 07/19/25 History iron) tablet fluticasone fur. 200 mcg-umeclid 1 inh inhalation DAILY 07/04/25 07/19/25 History 62.5 mcg-vilant 25 mcg inhalat.powder (Trelegy Ellipta) gabapentin 100 mg capsule 100 mg PO HS 07/04/25 07/19/25 History levothyroxine 75 mcg tablet 75 mcg PO DAILY 07/04/25 07/19/25 History metoprolol succinate 25 mg 12.5 mg PO DAILY 07/04/25 07/19/25 History tablet,extended release 24 hr montelukast 10 mg tablet 10 mg PO DAILY 07/04/25 07/19/25 History oxybutynin chloride 5 mg tablet 5 mg PO DAILY 07/04/25 07/19/25 History prucalopride 2 mg tablet 2 mg PO DAILY 07/04/25 07/19/25 History rosuvastatin 40 mg tablet 40 mg PO DAILY 07/04/25 07/19/25 History fluticasone propionate 50 1 spray intranasal DAILY PRN 07/19/25 07/19/25 History mcg/actuation nasal Allergy Symptoms spray,suspension nystatin 100,000 unit/mL oral 5 ml PO QID 07/19/25 07/19/25 History suspension Patient History Medical History Hx of tachycardia-bradycardia syndrome Nocturnal hypoxia Diffusion capacity of lung (dl), decreased Arthritis Cough variant asthma UTI (urinary tract infection) Dyspnea and respiratory abnormalities Chronic constipation Gastroparesis Snoring Hiatal hernia CAD (coronary artery disease) Pacemaker (02/25/21) Bladder cancer Asthma Atrial fibrillation with rapid ventricular response History of pneumonia (01/2023) Anxiety Chronic cough On home oxygen therapy Hx MRSA infection History of COVID-19 (09/2021) Dyslipidemia Surgical History History of permanent cardiac pacemaker placement (02/25/21) Hx of colonoscopy (08/2023) History of cystoscopy History of transurethral resection of bladder tumor (TURBT) (2021) Hx of cardiac catheterization Hx of hand surgery History of fundoplication H/O tubal ligation H/O vaginal hysterectomy History of repair of rotator cuff History of left knee replacement History of right hip replacement History of cholecystectomy History of surgical removal of 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 H/O hernia repair History of heart artery stent Family History Mother Atrial fibrillation Coronary heart disease Father Crohn's disease Other Allergies Asthma Heart disease Hypertension Tuberculosis Social History Smoking Status: Never smoker Tobacco Type: Cigarettes Second Hand Exposure: No; Do You Dip or Chew Tobacco: No; Hx Alcohol Use: No Hx Substance Use: No Preferred Language: Irish 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 Ability: Effective School Administrator Required: No Beliefs That Will Affect Care: None marital status: / Current Living Situation: Alone Current Living Situation Comment: granddaughter and live with pt current occupation: Retired How many Children do You have: 5 Other Information That Helps Us Care for You: No Feels Safe at Home: Yes Safety Concerns: Feels Safe At This Time Assistive Devices: Cane and Oxygen - at Night Review of Systems Review of Systems: All systems reviewed & are unremarkable except as noted in HPI & below Physical Exam Physical Exam: General: In no acute distress, breathing room-air. Skin: Warm and dry to touch. Noobvious lesions. Eyes: Anicteric.Noconjunctival hyperemia or exudates.No periorbital edema. ENT: No oral thrush. No oropharyngeal erythema or exudates. Modified-Mallampati 3 (Hard and soft palate seen). Neck: No palpable masses or adenopathy. Respiratory: Moderate tenderness over rib-cage anteriorly medial and caudal to the position of the pacemaker. Diffusely decreased breath sounds, no wheezing or crackles. No use of accessory muscles and no prolonged exhalation. Cardiac: Distant sounds, regular rhythm, no murmurs, no gallops, no rubs; could not appreciate JV pulse elevation. GI: Soft, nontender. Extremities No clubbing,no cyanosis,no edema. Neuro: No gross motor deficits. Seems appropriate. No facial-droop. Speech is clear. Results & Data Results & Data Vital Signs (Past 12 Hours) Vital Signs Temp Pulse Pulse Resp BP Pulse Ox Pulse Ox 07/21/25 14:45 98 H 07/21/25 12:41 94 07/21/25 11:22 94 07/21/25 11:11 07/21/25 10:30 91 H 18 97 07/21/25 07:52 36.5 C 76 16 119/73 97 07/21/25 07:21 71 07/21/25 05:21 36.6 C 71 18 110/66 94 Pulse Ox O2 Del Method O2 Flow Rate O2 Flow Rate O2 Flow Rate 07/21/25 14:45 07/21/25 12:41 94 0 0 07/21/25 11:22 07/21/25 11:11 2.5 07/21/25 10:30 Nasal Cannula 2 07/21/25 07:52 Nasal Cannula 07/21/25 07:21 07/21/25 05:21 Room Air Laboratory Results 07/19/25 20:25 Aerobic Blood Culture - Preliminary Blood No growth in Aerobic bottle after 24 hours. Anaerobic Blood Culture - Preliminary No growth in Anaerobic bottle after 24 hours. 07/19/25 19:20 Aerobic Blood Culture - Preliminary Blood No growth in Aerobic bottle after 24 hours. Anaerobic Blood Culture - Preliminary No growth in Anaerobic bottle after 24 hours. 07/21/25 06:08 WBC 6.17 RBC 3.70 L Hgb 9.8 L Hct 31.8 L MCV 85.9 MCH 26.5 MCHC 30.8 L RDW Std Deviation 56.3 H RDW Coeff of Alexy 18.4 H Plt Count 395 MPV 9.9 Sodium 139 Potassium 3.9 Chloride 107 Carbon Dioxide 22 Anion Gap 10 BUN 13 Creatinine 1.38 H Est Cr Clr Drug Dosing 36.3 eGFR 38.45 BUN/Creatinine Ratio 9.4 L Glucose 94 Calcium 9.3 Medications Administered Home Medications Medication Instructions Recorded Confirmed Last Taken albuterol sulfate 90 mcg/actuation 1 inh inhalation QID PRN Shortness 07/04/25 07/19/25 Unknown aerosol inhaler Of Breath Or Wheezing amiodarone 200 mg tablet 100 mg PO DAILY 07/04/25 07/19/25 07/19/25 08:00 apixaban 5 mg tablet (Eliquis) 5 mg PO BID 07/04/25 07/19/25 07/19/25 08:00 aspirin 81 mg tablet,delayed 81 mg PO DAILY 07/04/25 07/19/25 07/19/25 08:00 release buspirone 15 mg tablet 15 mg PO TID 07/04/25 07/19/25 07/19/25 08:00 esomeprazole magnesium 40 mg 40 mg PO DAILY 07/04/25 07/19/25 07/19/25 08:00 capsule,delayed release evolocumab 140 mg/mL subcutaneous 140 mg subcut WK 07/04/25 07/19/25 07/13/25 pen injector (Jenifer Waldron) ferrous sulfate 325 mg (65 mg 325 mg PO DAILY 07/04/25 07/19/25 07/18/25 20:00 iron) tablet fluticasone fur. 200 mcg-umeclid 1 inh inhalation DAILY 07/04/25 07/19/25 07/19/25 08:00 62.5 mcg-vilant 25 mcg inhalat.powder (Trelegy Ellipta) gabapentin 100 mg capsule 100 mg PO HS 07/04/25 07/19/25 07/18/25 18:30 levothyroxine 75 mcg tablet 75 mcg PO DAILY 07/04/25 07/19/25 07/18/25 08:00 metoprolol succinate 25 mg 12.5 mg PO DAILY 07/04/25 07/19/25 07/19/25 08:00 tablet,extended release 24 hr montelukast 10 mg tablet 10 mg PO DAILY 07/04/25 07/19/25 07/18/25 20:00 oxybutynin chloride 5 mg tablet 5 mg PO DAILY 07/04/25 07/19/25 07/19/25 08:00 prucalopride 2 mg tablet 2 mg PO DAILY 07/04/25 07/19/25 Unknown rosuvastatin 40 mg tablet 40 mg PO DAILY 07/04/25 07/19/25 07/18/25 18:00 fluticasone propionate 50 1 spray intranasal DAILY PRN 07/19/25 07/19/2525 08:30 mcg/actuation nasal Allergy Symptoms spray,suspension nystatin 100,000 unit/mL oral 5 ml PO QID 07/19/25 07/19/25 Unknown suspension Active Medications Generic Name Dose Route Start Last Admin Trade Name Freq PRN Reason Stop Dose Admin Acetaminophen 1,000 mg 07/20/25 14:00 07/21/25 14:30 Acetaminophen 500 Mg Tab PO 08/19/25 13:59 1,000 mg Q8H JANE Administration Albuterol 3 ml 07/20/25 07:42 07/21/25 10:30 Albut/Ipratrop 3mg/0.5mg Neb 3 Ml Vial NEB 08/19/25 12:59 3 ml Q6R PRN Administration Shortness Of Breath Or Wheezing Protocol Amiodarone HCl 100 mg 07/20/25 09:00 07/21/25 09:52 Amiodarone 200 Mg Tab PO 08/19/25 08:59 100 mg DAILY JANE Administration Apixaban 2.5 mg 07/20/25 09:00 07/21/25 08:45 Apixaban 2.5 Mg Tab PO 08/19/25 08:59 2.5 mg BID JANE Administration Aspirin 81 mg 07/20/25 09:00 07/21/25 08:45 Aspirin 81 Mg Ectab PO 08/19/25 08:59 81 mg DAILY JANE Administration Benzonatate 100 mg 07/21/25 14:00 07/21/25 14:30 Benzonatate 100 Mg Capsule PO 08/20/25 13:59 100 mg TID JANE Administration Buspirone HCl 15 mg 07/20/25 09:00 07/21/25 14:30 Buspirone 15 Mg Tab PO 08/19/25 08:59 15 mg TID JANE Administration Ferrous Sulfate 325 mg 07/20/25 09:00 07/21/25 09:52 Ferrous Sulfate 325 Mg Tab PO 08/19/25 08:59 325 mg DAILY JANE Administration Fluticasone Furoate 1 puffs 07/20/25 09:00 07/21/25 09:49 Fluticasone Furoate 200mcg 14 Puffs/Inhaler INH 08/19/25 08:59 1 puffs DAILY JANE Administration Gabapentin 100 mg 07/20/25 21:00 07/20/25 20:52 Gabapentin 100 Mg Cap PO 08/19/25 20:59 100 mg HS JANE Administration Levothyroxine Sodium 75 mcg 07/20/25 06:30 07/21/25 05:49 Levothyroxine Sodium 75 Mcg Tablet PO 08/19/25 06:29 75 mcg DAILYBB JANE Administration Metoprolol Succinate 12.5 mg 07/20/25 09:00 07/21/25 09:50 Metoprolol Succ 25mg Ext Rel Tab PO 08/19/25 08:59 12.5 mg DAILY JANE Administration Miscellaneous 1 each 07/20/25 08:00 07/21/25 09:49 Prucalopride 2 Mg - Order Awaiting Action N/A 08/19/25 07:59 Not Given QS JANE Montelukast Sodium 10 mg 07/20/25 09:00 07/21/25 09:52 Montelukast Sodium 10 Mg Tablet PO 08/19/25 08:59 10 mg DAILY JANE Administration Nystatin 5 ml 07/20/25 09:00 07/21/25 14:30 Nystatin Susp 500,000 U/5 Ml Udc PO 07/30/25 08:59 5 ml QID JANE Administration Oxybutynin Chloride 5 mg 07/20/25 09:00 07/21/25 09:53 Oxybutynin Chloride 5 Mg Tab PO 08/19/25 08:59 5 mg DAILY JANE Administration Pantoprazole Sodium 40 mg 07/20/25 09:00 07/21/25 09:51 Pantoprazole 40 Mg Tab PO 08/19/25 08:59 40 mg DAILY JANE Administration Prednisone 40 mg 07/21/25 09:30 07/21/25 10:02 Prednisone 20 Mg Tab PO 08/20/25 09:29 40 mg DAILY@0900 JANE Administration Rosuvastatin Calcium 40 mg 07/20/25 09:00 07/21/25 09:51 Rosuvastatin Calcium 20 Mg Tab PO 08/19/25 08:59 40 mg DAILY JANE Administration Umeclidinium/Vilanterol 1 puffs 07/20/25 09:00 07/21/25 09:49 Umeclidinium/Vilanterol 62.5/25mcg 7 Puffs/Inhaler INH 08/19/25 08:59 1 puffs DAILY JANE Administration PG Care Time/CCT Total # of Minutes Spent Total Time Spent with Patient: Total time spent is greater than 50% in coordination of care (as documented) at patient's floor/unit and/or counseling patient: 65 minutes Coding Level of Care Code 26485 IN/OBS CONSULT LVL 4,60M Diagnoses Cough R05.[address] R93.89 Pleuritic chest pain R07.81 Nocturnal hypoxia G47.34 History of asthma Z87.09 Time Spent (min) 65
[2025-07-21] MEDS: AMOXICILLIN/CLAVULANATE 875 MG TAB PO SCH (17:47)
[2025-07-21] MEDS: DOXYCYCLINE HYCLATE 100 MG CAP PO SCH (20:26)
[2025-07-21] MEDS: guaiFENesin 600 MG TABCR PO SCH (20:27)
[2025-07-22 08:09] VITALS: BP 113/69; RESP 18; TEMP 97.7; O2SAT 95
[2025-07-22 08:27] LABS: Hematocrit (blood only) 34.2 % (37.0-47.0); Hemoglobin 10.4 g/dL (12.0-16.0); Mean Corpuscular Hemoglobin 26.1 pg (25.0-34.0); Mean Corpuscular Volume 85.7 fL (80.0-100.0); Platelet Count 458 K/uL (130-400); RDW Standard Deviation 55.5 fL (36.4-46.3); Red Blood Count 3.99 M/uL (4.20-5.40); White Blood Count 8.58 K/ul (4.8-10.8)
[2025-07-22 08:40] LABS: Anion Gap 8.0 (3-11); Blood Urea Nitrogen 13.0 mg/dl (6-23); Calcium 9.6 mg/dl (8.6-10.3); Carbon Dioxide 24.0 mmol/L (21-32); Chloride 106.0 mmol/L (98-107); Creatinine Clr Calc Pharmacy 34.5 ml/min; Glucose 93.0 mg/dl (70-99(Fasting)); Magnesium 2.2 mg/dl (1.7-2.4); Potassium 4.2 mmol/L (3.5-5.1); Sodium 138.0 mmol/L (136-145)
[2025-07-22 11:11] VITALS: PULSE 74
--- NOTE | 2025-07-22 12:32 | Discharge Summary ---
<Statement entered by Volodymyr Reid DO - 07/22/25 12:50> I have seen and examined the patient and have discussed the case with the advance practice provider. I have reviewed the advanced practitioner's documentation, and I agree with, and take responsibility for that plan of care. Patient reports feeling significantly improved. Eager to get home. She understands need for outpatient follow-up with her correctional case records supervisor and PCP. Discharge plan of care as outlined below I spent a total of 15 minutes coordinating, documenting, and providing care for this patient excluding time spent by another provider/QHP. Discharge Summary Date of Service July 22, 2025 Principal Dx & Hospital Course #1 = Principal Diagnosis (1) Pneumonia: (2) Pleuritic chest pain: (3) Coronary artery disease: (4) KIRTI (acute kidney injury): (5) Dysphagia: (6) Paroxysmal atrial fibrillation: Plan 80-year-old female with past medical history significant for hypothyroidism, nocturnal hypoxia, dyspnea on exertion, moderate persistent asthma, tachybradycardia syndrome, paroxysmal atrial fibrillation, sinoatrial dysfunction, paroxysmal atrial tachycardia, status post pacemaker, mild aortic valve stenosis, history of CAD, chronic constipation, history of bladder cancer, CKD stage IIIb, spinal stenosis lumbar region, recurrent depression, generalized anxiety disorder presented to the ED on 07/19/2025 with left-sided chest pain, exertional shortness of breath, and cough. Possible pneumonia Pleuritic chest pain CXR: Increased patchy opacity at the left mid and lower lung and increased bandlike and patchy opacity at the right lung base. CTA chest: negative for PE, large left upper lobe consolidation, new from prior favoring pneumonia No leukocytosis and negative procalcitonin on admission Pulmonology evaluated and recommended sputum culture and fungal studies as well as possible bronch vs CT-guided needle for further evaluation of consolidation Treated with IV antibiotics while inpatient and transitioned to oral antibiotics and prednisone taper at discharge Advised patient to continue to use oxygen during the day as needed for low sats or SOB, nebulized treatments, mucinex, tessalon perles for supportive care Follow up with Dr. Vidal scheduled for 08/10/2025 PT/OT recommending continued therapy at home - patient will continue with [facility] as set up with previous admission CAD s/p stents Recent admission for NSTEMI with cardiac cath on 07/06/25 showing patient LAD and RCA stents HS troponin negative x2 EKG without acute ST changes Continue aspirin, metoprolol succinate, statin, Repatha KIRTI-> resolved Initial creat 1.5 improved each day and was 1.17 on day of discharge Dysphagia Recent EGD showed partially disrupted Sanjeev fundoplication but still intact and also found to have Schatzki's ring which was dilated Continue PPI History of paroxysmal atrial fibrillation Tachybradycardia syndrome status post dual-chamber pacemaker History of paroxysmal SVT Continue amiodarone, metoprolol, Eliquis Anemia Hemoglobin stable Continue ferrous sulfate Hypothyroidism Continue levothyroxine Anxiety Continue buspirone Patient seen in collaboration with Dr. Reid. Please see addendum. Notes For Next Care Provider 80 year old female with significant PMH and recent admission who was admitted at [facility] [place] from 07/19-07/22/2025 for pleuritic chest pain and possible pneumonia. Treated with IV antibiotics and transitioned to oral antibiotics and prednisone taper at discharge. Evaluated by Pulmonology who recommended sputum/fungal studies and possible bronch vs CT guided needle for further evaluation of consolidation on CT scan. Patient has close follow up with her Paper Inspector outpatient. Patient is being discharged to home and resuming services that were established after previous admission. Medication Changes From Visit Augmentin 875mg by mouth twice per day until 07/26/2025 Doxycycline 100mg by mouth twice per day until 07/26/2025 Prednisone taper schedule Tessalon Perles as needed for cough Admission HPI Per Admitting Provider 80-year-old female with past medical history significant for hypothyroidism, nocturnal hypoxia, dyspnea on exertion, moderate persistent asthma, tachybradycardia syndrome, paroxysmal atrial fibrillation, sinoatrial dysfunction, paroxysmal atrial tachycardia, status post pacemaker, mild aortic valve stenosis, history of CAD, chronic constipation, history of bladder cancer, CKD stage IIIb, spinal stenosis lumbar region, recurrent depression, generalized anxiety disorder presents with left-sided chest pain. Patient recently had a complicated hospital stay. She was admitted on 07/04/2025 and was discharged on 07/10/2025. At that time she was admitted after colonoscopy with weakness and found to elevated troponins and KIRTI. She was placed on IV heparin for non-ST elevation TN. S/p cardiac cath on 07/06/2025 which showed patent proximal LAD stent and patent RCA from proximal to distal vessel. Medical management was recommended. During hospitalization was also treated for possible pneumonia with azithromycin. Also received iv Lasix for volume overload and resp failure. Received iv Venofer for iron deficiency anemia.She also had an EGD for dysphagia which showed partially disrupted Sanjeev fundoplication but still intact and found to have Schatzki's ring. Schatzki's ring was dilated and she tolerated well. She is currently on soft diet. Patient states since discharge she is not feeling well. She is having cough bringing up phlegm with some blood in it. Today she noticed severe pain in the left side of the chest. The pain was more when taking deep breath. The pain did not improve so she came to the ER. Also lately she still feeling short of breath. Son in the room. Son states patient walking few steps making her short of breath. She ambulates with a cane. Having chronic headaches. Vision is okay. Has some runny nose. No sore throat. Denies any fevers. No abdominal pain. Patient is constipated. Micturating okay. No rash. Currently hemodynamics are okay. Patient says she uses oxygen in the nighttime. Past medical history. As mentioned above Past surgical history. Colonoscopy. Cardiac pacemaker placement. Cystoscopy. Removal of gallbladder. Total abdominal hysterectomy with removal of tubes. Social history. . No smoking. Alcohol rarely. No drug use. Family history. Daughter had breast cancer. Sister had breast cancer. Sister had colon cancer. Daughter has Crohn's disease. Father had Crohn's disease. Brother had heart disease. Mother had heart disease. Daughter had TB. Discharge Exam General/Psych: WD/WN, sitting up in bed, NAD, conversing easily Head: normocephalic, atraumatic Eyes: normal inspection, PERRL, conjunctivae pink ENT: external ear and nose normal, oropharynx normal Neck: normal visual inspection, trachea midline Respiratory: normal respiratory effort, lungs clear to auscultation, slightly diminished L>R, no accessory muscle use Cardiovascular: regular rate and rhythm, no murmur/rub/gallop Extremities: no cyanosis or clubbing, normal peripheral pulses, no BLE edema Abdomen/GI: normal bowel sounds, soft, nontender Neurologic/MSK: A+Ox3, motor strength 5/5, moves all extremities Skin: no rashes, normal color, warm and dry Updated Medication List Medication Instructions Recorded Confirmed Type albuterol sulfate 90 mcg/actuation 1 inh inhalation QID PRN Shortness 07/04/25 07/19/25 History aerosol inhaler Of Breath Or Wheezing amiodarone 200 mg tablet 100 mg PO DAILY 07/04/25 07/19/25 History apixaban 5 mg tablet (Eliquis) 5 mg PO BID 07/04/25 07/19/25 History aspirin 81 mg tablet,delayed 81 mg PO DAILY 07/04/25 07/19/25 History release buspirone 15 mg tablet 15 mg PO TID 07/04/25 07/19/25 History esomeprazole magnesium 40 mg 40 mg PO DAILY 07/04/25 07/19/25 History capsule,delayed release evolocumab 140 mg/mL subcutaneous 140 mg subcut WK 07/04/25 07/19/25 History pen injector (Jenifer Waldron) ferrous sulfate 325 mg (65 mg 325 mg PO DAILY 07/04/25 07/19/25 History iron) tablet fluticasone fur. 200 mcg-umeclid 1 inh inhalation DAILY 07/04/25 07/19/25 History 62.5 mcg-vilant 25 mcg inhalat.powder (Trelegy Ellipta) gabapentin 100 mg capsule 100 mg PO HS 07/04/25 07/19/25 History levothyroxine 75 mcg tablet 75 mcg PO DAILY 07/04/25 07/19/25 History metoprolol succinate 25 mg 12.5 mg PO DAILY 07/04/25 07/19/25 History tablet,extended release 24 hr montelukast 10 mg tablet 10 mg PO DAILY 07/04/25 07/19/25 History oxybutynin chloride 5 mg tablet 5 mg PO DAILY 07/04/25 07/19/25 History prucalopride 2 mg tablet 2 mg PO DAILY 07/04/25 07/19/25 History rosuvastatin 40 mg tablet 40 mg PO DAILY 07/04/25 07/19/25 History fluticasone propionate 50 1 spray intranasal DAILY PRN 07/19/25 07/19/25 History mcg/actuation nasal Allergy Symptoms spray,suspension nystatin 100,000 unit/mL oral 5 ml PO QID 07/19/25 07/19/25 History suspension amoxicillin 875 mg-potassium 1 tab PO BIDM #9 tabs 07/22/25 Rx clavulanate 125 mg tablet benzonatate 100 mg capsule 100 mg PO TID PRN cough #30 caps 07/22/25 Rx doxycycline hyclate 100 mg capsule 100 mg PO BID #9 caps 07/22/25 Rx prednisone 5 mg tablet 5 mg PO DIRECTED #21 tabs 07/22/25 Rx Hospital Stay Data Consultations 07/19/25 20:44 ED Decision to Admit Stat 07/21/25 09:27 Consult Pulmonology Routine Diagnostic Imagining Performed Chest CTA 07/19/25 17:45 CT pulmonary angiogram with IV contrast History: Chest pain COMPARISON: 06/26/2023 TECHNIQUE: CT angiography of the chest was performed without IV contrast followed by IV contrast, including 3D post processing CTA image reconstruction. Dose reduction techniques were achieved by using automatic exposure control and/or adjustment of mA and/or kV according to patient size and/or use of iterative reconstruction technique. FINDINGS: Diagnostic quality: Adequate There is no evidence for pulmonary embolism. The heart is not enlarged. There is no pericardial effusion. Mildly prominent left mediastinal lymph nodes, are favored reactive. Coronary calcifications and/or stents. Left chest wall AICD in place. Streaky bibasilar atelectasis. The central tracheobronchial tree is clear. A new prominent area of consolidation is seen in the left upper lobe measuring 8.5 x 6.2 cm in the axial plane. There is no pleural effusion. Limited visualized upper abdomen. Small hiatal hernia. No destructive osseous changes are seen. IMPRESSION: No evidence for pulmonary embolism. Large left upper lobe consolidation, new from prior favoring pneumonia, however follow-up to resolution is recommended. Electronically signed by Victor Manuel Quinonez 07-19-2025 7:05 PM Abdomen/Pelvis CT 07/19/25 17:52 EXAMINATION: CT of the abdomen and pelvis performed after the administration of IV contrast TECHNIQUE: Helical CT images from the lung bases through the symphysis pubis were obtained with contrast. Coronal and sagittal reformatted images were generated at a workstation for further assessment. Dose reduction techniques were achieved by using automatic exposure control and/or adjustment of mA and/or kV according to patient size and/or use of iterative reconstruction technique. COMPARISON: None HISTORY: Abdominal pain FINDINGS: Liver: No suspicious liver lesions. Portal veins appear patent. Gallbladder: Cholecystectomy Spleen: Normal size. Pancreas: No suspicious pancreatic lesions. The pancreatic duct is not dilated. Adrenal glands: No adrenal nodules. Kidneys: No hydronephrosis or obstructing renal stones. Prominent simple appearing superior left renal cyst. Bladder / Pelvic organs: Unremarkable. Bowel: No bowel obstruction. No abnormal bowel wall thickening. The appendix is not definitely seen. Left colonic diverticulosis without diverticulitis. Lymph nodes: No retroperitoneal, mesenteric, or pelvic lymphadenopathy. Peritoneum / Retroperitoneum: No free fluid or air within the abdomen. Vessels: No infrarenal aortic aneurysm. Heavy aortoiliac calcification. Bones and soft tissues: No suspicious lesion in the bones. Right hip arthroplasty. IMPRESSION: No acute intra-abdominal process Electronically signed by Victor Manuel Quinonez 07-19-2025 7:07 PM Pending Results Patient Have Any Pending Studies at Discharge: Yes Discharge Instructions Given to Patient (Per Discharging Provider) You presented to the hospital with left sided chest pain, shortness of breath, and cough. You had a CT scan of your chest which showed consolidation of your left upper lung, which was thought to be pneumonia. You were treated with IV antibiotics and will need to continue a short course of oral antibiotics and a steroid taper at home. You were evaluated by a Paper Inspector who felt that the consolidation may not be pneumonia and could be concerning for possible malignancy. We collected sputum and urine to check for fungal infections per recommendation of Dr. Vidal. You should follow up with him and he may need to do a needle aspiration or bronchoscopy to evaluate the consolidation closer. You may continue to take tylenol and tessalon perles as needed for your cough and chest pain. You can continue to do nebulized respiratory treatments as well in addition to your regularly scheduled inhalers. You can utilize your oxygen during the day as needed for low oxygen levels or shortness of breath and should continue to wear it at night as ordered. MEDICATION CHANGES: Start Augmentin 875mg by mouth twice per day until 07/26/2025 Start Doxycycline 100mg by mouth twice per day until 07/26/2025 Start Prednisone taper schedule as detailed in the prescription Start Tessalon Perles as needed for cough SUMMARY OF TEST RESULTS: CT chest as above CT abdomen negative PENDING TEST RESULTS: Sputum and urine tests RECOMMENDATIONS FOR FOLLOW-UP: Please follow up with your PCP as scheduled on 07/28/2025 at 11:00am Please follow up with Dr. Vidal as scheduled OTHER INSTRUCTIONS: Seek medical attention if you have: * temperature above 101 * chest pain or trouble breathing * abdominal pain, nausea, vomiting * diarrhea, dark stools or bloody stools * any unanswered questions or concerns Call 911 if symptoms are severe. It has been a pleasure taking care of you. Please take care of yourself. If you have any questions regarding your recent hospitalization please contact [facility] and request Yifan Andrade @ [phone]. Home Health Attestation I certify that this patient is under my care and that I, or a physicians certified ophthalmic surgical assistant working with me, had a face to-face encounter that meets the home health [id number] encounter requirements with this patient. The encounter with the patient was in whole, or in part, for the following medical condition, which is the primary reason for home health care (list medical condition): I certify that, based on my findings, the following services are medically necessary home health services: My clinical findings support the need for the above services because: Further, I certify that my clinical findings support that this patient is homebound (i.e. absences from home require considerable and taxing effort and are for medical reasons or mandaen services or infrequently or of short duration when for other reasons) because: Certification for Home Health Services: Based on the above findings, I certify that this patient is confined to the home and needs intermittent halfway care, physical therapy and/or speech therapy or continues to need occupational therapy. The patient is under my care, and I have initiated the establishment of the plan of care. This patient will be followed by a physician who will periodically review the plan of care. Total Time Total Time Spent Total Time Spent (In Minutes): I spent a total of 35 minutes coordinating, documenting and providing care for this patient excluding time spent in the performance of separately billed services or time spent by another provider/QHP.
--- NOTE | 2025-07-23 13:36 | Electrocardiogram Report ---
Test Reason : Blood Pressure : */* mmHG Vent. Rate : 84 BPM Atrial Rate : 84 BPM P-R Int : 152 ms QRS Dur : 98 ms QT Int : 382 ms P-R-T Axes : 96 -64 89 degrees QTcB Int : 451 ms Normal sinus rhythm Left axis deviation Pulmonary disease pattern Incomplete right bundle branch block Minimal voltage criteria for LVH, may be normal variant ( Siddhartha product ) Septal infarct , age undetermined Abnormal ECG When compared with ECG of 07-Jul-2025 05:50, Incomplete right bundle branch block is now Present Septal infarct is now Present Confirmed by Juarez Summers ([id number]) on 07/23/2025 1:36:19 PM Referred By: REFERRED SELF Confirmed By: Juarez Summers
--- NOTE | 2025-07-23 16:12 | Electrocardiogram Report ---
Test Reason : Blood Pressure : */* mmHG Vent. Rate : 87 BPM Atrial Rate : 87 BPM P-R Int : 166 ms QRS Dur : 102 ms QT Int : 384 ms P-R-T Axes : 83 -56 75 degrees QTcB Int : 462 ms Normal sinus rhythm Left axis deviation Pulmonary disease pattern Abnormal ECG When compared with ECG of 19-Jul-2025 17:08, (unconfirmed) Incomplete right bundle branch block is no longer Present Criteria for Septal infarct are no longer Present Confirmed by Juarez Summers ([id number]) on 07/23/2025 4:11:28 PM Referred By: REFERRED SELF Confirmed By: Juarez Summers
--- NOTE | 2025-07-24 08:03 | Electrocardiogram Report ---
Test Reason : Blood Pressure : */* mmHG Vent. Rate : 66 BPM Atrial Rate : 66 BPM P-R Int : 170 ms QRS Dur : 122 ms QT Int : 426 ms P-R-T Axes : 38 -48 74 degrees QTcB Int : 446 ms Normal sinus rhythm Left axis deviation Non-specific intra-ventricular conduction delay Minimal voltage criteria for LVH, may be normal variant ( Siddhartha product ) Nonspecific ST and T wave abnormality Abnormal ECG When compared with ECG of 20-Jul-2025 01:05, (unconfirmed) No significant change was found Confirmed by Juarez Summers ([id number]) on 07/24/2025 8:03:14 AM Referred By: REFERRED SELF Confirmed By: Juarez Summers
== END 2025-07-22 12:12 | disposition home health service (06) | DRG 193 ==
LOC: ED 17:02 → 2N 22:02 → SUATTDRO 22:02 → 2N 23:03